=== PATIENT | male | born 1965 | race African-American/Black ===

== ENCOUNTER 2018-05-31 11:39 | Inpatient (IN) | payer MEDICAID ==
[~2018-05-31] VITALS: Ht 167.6 cm; Wt 83.9 kg
[~2018-05-31 11:39] MED LIST: ALBUTEROL2.5 MG/3 M INH; BISACODYL5 MG ORAL; COLISTIMETHATE150 MG TRANSTR092; COUMADIN10 MG GT; Cefepime HCl 2 GM in NS 110 ML IV SCH; DOCUSATE SODIU100 MG GT; DULCOLAX10 MG RC; GLUCAGON W/DILUE1 MG IM; HIBICLENS118 ML ORAL; HYDRALAZINE HCL10 MG GT; IBUPROFEN400 MG GT; INSULIN REGULAR SUBQ; KEPPRA500 MG GT; LACRI-LUBE1 APPLIC BOTH EYES; METOPROLOL TART50 MG ORAL; MILK OF MA400 MG/51 GT; MULTI-DELYN237 ML GT; MULTIVITAMINS1 EAC2 ORAL; NEXIUM40 MG GT; ONDANSETRON4 MG/2 M2 IM; PROSTAT SUGAR FREE GT; TYLENOL325 MG GT; ULTRAM50 MG GT; UTI-STAT L3875 MG/31 PO; VITAMIN C500 MG/11 GT; Vancomycin 1 GM in NS 275 ML IV ONE; ZINC SULFATE220 M1 GT; [UNRECOGNIZED DRUG - OTHER] MC
--- NOTE | 2018-05-31 11:39 | NUR ---
ED Nurse Note: Pt from [facility] brought in by ambulance due to SOB and low oxygen saturation. Per EMS, it was reported that the o2 saturation was going down d/t mucus from the trach and was relieved by suctioning the pt. Pt came in non verbal and unable to follow commands. Opens eyes spontaneously. Noted some white mucus from the trach opening. Sats 100% in room air. Also noted mild redness and drainage around G-tube site. Dr Parks aware. Noted wound in sacrum area.
[2018-05-31 11:45] VITALS: BP 101/74
[2018-05-31] MEDS ORDERED: Albuterol/Ipratropium 3ml neb HHN ONE (12:00)
--- NOTE | 2018-05-31 12:13 | NUR ---
ED Nurse Note: Blood, urine and CRE and Mrsa swab sent.
[2018-05-31 12:19] LABS: BASOPHILS % (AUTO) 1.2 % (0.0-2.0); EOSINOPHILS % (AUTO) 3.1 % (0.0-3.0); HEMATOCRIT 40.1 % (42.0-52.0); HEMOGLOBIN 13.5 G/DL (14.2-18.0); LYMPHOCYTES % (AUTO) 20.1 % (20.0-45.0); MEAN CORPUSCULAR VOLUME 93 FL (80-99); MONOCYTES % (AUTO) 7.3 % (1.0-10.0); NEUTROPHILS % (AUTO) 68.4 % (45.0-75.0); PLATELET COUNT 213 K/UL (150-450); RED CELL DISTRIBUTION WIDTH 12.7 % (11.6-14.8); WHITE BLOOD COUNT 7.8 K/UL (4.8-10.8)
[2018-05-31 12:27] LABS: APPEARANCE,URINE SLIGHTLY CLOUDY; BILIRUBIN, URINE NEGATIVE (NEGATIVE); COLOR,URINE PALE YELLOW; GLUCOSE, URINE (UA) NEGATIVE (NEGATIVE); KETONES,URINE NEGATIVE (NEGATIVE); LEUKOCYTE ESTERASE ,URINE 3+ (NEGATIVE); NITRITE,URINE POSITIVE (NEGATIVE); PH,URINE 8 (4.5-8.0); PROTEIN,URINE 2+ (NEGATIVE); UROBILINOGEN,URINE NORMAL MG/DL (0.0-1.0)
[2018-05-31 12:36] LABS: ANION GAP 8 mmol/L (5-15); BLOOD UREA NITROGEN 12 mg/dL (7-18); CALCIUM 9.4 MG/DL (8.5-10.1); CARBON DIOXIDE 29 MMOL/L (21-32); CHLORIDE 106 MMOL/L (98-107); CREATININE 0.9 MG/DL (0.55-1.30); POTASSIUM 3.5 MMOL/L (3.5-5.1); SODIUM 143 MMOL/L (136-145)
[2018-05-31 12:51] LABS: ALANINE AMINOTRANSFERASE 37 U/L (12-78); ALBUMIN 3.7 G/DL (3.4-5.0); ALBUMIN/GLOBULIN RATIO 0.9 (1.0-2.7); ALKALINE PHOSPHATASE 157 U/L (46-116); ASPARTATE AMINO TRANSFERASE 14 U/L (15-37); BILIRUBIN,TOTAL 0.3 MG/DL (0.2-1.0); CKMB 0.9 NG/ML (0.0-3.6); CREATINE KINASE 194 U/L (26-308)
[2018-05-31] MEDS ORDERED: Cefepime 2gm ONE (13:47)
[2018-05-31 14:00] VITALS: BP 110/80
[2018-05-31] MEDS ORDERED: COUMADIN5 MG ORAL (14:48)
[2018-05-31] MEDS ORDERED: TRILEPTAL600 MG PO (14:48)
[2018-05-31] MEDS ORDERED: KLONOPIN1 MG ORAL (14:48)
[2018-05-31] MEDS ORDERED: ATORVASTATIN CA20 MG ORAL (14:48)
[2018-05-31] MEDS ORDERED: ASCORBIC ACID500 MG ORAL (14:48)
[2018-05-31] MEDS ORDERED: FAMOTIDINE20 MG ORAL (14:48)
--- NOTE | 2018-05-31 14:52 | NUR ---
ED Nurse Note: Repeat lactic acid sent.
[2018-05-31] MEDS ORDERED: Vancomycin 1gm vial IVPB ONE (14:54)
--- NOTE | 2018-05-31 15:17 | NUR ---
Elena ayoub in EDM - 05/31/18 at 1520 by DEN ED Nurse Note: Report given to Sofia DUNBAR of [facility].
--- NOTE | 2018-05-31 15:17 | NUR ---
ED Nurse Note: Report given to Sofia DUNBAR of [facility]. Room in not ready at this time. ER Charge nruse notified.
[2018-05-31 15:39] VITALS: BP 106/78
[2018-05-31 16:00] VITALS: BP 135/76
--- NOTE | 2018-05-31 16:00 | NUR ---
NURSE NOTES: Patient admitted to [facility] room 241-2 under the care of Dr. Fair with admitting diagnosis of respiratory failure. Patient alert, nonverbal, tracks eyes but unable to follow commands. Sinus rhythm on cardiac cath lab manager. Trach to vent with settings of AC 14, TV 600, Fio2 40%, PEEP 5. No s/s of respiratory distress noted but patient has moderate, thick secretions. Tracheal suctioning provided. GT in place and flushed. Noted with sacral pressure ulcer. Right hand 20g saline lock patent and asymptomatic. Bed locked in lowest position with padded side rails up x 3. All needs attended to. Will continue to monitor. Dr. Fair contacted for admission orders.
--- NOTE | 2018-05-31 16:02 | Diagnostic Imaging Report ---
Indication: Shortness of breath Technique: One view of the chest Comparison: 01/31/2015 Findings: There is patchy atelectasis at the left lung base. The lungs and pleural spaces are otherwise clear. Normal heart size Impression: Left basilar atelectasis No acute process otherwise
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
[2018-05-31] MEDS: NovoLOG Insulin Flexpen SUBQ SCH (18:00)
[2018-05-31] MEDS: Docusate 100mg/10ml Liq GT SCH (18:25)
--- NOTE | 2018-05-31 19:15 | NUR ---
HAND-OFF: Report given to Meenu Fairchild RN.
[2018-05-31 20:00] VITALS: BP 111/52
--- NOTE | 2018-05-31 20:00 | NUR ---
NURSE NOTES: Patient Received from Xena DUNBAR. Patient alert, nonverbal, tracks eyes but unable to follow commands. Sinus rhythm on front desk monitor. Trach to vent with settings of AC 14, TV 600, Fio2 40%, PEEP 5. No s/s of respiratory distress noted but patient has moderate, thick secretions. Tracheal suctioning provided. GT in place and flushed. Noted with sacral pressure ulcer. Right hand 20g saline lock patent and asymptomatic. Bed locked in lowest position with padded side rails up x 3. All needs attended to. Will continue to monitor. Dr. Fair contacted for admission orders.
[2018-05-31] MEDS: Albuterol ud Inhalation HHN SCH (20:01)
[2018-05-31] MEDS: levETIRAcetam 500mg/5ml Liquid GT SCH (21:08)
[2018-05-31] MEDS: Lacosamide 50mg tablet ORAL SCH (21:08)
[2018-05-31] MEDS: Heparin 5000 units/ml inj SUBQ SCH (21:09)
[2018-05-31] MEDS: Cefepime HCl 1 GM in D5W 55 ML IVPB SCH (21:10)
[2018-06-01] VITALS: BP 140/68
--- NOTE | 2018-06-01 | NUR ---
NURSE NOTES: Patient repositioned, suctioned and provided oral care. NAD and vitals remains stable, glucose notoed to be 97, no coverage needed. New R wrist 20G inserted.
[2018-06-01] MEDS: Albuterol ud Inhalation HHN SCH ×4 (01:35→19:53)
--- NOTE | 2018-06-01 02:30 | History and Physical Report ---
DATE OF ADMISSION: 05/31/2018 This is the second admission to [facility] of this 53-year-old patient because of acute respiratory failure. HISTORY OF PRESENT ILLNESS: The patient is a resident of an extended care facility subacute unit. He has been in stable condition for more than one year. He is known to have severe chronic medical syndrome, but has been stable on the current medication. On the day of admission, the patient developed acute respiratory distress. His pO2 below 70 and respiratory rate above 30. He was transferred by paramedics to [facility] ER where he was found to have pulmonary sepsis . He received intensive respiratory therapy. He was given cefepime, vancomycin, and Flagyl as well as 1000 mL of normal saline and his condition stabilized. 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 Respirator dependent and fed by gastrostomy tube. ALLERGIES: No known drug allergies. MEDICATIONS: The patient is on levetiracetam 1500 mg q.12 h. and oxcarbazepine 600 mg b.i.d. He is on mg daily, metronidazole 500 mg IV piggyback q.8 h. He is on atorvastatin 10 mg daily, lacosamide 200 mg q.12 h., and clonazepam 1 mg q.12 h. He is on respiratory therapy with albuterol sulfate and ipratropium bromide inhalation therapy every four hours. FAMILY HISTORY: His mother is alive and in good health, and very involved in the patient's care. He has no brothers, no sisters, and has no children. SOCIAL HISTORY: He is . He was born in [place]. 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 HABITS: The patient did not smoke, drink, or use illicit drugs. REVIEW OF SYSTEMS: The patient is unable to give any information regarding his state of health. PHYSICAL EXAMINATION: VITAL SIGNS: Blood pressure is 125/70, pulse is 68, respirations 16, and temperature 97.7. HEENT: Eyes were normal. Pupils were round, equal, and reactive to light. Sclerae were white. Conjunctivae were pink. Extraocular movements were probably normal. Temporal arteries were palpable bilaterally. There was no bilateral temporal wasting. Visual nguyen to confrontation and neglect sign could not be assessed. ENT, mucous membranes were not dehydrated. Auditory canals were clear and tympanic membranes could not be visualized. Nasal cavity was not congested. Nasal septum was intact. Soft palate was free of ulcerations. Pharynx was clear from exudate or tonsillar hypertrophy. Uvula raheel to phonation. Tongue was moist, midline, and normally papillated. NECK: Supple. There was no goiter. No mass. No lymphadenopathy. There was no JVD. No bruits. Carotid upstroke was 2+. LUNGS: Clear. There is some rhonchi in the right lower lobe base posteriorly. HEART: PMI was fifth left intercostal space in midclavicular line. There was normal S1 and normal S2. There was no murmur. No arrhythmia. No S3. No S4. No pericardial rub. ABDOMEN: Soft and nontender without organomegaly. There were no masses palpable. Normal bowel sounds without bruits. There was no guarding. No rebound tenderness. No ascites. No hernia. No CVA tenderness. Liver span was 8 cm, mostly nontender. EXTREMITIES: No cyanosis, no clubbing, and no edema. Extremities were warm. NEUROLOGICAL: Reflexes in biceps, triceps, and brachioradialis were present. Patellar retinaculum were present. Plantar were declined. Cranial nerves II through XII were symmetric and equal. Cerebellar function, there was no tremor. No nystagmus. No extrapyramidal rigidity. Sensory exam to pinprick, cotton touch, position, and motor strength could not be assessed because of the patient's clinical status. LABORATORY AND DIAGNOSTIC DATA: Hemoglobin is 13.5, hematocrit is 40.1 with MCV of 93, WBC of 7.8, and platelets of 213,000. His BUN and creatinine is 12 and 0.9 respectively. His sodium is 143, potassium 3.5, chloride 105, CO2 is 29, his calcium was 9.4. His lactic acid was 2.3 at 11:40 a.m. today and 1.8 at 15:00 today. His albumin is 3.7 and total protein is 7.6. Troponin was not detected. His chest x-ray showed left basilar atelectasis. The rest of the study was normal. IMPRESSION AND PLAN: The patient with acute respiratory failure. He is on cefepime, vancomycin, and Flagyl. Pulmonary business info consultant and Infectious Disease business info consultant were called to assist in the management of this case. Repeat laboratory tests will be done in the a.m. Libby Fair M.D. DR: ANTONINO JOB#: [id number] CC:
[2018-06-01 04:00] VITALS: BP 102/62
--- NOTE | 2018-06-01 04:00 | NUR ---
NURSE NOTES: Patient repositioned and provided oral care, family at bedside. NAD at this time, patients Vitals remain stable. Will continue to monitor.
[2018-06-01] MEDS: NovoLOG Insulin Flexpen SUBQ SCH ×4 (05:58→18:13)
--- NOTE | 2018-06-01 06:00 | NUR ---
NURSE NOTES: Patient repositioned and provided oral care, family at bedside, collected urinalysis, and sent to lab.
[2018-06-01 06:27] LABS: BASOPHILS % (AUTO) 0.6 % (0.0-2.0); EOSINOPHILS % (AUTO) 3.2 % (0.0-3.0); HEMOGLOBIN 12.3 G/DL (14.2-18.0); LYMPHOCYTES % (AUTO) 13.8 % (20.0-45.0); MEAN CORPUSCULAR VOLUME 94 FL (80-99); MONOCYTES % (AUTO) 7.9 % (1.0-10.0); NEUTROPHILS % (AUTO) 74.5 % (45.0-75.0); PLATELET COUNT 194 K/UL (150-450); RED BLOOD COUNT 3.85 M/UL (4.70-6.10); RED CELL DISTRIBUTION WIDTH 12.6 % (11.6-14.8)
--- NOTE | 2018-06-01 06:45 | NUR ---
RESPIRATORY NOTE: Patient received on mechanical ventilator and is a trach patient with trach Portex 7. Patient is a full code, AMBU bag bedside, alarms are set and audible. Will continue to monitor patient and maintain a patent airway. Current vent settings AC 600, 14, 40%, +5.
[2018-06-01 06:59] LABS: ALANINE AMINOTRANSFERASE 35 U/L (12-78); ALBUMIN 3.4 G/DL (3.4-5.0); ALKALINE PHOSPHATASE 129 U/L (46-116); ANION GAP 10 mmol/L (5-15); ASPARTATE AMINO TRANSFERASE 16 U/L (15-37); BILIRUBIN,DIRECT 0.1 MG/DL (0.0-0.3); BILIRUBIN,TOTAL 0.7 MG/DL (0.2-1.0); BLOOD UREA NITROGEN 15 mg/dL (7-18); CALCIUM 9.2 MG/DL (8.5-10.1); CARBON DIOXIDE 24 MMOL/L (21-32); CHLORIDE 109 MMOL/L (98-107); CHOLESTEROL 93 MG/DL (< 200); CREATININE 0.9 MG/DL (0.55-1.30); HDL CHOLESTEROL 28 MG/DL (40-60); POTASSIUM 3.8 MMOL/L (3.5-5.1); SODIUM 143 MMOL/L (136-145); TRIGLYCERIDES 165 MG/DL (30-150)
--- NOTE | 2018-06-01 07:15 | NUR ---
NURSE NOTES: Received patient from MANJINDER Catherine. Patient in bed and able to open his eyes. Trach to vent dependent. color television console monitor in placed. Gtube in placed with Glucerna 1.2 at 55cc/hour x 20 hours. IV sites are asymptomatic. Bed in lowest position locked with side rails up. Will continue to follow plan of care.
[2018-06-01 07:16] LABS: APPEARANCE,URINE CLEAR; BILIRUBIN, URINE NEGATIVE (NEGATIVE); GLUCOSE, URINE (UA) NEGATIVE (NEGATIVE); KETONES,URINE NEGATIVE (NEGATIVE); LEUKOCYTE ESTERASE ,URINE 2+ (NEGATIVE); NITRITE,URINE POSITIVE (NEGATIVE); PH,URINE 8 (4.5-8.0); PROTEIN,URINE 1+ (NEGATIVE); UROBILINOGEN,URINE NORMAL MG/DL (0.0-1.0)
[2018-06-01 07:28] LABS: COLOR,URINE YELLOW
[2018-06-01 08:00] VITALS: BP 102/70
[2018-06-01] MEDS: Cefepime HCl 1 GM in D5W 55 ML IVPB SCH ×2 (08:20→21:06)
[2018-06-01] MEDS: Lacosamide 50mg tablet ORAL SCH ×2 (08:21→21:04)
[2018-06-01] MEDS: Ascorbic Acid 500mg tab GT SCH (08:21)
[2018-06-01] MEDS: Docusate 100mg/10ml Liq GT SCH ×2 (08:21→17:52)
[2018-06-01] MEDS: Multivitamins W/Minerals 15 ML UDC GT SCH (08:21)
[2018-06-01] MEDS: levETIRAcetam 500mg/5ml Liquid GT SCH ×2 (08:21→21:04)
[2018-06-01] MEDS: Heparin 5000 units/ml inj SUBQ SCH ×2 (08:23→21:08)
--- NOTE | 2018-06-01 08:41 | NUR ---
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 98.4, Resp. 20, O2Sat 100 on Mechanical Ventilator FIO2 40 upon arrival RBC 4.30, Hgb13.5, Hct 40.1, MCH 31.5, Eos% 3.1 CXR Impression: Left basilar atelectasis IS:Albuterol HHN Vancomycin HCI IV Cefepime HCI IV Metronidazole IV NS IV x1L SDU Status Dc plan return to [facility]
--- NOTE | 2018-06-01 09:41 | NUR ---
RD ASSESSMENT & RECOMMENDATIONS SEE CARE ACTIVITY FOR COMPLETE ASSESSMENT DAILY ESTIMATED NEEDS: Needs based on Critical Care, wounds/ 73kg abw 22-30 kcals/kg 5793-8238 total kcals 1.25-2 g protein/kg 91-146 g total protein 25-30 mL/kg 5139-3952 total fluid mLs NUTRITION DIAGNOSIS: * Swallowing difficulty R/T dysphagia, respiratory status as evidenced by pt is trach/vent dep, PEG dep. * Increased kcal/prot needs R/T wound healing as evidenced by pt admitted w/ sacral open wound, pending evaluation. CURRENT TF:Glucerna 1.2 @ 55ml/hr x 20 hrs ENTERAL NUTRITION RECOMMENDATIONS: Glucerna 1.2 @ 60ml/hr x 24 hrs + Prosource 1pkt QD to provide 1440ml, 1728kcal, 86g + 11g prot, 1159ml free water * Rec to increase rate and run time to 60ml/hr x 24 hrs * Add Prosource 1pkt QD to meet protein needs * HOB over 30 degrees/ water flush per MD. ADDITIONAL RECOMMENDATIONS: * Per SNF, HT=5'8", JQ=421 lbs (from May 2018) * Re-calibrate bedscale, obtain weekly wts * Wound healing: Add Richar 1pkt BID * Monitor lytes, replete as needed
[2018-06-01 12:00] VITALS: BP 100/73
--- NOTE | 2018-06-01 13:16 | NUR ---
NURSE NOTES:WOUND CARE NOTES:Pt presented on admission resolving pressure injury .Keloid scarring with hyperpigmentation noted to sacrum with few scattered pinhead partial thickness openings throughout base of sacrum . Per pt's family pt had pressure injury for about 4 years and stated wound is reopens on and off. Bilat foot drop noted .Botrh heels are firm and easily blanchable. Tx.Plan: Apply Moisture Barrier to sacrum. Cover with Optifoam drsg every 3 days and prn. Apply Cavilon to both heels .Off-Load heels with Pillow. Reposition at least every 2hours or as tolerated. APM/Lauren mattress.
--- NOTE | 2018-06-01 13:25 | Pulmonolgy Critical Care Note ---
Critical Care - Asmt/Plan Problems: (1) Acute on chronic renal insufficiency (2) Chronic respiratory failure (3) Tracheostomy present (4) Seizure after head injury (5) Feeding by G-tube Respiratory: monitor respiratory rate, adjust FIO2, CXR Cardiac: continue to monitor HR/BP Renal: F/U I&O Infectious Disease: check cultures, continue antibiotics Gastrointestinal: continue feedings/current rate Endocrine: monitor blood sugar, check HgA1C Hematologic: transfuse if hgb<8.5 Neurologic: PRN Morphine, keep patient comfortable Affect: PRN ativan Prophylaxis: Heparin Notes Reviewed: desktop operator, cardio, renal Discussed with: nurses, consultants, caser upfunctional manager - Objective Last 24 Hour Vital Signs Date Time Temp Pulse Resp B/P (MAP) Pulse Ox O2 Delivery O2 Flow Rate FiO2 06/01/18 13:01 77 16 99 Mechanical Ventilator 40 06/01/18 13:00 77 16 40 06/01/18 12:00 40 06/01/18 12:00 Mechanical Ventilator 06/01/18 12:00 98.8 72 14 100/73 (82) 100 06/01/18 11:19 81 14 40 06/01/18 09:13 68 14 40 06/01/18 08:00 Mechanical Ventilator 06/01/18 08:00 98.7 70 15 102/70 (81) 100 06/01/18 08:00 40 06/01/18 07:42 72 06/01/18 07:25 69 16 99 Mechanical Ventilator 40 06/01/18 07:14 71 15 99 Mechanical Ventilator 40 06/01/18 07:05 71 15 40 06/01/18 05:04 78 15 40 06/01/18 04:00 82 06/01/18 04:00 98.4 88 24 102/62 (75) 100 06/01/18 04:00 40 06/01/18 04:00 Mechanical Ventilator 06/01/18 02:59 68 14 40 06/01/18 01:44 76 14 99 Mechanical Ventilator 40 06/01/18 01:35 71 14 40 06/01/18 01:35 70 14 99 Mechanical Ventilator 40 06/01/18 00:00 97.6 82 22 140/68 (92) 97 06/01/18 00:00 Mechanical Ventilator 06/01/18 00:00 87 05/31/18 23:19 73 15 40 05/31/18 21:16 75 15 40 05/31/18 20:10 79 16 100 Mechanical Ventilator 40 05/31/18 20:01 74 14 99 Mechanical Ventilator 40 05/31/18 20:00 40 05/31/18 20:00 98.6 90 32 111/52 (71) 98 05/31/18 20:00 75 05/31/18 20:00 Mechanical Ventilator 05/31/18 19:05 67 17 40 05/31/18 17:37 87 14 40 05/31/18 16:27 67 05/31/18 16:04 Mechanical Ventilator 05/31/18 16:00 97.7 68 16 135/76 (95) 100 05/31/18 15:41 97.7 80 15 106/78 100 Mechanical Ventilator 40 05/31/18 15:39 97.7 80 15 106/78 100 Mechanical Ventilator 40 05/31/18 15:36 89 14 40 05/31/18 14:14 86 14 40 05/31/18 14:00 84 17 110/80 100 Mechanical Ventilator 40 Status: awake Condition: critical HEENT: atraumatic Lungs: clear, chest wall tender Heart: HR/BP unstable Extremities: edema Decubiti: location Micro: Microbiology Date/Time Source Procedure Growth Status 05/31/18 12:10 Urine,Clean Catch Urine Culture - Preliminary NO GROWTH Resulted Accucheck: 99 Critical Care - Subjective ROS Limited/Unobtainable: Yes FI02: 40 Vent Support Breath Rate: 14 Vent Support Mode: AC Vent Tidal Volume: 600 Sputum Amount: Small PEEP: 5.0 PIP: 29 Tube Feeding Amount: 55 I&O: Intake and Output 05/31/18 06/01/18 19:00 07:00 Intake Total 1275 ml 750 ml Output Total 200 ml 600 ml Balance 1075 ml 150 ml IV Total 1210 ml 255 ml Tube Feeding 15 ml 395 ml Other 50 ml 100 ml Output Urine Total 200 ml 600 ml # Voids 1 CXR: GLADYS Labs: Laboratory Tests Test 05/31/18 13:30 05/31/18 15:00 06/01/18 03:40 06/01/18 06:00 Arterial Blood pH 7.509 (7.350-7.450) Arterial Blood Partial Pressure CO2 30.8 mmHg (35.0-45.0) L Arterial Blood Partial Pressure O2 149.4 mmHg (75.0-100.0) H Arterial Blood HCO3 24.0 mmol/L (22.0-26.0) Arterial Blood Oxygen Saturation 99.0 % (95-100) Arterial Blood Base Excess 1.7 (-2-2) Obie Test Positive Lactic Acid Level 1.80 mmol/L (0.66-2.22) White Blood Count 9.0 K/UL (4.8-10.8) Red Blood Count 3.85 M/UL (4.70-6.10) L Hemoglobin 12.3 G/DL (14.2-18.0) L Hematocrit 36.0 % (42.0-52.0) L Mean Corpuscular Volume 94 FL (80-99) Mean Corpuscular Hemoglobin 32.0 PG (27.0-31.0) H Mean Corpuscular Hemoglobin Concent 34.2 G/DL (32.0-36.0) Red Cell Distribution Width 12.6 % (11.6-14.8) Platelet Count 194 K/UL (150-450) Mean Platelet Volume 9.8 FL (6.5-10.1) Neutrophils (%) (Auto) 74.5 % (45.0-75.0) Lymphocytes (%) (Auto) 13.8 % (20.0-45.0) L Monocytes (%) (Auto) 7.9 % (1.0-10.0) Eosinophils (%) (Auto) 3.2 % (0.0-3.0) H Basophils (%) (Auto) 0.6 % (0.0-2.0) Erythrocyte Sedimentation Rate 35 MM/HR (0-20) H Sodium Level 143 MMOL/L (136-145) Potassium Level 3.8 MMOL/L (3.5-5.1) Chloride Level 109 MMOL/L (98-107) H Carbon Dioxide Level 24 MMOL/L (21-32) Anion Gap 10 mmol/L (5-15) Blood Urea Nitrogen 15 mg/dL (7-18) Creatinine 0.9 MG/DL (0.55-1.30) Estimat Glomerular Filtration Rate > 60 mL/min (>60) Glucose Level 96 MG/DL (74-106) Hemoglobin A1c 5.2 % (4.3-6.0) Calcium Level 9.2 MG/DL (8.5-10.1) Total Bilirubin 0.7 MG/DL (0.2-1.0) Direct Bilirubin 0.1 MG/DL (0.0-0.3) Aspartate Amino Transf (AST/SGOT) 16 U/L (15-37) Alanine Aminotransferase (ALT/SGPT) 35 U/L (12-78) Alkaline Phosphatase 129 U/L (46-116) H Total Protein 7.0 G/DL (6.4-8.2) Albumin 3.4 G/DL (3.4-5.0) Triglycerides Level 165 MG/DL (30-150) H Cholesterol Level 93 MG/DL (< 200) LDL Cholesterol 45 mg/dL (<100) HDL Cholesterol 28 MG/DL (40-60) L Cholesterol/HDL Ratio 3.3 (3.3-4.4) Urine Color Yellow Urine Appearance Clear Urine pH 8 (4.5-8.0) Urine Specific [place] 1.010 (1.005-1.035) Urine Protein 1+ (NEGATIVE) H Urine Glucose (UA) Negative (NEGATIVE) Urine Ketones Negative (NEGATIVE) Urine Blood 2+ (NEGATIVE) H Urine Nitrite Positive (NEGATIVE) H Urine Bilirubin Negative (NEGATIVE) Urine Urobilinogen Normal MG/DL (0.0-1.0) Urine Leukocyte Esterase 2+ (NEGATIVE) H Urine RBC 5-10 /HPF (0 - 0) H Urine WBC 10-15 /HPF (0 - 0) H Urine Squamous Epithelial Cells Occasional /LPF Urine Bacteria Few /HPF (NONE) Amanda Combs MD Jun 01, 2018 13:25
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
[2018-06-01 16:00] VITALS: BP 102/67
[2018-06-01] MEDS ORDERED: Sterile Water Irrig 1000ml IRRIG ONE (16:36)
[2018-06-01] MEDS ORDERED: D5W 550ml IV ONE (16:36)
[2018-06-01] MEDS ORDERED: Tubing IV Secondary IV ONE (16:36)
[2018-06-01] MEDS ORDERED: NS 275ml ONE (16:36)
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
--- NOTE | 2018-06-01 19:30 | NUR ---
HAND-OFF: Report given to MANJINDER Wise.
--- NOTE | 2018-06-01 19:31 | NUR ---
NURSE NOTES: Received bedside report from MANJINDER Montgomery. Pt is nonverbal, opens eyes spontaneously, withdraws from pain. grape cutter shows NSR @ 60. Portex 8, AC 16, TV 600, FIO2 40, PEEP 5; sating well. GT running Glucerna 1.2 @ 55; no residual. No BM since admission. Condom cath intact, draining. Accuchek Q6 next one due at [place]. Skin is clean and dry, dressings intact. RH 22, RW 20; asymptomatic. Patients labs OK. Bed is locked in lowest position, side rails x3, sz precautions continued
[2018-06-01 20:00] VITALS: BP 100/60
[2018-06-02] VITALS: BP 105/65
[2018-06-02] MEDS: Albuterol ud Inhalation HHN SCH ×4 (01:08→19:17)
[2018-06-02 04:00] VITALS: BP 100/70
--- NOTE | 2018-06-02 04:15 | Progress Note ---
DATE: 06/01/2018 SUBJECTIVE: The patient is awake, alert, afebrile, and hemodynamically stable. PHYSICAL EXAMINATION: VITAL SIGNS: Blood pressure is 100/60, pulse is 70, respirations 14, and temperature was 97.7. HEENT: Eyes were normal. ENT, mucous membranes were moist and intact. NECK: Supple with no JVD without lymph nodes. Tracheostomy site is clean. LUNGS: Clear without rhonchi, rales, or wheezing. Secretions are small, thin, and figueroa. HEART: Normal sounds with regular beats. There is no S3, S4, or pericardial rub. ABDOMEN: Soft and nontender with normal bowel sounds. Gastrostomy site is clean. EXTREMITIES: Warm without cyanosis, clubbing, or edema. LABORATORY DATA: Hemoglobin is 12.3, hematocrit 36.2 with MCV of 94, WBC of 9.0, and platelets 194,000. His BUN and creatinine is 16 and 0.9 respectively. His sodium is 143, potassium 3.8, chloride 109, CO2 24, and calcium is 9.2. His albumin is 3.4. His total protein is 7.0. . Triglycerides 165, HDL is 98 and LDL is 45. Urinalysis shows WBC of 10 to 15, RBC of 5 to 10, leukocyte esterase is 2+. Chest x-ray done shows left lower lobe atelectasis. IMPRESSION: The patient is in stable condition. He is afebrile and hemodynamically stable. Left lower lobe atelectasis. PLAN: The patient's chest x-ray will be repeated. CBC and BMP will be taken in a.m. as well. Libby Fair M.D. DR: HYUN JOB#: [id number] CC:
--- NOTE | 2018-06-02 07:21 | NUR ---
HAND-OFF: Report given to MANJINDER Art. Pt is stable, resting in bed, no s/s of distress noted.
--- NOTE | 2018-06-02 07:37 | NUR ---
NURSE NOTES: Report received from MANJINDER Wise. Observed patient in bed. Open eyes spontaneously but non-verbal. On ventilator with previous setting and tolerated well. No s/s of pain at this time. IV site intact and patent. GT site intact with ongoing feeding. HOB elevated. Condom cath intact and draining well. Bed in lowest position. Call light within reach. Will continue to monitor.
[2018-06-02 07:38] LABS: BASOPHILS % (AUTO) 0.9 % (0.0-2.0); EOSINOPHILS % (AUTO) 3.2 % (0.0-3.0); HEMATOCRIT 37.3 % (42.0-52.0); HEMOGLOBIN 12.6 G/DL (14.2-18.0); LYMPHOCYTES % (AUTO) 18.2 % (20.0-45.0); MEAN CORPUSCULAR VOLUME 93 FL (80-99); MONOCYTES % (AUTO) 8.7 % (1.0-10.0); PLATELET COUNT 185 K/UL (150-450); RED BLOOD COUNT 4.01 M/UL (4.70-6.10); RED CELL DISTRIBUTION WIDTH 13.1 % (11.6-14.8)
[2018-06-02 08:00] VITALS: BP 97/65
[2018-06-02 08:05] LABS: ALANINE AMINOTRANSFERASE 29 U/L (12-78); ALBUMIN 3.3 G/DL (3.4-5.0); ALBUMIN/GLOBULIN RATIO 0.9 (1.0-2.7); ALKALINE PHOSPHATASE 138 U/L (46-116); ANION GAP 12 mmol/L (5-15); ASPARTATE AMINO TRANSFERASE 14 U/L (15-37); BILIRUBIN,TOTAL 0.4 MG/DL (0.2-1.0); BLOOD UREA NITROGEN 14 mg/dL (7-18); CALCIUM 9.1 MG/DL (8.5-10.1); CARBON DIOXIDE 23 MMOL/L (21-32); CHLORIDE 108 MMOL/L (98-107); CREATININE 0.9 MG/DL (0.55-1.30); PHOSPHORUS 2.8 MG/DL (2.5-4.9); POTASSIUM 3.7 MMOL/L (3.5-5.1); SODIUM 143 MMOL/L (136-145)
[2018-06-02] MEDS: Lacosamide 50mg tablet ORAL SCH ×2 (08:19→20:45)
[2018-06-02] MEDS: Ascorbic Acid 500mg tab GT SCH (08:19)
[2018-06-02] MEDS: Cefepime HCl 1 GM in D5W 55 ML IVPB SCH ×2 (08:19→20:48)
[2018-06-02] MEDS: levETIRAcetam 500mg/5ml Liquid GT SCH ×2 (08:20→20:44)
[2018-06-02] MEDS: Docusate 100mg/10ml Liq GT SCH ×2 (08:20→18:04)
[2018-06-02] MEDS: Multivitamins W/Minerals 15 ML UDC GT SCH (08:20)
[2018-06-02] MEDS: Heparin 5000 units/ml inj SUBQ SCH ×2 (08:21→20:45)
--- NOTE | 2018-06-02 10:29 | Diagnostic Imaging Report ---
INDICATION: Shortness of breath COMPARISON: Chest x-ray dated 05/31/18 FINDINGS: Single frontal view demonstrates a tracheostomy. A normal cardiomediastinal silhouette. Increasing opacity within the left lower lung zone. The visualized osseous structures are within normal limits. IMPRESSION: Tracheostomy. Increasing opacity in the left lower lung zone.
[2018-06-02 12:00] VITALS: BP 93/64
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
[2018-06-02 16:00] VITALS: BP 102/61
--- NOTE | 2018-06-02 19:18 | NUR ---
HAND-OFF: Report given to MANJINDER Wise. Stable condition.
--- NOTE | 2018-06-02 19:19 | NUR ---
NURSE NOTES: Received bedside report from MANJINDER Art. Pt is nonverbal, opens eyes spontaneously, withdraws from pain. senior art director shows NSR @ 68. Portex 8, AC 16, TV 600, FIO2 40, PEEP 5; sating well. GT running Glucerna 1.2 @ 55; no residual. No BM since admission. Condom cath intact, draining. Accuchek Q6 next one due at [place]. Skin is clean and dry, dressings intact. RW 20; asymptomatic. Patients labs OK. Bed is locked in lowest position, side rails x3, sz precautions continued, family at bedside, pt turned, call [place] within reach. Will continue to monitor and follow w/ plan of care.
[2018-06-02 20:00] VITALS: BP 102/60
[2018-06-02 21:51] LABS: BASOPHILS % (AUTO) 0.7 % (0.0-2.0); EOSINOPHILS % (AUTO) 3.5 % (0.0-3.0); HEMATOCRIT 38.9 % (42.0-52.0); HEMOGLOBIN 13.2 G/DL (14.2-18.0); LYMPHOCYTES % (AUTO) 20.1 % (20.0-45.0); MEAN CORPUSCULAR VOLUME 92 FL (80-99); MONOCYTES % (AUTO) 6.8 % (1.0-10.0); NEUTROPHILS % (AUTO) 68.9 % (45.0-75.0); PLATELET COUNT 202 K/UL (150-450); RED BLOOD COUNT 4.22 M/UL (4.70-6.10); RED CELL DISTRIBUTION WIDTH 12.9 % (11.6-14.8); WHITE BLOOD COUNT 9.1 K/UL (4.8-10.8)
[2018-06-02 22:22] LABS: ANION GAP 8 mmol/L (5-15); BLOOD UREA NITROGEN 13 mg/dL (7-18); CALCIUM 8.7 MG/DL (8.5-10.1); CARBON DIOXIDE 26 MMOL/L (21-32); CHLORIDE 107 MMOL/L (98-107); CREATININE 0.9 MG/DL (0.55-1.30); POTASSIUM 3.4 MMOL/L (3.5-5.1); SODIUM 141 MMOL/L (136-145)
[2018-06-03] VITALS: BP 99/62
[2018-06-03] MEDS: Albuterol ud Inhalation HHN SCH ×4 (01:22→18:59)
[2018-06-03 04:00] VITALS: BP 118/52
--- NOTE | 2018-06-03 07:08 | NUR ---
RESPIRATORY NOTE: Patient received mechanically ventilated on PB 840 with current ordered vent settings. Patient has trach size #7.0 Portex that is secured with a trach tie and guard. Breath sounds are clear and small amount of thin clear secretions were suctioned via inline suction system without incident. Vent alarms are functional and audible. There is an ambu bag available at the bedside and the vent is connected to a red outlet. Patient appears comfortable at this time. Will continue to monitor.
--- NOTE | 2018-06-03 07:23 | NUR ---
HAND-OFF: Report given to MANJINDER Art.
--- NOTE | 2018-06-03 07:45 | NUR ---
NURSE NOTES: Pt received from Billie Bull RN. Pt is obtunded, in no cardiopulmonary distress. Trach to vent Portex 7 AC 14 TV 600 FiO2 40 Peep 5. GT noted running Glucerna 1.2 at 55cc/hr. Condom cath noted draining yellow urine. R wrist 20g IV noted and patent. Pt is on seizure precautions with seizure pads to side rails. Skin alterations noted. Bed in lowest position, side rails up x 3. Call light within reach. Will continue to monitor pt.
[2018-06-03 08:00] VITALS: BP 95/64
[2018-06-03] MEDS: Cefepime HCl 1 GM in D5W 55 ML IVPB SCH ×2 (08:20→20:46)
[2018-06-03 08:21] LABS: EOSINOPHILS % (AUTO) 3.5 % (0.0-3.0); HEMATOCRIT 38.5 % (42.0-52.0); HEMOGLOBIN 13.2 G/DL (14.2-18.0); LYMPHOCYTES % (AUTO) 14.6 % (20.0-45.0); MEAN CORPUSCULAR VOLUME 93 FL (80-99); MONOCYTES % (AUTO) 7.7 % (1.0-10.0); NEUTROPHILS % (AUTO) 73.3 % (45.0-75.0); PLATELET COUNT 213 K/UL (150-450); RED BLOOD COUNT 4.16 M/UL (4.70-6.10); WHITE BLOOD COUNT 7.4 K/UL (4.8-10.8)
[2018-06-03] MEDS: Lacosamide 50mg tablet ORAL SCH ×2 (08:21→20:45)
[2018-06-03] MEDS: Ascorbic Acid 500mg tab GT SCH (08:21)
[2018-06-03] MEDS: Docusate 100mg/10ml Liq GT SCH ×2 (08:21→17:16)
[2018-06-03] MEDS: Multivitamins W/Minerals 15 ML UDC GT SCH (08:22)
[2018-06-03] MEDS: levETIRAcetam 500mg/5ml Liquid GT SCH ×2 (08:22→20:44)
[2018-06-03] MEDS: Heparin 5000 units/ml inj SUBQ SCH ×2 (08:23→20:49)
[2018-06-03 09:34] LABS: ALANINE AMINOTRANSFERASE 35 U/L (12-78); ALBUMIN 3.3 G/DL (3.4-5.0); ALBUMIN/GLOBULIN RATIO 0.9 (1.0-2.7); ALKALINE PHOSPHATASE 150 U/L (46-116); ANION GAP 9 mmol/L (5-15); ASPARTATE AMINO TRANSFERASE 21 U/L (15-37); BILIRUBIN,TOTAL 0.3 MG/DL (0.2-1.0); BLOOD UREA NITROGEN 13 mg/dL (7-18); CARBON DIOXIDE 25 MMOL/L (21-32); CHLORIDE 108 MMOL/L (98-107); CREATININE 0.8 MG/DL (0.55-1.30); POTASSIUM 3.9 MMOL/L (3.5-5.1); SODIUM 142 MMOL/L (136-145)
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
[2018-06-03 12:00] VITALS: BP 96/60
--- NOTE | 2018-06-03 12:45 | NUR ---
CASE MANAGEMENT: REVIEW 06/03/2018 SI:RESPIRATORY FAILURE. T 98.8 HR 70 RR 14 B/P 95/64 SATS 99% ON MECH VENT FiO2 40 CL 108 GLU 113 ALP 150 IS: CEFEPIME Q12H KLONOPIN GT Q12H TRILEPTAL GT BID PREVACID GT QD VIMPAT POQ12H KEPPRA GT Q12H STEP DOWN UNIT DCP: PATIENT TO BE DISCHARGED TO SNF ONCE MEDICALLY CLEARED. PLAN OF CARE: IV ANTIBx
[2018-06-03 16:00] VITALS: BP 99/62
[2018-06-03] MEDS ORDERED: NS 275ml ONE (17:24)
[2018-06-03] MEDS ORDERED: NS 500ML ONE (17:24)
--- NOTE | 2018-06-03 19:09 | NUR ---
HAND-OFF: Report given to MANJINDER Wise. Pt in stable condition. No cardiopulmonary distress noted. Bed in lowest position. Side rails up x 2. Call light within reach.
--- NOTE | 2018-06-03 19:10 | NUR ---
NURSE NOTES: Received bedside report from MANJINDER Art. Pt is nonverbal, opens eyes spontaneously, withdraws from pain. secured entrance monitor shows NSR. Portex 8, AC 16, TV 600, FIO2 40, PEEP 5; sating well. GT running Glucerna 1.2 @ 55; no residual. Small BM today. Condom cath intact, draining. Skin is clean and dry, dressings intact. RW 20; asymptomatic. Patients labs OK. Bed is locked in lowest position, side rails x3, sz precautions continued, family at bedside, pt turned, call [place] within reach. Will continue to monitor and follow w/ plan of care.
[2018-06-03 20:00] VITALS: BP 107/64
[2018-06-04] VITALS: BP 110/65
[2018-06-04] MEDS: Albuterol ud Inhalation HHN SCH ×4 (00:12→19:13)
--- NOTE | 2018-06-04 02:00 | Progress Note ---
DATE: 06/03/2018 SUBJECTIVE: The patient is awake, obtunded, afebrile, and hemodynamically stable. PHYSICAL EXAMINATION: VITAL SIGNS: Blood pressure 107/64, his pulse is 78, respirations were 14, and temperature 98.8. HEENT: Eyes were normal. ENT, mucous membranes were moist and intact. NECK: Supple with no JVD without lymph nodes. Tracheostomy site is clean. LUNGS: Clear without rhonchi, rales, or wheezing. Secretions are small, thin, and figueroa. HEART: Normal sounds with regular beats. There is no S3, S4, or pericardial rub. ABDOMEN: Soft and nontender with normal bowel sounds. Gastrostomy site is clean. EXTREMITIES: Warm without cyanosis, clubbing, or edema. LABORATORY AND DIAGNOSTIC DATA: His hemoglobin is 13.2, hematocrit 38.9, MCV of 93, WBC of 7.4, and platelets is 213,000. The patient has of 3.5%. His BUN and creatinine is 13 and 0.8 respectively. His sodium is 142, potassium 3.9, chloride 108, and CO2 is 25. His calcium is 9. SGOT and SGPT are normal. Albumin is 3.3 and total protein is 7. IMPRESSION: The patient is asymptomatic. No fever and no leukocytosis. His chest x-ray showed increase in infiltrate. However, this might be due to improved hydration. PLAN: The patient will undergo CBC, BMP, and chest x-ray in the a.m. Because the patient's condition is improving, he can be discharged back to the extended care facility. Libby Fair M.D. DR: SIN JOB#: [id number] CC:
[2018-06-04 04:00] VITALS: BP 101/61
[2018-06-04 06:06] LABS: BASOPHILS % (AUTO) 0.6 % (0.0-2.0); HEMATOCRIT 37.4 % (42.0-52.0); HEMOGLOBIN 12.8 G/DL (14.2-18.0); LYMPHOCYTES % (AUTO) 16.4 % (20.0-45.0); MEAN CORPUSCULAR VOLUME 93 FL (80-99); MONOCYTES % (AUTO) 8.9 % (1.0-10.0); NEUTROPHILS % (AUTO) 70.1 % (45.0-75.0); PLATELET COUNT 207 K/UL (150-450); RED BLOOD COUNT 4.03 M/UL (4.70-6.10); RED CELL DISTRIBUTION WIDTH 12.9 % (11.6-14.8); WHITE BLOOD COUNT 7.3 K/UL (4.8-10.8)
[2018-06-04 06:19] LABS: ANION GAP 11 mmol/L (5-15); BLOOD UREA NITROGEN 14 mg/dL (7-18); CALCIUM 9.1 MG/DL (8.5-10.1); CARBON DIOXIDE 25 MMOL/L (21-32); CHLORIDE 107 MMOL/L (98-107); CREATININE 0.9 MG/DL (0.55-1.30); POTASSIUM 3.5 MMOL/L (3.5-5.1); SODIUM 143 MMOL/L (136-145)
--- NOTE | 2018-06-04 07:30 | NUR ---
NURSE NOTES: Received patient from Benson Bull RN. Patient was awake with flat affect, non-verbal. Trach to vent settings Portex 7, AC 14, TV 600, FiO2 40%, PEEP 5. No respiratory distress noted. GT feeding of Glucerna 1.2 running at 55cc/hr, noted with residual of 40ml. Condom catheter is intact. IV on right wrist is patent and asymptomatic. Bed locked in lowest position with padded side rails up x3, and head of bed raised. All needs attended to, will continue to monitor.
--- NOTE | 2018-06-04 07:31 | NUR ---
HAND-OFF: Report given to MANJINDER Mccallum.
[2018-06-04 08:00] VITALS: BP 108/59
--- NOTE | 2018-06-04 08:43 | NUR ---
RADIOLOGY DEPT CHEST X-RAY DONE.-P.DYE
[2018-06-04] MEDS: Heparin 5000 units/ml inj SUBQ SCH ×2 (08:50→20:35)
[2018-06-04] MEDS: Docusate 100mg/10ml Liq GT SCH ×2 (08:51→17:45)
[2018-06-04] MEDS: Lacosamide 50mg tablet ORAL SCH ×2 (08:51→20:34)
[2018-06-04] MEDS: levETIRAcetam 500mg/5ml Liquid GT SCH ×2 (08:51→20:34)
[2018-06-04] MEDS: Ascorbic Acid 500mg tab GT SCH (08:51)
[2018-06-04] MEDS: Multivitamins W/Minerals 15 ML UDC GT SCH (08:52)
[2018-06-04] MEDS: Cefepime HCl 1 GM in D5W 55 ML IVPB SCH (08:52)
--- NOTE | 2018-06-04 09:40 | NUR ---
REHAB MED PT NOTE PATIENT NOT APPROPRIATE FOR PT AT THIS TIME, DC PT ORDERS. NO SKILLED NEEDS.
--- NOTE | 2018-06-04 11:04 | Diagnostic Imaging Report ---
Indication: Dyspnea Technique: One view of the chest Comparison: 06/02/2018 Findings: Left-sided pleural effusion, thickening of the right minor fissure. Tracheostomy persists, unchanged. No new infiltrates. There is mild central bronchial wall thickening. Impression: Unchanged, over one day, findings as above.
[2018-06-04 12:00] VITALS: BP 91/61
--- NOTE | 2018-06-04 12:00 | Progress Note ---
DATE: 06/02/2018 SUBJECTIVE: The patient is afebrile and hemodynamically stable. PHYSICAL EXAMINATION: VITAL SIGNS: Blood pressure 102/61, pulse 65, respirations 14, and temperature 97.9 degrees. HEENT: Eyes were normal. ENT, mucous membranes were moist and intact. NECK: Supple with no JVD without lymph nodes. Tracheostomy site is clean. LUNGS: Clear without rhonchi, rales, or wheezing. HEART: Normal sounds with regular heartbeat. ABDOMEN: Gastrostomy site is clean. EXTREMITIES: Warm without cyanosis, clubbing, or edema. LABORATORY DATA: Hemoglobin is 13.2, hematocrit 38.9 with MCV of 92, WBC of 9.3, and platelet count 202,000. His BUN and creatinine are 14 and 0.9 respectively, his sodium is 143, potassium 3.2, chloride 102, CO2 of 23, his calcium is 9.1, 02:03 his albumin is 3.3, and total protein is 6.9. 03:49. IMPRESSION AND PLAN: The patient clinically has substantially improved. The patient is afebrile, hemodynamically stable without leukocytosis. The patient appeared to be clinically deteriorated. CBC and BMP will be done in a.m. Sputum culture will be done as well if it is not done. Libby Fair M.D. DR: ARSENIO JOB#: [id number] CC:
--- NOTE | 2018-06-04 12:45 | Pulmonolgy Critical Care Note ---
Critical Care - Asmt/Plan Problems: (1) Acute on chronic renal insufficiency (2) Chronic respiratory failure (3) Tracheostomy present (4) Seizure after head injury (5) Feeding by G-tube Respiratory: monitor respiratory rate, adjust FIO2, CXR Cardiac: continue to monitor HR/BP Renal: F/U I&O Infectious Disease: check cultures, continue antibiotics Gastrointestinal: continue feedings/current rate Hematologic: monitor H/H Neurologic: PRN Ativan Affect: PRN ativan Prophylaxis: Heparin Notes Reviewed: renal Discussed with: nurses, consultants, shelter case manager, family member - daughter at the bed site Critical Care - Objective Last 24 Hour Vital Signs Date Time Temp Pulse Resp B/P (MAP) Pulse Ox O2 Delivery O2 Flow Rate FiO2 06/04/18 12:00 40 06/04/18 09:42 72 14 40 06/04/18 08:00 98.1 71 16 108/59 (75) 100 06/04/18 08:00 Mechanical Ventilator 06/04/18 08:00 40 06/04/18 07:23 64 14 100 Mechanical Ventilator 40 06/04/18 07:23 66 06/04/18 07:15 66 14 100 Mechanical Ventilator 40 06/04/18 07:13 68 14 40 06/04/18 05:05 74 15 40 06/04/18 04:00 Mechanical Ventilator 06/04/18 04:00 64 06/04/18 04:00 40 06/04/18 04:00 98.1 67 14 101/61 (74) 100 06/04/18 02:53 73 15 40 06/04/18 01:12 69 14 40 06/04/18 00:20 68 14 100 Mechanical Ventilator 40 06/04/18 00:12 65 14 100 Mechanical Ventilator 40 06/04/18 00:00 Mechanical Ventilator 06/04/18 00:00 98.9 68 14 110/65 (80) 100 06/04/18 00:00 65 06/03/18 23:47 65 14 40 06/03/18 20:59 67 15 40 06/03/18 20:00 Mechanical Ventilator 06/03/18 20:00 78 06/03/18 20:00 98.8 67 14 107/64 (78) 100 06/03/18 20:00 40 06/03/18 19:09 65 14 100 Mechanical Ventilator 40 06/03/18 19:00 62 14 100 Mechanical Ventilator 40 06/03/18 18:59 62 14 40 06/03/18 16:32 73 15 40 06/03/18 16:00 73 06/03/18 16:00 98.5 68 14 99/62 (74) 100 06/03/18 16:00 Mechanical Ventilator 06/03/18 16:00 40 06/03/18 14:46 71 16 40 06/03/18 13:21 73 16 100 Mechanical Ventilator 40 06/03/18 13:11 73 14 100 Mechanical Ventilator 40 Status: somnolent Condition: critical Neck: full ROM Lungs: clear Heart: HR/BP stable, regular Abdomen: active bowel sounds Extremities: edema Decubiti: location Micro: Microbiology Date/Time Source Procedure Growth Status 06/03/18 08:35 Nasal Nares Left Influenza Types A,B Antigen (EDY) - Final Complete Accucheck: 118 Critical Care - Subjective ROS Limited/Unobtainable: Yes Condition: critical EKG Rhythm: Sinus Rhythm FI02: 40 Vent Support Breath Rate: 14 Vent Support Mode: AC Vent Tidal Volume: 600 Sputum Amount: Small PEEP: 5.0 PIP: 28 Tube Feeding Amount: 0 I&O: Intake and Output 06/03/18 06/04/18 18:59 06:59 Intake Total 880 ml 805 ml Output Total 750 ml 400 ml Balance 130 ml 405 ml Intake Free Water 330 ml 90 ml IV Total 110 ml 55 ml Tube Feeding 440 ml 660 ml Output Urine Total 750 ml 400 ml # Voids 1 # Bowel Movements 2 CXR: no change, LLL infiltrate Labs: Laboratory Tests Test 06/04/18 03:40 White Blood Count 7.3 K/UL (4.8-10.8) Red Blood Count 4.03 M/UL (4.70-6.10) L Hemoglobin 12.8 G/DL (14.2-18.0) L Hematocrit 37.4 % (42.0-52.0) L Mean Corpuscular Volume 93 FL (80-99) Mean Corpuscular Hemoglobin 31.8 PG (27.0-31.0) H Mean Corpuscular Hemoglobin Concent 34.2 G/DL (32.0-36.0) Red Cell Distribution Width 12.9 % (11.6-14.8) Platelet Count 207 K/UL (150-450) Mean Platelet Volume 11.0 FL (6.5-10.1) H Neutrophils (%) (Auto) 70.1 % (45.0-75.0) Lymphocytes (%) (Auto) 16.4 % (20.0-45.0) L Monocytes (%) (Auto) 8.9 % (1.0-10.0) Eosinophils (%) (Auto) 4.0 % (0.0-3.0) H Basophils (%) (Auto) 0.6 % (0.0-2.0) Sodium Level 143 MMOL/L (136-145) Potassium Level 3.5 MMOL/L (3.5-5.1) Chloride Level 107 MMOL/L (98-107) Carbon Dioxide Level 25 MMOL/L (21-32) Anion Gap 11 mmol/L (5-15) Blood Urea Nitrogen 14 mg/dL (7-18) Creatinine 0.9 MG/DL (0.55-1.30) Estimat Glomerular Filtration Rate > 60 mL/min (>60) Glucose Level 110 MG/DL (74-106) H Calcium Level 9.1 MG/DL (8.5-10.1) Amanda Combs MD Jun 04, 2018 12:45
--- NOTE | 2018-06-04 12:59 | NUR ---
SHOE PATTERNMAKERGRAPPLER SI: Respiratory Failure VS: BP91/61, P 69, T. 97.7, RR 14, SpO2 98 on Mechanical Vent FiO2 40 RBC 4.03, Hgb 12.8, Hct37.4, ABG pH 7.509, pCO2 30.8, pO2 149.4, Urine Protein 1+, Urine Blood 2+, Urine Nitrate Positive, Urine WBC 10-15, Urine RBC 5-10 CXR Findings: Left-sided pleural effusion, thickening of the right minor fissure. Tracheostomy persists, unchanged. No new infiltrates. There is mild central bronchial wall thickening. IS:Cefepime HCI IVPB Heparin SUBQ Lansoprazole GT Trileptal SDU Status
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
[2018-06-04 16:00] VITALS: BP 96/60
--- NOTE | 2018-06-04 19:09 | NUR ---
[employer] [facility]IC[facility] FAXED RAYRAY: MACY Diana#: [phone] EXT: [id number] F#: [phone] PLEASE FAX CLINICALS TO ABOVE #
--- NOTE | 2018-06-04 19:15 | NUR ---
HAND-OFF: Report given to Franck Prasad RN.
--- NOTE | 2018-06-04 19:16 | NUR ---
NURSE NOTES: Received bedside report from MANJINDER Mccallum.Patient stable,open eyes,no-verbal,SR on alarm security or surveillance monitor,trach-vent Portex 7,setting AC14 TV 600 FiO2 40% PEEP 5,tolerated well,Glucerna 1.5 @ 55 ml/hrs x 20 hrs,[id number] morning off,BS active in all quadrants,IV asymptomatic,intact on R wrist 20 G TKO,no s/s of pain,no respiratory distress noted,bed secured in a low safety position,call light within a reach,will continue to monitor and follow POC.
[2018-06-04 20:00] VITALS: BP 105/66
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
[2018-06-05] VITALS: BP 107/67
[2018-06-05] MEDS: Albuterol ud Inhalation HHN SCH ×3 (01:23→13:16)
--- NOTE | 2018-06-05 03:15 | Progress Note ---
DATE: 06/04/2018 SUBJECTIVE: The patient is afebrile and hemodynamically stable. PHYSICAL EXAMINATION: VITAL SIGNS: Blood pressure 96/60, pulse 72, respirations 14, and temperature 98.1. HEENT: Eyes were normal. ENT, mucous membranes were moist and intact. NECK: Supple with no JVD without lymph nodes. Tracheostomy site is clean. LUNGS: Clear without rhonchi, rales, or wheezing. Secretions are minimal, thin, and whitish. HEART: Normal sounds with regular beats. There are no S3, S4, or pericardial rub. ABDOMEN: Soft and nontender with normal bowel sounds. Gastrostomy site is clean. EXTREMITIES: Warm without cyanosis, clubbing, or edema. LABORATORY AND DIAGNOSTIC DATA: Hemoglobin 12.8, hematocrit 37.4 with MCV of 93, WBC of 7.3, and platelets of 207,000. His BUN and creatinine are 14 and 0.9 respectively. His sodium is 143, potassium 3.5, chloride 107, and CO2 is 25. His glucose is 110. Calcium is 9.1. Chest x-ray today revealed thickening on the right minor fissure and left pleural effusion. . There are no new infiltrates. IMPRESSION: The patient's chest x-ray is unchanged. The patient is on empiric therapy of cefepime 1 g q.12 h. The patient is relatively stable. He can be discharged in the a.m. back to the extended care facility. Libby Fair M.D. DR: SIN JOB#: [id number] CC:
[2018-06-05 04:00] VITALS: BP 108/62
[2018-06-05 04:35] LABS: EOSINOPHILS % (AUTO) 3.7 % (0.0-3.0); HEMATOCRIT 37.5 % (42.0-52.0); HEMOGLOBIN 12.9 G/DL (14.2-18.0); LYMPHOCYTES % (AUTO) 19.8 % (20.0-45.0); MEAN CORPUSCULAR VOLUME 92 FL (80-99); MONOCYTES % (AUTO) 7.7 % (1.0-10.0); NEUTROPHILS % (AUTO) 67.7 % (45.0-75.0); PLATELET COUNT 224 K/UL (150-450); RED BLOOD COUNT 4.06 M/UL (4.70-6.10); RED CELL DISTRIBUTION WIDTH 13.1 % (11.6-14.8)
[2018-06-05 04:58] LABS: ALANINE AMINOTRANSFERASE 71 U/L (12-78); ALBUMIN 3.3 G/DL (3.4-5.0); ALBUMIN/GLOBULIN RATIO 0.8 (1.0-2.7); ALKALINE PHOSPHATASE 146 U/L (46-116); ANION GAP 9 mmol/L (5-15); ASPARTATE AMINO TRANSFERASE 47 U/L (15-37); BILIRUBIN,TOTAL 0.3 MG/DL (0.2-1.0); BLOOD UREA NITROGEN 14 mg/dL (7-18); CALCIUM 9.2 MG/DL (8.5-10.1); CARBON DIOXIDE 26 MMOL/L (21-32); CHLORIDE 107 MMOL/L (98-107); CREATININE 0.9 MG/DL (0.55-1.30); PHOSPHORUS 3.1 MG/DL (2.5-4.9); POTASSIUM 3.9 MMOL/L (3.5-5.1); SODIUM 141 MMOL/L (136-145)
--- NOTE | 2018-06-05 06:01 | NUR ---
NURSE NOTES: has been notified over the phone regarding lab result Mg 1.7
--- NOTE | 2018-06-05 07:08 | NUR ---
RESPIRATORY NOTE: Patient received mechanically ventilated on PB 840 with current ordered vent settings: AC 14-600ml-40%FiO2- peep 5. Patient has trach size Portex 7.0 cuffed that is secure with a trach tie and guard. There are bilateral clear diminished breath sounds noted upon auscultation. Sxn small amount to thin clear secretions without incident. Vent alarms are functional and audible. There is am an ambu bag available at the bedside and the vent is connected to a red outlet. Patient appears comfortable at this time. No SOB or resp distress noted. Will continue to monitor.
--- NOTE | 2018-06-05 07:20 | NUR ---
NURSE NOTES: Received an order from Lauryn Marie 2 gm Mg IV once
--- NOTE | 2018-06-05 07:24 | NUR ---
HAND-OFF: Report given to MANJINDER Trinidad.Patient stable.
--- NOTE | 2018-06-05 07:25 | NUR ---
NURSE NOTES: Received patient in bed. In no apparent distress. Vent dependent. On continuous GTF. Condom cath inplace. Will continue plan of care. Contact isolation observed.
[2018-06-05 08:00] VITALS: BP 98/58
[2018-06-05] MEDS: Ascorbic Acid 500mg tab GT SCH (08:55)
[2018-06-05] MEDS: Multivitamins W/Minerals 15 ML UDC GT SCH (08:55)
[2018-06-05] MEDS: levETIRAcetam 500mg/5ml Liquid GT SCH (08:55)
[2018-06-05] MEDS: Lacosamide 50mg tablet ORAL SCH (08:55)
[2018-06-05] MEDS: Docusate 100mg/10ml Liq GT SCH (09:10)
[2018-06-05] MEDS: Heparin 5000 units/ml inj SUBQ SCH (09:11)
--- NOTE | 2018-06-05 10:24 | Pulmonolgy Critical Care Note ---
Critical Care - Asmt/Plan Problems: (1) Acute on chronic renal insufficiency (2) Chronic respiratory failure (3) Tracheostomy present (4) Seizure after head injury (5) Feeding by G-tube Respiratory: monitor respiratory rate, adjust FIO2, CXR Cardiac: continue pressors, continue to monitor HR/BP Renal: F/U I&O Infectious Disease: check cultures Gastrointestinal: continue feedings/current rate Endocrine: monitor blood sugar, check TSH Hematologic: monitor H/H, transfuse if hgb<8.5 Neurologic: PRN Ativan, keep patient comfortable Affect: PRN ativan Prophylaxis: Protonix, Heparin Notes Reviewed: chief medical technologist, renal Discussed with: nurses, consultants, porter sample casesafety and health manager - Objective Last 24 Hour Vital Signs Date Time Temp Pulse Resp B/P (MAP) Pulse Ox O2 Delivery O2 Flow Rate FiO2 06/05/18 09:02 72 14 35 06/05/18 09:00 35 06/05/18 08:00 40 06/05/18 08:00 98.1 77 20 98/58 (71) 98 06/05/18 08:00 Mechanical Ventilator 06/05/18 07:23 73 06/05/18 07:08 79 14 100 Mechanical Ventilator 40 06/05/18 07:00 69 14 100 Mechanical Ventilator 40 06/05/18 06:58 69 14 40 06/05/18 04:49 63 14 40 06/05/18 04:00 98.9 61 14 108/62 (77) 99 06/05/18 04:00 40 06/05/18 04:00 Mechanical Ventilator 06/05/18 03:40 66 06/05/18 03:29 72 14 40 06/05/18 01:33 72 14 100 Mechanical Ventilator 40 06/05/18 01:23 71 14 99 Mechanical Ventilator 40 06/05/18 01:22 66 14 40 06/05/18 00:30 71 06/05/18 00:00 98.4 72 14 107/67 (80) 100 06/05/18 00:00 Mechanical Ventilator 06/04/18 23:15 67 14 40 06/04/18 21:41 65 14 40 06/04/18 20:00 40 06/04/18 20:00 Mechanical Ventilator 06/04/18 20:00 98.4 66 14 105/66 (79) 99 06/04/18 19:35 65 06/04/18 19:23 67 14 100 Mechanical Ventilator 40 06/04/18 19:15 63 14 40 06/04/18 19:13 62 14 99 Mechanical Ventilator 40 06/04/18 17:03 80 15 40 06/04/18 16:00 40 06/04/18 16:00 Mechanical Ventilator 06/04/18 16:00 98.1 77 14 96/60 (72) 100 06/04/18 15:43 78 06/04/18 15:15 69 14 40 06/04/18 13:33 68 14 100 Mechanical Ventilator 40 06/04/18 13:26 71 14 100 Mechanical Ventilator 40 06/04/18 13:24 70 14 40 06/04/18 12:00 Mechanical Ventilator 06/04/18 12:00 66 06/04/18 12:00 97.7 69 14 91/61 (71) 98 06/04/18 12:00 40 06/04/18 10:40 69 14 40 Status: awake Condition: critical HEENT: atraumatic Neck: full ROM Lungs: chest wall tender Heart: HR/BP stable Abdomen: soft, active bowel sounds, feeding tube Extremities: edema Decubiti: location Micro: Microbiology Date/Time Source Procedure Growth Status 06/03/18 08:35 Nasal Nares Left Influenza Types A,B Antigen (EDY) - Final Complete Accucheck: 118 Critical Care - Subjective ROS Limited/Unobtainable: Yes Condition: critical EKG Rhythm: Sinus Rhythm FI02: 35 Vent Support Breath Rate: 14 Vent Support Mode: AC Vent Tidal Volume: 600 Sputum Amount: Moderate PEEP: 5.0 PIP: 29 Tube Feeding Amount: 55 I&O: Intake and Output 06/04/18 06/05/18 19:00 07:00 Intake Total 625 ml 845 ml Output Total 600 ml 1600 ml Balance 25 ml -755 ml Intake Free Water 30 ml 120 ml IV Total 55 ml Tube Feeding 440 ml 605 ml Other 100 ml 120 ml Output Urine Total 600 ml 1600 ml # Bowel Movements 2 CXR: clear Labs: Laboratory Tests Test 06/05/18 03:25 White Blood Count 8.0 K/UL (4.8-10.8) Red Blood Count 4.06 M/UL (4.70-6.10) L Hemoglobin 12.9 G/DL (14.2-18.0) L Hematocrit 37.5 % (42.0-52.0) L Mean Corpuscular Volume 92 FL (80-99) Mean Corpuscular Hemoglobin 31.9 PG (27.0-31.0) H Mean Corpuscular Hemoglobin Concent 34.5 G/DL (32.0-36.0) Red Cell Distribution Width 13.1 % (11.6-14.8) Platelet Count 224 K/UL (150-450) Mean Platelet Volume 11.0 FL (6.5-10.1) H Neutrophils (%) (Auto) 67.7 % (45.0-75.0) Lymphocytes (%) (Auto) 19.8 % (20.0-45.0) L Monocytes (%) (Auto) 7.7 % (1.0-10.0) Eosinophils (%) (Auto) 3.7 % (0.0-3.0) H Basophils (%) (Auto) 1.0 % (0.0-2.0) Sodium Level 141 MMOL/L (136-145) Potassium Level 3.9 MMOL/L (3.5-5.1) Chloride Level 107 MMOL/L (98-107) Carbon Dioxide Level 26 MMOL/L (21-32) Anion Gap 9 mmol/L (5-15) Blood Urea Nitrogen 14 mg/dL (7-18) Creatinine 0.9 MG/DL (0.55-1.30) Estimat Glomerular Filtration Rate > 60 mL/min (>60) Glucose Level 114 MG/DL (74-106) H Calcium Level 9.2 MG/DL (8.5-10.1) Phosphorus Level 3.1 MG/DL (2.5-4.9) Magnesium Level 1.7 MG/DL (1.8-2.4) L Total Bilirubin 0.3 MG/DL (0.2-1.0) Aspartate Amino Transf (AST/SGOT) 47 U/L (15-37) H Alanine Aminotransferase (ALT/SGPT) 71 U/L (12-78) Alkaline Phosphatase 146 U/L (46-116) H Total Protein 7.2 G/DL (6.4-8.2) Albumin 3.3 G/DL (3.4-5.0) L Globulin 3.9 g/dL Albumin/Globulin Ratio 0.8 (1.0-2.7) L Amanda Combs MD Jun 05, 2018 10:24
--- NOTE | 2018-06-05 10:31 | NUR ---
*-* DISCHARGE PLANNING *-* PATIENT HAS BEEN REFERRED BACK TO: [facility] P:[phone] F:[phone]
--- NOTE | 2018-06-05 10:43 | NUR ---
*-* DISCHARGE PLANNED *-* PATIENT IS DISCHARGED TO: [facility] ROOM# 15-B USP T:[phone] FOR NURSE TO NURSE REPORT [facility] HAS BEEN ARRANGED FOR RF MANAGER AT [phone]
[2018-06-05 12:00] VITALS: BP 92/58
--- NOTE | 2018-06-05 12:18 | NUR ---
NURSE NOTES: Telephone report given to Annelise Saul RN outside plant supervisor/Dahiana. Patient's mother/Kathleen aware of discharge.
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
[2018-06-05 14:00] VITALS: BP 94/64
--- NOTE | 2018-06-05 14:15 | NUR ---
RD ASSESSMENT & RECOMMENDATIONS SEE CARE ACTIVITY FOR COMPLETE ASSESSMENT DAILY ESTIMATED NEEDS: Needs based on Critical Care, wounds/ 73kg abw 22-30 kcals/kg 8369-6356 total kcals 1.25-2 g protein/kg 91-146 g total protein 25-30 mL/kg 6915-2951 total fluid mLs NUTRITION DIAGNOSIS: * Swallowing difficulty R/T dysphagia, respiratory status as evidenced by pt is trach/vent dep, PEG dep. * Increased kcal/prot needs R/T wound healing as evidenced by pt admitted w/ sacral open wound, refer to WC eval. CURRENT TF:Glucerna 1.2 @ 55ml/hr x 20 hrs ENTERAL NUTRITION RECOMMENDATIONS: Glucerna 1.2 @ 60ml/hr x 24 hrs + Prosource 1pkt QD to provide 1440ml, 1728kcal, 86g + 11g prot, 1159ml free water * Rec to increase rate and run time to 60ml/hr x 24 hrs * Add Prosource 1pkt QD to meet protein needs * HOB over 30 degrees/ water flush per MD. ADDITIONAL RECOMMENDATIONS: * Per SNF, HT=5'8", DN=089 lbs (from May 2018) * Re-calibrate bedscale, obtain weekly wts * Wound healing: Add Richar 1pkt BID Continue Vit C daily * Monitor lytes, replete as needed (low Mg 1.7)
--- NOTE | 2018-06-05 14:27 | NUR ---
INTER-FACILITY TRANSFER: Patient transferred to [facility], per Lauryn. Report given to [facility] ambulance staff, Rober. Patient transferred with no valuables and no medications. Belonging list checked. Family/S.O. notified of transfer, patient's mother at bedside. Remains Vent dependent. Kept clean and dry.
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
== END 2018-06-05 14:27 | DRG 130 ==
LOC: EDBD 11:39 → EMR 12:45 → 2W 12:55 → EDBEDREQ 13:17
PROC: 5A1955Z Respiratory Ventilation, Greater than 96 Consecutive Hours (ICD-10-PCS; principal; 2018-05-31)
DX: J96.20 Acute and chronic respiratory failure, unspecified whether with hypoxia or hypercapnia (principal); G82.50 Quadriplegia, unspecified; L89.159 Pressure ulcer of sacral region, unspecified stage; G83.5 Locked-in state; D72.1 Eosinophilia; S06.309S Unspecified focal traumatic brain injury with loss of consciousness of unspecified duration, sequela; R13.10 Dysphagia, unspecified; Z99.11 Dependence on respirator [ventilator] status; Z43.0 Encounter for attention to tracheostomy; Y24.9XXS Unspecified firearm discharge, undetermined intent, sequela; Z43.1 Encounter for attention to gastrostomy; G40.909 Epilepsy, unspecified, not intractable, without status epilepticus; N39.0 Urinary tract infection, site not specified; J98.11 Atelectasis; E11.9 Type 2 diabetes mellitus without complications; I10 Essential (primary) hypertension; S02.91XS Unspecified fracture of skull, sequela; X58.XXXS Exposure to other specified factors, sequela; Z79.01 Long term (current) use of anticoagulants; Z86.718 Personal history of other venous thrombosis and embolism
CPT/HCPCS: 36415; 36600; 71045; 80048; 80053; 80061; 80076; 81001; 81003; 82550; 82553; 82803; 82962; 83036; 83605; 83690; 83735; 83880; 84100; 84484; 85025; 85651; 86710; 87040; 87081; 87086; 93005; 94002; 94003; 94640; 96361; 96365; 99285; J1815; J7620

== ENCOUNTER 2018-11-30 10:11 | Inpatient (IN) | payer MEDICAID ==
[~2018-11-30] VITALS: Ht 172.7 cm; Wt 99.8 kg
[~2018-11-30 10:11] MED LIST changes: +ASCORBIC ACID500 MG ORAL; +ATORVASTATIN CA20 MG ORAL; +COUMADIN5 MG ORAL; -Cefepime HCl 2 GM in NS 110 ML IV SCH; +FAMOTIDINE20 MG ORAL; +KLONOPIN1 MG ORAL; +TRILEPTAL600 MG PO; -Vancomycin 1 GM in NS 275 ML IV ONE
[2018-11-30 10:15] VITALS: BP 185/72
[2018-11-30 10:28] LABS: APPEARANCE,URINE CLEAR; BASOPHILS % (AUTO) 1.2 % (0.0-2.0); BILIRUBIN, URINE NEGATIVE (NEGATIVE); COLOR,URINE PALE YELLOW; EOSINOPHILS % (AUTO) 2.2 % (0.0-3.0); GLUCOSE, URINE (UA) NEGATIVE (NEGATIVE); HEMATOCRIT 45.2 % (42.0-52.0); HEMOGLOBIN 14.8 G/DL (14.2-18.0); KETONES,URINE NEGATIVE (NEGATIVE); LEUKOCYTE ESTERASE ,URINE 1+ (NEGATIVE); LYMPHOCYTES % (AUTO) 18.4 % (20.0-45.0); MEAN CORPUSCULAR VOLUME 94 FL (80-99); MONOCYTES % (AUTO) 7.2 % (1.0-10.0); NITRITE,URINE NEGATIVE (NEGATIVE); PH,URINE 7 (4.5-8.0); PLATELET COUNT 201 K/UL (150-450); PROTEIN,URINE 2+ (NEGATIVE); RED BLOOD COUNT 4.83 M/UL (4.70-6.10); RED CELL DISTRIBUTION WIDTH 12.7 % (11.6-14.8); UROBILINOGEN,URINE NORMAL MG/DL (0.0-1.0); WHITE BLOOD COUNT 10.2 K/UL (4.8-10.8)
[2018-11-30] MEDS ORDERED: LORazepam Inj 2mg/ml 1ml IV ONE (10:30)
[2018-11-30 10:41] LABS: ANION GAP 10 mmol/L (5-15); BLOOD UREA NITROGEN 16 mg/dL (7-18); CALCIUM 9.4 MG/DL (8.5-10.1); CARBON DIOXIDE 28 MMOL/L (21-32); CHLORIDE 105 MMOL/L (98-107); POTASSIUM 4.3 MMOL/L (3.5-5.1); SODIUM 143 MMOL/L (136-145)
[2018-11-30 10:55] LABS: ALANINE AMINOTRANSFERASE 35 U/L (12-78); ALBUMIN 3.9 G/DL (3.4-5.0); ALBUMIN/GLOBULIN RATIO 0.9 (1.0-2.7); ALKALINE PHOSPHATASE 155 U/L (46-116); ASPARTATE AMINO TRANSFERASE 16 U/L (15-37); BILIRUBIN,TOTAL 0.4 MG/DL (0.2-1.0); CKMB 0.9 NG/ML (0.0-3.6); CREATINE KINASE 161 U/L (26-308)
[2018-11-30] MEDS ORDERED: VITAMIN D1000 UNI1 GT (11:21)
[2018-11-30] MEDS ORDERED: VIMPAT200 MG GT (11:21)
[2018-11-30 11:34] VITALS: BP 106/78
--- NOTE | 2018-11-30 12:00 | Diagnostic Imaging Report ---
Indication: Dyspnea Comparison: 06/04/2018 A single view chest radiograph was obtained. Findings: Lung volumes remain low. There may be a small left pleural effusion versus pleural thickening. This was seen previously. Tracheostomy noted. Lung volumes remain low. Heart size is probably normal. IMPRESSION: Tracheostomy in good position. No pneumothorax. Trace left pleural fluid versus pleural thickening noted.
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
[2018-11-30 12:30] VITALS: BP 110/80
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
[2018-11-30 13:35] VITALS: BP 106/78
[2018-11-30] MEDS ORDERED: Morphine Sulfate 2mg/ml Inj(IV/IM USE ONLY) IVP PRN (16:00)
[2018-11-30 17:00] VITALS: BP 126/87
[2018-11-30] MEDS: HydrALAZINE 10mg Tab GT SCH ×2 (17:03→20:28)
[2018-11-30] MEDS: D5 1/2NS 1,000 ML IV SCH (17:03)
[2018-11-30 20:00] VITALS: BP 128/86
[2018-11-30] MEDS: Metoprolol 25mg tab GT SCH (20:27)
[2018-11-30] MEDS: Heparin 5000 units/ml inj SUBQ SCH (20:29)
[2018-11-30] MEDS: LORazepam Inj 2mg/ml 1ml IV PRN (21:26)
[2018-12-01] VITALS: BP 118/77
[2018-12-01] MEDS: HydrALAZINE 10mg Tab GT SCH ×6 (00:29→20:20)
[2018-12-01 04:00] VITALS: BP 123/83
[2018-12-01 05:19] LABS: BASOPHILS % (AUTO) 0.9 % (0.0-2.0); EOSINOPHILS % (AUTO) 0.4 % (0.0-3.0); LYMPHOCYTES % (AUTO) 16.5 % (20.0-45.0); MEAN CORPUSCULAR VOLUME 92 FL (80-99); MONOCYTES % (AUTO) 6.7 % (1.0-10.0); NEUTROPHILS % (AUTO) 75.6 % (45.0-75.0); PLATELET COUNT 174 K/UL (150-450); RED BLOOD COUNT 4.15 M/UL (4.70-6.10); RED CELL DISTRIBUTION WIDTH 12.2 % (11.6-14.8); WHITE BLOOD COUNT 10.7 K/UL (4.8-10.8)
[2018-12-01 05:39] LABS: ALANINE AMINOTRANSFERASE 23 U/L (12-78); ALBUMIN 3.4 G/DL (3.4-5.0); ALBUMIN/GLOBULIN RATIO 0.9 (1.0-2.7); ALKALINE PHOSPHATASE 115 U/L (46-116); ANION GAP 10 mmol/L (5-15); ASPARTATE AMINO TRANSFERASE 15 U/L (15-37); BILIRUBIN,TOTAL 0.8 MG/DL (0.2-1.0); BLOOD UREA NITROGEN 11 mg/dL (7-18); CALCIUM 8.8 MG/DL (8.5-10.1); CARBON DIOXIDE 22 MMOL/L (21-32); CHLORIDE 107 MMOL/L (98-107); CREATININE 0.8 MG/DL (0.55-1.30); POTASSIUM 3.4 MMOL/L (3.5-5.1); SODIUM 139 MMOL/L (136-145)
--- NOTE | 2018-12-01 07:00 | Pulmonolgy Critical Care Note ---
Critical Care - Asmt/Plan Problems: (1) Chronic respiratory failure (2) Seizure disorder, convulsive, with status epilepticus (3) Uncontrolled seizures (4) Feeding by G-tube Respiratory: monitor respiratory rate, adjust FIO2 Cardiac: continue to monitor HR/BP Renal: F/U I&O, keep IV fluid, check electrolytes Infectious Disease: check cultures Endocrine: monitor blood sugar Hematologic: monitor H/H, transfuse if hgb<8.5 Neurologic: PRN Ativan, keep patient comfortable Affect: PRN ativan Time Spent (Minutes): 40 Notes Reviewed: cardio, renal Discussed with: nurses, consultants, case management managermanager floor - Objective Last 24 Hour Vital Signs Date Time Temp Pulse Resp B/P (MAP) Pulse Ox O2 Delivery O2 Flow Rate FiO2 12/01/18 05:13 65 16 30 12/01/18 05:00 123/83 12/01/18 04:00 Mechanical Ventilator 12/01/18 04:00 99.2 67 18 123/83 (96) 12/01/18 04:00 30 12/01/18 03:46 77 12/01/18 03:25 66 16 30 12/01/18 01:00 68 16 30 12/01/18 00:29 123/83 12/01/18 00:00 Mechanical Ventilator 12/01/18 00:00 99.1 70 18 118/77 (91) 11/30/18 23:56 63 11/30/18 23:09 65 16 30 11/30/18 20:57 70 16 30 11/30/18 20:28 128/86 11/30/18 20:27 66 128/86 11/30/18 20:00 Mechanical Ventilator 11/30/18 20:00 30 11/30/18 20:00 99.9 80 22 128/86 (100) 11/30/18 19:53 65 11/30/18 18:52 79 16 30 11/30/18 18:00 30 11/30/18 17:30 65 16 30 11/30/18 17:03 126/87 11/30/18 17:00 97.9 65 16 126/87 (100) 11/30/18 16:00 Mechanical Ventilator 11/30/18 15:32 Mechanical Ventilator 11/30/18 15:29 64 11/30/18 15:22 62 16 30 11/30/18 14:30 98.2 81 16 106/78 98 Mechanical Ventilator 12.0 30 11/30/18 14:05 64 16 30 11/30/18 13:35 98.2 81 16 106/78 98 Mechanical Ventilator 12.0 30 11/30/18 12:30 98.2 74 14 110/80 100 Room Air 12.0 30 11/30/18 11:34 78 16 106/78 100 Room Air 11/30/18 10:15 12.0 30 11/30/18 10:15 98.2 106 23 185/72 98 Endotracheal Tube 12.0 30 11/30/18 10:15 106 23 Endotracheal Tube 12.0 30 11/30/18 10:09 98.2 86 16 185/72 (109) 98 Room Air 11/30/18 10:05 104 21 100 Mechanical Ventilator 30 11/30/18 10:05 103 21 30 Status: obtunded Condition: grave HEENT: atraumatic Neck: full ROM Lungs: chest wall tender Heart: HR/BP stable Abdomen: soft, non-tender Extremities: no C/C/E Accucheck: 109 Critical Care - Subjective Condition: critical EKG Rhythm: Sinus Rhythm FI02: 30 Vent Support Breath Rate: 16 Vent Support Mode: AC Vent Tidal Volume: 650 Sputum Amount: Small PEEP: 5.0 PIP: 29 I&O: Intake and Output 11/30/18 12/01/18 19:00 07:00 Intake Total 8100 ml 550 ml Output Total 850 ml 650 ml Balance 7250 ml -100 ml Intake IV Total 8100 ml 550 ml Output Urine Total 850 ml 650 ml CXR: GLADYS Labs: Laboratory Tests Test 11/30/18 10:10 11/30/18 12:40 12/01/18 03:57 White Blood Count 10.2 K/UL (4.8-10.8) 10.7 K/UL (4.8-10.8) Red Blood Count 4.83 M/UL (4.70-6.10) 4.15 M/UL (4.70-6.10) L Hemoglobin 14.8 G/DL (14.2-18.0) 13.0 G/DL (14.2-18.0) L Hematocrit 45.2 % (42.0-52.0) 38.0 % (42.0-52.0) L Mean Corpuscular Volume 94 FL (80-99) 92 FL (80-99) Mean Corpuscular Hemoglobin 30.6 PG (27.0-31.0) 31.3 PG (27.0-31.0) H Mean Corpuscular Hemoglobin Concent 32.7 G/DL (32.0-36.0) 34.1 G/DL (32.0-36.0) Red Cell Distribution Width 12.7 % (11.6-14.8) 12.2 % (11.6-14.8) Platelet Count 201 K/UL (150-450) 174 K/UL (150-450) Mean Platelet Volume 9.8 FL (6.5-10.1) 9.6 FL (6.5-10.1) Neutrophils (%) (Auto) 71.0 % (45.0-75.0) 75.6 % (45.0-75.0) H Lymphocytes (%) (Auto) 18.4 % (20.0-45.0) L 16.5 % (20.0-45.0) L Monocytes (%) (Auto) 7.2 % (1.0-10.0) 6.7 % (1.0-10.0) Eosinophils (%) (Auto) 2.2 % (0.0-3.0) 0.4 % (0.0-3.0) Basophils (%) (Auto) 1.2 % (0.0-2.0) 0.9 % (0.0-2.0) Urine Color Pale yellow Urine Appearance Clear Urine pH 7 (4.5-8.0) Urine Specific [place] 1.015 (1.005-1.035) Urine Protein 2+ (NEGATIVE) H Urine Glucose (UA) Negative (NEGATIVE) Urine Ketones Negative (NEGATIVE) Urine Blood 2+ (NEGATIVE) H Urine Nitrite Negative (NEGATIVE) Urine Bilirubin Negative (NEGATIVE) Urine Urobilinogen Normal MG/DL (0.0-1.0) Urine Leukocyte Esterase 1+ (NEGATIVE) H Urine RBC 2-4 /HPF (0 - 0) H Urine WBC 0-2 /HPF (0 - 0) Urine Squamous Epithelial Cells Occasional /LPF Urine Amorphous Sediment Few /LPF (NONE) H Urine Bacteria Occasional /HPF (NONE) Sodium Level 143 MMOL/L (136-145) 139 MMOL/L (136-145) Potassium Level 4.3 MMOL/L (3.5-5.1) 3.4 MMOL/L (3.5-5.1) L Chloride Level 105 MMOL/L (98-107) 107 MMOL/L (98-107) Carbon Dioxide Level 28 MMOL/L (21-32) 22 MMOL/L (21-32) Anion Gap 10 mmol/L (5-15) 10 mmol/L (5-15) Blood Urea Nitrogen 16 mg/dL (7-18) 11 mg/dL (7-18) Creatinine 1.0 MG/DL (0.55-1.30) 0.8 MG/DL (0.55-1.30) Estimat Glomerular Filtration Rate > 60 mL/min (>60) > 60 mL/min (>60) Glucose Level 116 MG/DL (74-106) H 107 MG/DL (74-106) H Lactic Acid Level 5.30 mmol/L (0.4-2.0) H 1.70 mmol/L (0.66-2.22) Calcium Level 9.4 MG/DL (8.5-10.1) 8.8 MG/DL (8.5-10.1) Total Bilirubin 0.4 MG/DL (0.2-1.0) 0.8 MG/DL (0.2-1.0) Aspartate Amino Transf (AST/SGOT) 16 U/L (15-37) 15 U/L (15-37) Alanine Aminotransferase (ALT/SGPT) 35 U/L (12-78) 23 U/L (12-78) Alkaline Phosphatase 155 U/L (46-116) H 115 U/L (46-116) Total Creatine Kinase 161 U/L (26-308) Creatine Kinase MB 0.9 NG/ML (0.0-3.6) Creatine Kinase MB Relative Index 0.5 Troponin I 0.000 ng/mL (0.000-0.056) Pro-B-Type Natriuretic Peptide 47 pg/mL (0-125) Total Protein 8.4 G/DL (6.4-8.2) H 7.3 G/DL (6.4-8.2) Albumin 3.9 G/DL (3.4-5.0) 3.4 G/DL (3.4-5.0) Globulin 4.5 g/dL 3.9 g/dL Albumin/Globulin Ratio 0.9 (1.0-2.7) L 0.9 (1.0-2.7) L Amanda Combs MD Dec 01, 2018 07:00
--- NOTE | 2018-12-01 07:30 | General Progress Note ---
Assessment/Plan Problem List: (1) Seizure after head injury ICD Codes: R56.1 - Post traumatic seizures SNOMED: 322687538 (2) Feeding by G-tube ICD Codes: Z93.1 - Gastrostomy status SNOMED: 094237941, 549296802 (3) Leaking percutaneous endoscopic gastrostomy (PEG) tube ICD Codes: K94.23 - Gastrostomy malfunction SNOMED: 670393872 Assessment/Plan: plan to change the GT at the bedside today Subjective ROS Limited/Unobtainable: No Allergies: Uncoded Allergies: TAPE (Allergy, Unknown, 05/31/18) Objective Last 24 Hour Vital Signs Date Time Temp Pulse Resp B/P (MAP) Pulse Ox O2 Delivery O2 Flow Rate FiO2 12/01/18 07:09 63 16 30 12/01/18 05:13 65 16 30 12/01/18 05:00 123/83 12/01/18 04:00 Mechanical Ventilator 12/01/18 04:00 99.2 67 18 123/83 (96) 12/01/18 04:00 30 12/01/18 03:46 77 12/01/18 03:25 66 16 30 12/01/18 01:00 68 16 30 12/01/18 00:29 123/83 12/01/18 00:00 Mechanical Ventilator 12/01/18 00:00 99.1 70 18 118/77 (91) 11/30/18 23:56 63 11/30/18 23:09 65 16 30 11/30/18 20:57 70 16 30 11/30/18 20:28 128/86 11/30/18 20:27 66 128/86 11/30/18 20:00 Mechanical Ventilator 11/30/18 20:00 30 11/30/18 20:00 99.9 80 22 128/86 (100) 11/30/18 19:53 65 11/30/18 18:52 79 16 30 11/30/18 18:00 30 11/30/18 17:30 65 16 30 11/30/18 17:03 126/87 11/30/18 17:00 97.9 65 16 126/87 (100) 11/30/18 16:00 Mechanical Ventilator 11/30/18 15:32 Mechanical Ventilator 11/30/18 15:29 64 8/30/19 15:22 62 16 30 11/30/18 14:30 98.2 81 16 106/78 98 Mechanical Ventilator 12.0 30 11/30/18 14:05 64 16 30 11/30/18 13:35 98.2 81 16 106/78 98 Mechanical Ventilator 12.0 30 11/30/18 12:30 98.2 74 14 110/80 100 Room Air 12.0 30 11/30/18 11:34 78 16 106/78 100 Room Air 11/30/18 10:15 12.0 30 11/30/18 10:15 98.2 106 23 185/72 98 Endotracheal Tube 12.0 30 11/30/18 10:15 106 23 Endotracheal Tube 12.0 30 11/30/18 10:09 98.2 86 16 185/72 (109) 98 Room Air 11/30/18 10:05 104 21 100 Mechanical Ventilator 30 11/30/18 10:05 103 21 30 Intake and Output 11/30/18 12/01/18 19:00 07:00 Intake Total 8100 ml 550 ml Output Total 850 ml 650 ml Balance 7250 ml -100 ml Intake IV Total 8100 ml 550 ml Output Urine Total 850 ml 650 ml Laboratory Tests 11/30/18 10:10: White Blood Count 10.2, Red Blood Count 4.83, Hemoglobin 14.8, Hematocrit 45.2, Mean Corpuscular Volume 94, Mean Corpuscular Hemoglobin 30.6, Mean Corpuscular Hemoglobin Concent 32.7, Red Cell Distribution Width 12.7, Platelet Count 201, Mean Platelet Volume 9.8, Neutrophils (%) (Auto) 71.0, Lymphocytes (%) (Auto) 18.4L, Monocytes (%) (Auto) 7.2, Eosinophils (%) (Auto) 2.2, Basophils (%) (Auto ) 1.2, Urine Color Pale yellow, Urine Appearance Clear, Urine pH 7, Urine Specific [place] 1.015, Urine Protein 2+H, Urine Glucose (UA) Negative, Urine Ketones Negative, Urine Blood 2+H, Urine Nitrite Negative, Urine Bilirubin Negative, Urine Urobilinogen Normal, Urine Leukocyte Esterase 1+H, Urine RBC 2- 4H, Urine WBC 0-2, Urine Squamous Epithelial Cells Occasional, Urine Amorphous Sediment FewH, Urine Bacteria Occasional, Sodium Level 143, Potassium Level 4.3 , Chloride Level 105, Carbon Dioxide Level 28, Anion Gap 10, Blood Urea Nitrogen 16, Creatinine 1.0, Estimat Glomerular Filtration Rate > 60, Glucose Level 116H, Lactic Acid Level 5.30H, Calcium Level 9.4, Total Bilirubin 0.4, Aspartate Amino Transf (AST/SGOT) 16, Alanine Aminotransferase (ALT/SGPT) 35, Alkaline Phosphatase 155H, Total Creatine Kinase 161, Creatine Kinase MB 0.9, Creatine Kinase MB Relative Index 0.5, Troponin I 0.000, Pro-B-Type Natriuretic Peptide 47, Total Protein 8.4H, Albumin 3.9, Globulin 4.5, Albumin/Globulin Ratio 0.9L 11/30/18 12:40: Lactic Acid Level 1.70 12/01/18 03:57: White Blood Count 10.7, Red Blood Count 4.15L, Hemoglobin 13.0L, Hematocrit 38.0L, Mean Corpuscular Volume 92, Mean Corpuscular Hemoglobin 31.3H, Mean Corpuscular Hemoglobin Concent 34.1, Red Cell Distribution Width 12.2, Platelet Count 174, Mean Platelet Volume 9.6, Neutrophils (%) (Auto) 75.6H, Lymphocytes ( %) (Auto) 16.5L, Monocytes (%) (Auto) 6.7, Eosinophils (%) (Auto) 0.4, Basophils (%) (Auto) 0.9, Sodium Level 139, Potassium Level 3.4L, Chloride Level 107, Carbon Dioxide Level 22, Anion Gap 10, Blood Urea Nitrogen 11, Creatinine 0.8, Estimat Glomerular Filtration Rate > 60, Glucose Level 107H, Calcium Level 8.8, Total Bilirubin 0.8, Aspartate Amino Transf (AST/SGOT) 15, Alanine Aminotransferase (ALT/SGPT) 23, Alkaline Phosphatase 115, Total Protein 7.3, Albumin 3.4, Globulin 3.9, Albumin/Globulin Ratio 0.9L Height (Feet): 5 Height (Inches): 8.00 Weight (Pounds): 220 General Appearance: lethargic EENT: normal ENT inspection Neck: supple Cardiovascular: normal rate Respiratory/Chest: decreased breath sounds Abdomen: normal bowel sounds, non tender, soft Extremities: non-tender Ananth Bella MD Dec 01, 2018 07:30
[2018-12-01 08:00] VITALS: BP 108/74
[2018-12-01] MEDS: Heparin 5000 units/ml inj SUBQ SCH ×2 (08:06→20:22)
[2018-12-01] MEDS: Metoprolol 25mg tab GT SCH ×2 (08:07→20:21)
[2018-12-01] MEDS ORDERED: D5 1/2NS 1000ml IV ONE (09:16)
[2018-12-01] MEDS: D5 1/2NS 1,000 ML IV SCH (11:53)
[2018-12-01 12:00] VITALS: BP 119/75
[2018-12-01 16:00] VITALS: BP 114/77
--- NOTE | 2018-12-01 18:06 | Consultation ---
History of Present Illness General Date patient seen: Dec 01, 2018 Chief Complaint: Seizure Present Illness HPI 53-year-old male with multiple medical comorbidities who is a custodial resident presented with change in mental status after noted to have a seizure in the custodial. Patient is bedbound, trach dependent, PEG dependent, with multiple medical comorbidities. Patient identified to have decubitus ulcers requiring care and management. Family at bedside and states that he has had these for 4 years they have been trying to heal. Surgery called to evaluate and assist with care. Patient seen, patient [place], chart reviewed. Patient currently on air mattress and turn to the side with offloading or pressures. Patient unable to cooperate with exam or history but family available for information. Allergies: Uncoded Allergies: TAPE (Allergy, Unknown, 05/31/18) Medication History Scheduled Ascorbic Acid* (Ascorbic Acid*), 500 MG ORAL DAILY, (Reported) Atorvastatin Calcium* (Atorvastatin Calcium*), 10 MG ORAL BEDTIME, (Reported) Bisacodyl* (Dulcolax*), 5 MG ORAL DAILY, (Reported) Chlorhexidine Gluconate* (Hibiclens*), 15 ML ORAL BID, (Reported) Cholecalciferol (Vitamin D3)* (Vitamin D*), 5,000 UNITS GT TWICE A DAY, ( Reported) Clonazepam* (Klonopin*), 1 MG ORAL Q6H, (Reported) Colistin (Colistimethate Na) (Colistimethate Sodium), 75 MG [id number] BID, ( Reported) Cran/Vitc/Mannose/Inulin/Brom (Uti-Stat Liquid), 30 ML PO BID, (Reported) Docusate Sodium* (Docusate Sodium*), 100 MG GT TWICE A DAY, (Reported) Esomeprazole Magnesium (Nexium), 40 MG GT DAILY, (Reported) Famotidine (Famotidine), 20 MG ORAL DAILY, (Reported) Hydralazine Hcl* (Hydralazine Hcl*), 10 MG GT EVERY 4 HOURS, (Reported) Lacosamide (Vimpat), 200 MG GT BID, (Reported) Levetiracetam (Keppra), 500 MG GT EVERY 12 HOURS, (Reported) Metoprolol Tartrate* (Metoprolol Tartrate*), 75 MG ORAL EVERY 12 HOURS, ( Reported) Multivitamin Liquid* (Multi-Delyn*), 5 ML GT DAILY, (Reported) Multivitamins* (Multivitamins*), 1 TAB ORAL DAILY, (Reported) Oxcarbazepine* (Trileptal*), 600 MG PO BID, (Reported) Tramadol Hcl (Ultram*), 50 MG GT DAILY, (Reported) Vit C/Ascorbate Ca/Ascorb Sod (Vitamin C 500 Mg/15 Ml Liquid), 500 MG GT BID, ( Reported) Warfarin Sod* (Coumadin*), 11 MG GT DAILY, (Reported) Warfarin Sod* (Coumadin*), 5 MG ORAL DAILY, (Reported) Zinc Sulfate (Zinc Sulfate*), 220 MG GT DAILY, (Reported) [prostat sugar free], 30 ML GT BID, (Reported) [reg insulin ss], UNITS SUBQ PRN, (Reported) Scheduled PRN Acetaminophen (Tylenol), 650 MG GT Q6H PRN for Prn Headache/Temp > 101, ( Reported) Albuterol Sulfate* (Albuterol Sulfate Hhn*), 3 ML INH Q3HR PRN for Shortness of Breath, (Reported) Artificial Tears (Refresh Lacri-Lube Ointment), 1 APPLIC BOTH EYES EVERY 4 HOURS PRN for Dry Eyes, (Reported) Bisacodyl (Dulcolax), 10 MG RC DAILY PRN for Constipation, (Reported) Glucagon (Glucagen), 1 MG IM NEEDED PRN for Hypoglycemia, (Reported) Ibuprofen* (Motrin*), 400 MG GT Q6H PRN for For Pain, (Reported) Magnesium Hydroxide* (Milk Of Magnesia*), 30 ML GT DAILY PRN for Constipation, ( Reported) Ondansetron* (Zofran 4 Mg/2 Ml Vial*), 4 MG IM Q6H PRN for Nausea & Vomiting, ( Reported) Miscellaneous Medications Colistin Sulfate (Colistin Sulfate), 1 EACH , (Reported) Patient History Limited by: medical condition History Provided By: Family Member, Medical Record, PMD Healthcare decision maker Resuscitation status Full Code Advanced Directive on File Past Medical/Surgical History Past Medical/Surgical History: (1) Gastrostomy malfunction (2) Leaking percutaneous endoscopic gastrostomy (PEG) tube (3) Septic shock (4) Chronic respiratory failure (5) Feeding by G-tube (6) Bacteremia (7) Uncontrolled seizures (8) Seizure disorder, convulsive, with status epilepticus (9) Seizure after head injury (10) Line sepsis (11) UTI (urinary tract infection) (12) Urinary tract infection (13) Acute on chronic renal insufficiency Review of Systems ROS Narrative Cannot obtain given medical history Physical Exam General Appearance: no apparent distress Lines, tubes and drains: peripheral, trach HEENT: other Neck: trach Respiratory/Chest: decreased breath sounds, on vent Cardiovascular/Chest: normal rate Extremities: non-tender, slow capillary refill, other Skin Exam: warm/dry, other Neurologic: unresponsiveness, other Last 24 Hour Vital Signs Date Time Temp Pulse Resp B/P (MAP) Pulse Ox O2 Delivery O2 Flow Rate FiO2 12/01/18 17:05 114/77 12/01/18 16:00 Mechanical Ventilator 12/01/18 16:00 30 12/01/18 16:00 98.4 76 19 114/77 (89) 100 12/01/18 16:00 76 12/01/18 15:01 80 16 30 12/01/18 13:03 72 16 30 12/01/18 12:28 119/75 12/01/18 12:00 98.3 71 16 119/75 (90) 100 12/01/18 12:00 64 12/01/18 12:00 Mechanical Ventilator 12/01/18 12:00 30 12/01/18 10:42 67 16 30 12/01/18 09:19 69 16 30 12/01/18 09:00 30 12/01/18 09:00 Mechanical Ventilator 12/01/18 08:07 69 108/74 12/01/18 08:04 108/74 12/01/18 08:00 73 12/01/18 08:00 99.7 69 19 108/74 (85) 100 12/01/18 07:09 63 16 30 12/01/18 05:13 65 16 30 12/01/18 05:00 123/83 12/01/18 04:00 Mechanical Ventilator 12/01/18 04:00 99.2 67 18 123/83 (96) 12/01/18 04:00 30 12/01/18 03:46 77 12/01/18 03:25 66 16 30 12/01/18 01:00 68 16 30 12/01/18 00:29 123/83 12/01/18 00:00 Mechanical Ventilator 12/01/18 00:00 99.1 70 18 118/77 (91) 11/30/18 23:56 63 11/30/18 23:09 65 16 30 11/30/18 20:57 70 16 30 11/30/18 20:28 128/86 11/30/18 20:27 66 128/86 11/30/18 20:00 Mechanical Ventilator 11/30/18 20:00 30 11/30/18 20:00 99.9 80 22 128/86 (100) 11/30/18 19:53 65 11/30/18 18:52 79 16 30 Intake and Output 11/30/18 12/01/18 19:00 07:00 Intake Total 8100 ml 550 ml Output Total 850 ml 650 ml Balance 7250 ml -100 ml IV Total 8100 ml 550 ml Output Urine Total 850 ml 650 ml Laboratory Tests Test 12/01/18 03:57 White Blood Count 10.7 K/UL (4.8-10.8) Red Blood Count 4.15 M/UL (4.70-6.10) L Hemoglobin 13.0 G/DL (14.2-18.0) L Hematocrit 38.0 % (42.0-52.0) L Mean Corpuscular Volume 92 FL (80-99) Mean Corpuscular Hemoglobin 31.3 PG (27.0-31.0) H Mean Corpuscular Hemoglobin Concent 34.1 G/DL (32.0-36.0) Red Cell Distribution Width 12.2 % (11.6-14.8) Platelet Count 174 K/UL (150-450) Mean Platelet Volume 9.6 FL (6.5-10.1) Neutrophils (%) (Auto) 75.6 % (45.0-75.0) H Lymphocytes (%) (Auto) 16.5 % (20.0-45.0) L Monocytes (%) (Auto) 6.7 % (1.0-10.0) Eosinophils (%) (Auto) 0.4 % (0.0-3.0) Basophils (%) (Auto) 0.9 % (0.0-2.0) Sodium Level 139 MMOL/L (136-145) Potassium Level 3.4 MMOL/L (3.5-5.1) L Chloride Level 107 MMOL/L (98-107) Carbon Dioxide Level 22 MMOL/L (21-32) Anion Gap 10 mmol/L (5-15) Blood Urea Nitrogen 11 mg/dL (7-18) Creatinine 0.8 MG/DL (0.55-1.30) Estimat Glomerular Filtration Rate > 60 mL/min (>60) Glucose Level 107 MG/DL (74-106) H Calcium Level 8.8 MG/DL (8.5-10.1) Total Bilirubin 0.8 MG/DL (0.2-1.0) Aspartate Amino Transf (AST/SGOT) 15 U/L (15-37) Alanine Aminotransferase (ALT/SGPT) 23 U/L (12-78) Alkaline Phosphatase 115 U/L (46-116) Total Protein 7.3 G/DL (6.4-8.2) Albumin 3.4 G/DL (3.4-5.0) Globulin 3.9 g/dL Albumin/Globulin Ratio 0.9 (1.0-2.7) L Height (Feet): 5 Height (Inches): 8.00 Weight (Pounds): 220 Medications Current Medications Medications (Trade) Dose Ordered Sig/Jacob Route PRN Reason Start Time Stop Time Status Last Admin Dose Admin Clonazepam (KlonoPIN) 1 mg Q6HR GT 11/30/18 18:00 12/07/18 15:48 12/01/18 17:05 Dextrose (Dextrose 50%) 25 ml Q30M PRN IV Hypoglycemia 11/30/18 16:00 12/30/18 15:59 Dextrose (Dextrose 50%) 50 ml Q30MIN PRN IV Hypoglycemia 11/30/18 16:00 12/30/18 15:59 Dextrose/Sodium Chloride 1,000 ml @ 50 mls/hr Q20H IV 11/30/18 15:47 12/30/18 15:46 12/01/18 11:53 Heparin Sodium (Porcine) (Heparin 5000 units/ml) 5,000 units EVERY 12 HOURS SUBQ 11/30/18 21:00 12/30/18 20:59 12/01/18 08:06 Hydralazine HCl (Apresoline) 10 mg EVERY 4 HOURS GT 11/30/18 17:00 12/30/18 16:59 12/01/18 17:05 Levetiracetam (Keppra) 500 mg EVERY 12 HOURS GT 11/30/18 21:00 12/30/18 20:59 12/01/18 08:04 Lorazepam (Ativan 2mg/ml 1ml) 0.5 mg Q4H PRN IV For Anxiety 11/30/18 16:00 12/07/18 15:59 11/30/18 21:26 Metoprolol Tartrate (Lopressor) 75 mg EVERY 12 HOURS GT 11/30/18 21:00 12/30/18 20:59 11/30/18 20:27 Morphine Sulfate (Morphine Sulfate) 1 mg Q4H PRN IVP For Pain 11/30/18 16:00 12/07/18 15:59 Ondansetron HCl (Zofran) 4 mg Q6H PRN IVP Nausea & Vomiting 11/30/18 16:00 12/30/18 15:59 Oxcarbazepine (Trileptal) 600 mg Q12HR GT 11/30/18 21:00 12/30/18 20:59 12/01/18 08:04 Assessment/Plan Problem List: (1) Leaking percutaneous endoscopic gastrostomy (PEG) tube Assessment & Plan: Patient with leaking pertaining his gastrostomy tube on tube feeds. G-tube changed at bedside by GI today. Now tolerating tube feeds and slowly advancing to goal. Dressings changed. Appreciate GI input We will continue to monitor Advance to goal feeds nutritional component of wound healing is very important ICD Codes: K94.23 - Gastrostomy malfunction SNOMED: 078368072 (2) Gastrostomy malfunction ICD Codes: K94.23 - Gastrostomy malfunction SNOMED: 729451435 (3) Decubitus skin ulcer Assessment & Plan: Presents with multiple decubitus ulcer. Family states they have been there for almost 4 years and been trying to heal them. Upon admission patient immediately placed on air mattress and precautions began. Large healing macerated sacral decubitus ulcer partial-thickness with small areas of full thickness noted. periwound maceration, no drainage, no signs of active infection. apply hydrogel skin protectant and foam dressing, wash daily Turn every 2 hours Nutritional support. Offload heels with pillows. Thank you for allowing me to participate in patient's care will continue to follow with recommendations ICD Codes: L89.90 - Pressure ulcer of unspecified site, unspecified stage SNOMED: 332511026 Horacio Hope Dec 01, 2018 18:06
[2018-12-01] MEDS: Albuterol ud Inhalation HHN SCH (18:55)
[2018-12-01 20:00] VITALS: BP 127/78
[2018-12-02] VITALS: BP 108/75
[2018-12-02] MEDS: HydrALAZINE 10mg Tab GT SCH ×6 (00:50→20:33)
[2018-12-02] MEDS: Albuterol ud Inhalation HHN SCH ×4 (01:07→19:21)
[2018-12-02 04:00] VITALS: BP 152/117
[2018-12-02 05:48] LABS: BASOPHILS % (AUTO) 0.7 % (0.0-2.0); HEMATOCRIT 38.1 % (42.0-52.0); HEMOGLOBIN 13.2 G/DL (14.2-18.0); LYMPHOCYTES % (AUTO) 16.5 % (20.0-45.0); MEAN CORPUSCULAR VOLUME 91 FL (80-99); MONOCYTES % (AUTO) 9.2 % (1.0-10.0); NEUTROPHILS % (AUTO) 72.7 % (45.0-75.0); PLATELET COUNT 177 K/UL (150-450); RED BLOOD COUNT 4.18 M/UL (4.70-6.10); RED CELL DISTRIBUTION WIDTH 12.7 % (11.6-14.8); WHITE BLOOD COUNT 10.2 K/UL (4.8-10.8)
[2018-12-02 06:02] LABS: INR 1.2 (0.9-1.1)
[2018-12-02 06:10] LABS: ALANINE AMINOTRANSFERASE 27 U/L (12-78); ALBUMIN 3.5 G/DL (3.4-5.0); ALKALINE PHOSPHATASE 125 U/L (46-116); ANION GAP 9 mmol/L (5-15); ASPARTATE AMINO TRANSFERASE 15 U/L (15-37); BILIRUBIN,TOTAL 0.6 MG/DL (0.2-1.0); BLOOD UREA NITROGEN 10 mg/dL (7-18); CARBON DIOXIDE 21 MMOL/L (21-32); CHLORIDE 110 MMOL/L (98-107); CREATININE 0.8 MG/DL (0.55-1.30); POTASSIUM 3.6 MMOL/L (3.5-5.1); SODIUM 140 MMOL/L (136-145)
[2018-12-02 06:24] LABS: ALBUMIN/GLOBULIN RATIO 0.9 (1.0-2.7)
--- NOTE | 2018-12-02 07:28 | General Progress Note ---
Assessment/Plan Problem List: (1) Seizure after head injury ICD Codes: R56.1 - Post traumatic seizures SNOMED: 704268679 (2) Feeding by G-tube ICD Codes: Z93.1 - Gastrostomy status SNOMED: 311198784, 243909868 (3) Leaking percutaneous endoscopic gastrostomy (PEG) tube ICD Codes: K94.23 - Gastrostomy malfunction SNOMED: 845920558 Assessment/Plan: GT has been changed GTF at 55 cont monitoring Subjective ROS Limited/Unobtainable: No Allergies: Uncoded Allergies: TAPE (Allergy, Unknown, 05/31/18) Objective Last 24 Hour Vital Signs Date Time Temp Pulse Resp B/P (MAP) Pulse Ox O2 Delivery O2 Flow Rate FiO2 12/02/18 07:08 76 17 96 Mechanical Ventilator 30 81 16 30 12/02/18 05:09 86 16 30 12/02/18 04:23 152/117 12/02/18 04:06 71 12/02/18 04:00 98.9 73 22 152/117 (129) 97 12/02/18 04:00 Mechanical Ventilator 12/02/18 04:00 30 12/02/18 03:03 65 16 30 12/02/18 01:04 75 16 99 Mechanical Ventilator 30 68 16 30 12/02/18 00:50 108/75 12/02/18 00:00 99.2 71 18 108/75 (86) 98 12/02/18 00:00 Mechanical Ventilator 12/01/18 23:54 72 12/01/18 23:12 68 16 30 12/01/18 21:00 70 17 98 Mechanical Ventilator 30 12/01/18 20:21 76 103/77 12/01/18 20:20 103/77 12/01/18 20:00 Mechanical Ventilator 12/01/18 20:00 96.8 64 18 127/78 (94) 99 12/01/18 20:00 30 12/01/18 19:20 77 12/01/18 18:56 79 16 98 Mechanical Ventilator 30 84 16 30 12/01/18 18:23 79 16 30 12/01/18 17:05 114/77 12/01/18 16:00 Mechanical Ventilator 12/01/18 16:00 30 12/01/18 16:00 98.4 76 19 114/77 (89) 100 12/01/18 16:00 76 12/01/18 15:01 80 16 30 12/01/18 13:03 72 16 30 12/01/18 12:28 119/75 12/01/18 12:00 98.3 71 16 119/75 (90) 100 12/01/18 12:00 64 12/01/18 12:00 Mechanical Ventilator 12/01/18 12:00 30 12/01/18 10:42 67 16 30 12/01/18 09:19 69 16 30 12/01/18 09:00 30 12/01/18 09:00 Mechanical Ventilator 12/01/18 08:07 69 108/74 12/01/18 08:04 108/74 12/01/18 08:00 73 12/01/18 08:00 99.7 69 19 108/74 (85) 100 Intake and Output 12/01/18 12/02/18 19:00 07:00 Intake Total 1090 ml 1390 ml Output Total 1450 ml 900 ml Balance -360 ml 490 ml Intake Free Water 80 ml 300 ml IV Total 800 ml 600 ml Tube Feeding 210 ml 490 ml Output Urine Total 1450 ml 900 ml # Bowel Movements 1 Laboratory Tests 12/02/18 03:58: White Blood Count 10.2, Red Blood Count 4.18L, Hemoglobin 13.2L, Hematocrit 38.1L, Mean Corpuscular Volume 91, Mean Corpuscular Hemoglobin 31.6H, Mean Corpuscular Hemoglobin Concent 34.7, Red Cell Distribution Width 12.7, Platelet Count 177, Mean Platelet Volume 10.0, Neutrophils (%) (Auto) 72.7, Lymphocytes ( %) (Auto) 16.5L, Monocytes (%) (Auto) 9.2, Eosinophils (%) (Auto) 1.0, Basophils (%) (Auto) 0.7, Erythrocyte Sedimentation Rate 45H, Prothrombin Time 13.1H, Prothromb Time International Ratio 1.2H, Activated Partial Thromboplast Time 34H, Sodium Level 140, Potassium Level 3.6, Chloride Level 110H, Carbon Dioxide Level 21, Anion Gap 9, Blood Urea Nitrogen 10, Creatinine 0.8, Estimat Glomerular Filtration Rate > 60, Glucose Level 104, Calcium Level 9.0, Total Bilirubin 0.6, Aspartate Amino Transf (AST/SGOT) 15, Alanine Aminotransferase ( ALT/SGPT) 27, Alkaline Phosphatase 125H, C-Reactive Protein, Quantitative 3.3H, Total Protein 7.5, Albumin 3.5, Globulin 4.0, Albumin/Globulin Ratio 0.9L Height (Feet): 5 Height (Inches): 8.00 Weight (Pounds): 220 General Appearance: no apparent distress EENT: normal ENT inspection Neck: supple Cardiovascular: normal rate Respiratory/Chest: decreased breath sounds Abdomen: normal bowel sounds, non tender, soft Ananth Bella MD Dec 02, 2018 07:28
[2018-12-02 08:00] VITALS: BP 117/98
[2018-12-02] MEDS: Metoprolol 25mg tab GT SCH ×2 (08:35→20:33)
[2018-12-02] MEDS: Heparin 5000 units/ml inj SUBQ SCH ×2 (08:38→20:35)
[2018-12-02] MEDS: D5 1/2NS 1,000 ML IV SCH (08:39)
[2018-12-02] MEDS ORDERED: D5 1/2NS 1000ml IV ONE ×2 (10:23→15:11)
--- NOTE | 2018-12-02 11:45 | Surgery Progress Note ---
Surgery Progress Note Subjective Additional Comments Patient seen and examined bedside. No acute events. Labs noted. Exam unchanged. Objective Last 24 Hour Vital Signs Date Time Temp Pulse Resp B/P (MAP) Pulse Ox O2 Delivery O2 Flow Rate FiO2 12/02/18 10:46 73 16 30 12/02/18 08:56 67 16 30 12/02/18 08:54 76 12/02/18 08:35 73 117/98 12/02/18 08:35 117/98 12/02/18 08:00 Mechanical Ventilator 12/02/18 08:00 30 12/02/18 08:00 98.8 73 16 117/98 (104) 97 12/02/18 07:08 76 17 96 Mechanical Ventilator 30 81 16 30 12/02/18 05:09 86 16 30 12/02/18 04:23 152/117 12/02/18 04:06 71 12/02/18 04:00 98.9 73 22 152/117 (129) 97 12/02/18 04:00 Mechanical Ventilator 12/02/18 04:00 30 12/02/18 03:03 65 16 30 12/02/18 01:04 75 16 99 Mechanical Ventilator 30 68 16 30 12/02/18 00:50 108/75 12/02/18 00:00 99.2 71 18 108/75 (86) 98 12/02/18 00:00 Mechanical Ventilator 12/01/18 23:54 72 12/01/18 23:12 68 16 30 12/01/18 21:00 70 17 98 Mechanical Ventilator 30 12/01/18 20:21 76 103/77 12/01/18 20:20 103/77 12/01/18 20:00 Mechanical Ventilator 12/01/18 20:00 96.8 64 18 127/78 (94) 99 12/01/18 20:00 30 12/01/18 19:20 77 12/01/18 18:56 79 16 98 Mechanical Ventilator 30 84 16 30 12/01/18 18:23 79 16 30 12/01/18 17:05 114/77 12/01/18 16:00 Mechanical Ventilator 12/01/18 16:00 30 12/01/18 16:00 98.4 76 19 114/77 (89) 100 12/01/18 16:00 76 12/01/18 15:01 80 16 30 12/01/18 13:03 72 16 30 12/01/18 12:28 119/75 12/01/18 12:00 98.3 71 16 119/75 (90) 100 12/01/18 12:00 64 12/01/18 12:00 Mechanical Ventilator 12/01/18 12:00 30 I&O Intake and Output 12/01/18 12/02/18 18:59 06:59 Intake Total 985 ml 1445 ml Output Total 1450 ml 900 ml Balance -465 ml 545 ml Intake Free Water 60 ml 320 ml IV Total 750 ml 600 ml Tube Feeding 175 ml 525 ml Output Urine Total 1450 ml 900 ml # Bowel Movements 1 Dressing: saturated Wound: other Drains: other Cardiovascular: RSR Respiratory: decreased breath sounds Abdomen: soft, present bowel sounds, other Extremities: no cyanosis Laboratory Tests Test 12/02/18 03:58 White Blood Count 10.2 K/UL (4.8-10.8) Red Blood Count 4.18 M/UL (4.70-6.10) L Hemoglobin 13.2 G/DL (14.2-18.0) L Hematocrit 38.1 % (42.0-52.0) L Mean Corpuscular Volume 91 FL (80-99) Mean Corpuscular Hemoglobin 31.6 PG (27.0-31.0) H Mean Corpuscular Hemoglobin Concent 34.7 G/DL (32.0-36.0) Red Cell Distribution Width 12.7 % (11.6-14.8) Platelet Count 177 K/UL (150-450) Mean Platelet Volume 10.0 FL (6.5-10.1) Neutrophils (%) (Auto) 72.7 % (45.0-75.0) Lymphocytes (%) (Auto) 16.5 % (20.0-45.0) L Monocytes (%) (Auto) 9.2 % (1.0-10.0) Eosinophils (%) (Auto) 1.0 % (0.0-3.0) Basophils (%) (Auto) 0.7 % (0.0-2.0) Erythrocyte Sedimentation Rate 45 MM/HR (0-20) H Prothrombin Time 13.1 SEC (9.30-11.50) H Prothromb Time International Ratio 1.2 (0.9-1.1) H Activated Partial Thromboplast Time 34 SEC (23-33) H Sodium Level 140 MMOL/L (136-145) Potassium Level 3.6 MMOL/L (3.5-5.1) Chloride Level 110 MMOL/L (98-107) H Carbon Dioxide Level 21 MMOL/L (21-32) Anion Gap 9 mmol/L (5-15) Blood Urea Nitrogen 10 mg/dL (7-18) Creatinine 0.8 MG/DL (0.55-1.30) Estimat Glomerular Filtration Rate > 60 mL/min (>60) Glucose Level 104 MG/DL (74-106) Calcium Level 9.0 MG/DL (8.5-10.1) Total Bilirubin 0.6 MG/DL (0.2-1.0) Aspartate Amino Transf (AST/SGOT) 15 U/L (15-37) Alanine Aminotransferase (ALT/SGPT) 27 U/L (12-78) Alkaline Phosphatase 125 U/L (46-116) H C-Reactive Protein, Quantitative 3.3 mg/dL (0.00-0.90) H Total Protein 7.5 G/DL (6.4-8.2) Albumin 3.5 G/DL (3.4-5.0) Globulin 4.0 g/dL Albumin/Globulin Ratio 0.9 (1.0-2.7) L Plan Problems: (1) Leaking percutaneous endoscopic gastrostomy (PEG) tube Assessment & Plan: Patient with leaking pertaining his gastrostomy tube on tube feeds. G-tube changed at bedside by GI today. Now tolerating tube feeds and slowly advancing to goal. Dressings changed. Appreciate GI input We will continue to monitor Advance to goal feeds nutritional component of wound healing is very important (2) Gastrostomy malfunction (3) Decubitus skin ulcer Assessment & Plan: Presents with multiple decubitus ulcer. Family states they have been there for almost 4 years and been trying to heal them. Upon admission patient immediately placed on air mattress and precautions began. Large healing macerated sacral decubitus ulcer partial-thickness with small areas of full thickness noted. periwound maceration, no drainage, no signs of active infection. apply hydrogel skin protectant and foam dressing, wash daily Turn every 2 hours Nutritional support. Offload heels with pillows. Thank you for allowing me to participate in patient's care will continue to follow with recommendations Horacio Hope Dec 02, 2018 11:45
[2018-12-02 12:00] VITALS: BP 108/74
[2018-12-02 16:00] VITALS: BP 95/70
[2018-12-02 20:00] VITALS: BP 98/74
--- NOTE | 2018-12-02 23:24 | Pulmonolgy Critical Care Note ---
Critical Care - Asmt/Plan Problems: (1) Uncontrolled seizures (2) Chronic respiratory failure (3) Seizure disorder, convulsive, with status epilepticus (4) Feeding by G-tube Respiratory: monitor respiratory rate, adjust FIO2, CXR Cardiac: continue to monitor HR/BP Renal: F/U I&O Infectious Disease: check cultures Gastrointestinal: continue feedings/current rate Endocrine: monitor blood sugar, continue sliding scale insulin Hematologic: monitor H/H, transfuse if hgb<8.5 Neurologic: PRN Ativan, keep patient comfortable Prophylaxis: Protonix, Heparin Notes Reviewed: assessment coordinator, cardio, renal Discussed with: nurses, consultants, skilled nursing case manageris manager - Objective Last 24 Hour Vital Signs Date Time Temp Pulse Resp B/P (MAP) Pulse Ox O2 Delivery O2 Flow Rate FiO2 12/02/18 21:12 64 16 30 12/02/18 20:33 70 98/74 12/02/18 20:33 98/74 12/02/18 20:00 30 12/02/18 20:00 Mechanical Ventilator 12/02/18 20:00 98.9 70 16 98/74 (82) 100 12/02/18 19:37 68 12/02/18 19:16 65 16 100 Mechanical Ventilator 30 65 16 12/02/18 17:00 95/70 12/02/18 16:56 64 16 30 12/02/18 16:55 83 12/02/18 16:00 30 12/02/18 16:00 99.0 72 12 95/70 (78) 99 12/02/18 16:00 Mechanical Ventilator 12/02/18 15:20 69 16 30 12/02/18 12:46 69 16 100 Mechanical Ventilator 30 73 16 30 12/02/18 12:27 108/74 12/02/18 12:00 Mechanical Ventilator 12/02/18 12:00 30 12/02/18 12:00 98.8 71 16 108/74 (85) 98 12/02/18 12:00 75 12/02/18 10:46 73 16 30 12/02/18 08:56 67 16 30 12/02/18 08:54 76 12/02/18 08:35 73 117/98 12/02/18 08:35 117/98 12/02/18 08:00 Mechanical Ventilator 12/02/18 08:00 30 12/02/18 08:00 98.8 73 16 117/98 (104) 97 12/02/18 07:08 76 17 96 Mechanical Ventilator 30 81 16 30 12/02/18 05:09 86 16 30 12/02/18 04:23 152/117 12/02/18 04:06 71 12/02/18 04:00 98.9 73 22 152/117 (129) 97 12/02/18 04:00 Mechanical Ventilator 12/02/18 04:00 30 12/02/18 03:03 65 16 30 12/02/18 01:04 75 16 99 Mechanical Ventilator 30 68 16 30 12/02/18 00:50 108/75 12/02/18 00:00 99.2 71 18 108/75 (86) 98 12/02/18 00:00 Mechanical Ventilator 12/01/18 23:54 72 Status: awake Condition: critical HEENT: atraumatic Neck: full ROM Heart: HR/BP unstable Abdomen: non-tender, active bowel sounds Extremities: no C/C/E Micro: Microbiology Date/Time Source Procedure Growth Status 11/30/18 10:25 Blood Blood Culture - Preliminary NO GROWTH AFTER 24 HOURS Resulted 11/30/18 10:10 Blood Blood Culture - Preliminary NO GROWTH AFTER 24 HOURS Resulted 11/30/18 17:50 Sputum Gram Stain - Final Resulted 11/30/18 17:50 Sputum Sputum Culture - Preliminary NORMAL UPPER RESPIRATORY EDDIE AT 24 ... Resulted 11/30/18 10:18 Nasal Nares MRSA Culture - Final NO METHICILLIN RESISTANT STAPH AUREUS... Complete 11/30/18 10:18 Rectum VRE Culture - Final NO VANCOMYCIN RESISTANT ENTEROCOCCUS ... Complete Accucheck: 109 Critical Care - Subjective ROS Limited/Unobtainable: Yes Condition: critical EKG Rhythm: Sinus Rhythm FI02: 30 Vent Support Breath Rate: 16 Vent Support Mode: AC Vent Tidal Volume: 650 Sputum Amount: Moderate PEEP: 5.0 PIP: 30 Tube Feeding Amount: 50 I&O: Intake and Output 12/01/18 12/02/18 19:00 07:00 Intake Total 1090 ml 1445 ml Output Total 1450 ml 900 ml Balance -360 ml 545 ml Intake Free Water 80 ml 300 ml IV Total 800 ml 600 ml Tube Feeding 210 ml 545 ml Output Urine Total 1450 ml 900 ml # Bowel Movements 1 CXR: clear Labs: Laboratory Tests Test 12/02/18 03:58 White Blood Count 10.2 K/UL (4.8-10.8) Red Blood Count 4.18 M/UL (4.70-6.10) L Hemoglobin 13.2 G/DL (14.2-18.0) L Hematocrit 38.1 % (42.0-52.0) L Mean Corpuscular Volume 91 FL (80-99) Mean Corpuscular Hemoglobin 31.6 PG (27.0-31.0) H Mean Corpuscular Hemoglobin Concent 34.7 G/DL (32.0-36.0) Red Cell Distribution Width 12.7 % (11.6-14.8) Platelet Count 177 K/UL (150-450) Mean Platelet Volume 10.0 FL (6.5-10.1) Neutrophils (%) (Auto) 72.7 % (45.0-75.0) Lymphocytes (%) (Auto) 16.5 % (20.0-45.0) L Monocytes (%) (Auto) 9.2 % (1.0-10.0) Eosinophils (%) (Auto) 1.0 % (0.0-3.0) Basophils (%) (Auto) 0.7 % (0.0-2.0) Erythrocyte Sedimentation Rate 45 MM/HR (0-20) H Prothrombin Time 13.1 SEC (9.30-11.50) H Prothromb Time International Ratio 1.2 (0.9-1.1) H Activated Partial Thromboplast Time 34 SEC (23-33) H Sodium Level 140 MMOL/L (136-145) Potassium Level 3.6 MMOL/L (3.5-5.1) Chloride Level 110 MMOL/L (98-107) H Carbon Dioxide Level 21 MMOL/L (21-32) Anion Gap 9 mmol/L (5-15) Blood Urea Nitrogen 10 mg/dL (7-18) Creatinine 0.8 MG/DL (0.55-1.30) Estimat Glomerular Filtration Rate > 60 mL/min (>60) Glucose Level 104 MG/DL (74-106) Calcium Level 9.0 MG/DL (8.5-10.1) Total Bilirubin 0.6 MG/DL (0.2-1.0) Aspartate Amino Transf (AST/SGOT) 15 U/L (15-37) Alanine Aminotransferase (ALT/SGPT) 27 U/L (12-78) Alkaline Phosphatase 125 U/L (46-116) H C-Reactive Protein, Quantitative 3.3 mg/dL (0.00-0.90) H Total Protein 7.5 G/DL (6.4-8.2) Albumin 3.5 G/DL (3.4-5.0) Globulin 4.0 g/dL Albumin/Globulin Ratio 0.9 (1.0-2.7) L Amanda Combs MD Dec 02, 2018 23:24
[2018-12-02] MEDS ORDERED: Fleet's Mineral Oil Enema RECTAL PRN (23:45)
[2018-12-02] MEDS ORDERED: Miralax 17gm pkt GT PRN (23:45)
[2018-12-03] VITALS: BP 115/70
[2018-12-03] MEDS: Miralax 17gm pkt GT SCH ×2 (00:13→20:26)
[2018-12-03] MEDS: HydrALAZINE 10mg Tab GT SCH ×6 (00:14→20:24)
[2018-12-03] MEDS: Albuterol ud Inhalation HHN SCH ×4 (02:01→19:28)
[2018-12-03 04:00] VITALS: BP 113/74
[2018-12-03] MEDS: D5 1/2NS 1,000 ML IV SCH (04:36)
[2018-12-03 05:26] LABS: BASOPHILS % (AUTO) 0.7 % (0.0-2.0); EOSINOPHILS % (AUTO) 1.5 % (0.0-3.0); HEMATOCRIT 38.8 % (42.0-52.0); HEMOGLOBIN 13.3 G/DL (14.2-18.0); LYMPHOCYTES % (AUTO) 18.5 % (20.0-45.0); MEAN CORPUSCULAR VOLUME 91 FL (80-99); MONOCYTES % (AUTO) 8.2 % (1.0-10.0); PLATELET COUNT 184 K/UL (150-450); RED BLOOD COUNT 4.24 M/UL (4.70-6.10); RED CELL DISTRIBUTION WIDTH 12.6 % (11.6-14.8); WHITE BLOOD COUNT 10.7 K/UL (4.8-10.8)
[2018-12-03 06:08] LABS: ALANINE AMINOTRANSFERASE 27 U/L (12-78); ALBUMIN 3.5 G/DL (3.4-5.0); ALBUMIN/GLOBULIN RATIO 0.9 (1.0-2.7); ALKALINE PHOSPHATASE 130 U/L (46-116); ANION GAP 12 mmol/L (5-15); ASPARTATE AMINO TRANSFERASE 16 U/L (15-37); BILIRUBIN,TOTAL 0.5 MG/DL (0.2-1.0); BLOOD UREA NITROGEN 9 mg/dL (7-18); CALCIUM 9.2 MG/DL (8.5-10.1); CARBON DIOXIDE 22 MMOL/L (21-32); CHLORIDE 110 MMOL/L (98-107); CREATININE 0.8 MG/DL (0.55-1.30); POTASSIUM 3.8 MMOL/L (3.5-5.1); SODIUM 144 MMOL/L (136-145)
[2018-12-03 08:00] VITALS: BP 103/70
[2018-12-03] MEDS: Metoprolol 25mg tab GT SCH ×2 (08:15→20:25)
[2018-12-03] MEDS: Heparin 5000 units/ml inj SUBQ SCH ×2 (08:21→20:27)
[2018-12-03] MEDS ORDERED: Docusate 100mg tablet GT SCH (09:00)
--- NOTE | 2018-12-03 10:30 | GI Progress Note ---
Assessment/Plan Problems: (1) Feeding by G-tube ICD Codes: Z93.1 - Gastrostomy status SNOMED: 887965982, [id number] Status: stable Status Narrative Discussed with Dr. Bella. Assessment/Plan GT has been changed GTF at 55 cont monitoring prn transfusions ppi follow labs The patient was seen and examined at bedside and all new and available data was reviewed in the patients chart. I agree with the above findings, impression and plan. (Patient seen earlier today. Signature stamp does not reflect patient encounter time.). - Ananth Bella MD Subjective Gastrointestinal/Abdominal: Reports: no symptoms Objective Last 24 Hour Vital Signs Date Time Temp Pulse Resp B/P (MAP) Pulse Ox O2 Delivery O2 Flow Rate FiO2 12/03/18 09:04 62 16 30 12/03/18 08:15 65 103/70 12/03/18 08:15 103/70 12/03/18 08:00 98.8 68 18 103/70 (81) 98 12/03/18 08:00 Mechanical Ventilator 12/03/18 08:00 30 12/03/18 08:00 66 12/03/18 06:52 64 16 30 12/03/18 05:25 66 16 30 12/03/18 04:37 113/74 12/03/18 04:00 98.2 62 16 113/74 (87) 99 12/03/18 04:00 30 12/03/18 04:00 Mechanical Ventilator 12/03/18 03:54 62 12/03/18 03:29 69 16 30 12/03/18 01:58 59 16 100 Mechanical Ventilator 30 68 16 12/03/18 00:14 115/71 12/03/18 00:00 Mechanical Ventilator 12/03/18 00:00 98.6 69 16 115/70 (85) 100 12/02/18 23:30 69 12/02/18 23:23 65 16 30 12/02/18 21:12 64 16 30 12/02/18 20:33 70 98/74 12/02/18 20:33 98/74 12/02/18 20:00 30 12/02/18 20:00 Mechanical Ventilator 12/02/18 20:00 98.9 70 16 98/74 (82) 100 12/02/18 19:37 68 12/02/18 19:16 65 16 100 Mechanical Ventilator 30 65 16 12/02/18 17:00 95/70 12/02/18 16:56 64 16 30 12/02/18 16:55 83 12/02/18 16:00 30 12/02/18 16:00 99.0 72 12 95/70 (78) 99 12/02/18 16:00 Mechanical Ventilator 12/02/18 15:20 69 16 30 12/02/18 12:46 69 16 100 Mechanical Ventilator 30 73 16 30 12/02/18 12:27 108/74 12/02/18 12:00 Mechanical Ventilator 12/02/18 12:00 30 12/02/18 12:00 98.8 71 16 108/74 (85) 98 12/02/18 12:00 75 12/02/18 10:46 73 16 30 Intake and Output 12/02/18 12/03/18 19:00 07:00 Intake Total 1392.5 ml 1450 ml Output Total 1000 ml 800 ml Balance 392.5 ml 650 ml Intake Free Water 180 ml 210 ml IV Total 567.5 ml 575 ml Tube Feeding 645 ml 665 ml Output Urine Total 1000 ml 800 ml # Bowel Movements 2 Laboratory Tests Test 12/03/18 03:45 White Blood Count 10.7 K/UL (4.8-10.8) Red Blood Count 4.24 M/UL (4.70-6.10) L Hemoglobin 13.3 G/DL (14.2-18.0) L Hematocrit 38.8 % (42.0-52.0) L Mean Corpuscular Volume 91 FL (80-99) Mean Corpuscular Hemoglobin 31.4 PG (27.0-31.0) H Mean Corpuscular Hemoglobin Concent 34.4 G/DL (32.0-36.0) Red Cell Distribution Width 12.6 % (11.6-14.8) Platelet Count 184 K/UL (150-450) Mean Platelet Volume 9.5 FL (6.5-10.1) Neutrophils (%) (Auto) 71.0 % (45.0-75.0) Lymphocytes (%) (Auto) 18.5 % (20.0-45.0) L Monocytes (%) (Auto) 8.2 % (1.0-10.0) Eosinophils (%) (Auto) 1.5 % (0.0-3.0) Basophils (%) (Auto) 0.7 % (0.0-2.0) Sodium Level 144 MMOL/L (136-145) Potassium Level 3.8 MMOL/L (3.5-5.1) Chloride Level 110 MMOL/L (98-107) H Carbon Dioxide Level 22 MMOL/L (21-32) Anion Gap 12 mmol/L (5-15) Blood Urea Nitrogen 9 mg/dL (7-18) Creatinine 0.8 MG/DL (0.55-1.30) Estimat Glomerular Filtration Rate > 60 mL/min (>60) Glucose Level 96 MG/DL (74-106) Calcium Level 9.2 MG/DL (8.5-10.1) Total Bilirubin 0.5 MG/DL (0.2-1.0) Aspartate Amino Transf (AST/SGOT) 16 U/L (15-37) Alanine Aminotransferase (ALT/SGPT) 27 U/L (12-78) Alkaline Phosphatase 130 U/L (46-116) H Total Protein 7.6 G/DL (6.4-8.2) Albumin 3.5 G/DL (3.4-5.0) Globulin 4.1 g/dL Albumin/Globulin Ratio 0.9 (1.0-2.7) L Height (Feet): 5 Height (Inches): 8.00 Weight (Pounds): 220 General Appearance: no apparent distress Cardiovascular: normal rate Respiratory/Chest: normal breath sounds, no respiratory distress Abdominal Exam: normal bowel sounds, non tender, soft, GT site - c/d/i Extremities: non-tender Lindsey Holman NP Dec 03, 2018 10:30
--- NOTE | 2018-12-03 11:18 | Pulmonolgy Critical Care Note ---
Critical Care - Asmt/Plan Problems: (1) Uncontrolled seizures (2) Chronic respiratory failure (3) Seizure disorder, convulsive, with status epilepticus (4) Feeding by G-tube Respiratory: monitor respiratory rate, adjust FIO2, CXR Cardiac: continue to monitor HR/BP Renal: F/U I&O Infectious Disease: check cultures Endocrine: monitor blood sugar, continue sliding scale insulin Hematologic: transfuse if hgb<8.5 Neurologic: PRN Ativan, keep patient comfortable Time Spent (Minutes): 40 Notes Reviewed: shoe planner Discussed with: nurses, consultants, employment evaluator/case manager, family member - at the bed site Critical Care - Objective Last 24 Hour Vital Signs Date Time Temp Pulse Resp B/P (MAP) Pulse Ox O2 Delivery O2 Flow Rate FiO2 12/03/18 09:04 62 16 30 12/03/18 08:15 65 103/70 12/03/18 08:15 103/70 12/03/18 08:00 98.8 68 18 103/70 (81) 98 12/03/18 08:00 Mechanical Ventilator 12/03/18 08:00 30 12/03/18 08:00 66 12/03/18 06:52 64 16 30 12/03/18 05:25 66 16 30 12/03/18 04:37 113/74 12/03/18 04:00 98.2 62 16 113/74 (87) 99 12/03/18 04:00 30 12/03/18 04:00 Mechanical Ventilator 12/03/18 03:54 62 12/03/18 03:29 69 16 30 12/03/18 01:58 59 16 100 Mechanical Ventilator 30 68 16 12/03/18 00:14 115/71 12/03/18 00:00 Mechanical Ventilator 12/03/18 00:00 98.6 69 16 115/70 (85) 100 12/02/18 23:30 69 12/02/18 23:23 65 16 30 12/02/18 21:12 64 16 30 12/02/18 20:33 70 98/74 12/02/18 20:33 98/74 12/02/18 20:00 30 12/02/18 20:00 Mechanical Ventilator 12/02/18 20:00 98.9 70 16 98/74 (82) 100 12/02/18 19:37 68 12/02/18 19:16 65 16 100 Mechanical Ventilator 30 65 16 12/02/18 17:00 95/70 12/02/18 16:56 64 16 30 12/02/18 16:55 83 12/02/18 16:00 30 12/02/18 16:00 99.0 72 12 95/70 (78) 99 12/02/18 16:00 Mechanical Ventilator 12/02/18 15:20 69 16 30 12/02/18 12:46 69 16 100 Mechanical Ventilator 30 73 16 30 12/02/18 12:27 108/74 12/02/18 12:00 Mechanical Ventilator 12/02/18 12:00 30 12/02/18 12:00 98.8 71 16 108/74 (85) 98 12/02/18 12:00 75 Status: awake Condition: critical, grave Neck: full ROM Lungs: clear Heart: HR/BP stable, HR/BP unstable, regular Abdomen: soft, active bowel sounds Extremities: no C/C/E, edema Decubiti: stage Micro: Microbiology Date/Time Source Procedure Growth Status 11/30/18 17:50 Sputum Gram Stain - Final Resulted 11/30/18 17:50 Sputum Culture - Preliminary Gram Negative Grayson Resulted Accucheck: 109 Critical Care - Subjective ROS Limited/Unobtainable: No Condition: critical EKG Rhythm: Sinus Rhythm FI02: 30 Vent Support Breath Rate: 16 Vent Support Mode: AC Vent Tidal Volume: 650 Sputum Amount: Small PEEP: 5.0 PIP: 28 Tube Feeding Amount: 55 I&O: Intake and Output 12/02/18 12/03/18 19:00 07:00 Intake Total 1392.5 ml 1450 ml Output Total 1000 ml 800 ml Balance 392.5 ml 650 ml Intake Free Water 180 ml 210 ml IV Total 567.5 ml 575 ml Tube Feeding 645 ml 665 ml Output Urine Total 1000 ml 800 ml # Bowel Movements 2 CXR: no change Labs: Laboratory Tests Test 12/03/18 03:45 White Blood Count 10.7 K/UL (4.8-10.8) Red Blood Count 4.24 M/UL (4.70-6.10) L Hemoglobin 13.3 G/DL (14.2-18.0) L Hematocrit 38.8 % (42.0-52.0) L Mean Corpuscular Volume 91 FL (80-99) Mean Corpuscular Hemoglobin 31.4 PG (27.0-31.0) H Mean Corpuscular Hemoglobin Concent 34.4 G/DL (32.0-36.0) Red Cell Distribution Width 12.6 % (11.6-14.8) Platelet Count 184 K/UL (150-450) Mean Platelet Volume 9.5 FL (6.5-10.1) Neutrophils (%) (Auto) 71.0 % (45.0-75.0) Lymphocytes (%) (Auto) 18.5 % (20.0-45.0) L Monocytes (%) (Auto) 8.2 % (1.0-10.0) Eosinophils (%) (Auto) 1.5 % (0.0-3.0) Basophils (%) (Auto) 0.7 % (0.0-2.0) Sodium Level 144 MMOL/L (136-145) Potassium Level 3.8 MMOL/L (3.5-5.1) Chloride Level 110 MMOL/L (98-107) H Carbon Dioxide Level 22 MMOL/L (21-32) Anion Gap 12 mmol/L (5-15) Blood Urea Nitrogen 9 mg/dL (7-18) Creatinine 0.8 MG/DL (0.55-1.30) Estimat Glomerular Filtration Rate > 60 mL/min (>60) Glucose Level 96 MG/DL (74-106) Calcium Level 9.2 MG/DL (8.5-10.1) Total Bilirubin 0.5 MG/DL (0.2-1.0) Aspartate Amino Transf (AST/SGOT) 16 U/L (15-37) Alanine Aminotransferase (ALT/SGPT) 27 U/L (12-78) Alkaline Phosphatase 130 U/L (46-116) H Total Protein 7.6 G/DL (6.4-8.2) Albumin 3.5 G/DL (3.4-5.0) Globulin 4.1 g/dL Albumin/Globulin Ratio 0.9 (1.0-2.7) L Amanda Combs MD Dec 03, 2018 11:18
[2018-12-03 12:00] VITALS: BP 104/70
[2018-12-03] MEDS: Docusate 100mg tablet GT SCH ×2 (12:21→18:27)
--- NOTE | 2018-12-03 13:51 | Surgery Progress Note ---
Surgery Progress Note Subjective Symptoms: other Objective Last 24 Hour Vital Signs Date Time Temp Pulse Resp B/P (MAP) Pulse Ox O2 Delivery O2 Flow Rate FiO2 12/03/18 12:58 70 16 100 Mechanical Ventilator 30 70 16 12/03/18 12:22 104/70 12/03/18 12:00 98.2 69 18 104/70 (81) 98 12/03/18 12:00 Mechanical Ventilator 12/03/18 12:00 30 12/03/18 12:00 66 12/03/18 11:29 60 18 30 12/03/18 09:04 62 16 30 12/03/18 08:15 65 103/70 12/03/18 08:15 103/70 12/03/18 08:00 98.8 68 18 103/70 (81) 98 12/03/18 08:00 Mechanical Ventilator 12/03/18 08:00 30 12/03/18 08:00 66 12/03/18 06:52 64 16 30 12/03/18 05:25 66 16 30 12/03/18 04:37 113/74 12/03/18 04:00 98.2 62 16 113/74 (87) 99 12/03/18 04:00 30 12/03/18 04:00 Mechanical Ventilator 12/03/18 03:54 62 12/03/18 03:29 69 16 30 12/03/18 01:58 59 16 100 Mechanical Ventilator 30 68 16 12/03/18 00:14 115/71 12/03/18 00:00 Mechanical Ventilator 12/03/18 00:00 98.6 69 16 115/70 (85) 100 12/02/18 23:30 69 12/02/18 23:23 65 16 30 12/02/18 21:12 64 16 30 12/02/18 20:33 70 98/74 12/02/18 20:33 98/74 12/02/18 20:00 30 12/02/18 20:00 Mechanical Ventilator 12/02/18 20:00 98.9 70 16 98/74 (82) 100 12/02/18 19:37 68 12/02/18 19:16 65 16 100 Mechanical Ventilator 30 65 16 12/02/18 17:00 95/70 12/02/18 16:56 64 16 30 12/02/18 16:55 83 12/02/18 16:00 30 12/02/18 16:00 99.0 72 12 95/70 (78) 99 12/02/18 16:00 Mechanical Ventilator 12/02/18 15:20 69 16 30 I&O Intake and Output 12/02/18 12/03/18 19:00 07:00 Intake Total 1392.5 ml 1450 ml Output Total 1000 ml 800 ml Balance 392.5 ml 650 ml Intake Free Water 180 ml 210 ml IV Total 567.5 ml 575 ml Tube Feeding 645 ml 665 ml Output Urine Total 1000 ml 800 ml # Bowel Movements 2 Dressing: other Wound: other Drains: other Cardiovascular: RSR Respiratory: decreased breath sounds Abdomen: soft, present bowel sounds, other, non-distended Extremities: no cyanosis, other Laboratory Tests Test 12/03/18 03:45 White Blood Count 10.7 K/UL (4.8-10.8) Red Blood Count 4.24 M/UL (4.70-6.10) L Hemoglobin 13.3 G/DL (14.2-18.0) L Hematocrit 38.8 % (42.0-52.0) L Mean Corpuscular Volume 91 FL (80-99) Mean Corpuscular Hemoglobin 31.4 PG (27.0-31.0) H Mean Corpuscular Hemoglobin Concent 34.4 G/DL (32.0-36.0) Red Cell Distribution Width 12.6 % (11.6-14.8) Platelet Count 184 K/UL (150-450) Mean Platelet Volume 9.5 FL (6.5-10.1) Neutrophils (%) (Auto) 71.0 % (45.0-75.0) Lymphocytes (%) (Auto) 18.5 % (20.0-45.0) L Monocytes (%) (Auto) 8.2 % (1.0-10.0) Eosinophils (%) (Auto) 1.5 % (0.0-3.0) Basophils (%) (Auto) 0.7 % (0.0-2.0) Sodium Level 144 MMOL/L (136-145) Potassium Level 3.8 MMOL/L (3.5-5.1) Chloride Level 110 MMOL/L (98-107) H Carbon Dioxide Level 22 MMOL/L (21-32) Anion Gap 12 mmol/L (5-15) Blood Urea Nitrogen 9 mg/dL (7-18) Creatinine 0.8 MG/DL (0.55-1.30) Estimat Glomerular Filtration Rate > 60 mL/min (>60) Glucose Level 96 MG/DL (74-106) Calcium Level 9.2 MG/DL (8.5-10.1) Total Bilirubin 0.5 MG/DL (0.2-1.0) Aspartate Amino Transf (AST/SGOT) 16 U/L (15-37) Alanine Aminotransferase (ALT/SGPT) 27 U/L (12-78) Alkaline Phosphatase 130 U/L (46-116) H Total Protein 7.6 G/DL (6.4-8.2) Albumin 3.5 G/DL (3.4-5.0) Globulin 4.1 g/dL Albumin/Globulin Ratio 0.9 (1.0-2.7) L Plan Problems: (1) Leaking percutaneous endoscopic gastrostomy (PEG) tube Assessment & Plan: Patient with leaking pertaining his gastrostomy tube on tube feeds. G-tube changed at bedside by GI today. Now tolerating tube feeds and slowly advancing to goal. Dressings changed. Appreciate GI input We will continue to monitor Advance to goal feeds nutritional component of wound healing is very important (2) Gastrostomy malfunction (3) Decubitus skin ulcer Assessment & Plan: Presents with multiple decubitus ulcer. Family states they have been there for almost 4 years and been trying to heal them. Upon admission patient immediately placed on air mattress and precautions began. Large healing macerated sacral decubitus ulcer partial-thickness with small areas of full thickness noted. periwound maceration, no drainage, no signs of active infection. apply hydrogel skin protectant and foam dressing, wash daily Turn every 2 hours Nutritional support. Offload heels with pillows. Thank you for allowing me to participate in patient's care will continue to follow with recommendations Horacio Hope Dec 03, 2018 13:51
[2018-12-03 16:00] VITALS: BP 101/62
[2018-12-03 20:00] VITALS: BP 95/62
[2018-12-04] VITALS: BP 99/64
[2018-12-04] MEDS: HydrALAZINE 10mg Tab GT SCH ×3 (00:27→08:44)
[2018-12-04] MEDS: D5 1/2NS 1,000 ML IV SCH (00:31)
[2018-12-04] MEDS ORDERED: Albuterol ud Inhalation ONE (01:46)
[2018-12-04] MEDS: Albuterol ud Inhalation HHN SCH ×2 (01:53→07:04)
[2018-12-04] MEDS: LORazepam Inj 2mg/ml 1ml IV PRN (03:45)
[2018-12-04 04:00] VITALS: BP 96/66
[2018-12-04 04:55] LABS: BASOPHILS % (AUTO) 0.9 % (0.0-2.0); EOSINOPHILS % (AUTO) 2.6 % (0.0-3.0); HEMATOCRIT 37.4 % (42.0-52.0); HEMOGLOBIN 12.9 G/DL (14.2-18.0); LYMPHOCYTES % (AUTO) 16.9 % (20.0-45.0); MEAN CORPUSCULAR VOLUME 92 FL (80-99); MONOCYTES % (AUTO) 6.5 % (1.0-10.0); NEUTROPHILS % (AUTO) 73.1 % (45.0-75.0); PLATELET COUNT 188 K/UL (150-450); RED BLOOD COUNT 4.08 M/UL (4.70-6.10); RED CELL DISTRIBUTION WIDTH 12.6 % (11.6-14.8); WHITE BLOOD COUNT 10.7 K/UL (4.8-10.8)
[2018-12-04 05:54] LABS: ALANINE AMINOTRANSFERASE 28 U/L (12-78); ALBUMIN 3.3 G/DL (3.4-5.0); ALBUMIN/GLOBULIN RATIO 0.8 (1.0-2.7); ALKALINE PHOSPHATASE 125 U/L (46-116); ANION GAP 15 mmol/L (5-15); ASPARTATE AMINO TRANSFERASE 17 U/L (15-37); BILIRUBIN,TOTAL 0.4 MG/DL (0.2-1.0); BLOOD UREA NITROGEN 11 mg/dL (7-18); CALCIUM 9.1 MG/DL (8.5-10.1); CARBON DIOXIDE 20 MMOL/L (21-32); CHLORIDE 108 MMOL/L (98-107); CREATININE 0.8 MG/DL (0.55-1.30); PHOSPHORUS 3.1 MG/DL (2.5-4.9); POTASSIUM 3.7 MMOL/L (3.5-5.1); SODIUM 143 MMOL/L (136-145)
[2018-12-04 08:00] VITALS: BP 123/79
[2018-12-04] MEDS: Docusate 100mg tablet GT SCH (08:28)
[2018-12-04] MEDS: Heparin 5000 units/ml inj SUBQ SCH (08:29)
[2018-12-04] MEDS: Metoprolol 25mg tab GT SCH (08:44)
--- NOTE | 2018-12-04 10:50 | Pulmonolgy Critical Care Note ---
Critical Care - Asmt/Plan Problems: (1) Uncontrolled seizures (2) Chronic respiratory failure (3) Seizure disorder, convulsive, with status epilepticus (4) Feeding by G-tube Respiratory: monitor respiratory rate, adjust FIO2, CXR Cardiac: continue to monitor HR/BP Renal: F/U I&O Infectious Disease: check cultures Gastrointestinal: continue feedings/current rate Endocrine: monitor blood sugar Hematologic: monitor H/H Neurologic: PRN Ativan Affect: PRN ativan Prophylaxis: Heparin Discussed with: nurses, consultants, dependency case managerclient program manager - Objective Last 24 Hour Vital Signs Date Time Temp Pulse Resp B/P (MAP) Pulse Ox O2 Delivery O2 Flow Rate FiO2 12/04/18 09:10 67 16 30 12/04/18 08:44 67 98/59 12/04/18 08:44 98/59 12/04/18 08:00 98.3 65 16 123/79 (94) 99 12/04/18 08:00 30 12/04/18 08:00 Mechanical Ventilator 12/04/18 07:44 67 12/04/18 07:01 68 16 99 Mechanical Ventilator 30 70 17 30 12/04/18 05:29 67 16 30 12/04/18 05:00 96/66 12/04/18 04:00 98.2 73 18 96/66 (76) 99 12/04/18 04:00 Mechanical Ventilator 12/04/18 04:00 71 12/04/18 04:00 30 12/04/18 03:21 70 17 30 12/04/18 01:30 72 17 100 Mechanical Ventilator 30 72 17 30 12/04/18 00:27 99/64 12/04/18 00:00 97.7 66 16 99/64 (76) 96 12/04/18 00:00 Mechanical Ventilator 12/03/18 23:30 68 16 30 12/03/18 23:28 71 12/03/18 21:30 72 16 30 12/03/18 20:25 72 95/62 12/03/18 20:24 95/62 12/03/18 20:00 30 12/03/18 20:00 97.7 75 16 95/62 (73) 99 12/03/18 20:00 Mechanical Ventilator 12/03/18 19:29 74 18 100 Mechanical Ventilator 30 71 16 99 12/03/18 19:22 73 12/03/18 19:19 74 16 99 Mechanical Ventilator 30 70 16 30 12/03/18 18:32 101/62 12/03/18 17:00 70 16 30 12/03/18 16:00 60 12/03/18 16:00 30 12/03/18 16:00 Mechanical Ventilator 12/03/18 16:00 98.1 69 20 101/62 (75) 98 12/03/18 15:06 65 16 30 12/03/18 12:58 70 16 100 Mechanical Ventilator 30 70 16 12/03/18 12:22 104/70 12/03/18 12:00 98.2 69 18 104/70 (81) 98 12/03/18 12:00 Mechanical Ventilator 12/03/18 12:00 30 12/03/18 12:00 66 12/03/18 11:29 60 18 30 Status: awake Condition: critical HEENT: atraumatic Lungs: chest wall tender Heart: HR/BP stable Abdomen: soft, active bowel sounds Extremities: no C/C/E Decubiti: location Accucheck: 109 Critical Care - Subjective ROS Limited/Unobtainable: No Condition: critical EKG Rhythm: Sinus Rhythm FI02: 30 Vent Support Breath Rate: 16 Vent Support Mode: AC Vent Tidal Volume: 650 Sputum Amount: Small PEEP: 5.0 PIP: 30 Tube Feeding Amount: 60 I&O: Intake and Output 12/03/18 12/04/18 19:00 07:00 Intake Total 1465 ml 1435 ml Output Total 500 ml 550 ml Balance 965 ml 885 ml Intake Free Water 200 ml 200 ml IV Total 600 ml 575 ml Tube Feeding 665 ml 660 ml Output Urine Total 500 ml 550 ml # Bowel Movements 2 Labs: Laboratory Tests Test 12/04/18 03:15 White Blood Count 10.7 K/UL (4.8-10.8) Red Blood Count 4.08 M/UL (4.70-6.10) L Hemoglobin 12.9 G/DL (14.2-18.0) L Hematocrit 37.4 % (42.0-52.0) L Mean Corpuscular Volume 92 FL (80-99) Mean Corpuscular Hemoglobin 31.5 PG (27.0-31.0) H Mean Corpuscular Hemoglobin Concent 34.4 G/DL (32.0-36.0) Red Cell Distribution Width 12.6 % (11.6-14.8) Platelet Count 188 K/UL (150-450) Mean Platelet Volume 9.6 FL (6.5-10.1) Neutrophils (%) (Auto) 73.1 % (45.0-75.0) Lymphocytes (%) (Auto) 16.9 % (20.0-45.0) L Monocytes (%) (Auto) 6.5 % (1.0-10.0) Eosinophils (%) (Auto) 2.6 % (0.0-3.0) Basophils (%) (Auto) 0.9 % (0.0-2.0) Sodium Level 143 MMOL/L (136-145) Potassium Level 3.7 MMOL/L (3.5-5.1) Chloride Level 108 MMOL/L (98-107) H Carbon Dioxide Level 20 MMOL/L (21-32) L Anion Gap 15 mmol/L (5-15) Blood Urea Nitrogen 11 mg/dL (7-18) Creatinine 0.8 MG/DL (0.55-1.30) Estimat Glomerular Filtration Rate > 60 mL/min (>60) Glucose Level 106 MG/DL (74-106) Calcium Level 9.1 MG/DL (8.5-10.1) Phosphorus Level 3.1 MG/DL (2.5-4.9) Magnesium Level 2.0 MG/DL (1.8-2.4) Total Bilirubin 0.4 MG/DL (0.2-1.0) Aspartate Amino Transf (AST/SGOT) 17 U/L (15-37) Alanine Aminotransferase (ALT/SGPT) 28 U/L (12-78) Alkaline Phosphatase 125 U/L (46-116) H Total Protein 7.2 G/DL (6.4-8.2) Albumin 3.3 G/DL (3.4-5.0) L Globulin 3.9 g/dL Albumin/Globulin Ratio 0.8 (1.0-2.7) L Amanda Combs MD Dec 04, 2018 10:50
--- NOTE | 2018-12-04 11:40 | Cardiology Report ---
APPROVED REPORT EKG Measurement Heart [id number] Sinus tachycardia Left axis deviation Inferior infarct, age undetermined Abnormal ECG
[2018-12-04 12:00] VITALS: BP 91/63
--- NOTE | 2018-12-04 12:54 | GI Progress Note ---
Assessment/Plan Problems: (1) Feeding by G-tube ICD Codes: Z93.1 - Gastrostomy status SNOMED: 171439390, [id number] Status: stable Status Narrative Discussed with Dr. Bella. Assessment/Plan GT has been changed GTF at 55 prn transfusions ppi turn q2 hours bowel regimen follow labs The patient was seen and examined at bedside and all new and available data was reviewed in the patients chart. I agree with the above findings, impression and plan. (Patient seen earlier today. Signature stamp does not reflect patient encounter time.). - Ananth Bella MD Subjective Gastrointestinal/Abdominal: Reports: no symptoms Objective Last 24 Hour Vital Signs Date Time Temp Pulse Resp B/P (MAP) Pulse Ox O2 Delivery O2 Flow Rate FiO2 12/04/18 12:00 Mechanical Ventilator 12/04/18 12:00 30 12/04/18 12:00 98.0 65 16 91/63 (72) 100 12/04/18 11:00 65 16 30 12/04/18 09:10 67 16 30 12/04/18 08:44 67 98/59 12/04/18 08:44 98/59 12/04/18 08:00 98.3 65 16 123/79 (94) 99 12/04/18 08:00 30 12/04/18 08:00 Mechanical Ventilator 12/04/18 07:44 67 12/04/18 07:01 68 16 99 Mechanical Ventilator 30 70 17 30 12/04/18 05:29 67 16 30 12/04/18 05:00 96/66 12/04/18 04:00 98.2 73 18 96/66 (76) 99 12/04/18 04:00 Mechanical Ventilator 12/04/18 04:00 71 12/04/18 04:00 30 12/04/18 03:21 70 17 30 12/04/18 01:30 72 17 100 Mechanical Ventilator 30 72 17 30 12/04/18 00:27 99/64 12/04/18 00:00 97.7 66 16 99/64 (76) 96 12/04/18 00:00 Mechanical Ventilator 12/03/18 23:30 68 16 30 12/03/18 23:28 71 12/03/18 21:30 72 16 30 12/03/18 20:25 72 95/62 12/03/18 20:24 95/62 12/03/18 20:00 30 12/03/18 20:00 97.7 75 16 95/62 (73) 99 12/03/18 20:00 Mechanical Ventilator 12/03/18 19:29 74 18 100 Mechanical Ventilator 30 71 16 99 12/03/18 19:22 73 12/03/18 19:19 74 16 99 Mechanical Ventilator 30 70 16 30 12/03/18 18:32 101/62 12/03/18 17:00 70 16 30 12/03/18 16:00 60 12/03/18 16:00 30 12/03/18 16:00 Mechanical Ventilator 12/03/18 16:00 98.1 69 20 101/62 (75) 98 12/03/18 15:06 65 16 30 12/03/18 12:58 70 16 100 Mechanical Ventilator 30 70 16 Intake and Output 12/03/18 12/04/18 19:00 07:00 Intake Total 1465 ml 1435 ml Output Total 500 ml 550 ml Balance 965 ml 885 ml Intake Free Water 200 ml 200 ml IV Total 600 ml 575 ml Tube Feeding 665 ml 660 ml Output Urine Total 500 ml 550 ml # Bowel Movements 2 Laboratory Tests Test 12/04/18 03:15 White Blood Count 10.7 K/UL (4.8-10.8) Red Blood Count 4.08 M/UL (4.70-6.10) L Hemoglobin 12.9 G/DL (14.2-18.0) L Hematocrit 37.4 % (42.0-52.0) L Mean Corpuscular Volume 92 FL (80-99) Mean Corpuscular Hemoglobin 31.5 PG (27.0-31.0) H Mean Corpuscular Hemoglobin Concent 34.4 G/DL (32.0-36.0) Red Cell Distribution Width 12.6 % (11.6-14.8) Platelet Count 188 K/UL (150-450) Mean Platelet Volume 9.6 FL (6.5-10.1) Neutrophils (%) (Auto) 73.1 % (45.0-75.0) Lymphocytes (%) (Auto) 16.9 % (20.0-45.0) L Monocytes (%) (Auto) 6.5 % (1.0-10.0) Eosinophils (%) (Auto) 2.6 % (0.0-3.0) Basophils (%) (Auto) 0.9 % (0.0-2.0) Sodium Level 143 MMOL/L (136-145) Potassium Level 3.7 MMOL/L (3.5-5.1) Chloride Level 108 MMOL/L (98-107) H Carbon Dioxide Level 20 MMOL/L (21-32) L Anion Gap 15 mmol/L (5-15) Blood Urea Nitrogen 11 mg/dL (7-18) Creatinine 0.8 MG/DL (0.55-1.30) Estimat Glomerular Filtration Rate > 60 mL/min (>60) Glucose Level 106 MG/DL (74-106) Calcium Level 9.1 MG/DL (8.5-10.1) Phosphorus Level 3.1 MG/DL (2.5-4.9) Magnesium Level 2.0 MG/DL (1.8-2.4) Total Bilirubin 0.4 MG/DL (0.2-1.0) Aspartate Amino Transf (AST/SGOT) 17 U/L (15-37) Alanine Aminotransferase (ALT/SGPT) 28 U/L (12-78) Alkaline Phosphatase 125 U/L (46-116) H Total Protein 7.2 G/DL (6.4-8.2) Albumin 3.3 G/DL (3.4-5.0) L Globulin 3.9 g/dL Albumin/Globulin Ratio 0.8 (1.0-2.7) L Height (Feet): 5 Height (Inches): 8.00 Weight (Pounds): 220 Objective abdomen firm, tympanic. family member at bedside Lindsey Holman NP Dec 04, 2018 12:54
[2018-12-04] MEDS ORDERED: Tubing IV Secondary IV ONE (13:19)
[2018-12-04] MEDS ORDERED: D5 1/2NS 1000ml IV ONE (13:19)
[2018-12-04] MEDS ORDERED: NS 275ml ONE (13:19)
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
--- NOTE | 2018-12-04 18:32 | Surgery Progress Note ---
Surgery Progress Note Subjective Symptoms: improved, tolerating diet, voiding well, passing flatus, BM Objective Last 24 Hour Vital Signs Date Time Temp Pulse Resp B/P (MAP) Pulse Ox O2 Delivery O2 Flow Rate FiO2 12/04/18 12:00 Mechanical Ventilator 12/04/18 12:00 30 12/04/18 12:00 98.0 65 16 91/63 (72) 100 12/04/18 11:00 65 16 30 12/04/18 09:10 67 16 30 12/04/18 08:44 67 98/59 12/04/18 08:44 98/59 12/04/18 08:00 98.3 65 16 123/79 (94) 99 12/04/18 08:00 30 12/04/18 08:00 Mechanical Ventilator 12/04/18 07:44 67 12/04/18 07:01 68 16 99 Mechanical Ventilator 30 70 17 30 12/04/18 05:29 67 16 30 12/04/18 05:00 96/66 12/04/18 04:00 98.2 73 18 96/66 (76) 99 12/04/18 04:00 Mechanical Ventilator 12/04/18 04:00 71 12/04/18 04:00 30 12/04/18 03:21 70 17 30 12/04/18 01:30 72 17 100 Mechanical Ventilator 30 72 17 30 12/04/18 00:27 99/64 12/04/18 00:00 97.7 66 16 99/64 (76) 96 12/04/18 00:00 Mechanical Ventilator 12/03/18 23:30 68 16 30 12/03/18 23:28 71 12/03/18 21:30 72 16 30 12/03/18 20:25 72 95/62 12/03/18 20:24 95/62 12/03/18 20:00 30 12/03/18 20:00 97.7 75 16 95/62 (73) 99 12/03/18 20:00 Mechanical Ventilator 12/03/18 19:29 74 18 100 Mechanical Ventilator 30 71 16 99 12/03/18 19:22 73 12/03/18 19:19 74 16 99 Mechanical Ventilator 30 70 16 30 12/03/18 18:32 101/62 I&O Intake and Output 12/03/18 12/04/18 19:00 07:00 Intake Total 1465 ml 1435 ml Output Total 500 ml 550 ml Balance 965 ml 885 ml Intake Free Water 200 ml 200 ml IV Total 600 ml 575 ml Tube Feeding 665 ml 660 ml Output Urine Total 500 ml 550 ml # Bowel Movements 2 Dressing: saturated Wound: clean Drains: other Cardiovascular: RSR Respiratory: decreased breath sounds Abdomen: soft, present bowel sounds, non-distended Extremities: no tenderness, no cyanosis Laboratory Tests Test 12/04/18 03:15 White Blood Count 10.7 K/UL (4.8-10.8) Red Blood Count 4.08 M/UL (4.70-6.10) L Hemoglobin 12.9 G/DL (14.2-18.0) L Hematocrit 37.4 % (42.0-52.0) L Mean Corpuscular Volume 92 FL (80-99) Mean Corpuscular Hemoglobin 31.5 PG (27.0-31.0) H Mean Corpuscular Hemoglobin Concent 34.4 G/DL (32.0-36.0) Red Cell Distribution Width 12.6 % (11.6-14.8) Platelet Count 188 K/UL (150-450) Mean Platelet Volume 9.6 FL (6.5-10.1) Neutrophils (%) (Auto) 73.1 % (45.0-75.0) Lymphocytes (%) (Auto) 16.9 % (20.0-45.0) L Monocytes (%) (Auto) 6.5 % (1.0-10.0) Eosinophils (%) (Auto) 2.6 % (0.0-3.0) Basophils (%) (Auto) 0.9 % (0.0-2.0) Sodium Level 143 MMOL/L (136-145) Potassium Level 3.7 MMOL/L (3.5-5.1) Chloride Level 108 MMOL/L (98-107) H Carbon Dioxide Level 20 MMOL/L (21-32) L Anion Gap 15 mmol/L (5-15) Blood Urea Nitrogen 11 mg/dL (7-18) Creatinine 0.8 MG/DL (0.55-1.30) Estimat Glomerular Filtration Rate > 60 mL/min (>60) Glucose Level 106 MG/DL (74-106) Calcium Level 9.1 MG/DL (8.5-10.1) Phosphorus Level 3.1 MG/DL (2.5-4.9) Magnesium Level 2.0 MG/DL (1.8-2.4) Total Bilirubin 0.4 MG/DL (0.2-1.0) Aspartate Amino Transf (AST/SGOT) 17 U/L (15-37) Alanine Aminotransferase (ALT/SGPT) 28 U/L (12-78) Alkaline Phosphatase 125 U/L (46-116) H Total Protein 7.2 G/DL (6.4-8.2) Albumin 3.3 G/DL (3.4-5.0) L Globulin 3.9 g/dL Albumin/Globulin Ratio 0.8 (1.0-2.7) L Plan Problems: (1) Leaking percutaneous endoscopic gastrostomy (PEG) tube Assessment & Plan: Patient with leaking pertaining his gastrostomy tube on tube feeds. G-tube changed at bedside by GI today. Now tolerating tube feeds and slowly advancing to goal. Dressings changed. Appreciate GI input We will continue to monitor Advance to goal feeds nutritional component of wound healing is very important (2) Gastrostomy malfunction (3) Decubitus skin ulcer Assessment & Plan: Presents with multiple decubitus ulcer. Family states they have been there for almost 4 years and been trying to heal them. Upon admission patient immediately placed on air mattress and precautions began. Large healing macerated sacral decubitus ulcer partial-thickness with small areas of full thickness noted. periwound maceration, no drainage, no signs of active infection. apply hydrogel skin protectant and foam dressing, wash daily Turn every 2 hours Nutritional support. Offload heels with pillows. Thank you for allowing me to participate in patient's care will continue to follow with recommendations Additional Comments d/c okay per surgical standpoint f/u prn time of note does not refect when patient seen Horacio Hope Dec 04, 2018 18:32
== END 2018-12-04 13:20 | DRG 53 ==
LOC: EDBD 10:11 → EMR 10:45 → 2W 11:17 → EDBEDREQ 12:55 → 2W 14:12
PROC: 5A1945Z Respiratory Ventilation, 24-96 Consecutive Hours (ICD-10-PCS; principal; 2018-11-30)
PROC: 0D20XUZ Change Feeding Device in Upper Intestinal Tract, External Approach (ICD-10-PCS; 2018-12-01)
DX: G40.901 Epilepsy, unspecified, not intractable, with status epilepticus (principal); K94.23 Gastrostomy malfunction; I10 Essential (primary) hypertension; E11.9 Type 2 diabetes mellitus without complications; R13.10 Dysphagia, unspecified; Z43.0 Encounter for attention to tracheostomy; L89.159 Pressure ulcer of sacral region, unspecified stage; S02.91XS Unspecified fracture of skull, sequela; S06.369S Traumatic hemorrhage of cerebrum, unspecified, with loss of consciousness of unspecified duration, sequela; W34.00XS Accidental discharge from unspecified firearms or gun, sequela; Z99.11 Dependence on respirator [ventilator] status; Y83.3 Surgical operation with formation of external stoma as the cause of abnormal reaction of the patient, or of later complication, without mention of misadventure at the time of the procedure; J96.10 Chronic respiratory failure, unspecified whether with hypoxia or hypercapnia; Z79.01 Long term (current) use of anticoagulants; Z79.4 Long term (current) use of insulin
CPT/HCPCS: 36415; 70450; 71045; 80053; 80299; 81003; 82550; 82553; 83605; 83735; 83880; 84100; 84484; 85025; 85610; 85651; 85730; 86140; 87040; 87070; 87081; 87181; 87205; 93005; 94002; 94003; 94640; 94664; 96361; 96374; 99285

== ENCOUNTER 2019-08-26 20:49 | Inpatient (IN) | payer MEDICAID ==
[~2019-08-26] VITALS: Ht 170.2 cm; Wt 84.4 kg
[~2019-08-26 20:49] MED LIST changes: +VIMPAT200 MG GT; +VITAMIN D1000 UNI1 GT
[2019-08-26 21:00] VITALS: BP 106/42
[2019-08-26] MEDS ORDERED: Piperacillin/Tazobactam 3.375 GM in NS 110 ML IVPB ONE (21:00)
[2019-08-26] MEDS ORDERED: Vancomycin 1.5 GM in NS 275 ML IVPB ONE (21:00)
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
[2019-08-26 21:24] LABS: BASOPHILS % (AUTO) 1.1 % (0.0-2.0); EOSINOPHILS % (AUTO) 3.9 % (0.0-3.0); HEMATOCRIT 40.1 % (42.0-52.0); LYMPHOCYTES % (AUTO) 21.3 % (20.0-45.0); MEAN CORPUSCULAR VOLUME 88 FL (80-99); MONOCYTES % (AUTO) 8.4 % (1.0-10.0); NEUTROPHILS % (AUTO) 65.2 % (45.0-75.0); PLATELET COUNT 199 K/UL (150-450); RED BLOOD COUNT 4.56 M/UL (4.70-6.10); RED CELL DISTRIBUTION WIDTH 12.5 % (11.6-14.8); WHITE BLOOD COUNT 8.4 K/UL (4.8-10.8)
[2019-08-26 21:29] LABS: APPEARANCE,URINE CLEAR; BILIRUBIN, URINE NEGATIVE (NEGATIVE); COLOR,URINE PALE YELLOW; GLUCOSE, URINE (UA) NEGATIVE (NEGATIVE); KETONES,URINE NEGATIVE (NEGATIVE); LEUKOCYTE ESTERASE ,URINE NEGATIVE (NEGATIVE); NITRITE,URINE NEGATIVE (NEGATIVE); PH,URINE 7 (4.5-8.0); PROTEIN,URINE NEGATIVE (NEGATIVE); UROBILINOGEN,URINE NORMAL MG/DL (0.0-1.0)
[2019-08-26] MEDS ORDERED: Albuterol/Ipratropium 3ml neb HHN PRN (21:30)
[2019-08-26] MEDS ORDERED: Miralax 17gm pkt ORAL PRN (21:30)
--- NOTE | 2019-08-26 21:31 | Diagnostic Imaging Report ---
Chest 1 view History: Cough Comparison: 11/30/2018 Findings: Tracheostomy tube is in the mid trachea. Linear atelectasis of the left lung base. Blunted left costophrenic angle. Small left pleural effusion and overlying atelectasis. Mild atelectasis of the right lung base. Question old proximal right clavicle fracture. Impression: 1. Trace left pleural effusion with overlying atelectasis. Mild right basilar atelectasis. 2. Unchanged tracheostomy tube.
[2019-08-26 21:33] LABS: ANION GAP 7 mmol/L (5-15); BLOOD UREA NITROGEN 12 mg/dL (7-18); CARBON DIOXIDE 32 MMOL/L (21-32); CHLORIDE 103 MMOL/L (98-107); CREATININE 0.8 MG/DL (0.55-1.30); SODIUM 142 MMOL/L (136-145)
[2019-08-26 22:02] LABS: ALANINE AMINOTRANSFERASE 36 U/L (12-78); ALBUMIN 3.6 G/DL (3.4-5.0); ALBUMIN/GLOBULIN RATIO 0.9 (1.0-2.7); ALKALINE PHOSPHATASE 150 U/L (46-116); ASPARTATE AMINO TRANSFERASE 21 U/L (15-37); BILIRUBIN,TOTAL 0.3 MG/DL (0.2-1.0); CREATINE KINASE 178 U/L (26-308)
[2019-08-26 23:00] VITALS: BP 114/83
[2019-08-27 00:45] VITALS: BP 132/87
[2019-08-27] MEDS: HydrALAZINE 10mg Tab GT SCH ×3 (01:00→09:00)
[2019-08-27 04:00] VITALS: BP 106/73
[2019-08-27 05:32] LABS: BASOPHILS % (AUTO) 0.5 % (0.0-2.0); EOSINOPHILS % (AUTO) 1.1 % (0.0-3.0); HEMATOCRIT 35.8 % (42.0-52.0); HEMOGLOBIN 12.6 G/DL (14.2-18.0); MEAN CORPUSCULAR VOLUME 88 FL (80-99); MONOCYTES % (AUTO) 6.4 % (1.0-10.0); NEUTROPHILS % (AUTO) 79.1 % (45.0-75.0); PLATELET COUNT 189 K/UL (150-450); RED BLOOD COUNT 4.05 M/UL (4.70-6.10); RED CELL DISTRIBUTION WIDTH 12.3 % (11.6-14.8)
[2019-08-27 05:42] LABS: ALBUMIN 3.2 G/DL (3.4-5.0); ANION GAP 10 mmol/L (5-15); BLOOD UREA NITROGEN 9 mg/dL (7-18); CALCIUM 7.9 MG/DL (8.5-10.1); CARBON DIOXIDE 26 MMOL/L (21-32); CHLORIDE 107 MMOL/L (98-107); CREATININE 0.8 MG/DL (0.55-1.30); PHOSPHORUS 1.7 MG/DL (2.5-4.9); POTASSIUM 3.6 MMOL/L (3.5-5.1); SODIUM 143 MMOL/L (136-145)
[2019-08-27 08:00] VITALS: BP 115/79
[2019-08-27] MEDS: Pantoprazole Inj IV SCH (09:05)
[2019-08-27] MEDS: Heparin 5000 units/ml inj SUBQ SCH ×2 (09:06→20:46)
--- NOTE | 2019-08-27 11:58 | Pulmonolgy Critical Care Note ---
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 (2) Chronic respiratory failure (3) Diabetes mellitus (4) Seizure disorder, convulsive, with status epilepticus (5) Feeding by G-tube Respiratory: monitor respiratory rate, adjust FIO2, CXR Cardiac: continue to monitor HR/BP Renal: F/U I&O, keep IV fluid Infectious Disease: check cultures Gastrointestinal: continue feedings/current rate, hold feedings Endocrine: check TSH Hematologic: monitor H/H, transfuse if hgb<8.5 Neurologic: PRN Ativan, PRN Morphine, keep patient comfortable Affect: PRN ativan Time Spent (Minutes): 40 Notes Reviewed: webfed offset press operator, cardio, renal Discussed with: nurses, consultants, vocational case managersenior international tax manager - Objective Last 24 Hour Vital Signs Date Time Temp Pulse Resp B/P (MAP) Pulse Ox O2 Delivery O2 Flow Rate FiO2 08/27/19 11:01 118 16 30 08/27/19 09:00 115/79 08/27/19 08:53 67 08/27/19 08:00 30 08/27/19 08:00 Mechanical Ventilator 08/27/19 08:00 98.8 88 16 115/79 (91) 97 08/27/19 06:55 71 17 30 08/27/19 05:00 96/64 08/27/19 04:00 98.2 62 16 106/73 (84) 99 08/27/19 04:00 68 08/27/19 04:00 30 08/27/19 04:00 Mechanical Ventilator 08/27/19 03:25 67 16 30 08/27/19 02:20 Mechanical Ventilator 08/27/19 01:44 Mechanical Ventilator 08/27/19 01:20 65 08/27/19 01:00 117/75 08/27/19 01:00 98.4 55 16 132/87 100 Mechanical Ventilator 30 08/27/19 00:45 98.4 55 16 132/87 100 Mechanical Ventilator 30 08/26/19 23:41 67 16 99 Mechanical Ventilator 30 59 14 30 30 08/26/19 23:00 98.4 59 14 114/83 99 Mechanical Ventilator 30 08/26/19 21:00 98.8 64 14 106/42 100 Mechanical Ventilator 30 08/26/19 20:50 81 14 30 08/26/19 20:39 97.3 68 18 132/60 (84) 99 Mechanical Ventilator Status: awake Condition: critical HEENT: atraumatic Neck: full ROM Lungs: chest wall tender Heart: HR/BP stable Abdomen: soft, feeding tube Extremities: edema Critical Care - Subjective Condition: critical EKG Rhythm: Sinus Rhythm FI02: 30 Vent Support Breath Rate: 16 Vent Support Mode: AC Vent Tidal Volume: 600 Sputum Amount: Moderate PEEP: 5.0 PIP: 28 Tube Feeding Amount: 15 I&O: Intake and Output 08/26/19 08/27/19 19:00 07:00 Intake Total 95 ml Output Total 250 ml Balance -155 ml Intake Free Water 50 ml Tube Feeding 45 ml Output Urine Total 250 ml # Bowel Movements 2 CXR: GLADYS, trach in place Labs: Laboratory Tests Test 08/26/19 20:50 08/26/19 21:10 08/27/19 04:00 White Blood Count 8.4 K/UL (4.8-10.8) 11.0 K/UL (4.8-10.8) H Red Blood Count 4.56 M/UL (4.70-6.10) L 4.05 M/UL (4.70-6.10) L Hemoglobin 14.0 G/DL (14.2-18.0) L 12.6 G/DL (14.2-18.0) L Hematocrit 40.1 % (42.0-52.0) L 35.8 % (42.0-52.0) L Mean Corpuscular Volume 88 FL (80-99) 88 FL (80-99) Mean Corpuscular Hemoglobin 30.7 PG (27.0-31.0) 31.2 PG (27.0-31.0) H Mean Corpuscular Hemoglobin Concent 34.8 G/DL (32.0-36.0) 35.3 G/DL (32.0-36.0) Red Cell Distribution Width 12.5 % (11.6-14.8) 12.3 % (11.6-14.8) Platelet Count 199 K/UL (150-450) 189 K/UL (150-450) Mean Platelet Volume 10.6 FL (6.5-10.1) H 10.4 FL (6.5-10.1) H Neutrophils (%) (Auto) 65.2 % (45.0-75.0) 79.1 % (45.0-75.0) H Lymphocytes (%) (Auto) 21.3 % (20.0-45.0) 13.0 % (20.0-45.0) L Monocytes (%) (Auto) 8.4 % (1.0-10.0) 6.4 % (1.0-10.0) Eosinophils (%) (Auto) 3.9 % (0.0-3.0) H 1.1 % (0.0-3.0) Basophils (%) (Auto) 1.1 % (0.0-2.0) 0.5 % (0.0-2.0) Sodium Level 142 MMOL/L (136-145) 143 MMOL/L (136-145) Potassium Level 4.0 MMOL/L (3.5-5.1) 3.6 MMOL/L (3.5-5.1) Chloride Level 103 MMOL/L (98-107) 107 MMOL/L (98-107) Carbon Dioxide Level 32 MMOL/L (21-32) 26 MMOL/L (21-32) Anion Gap 7 mmol/L (5-15) 10 mmol/L (5-15) Blood Urea Nitrogen 12 mg/dL (7-18) 9 mg/dL (7-18) Creatinine 0.8 MG/DL (0.55-1.30) 0.8 MG/DL (0.55-1.30) Estimat Glomerular Filtration Rate > 60 mL/min (>60) > 60 mL/min (>60) Glucose Level 89 MG/DL (74-106) 83 MG/DL (74-106) Lactic Acid Level 1.40 mmol/L (0.4-2.0) Calcium Level 9.0 MG/DL (8.5-10.1) 7.9 MG/DL (8.5-10.1) L Phosphorus Level 3.0 MG/DL (2.5-4.9) 1.7 MG/DL (2.5-4.9) L Magnesium Level 2.1 MG/DL (1.8-2.4) Total Bilirubin 0.3 MG/DL (0.2-1.0) Aspartate Amino Transf (AST/SGOT) 21 U/L (15-37) Alanine Aminotransferase (ALT/SGPT) 36 U/L (12-78) Alkaline Phosphatase 150 U/L (46-116) H Total Creatine Kinase 178 U/L (26-308) Creatine Kinase MB 1.0 NG/ML (0.0-3.6) Creatine Kinase MB Relative Index 0.5 Troponin I 0.000 ng/mL (0.000-0.056) Pro-B-Type Natriuretic Peptide 23 pg/mL (0-125) Total Protein 7.4 G/DL (6.4-8.2) Albumin 3.6 G/DL (3.4-5.0) 3.2 G/DL (3.4-5.0) L Globulin 3.8 g/dL Albumin/Globulin Ratio 0.9 (1.0-2.7) L Urine Color Pale yellow Urine Appearance Clear Urine pH 7 (4.5-8.0) Urine Specific [place] 1.005 (1.005-1.035) Urine Protein Negative (NEGATIVE) Urine Glucose (UA) Negative (NEGATIVE) Urine Ketones Negative (NEGATIVE) Urine Blood Negative (NEGATIVE) Urine Nitrite Negative (NEGATIVE) Urine Bilirubin Negative (NEGATIVE) Urine Urobilinogen Normal MG/DL (0.0-1.0) Urine Leukocyte Esterase Negative (NEGATIVE) Amanda Combs MD August 27, 2019 11:58
[2019-08-27 12:00] VITALS: BP 102/75
[2019-08-27] MEDS ORDERED: HydrALAZINE 10mg Tab GT PRN (12:15)
--- NOTE | 2019-08-27 14:24 | Consultation ---
History of Present Illness General Date patient seen: August 27, 2019 Chief Complaint: Abnormal Labs Present Illness HPI Asked to see this 54-year-old male by primary care physician Dr. Fair. He is with multiple medical comorbidities presents from nursing facility by EMS for evaluation of a positive sputum culture. The patient is trach and vent dependent for respiratory failure. Sputum cultures show carbepenem resistant Pseudomonas. According to records patient has increasing cough and sputum production. No fevers noted. At baseline nonverbal. Cannot obtain information from patient. Abnormal labs identified imaging reviewed surgery called to evaluate and assist with care. Patient seen, patient evaluated, chart reviewed. Allergies: Uncoded Allergies: TAPE (Allergy, Unknown, 05/31/18) Medication History Scheduled Ascorbic Acid* (Ascorbic Acid*), 500 MG ORAL DAILY, (Reported) Atorvastatin Calcium* (Atorvastatin Calcium*), 10 MG ORAL BEDTIME, (Reported) Bisacodyl* (Dulcolax*), 5 MG ORAL DAILY, (Reported) Chlorhexidine Gluconate* (Hibiclens*), 15 ML ORAL BID, (Reported) Cholecalciferol (Vitamin D3)* (Vitamin D*), 5,000 UNITS GT TWICE A DAY, ( Reported) Clonazepam* (Klonopin*), 1 MG ORAL Q6H, (Reported) Colistin (Colistimethate Na) (Colistimethate Sodium), 75 MG [id number] BID, ( Reported) Cran/Vitc/Mannose/Inulin/Brom (Uti-Stat Liquid), 30 ML PO BID, (Reported) Docusate Sodium* (Docusate Sodium*), 100 MG GT TWICE A DAY, (Reported) Esomeprazole Magnesium (Nexium), 40 MG GT DAILY, (Reported) Famotidine* (Pepcid 20mg tablet*), 20 MG ORAL DAILY, (Reported) Hydralazine Hcl* (Hydralazine Hcl*), 10 MG GT EVERY 4 HOURS, (Reported) Lacosamide (Vimpat), 200 MG GT BID, (Reported) Levetiracetam (Keppra), 500 MG GT EVERY 12 HOURS, (Reported) Metoprolol Tartrate* (Metoprolol Tartrate*), 75 MG ORAL EVERY 12 HOURS, ( Reported) Multivitamin Liquid* (Multi-Delyn*), 5 ML GT DAILY, (Reported) Multivitamins* (Multivitamins*), 1 TAB ORAL DAILY, (Reported) Oxcarbazepine* (Trileptal*), 600 MG PO BID, (Reported) Tramadol Hcl (Ultram*), 50 MG GT DAILY, (Reported) Vit C/Ascorbate Ca/Ascorb Sod (Vitamin C 500 Mg/15 Ml Liquid), 500 MG GT BID, ( Reported) Warfarin Sod* (Coumadin*), 11 MG GT DAILY, (Reported) Warfarin Sod* (Coumadin*), 5 MG ORAL DAILY, (Reported) Zinc Sulfate (Zinc Sulfate*), 220 MG GT DAILY, (Reported) [prostat sugar free], 30 ML GT BID, (Reported) [reg insulin ss], UNITS SUBQ PRN, (Reported) Scheduled PRN Acetaminophen (Tylenol), 650 MG GT Q6H PRN for Prn Headache/Temp > 101, ( Reported) Albuterol Sulfate* (Albuterol Sulfate Hhn*), 3 ML INH Q3HR PRN for Shortness of Breath, (Reported) Artificial Tears (Refresh Lacri-Lube Ointment), 1 APPLIC BOTH EYES EVERY 4 HOURS PRN for Dry Eyes, (Reported) Bisacodyl (Dulcolax), 10 MG RC DAILY PRN for Constipation, (Reported) Glucagon (Glucagen), 1 MG IM NEEDED PRN for Hypoglycemia, (Reported) Ibuprofen* (Motrin*), 400 MG GT Q6H PRN for For Pain, (Reported) Magnesium Hydroxide* (Milk Of Magnesia*), 30 ML GT DAILY PRN for Constipation, ( Reported) Ondansetron* (Zofran 4 Mg/2 Ml Vial*), 4 MG IM Q6H PRN for Nausea & Vomiting, ( Reported) Miscellaneous Medications Colistin Sulfate (Colistin Sulfate), 1 EACH MC, (Reported) Patient History Limited by: medical condition History Provided By: Medical Record, PMD Healthcare decision maker Resuscitation status Advanced Directive on File Past Medical/Surgical History Past Medical/Surgical History: (1) Leaking percutaneous endoscopic gastrostomy (PEG) tube (2) Decubitus skin ulcer (3) 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 (4) Pneumonia (5) Diabetes mellitus (6) Septic shock (7) Chronic respiratory failure (8) Feeding by G-tube (9) Bacteremia (10) Uncontrolled seizures (11) Seizure disorder, convulsive, with status epilepticus (12) Seizure after head injury (13) Line sepsis (14) UTI (urinary tract infection) (15) Urinary tract infection (16) Acute on chronic renal insufficiency Review of Systems ROS Narrative Unable to obtain given baseline medical condition Physical Exam General Appearance: no apparent distress Lines, tubes and drains: peripheral HEENT: mucous membranes moist Neck: normal inspection, trach Respiratory/Chest: on vent Cardiovascular/Chest: tachycardia Abdomen: soft, no organomegaly, no mass, feeding tube Extremities: inflammation, slow capillary refill Neurologic: unresponsiveness Last 24 Hour Vital Signs Date Time Temp Pulse Resp B/P (MAP) Pulse Ox O2 Delivery O2 Flow Rate FiO2 08/27/19 12:34 74 08/27/19 12:00 98.0 80 16 102/75 (84) 100 08/27/19 12:00 Mechanical Ventilator 08/27/19 12:00 30 08/27/19 11:01 118 16 30 08/27/19 09:00 115/79 08/27/19 08:53 67 08/27/19 08:00 30 08/27/19 08:00 Mechanical Ventilator 08/27/19 08:00 98.8 88 16 115/79 (91) 97 08/27/19 06:55 71 17 30 08/27/19 05:00 96/64 08/27/19 04:00 98.2 62 16 106/73 (84) 99 08/27/19 04:00 68 08/27/19 04:00 30 08/27/19 04:00 Mechanical Ventilator 08/27/19 03:25 67 16 30 08/27/19 02:20 Mechanical Ventilator 08/27/19 01:44 Mechanical Ventilator 08/27/19 01:20 65 08/27/19 01:00 117/75 08/27/19 01:00 98.4 55 16 132/87 100 Mechanical Ventilator 30 08/27/19 00:45 98.4 55 16 132/87 100 Mechanical Ventilator 30 08/26/19 23:41 67 16 99 Mechanical Ventilator 30 59 14 30 30 08/26/19 23:00 98.4 59 14 114/83 99 Mechanical Ventilator 30 08/26/19 21:00 98.8 64 14 106/42 100 Mechanical Ventilator 30 08/26/19 20:50 81 14 30 08/26/19 20:39 97.3 68 18 132/60 (84) 99 Mechanical Ventilator Intake and Output 08/26/19 08/27/19 19:00 07:00 Intake Total 95 ml Output Total 250 ml Balance -155 ml Intake Free Water 50 ml Tube Feeding 45 ml Output Urine Total 250 ml # Bowel Movements 2 Laboratory Tests Test 08/26/19 20:50 08/26/19 21:10 08/27/19 04:00 White Blood Count 8.4 K/UL (4.8-10.8) 11.0 K/UL (4.8-10.8) H Red Blood Count 4.56 M/UL (4.70-6.10) L 4.05 M/UL (4.70-6.10) L Hemoglobin 14.0 G/DL (14.2-18.0) L 12.6 G/DL (14.2-18.0) L Hematocrit 40.1 % (42.0-52.0) L 35.8 % (42.0-52.0) L Mean Corpuscular Volume 88 FL (80-99) 88 FL (80-99) Mean Corpuscular Hemoglobin 30.7 PG (27.0-31.0) 31.2 PG (27.0-31.0) H Mean Corpuscular Hemoglobin Concent 34.8 G/DL (32.0-36.0) 35.3 G/DL (32.0-36.0) Red Cell Distribution Width 12.5 % (11.6-14.8) 12.3 % (11.6-14.8) Platelet Count 199 K/UL (150-450) 189 K/UL (150-450) Mean Platelet Volume 10.6 FL (6.5-10.1) H 10.4 FL (6.5-10.1) H Neutrophils (%) (Auto) 65.2 % (45.0-75.0) 79.1 % (45.0-75.0) H Lymphocytes (%) (Auto) 21.3 % (20.0-45.0) 13.0 % (20.0-45.0) L Monocytes (%) (Auto) 8.4 % (1.0-10.0) 6.4 % (1.0-10.0) Eosinophils (%) (Auto) 3.9 % (0.0-3.0) H 1.1 % (0.0-3.0) Basophils (%) (Auto) 1.1 % (0.0-2.0) 0.5 % (0.0-2.0) Sodium Level 142 MMOL/L (136-145) 143 MMOL/L (136-145) Potassium Level 4.0 MMOL/L (3.5-5.1) 3.6 MMOL/L (3.5-5.1) Chloride Level 103 MMOL/L (98-107) 107 MMOL/L (98-107) Carbon Dioxide Level 32 MMOL/L (21-32) 26 MMOL/L (21-32) Anion Gap 7 mmol/L (5-15) 10 mmol/L (5-15) Blood Urea Nitrogen 12 mg/dL (7-18) 9 mg/dL (7-18) Creatinine 0.8 MG/DL (0.55-1.30) 0.8 MG/DL (0.55-1.30) Estimat Glomerular Filtration Rate > 60 mL/min (>60) > 60 mL/min (>60) Glucose Level 89 MG/DL (74-106) 83 MG/DL (74-106) Lactic Acid Level 1.40 mmol/L (0.4-2.0) Calcium Level 9.0 MG/DL (8.5-10.1) 7.9 MG/DL (8.5-10.1) L Phosphorus Level 3.0 MG/DL (2.5-4.9) 1.7 MG/DL (2.5-4.9) L Magnesium Level 2.1 MG/DL (1.8-2.4) Total Bilirubin 0.3 MG/DL (0.2-1.0) Aspartate Amino Transf (AST/SGOT) 21 U/L (15-37) Alanine Aminotransferase (ALT/SGPT) 36 U/L (12-78) Alkaline Phosphatase 150 U/L (46-116) H Total Creatine Kinase 178 U/L (26-308) Creatine Kinase MB 1.0 NG/ML (0.0-3.6) Creatine Kinase MB Relative Index 0.5 Troponin I 0.000 ng/mL (0.000-0.056) Pro-B-Type Natriuretic Peptide 23 pg/mL (0-125) Total Protein 7.4 G/DL (6.4-8.2) Albumin 3.6 G/DL (3.4-5.0) 3.2 G/DL (3.4-5.0) L Globulin 3.8 g/dL Albumin/Globulin Ratio 0.9 (1.0-2.7) L Urine Color Pale yellow Urine Appearance Clear Urine pH 7 (4.5-8.0) Urine Specific [place] 1.005 (1.005-1.035) Urine Protein Negative (NEGATIVE) Urine Glucose (UA) Negative (NEGATIVE) Urine Ketones Negative (NEGATIVE) Urine Blood Negative (NEGATIVE) Urine Nitrite Negative (NEGATIVE) Urine Bilirubin Negative (NEGATIVE) Urine Urobilinogen Normal MG/DL (0.0-1.0) Urine Leukocyte Esterase Negative (NEGATIVE) Height (Feet): 5 Height (Inches): 7.00 Weight (Pounds): 198 Medications Current Medications Medications (Trade) Dose Ordered Sig/Jacob Route PRN Reason Start Time Stop Time Status Last Admin Dose Admin Acetaminophen (Tylenol) 650 mg Q4H PRN ORAL FEVER 08/26/19 21:30 09/25/19 21:29 Albuterol/ Ipratropium (Albuterol/ Ipratropium) 3 ml Q4H PRN HHN Shortness of Breath 08/26/19 21:30 08/31/19 21:29 Clonazepam (KlonoPIN) 1 mg Q6HR ORAL 08/27/19 00:00 09/03/19 00:00 08/27/19 12:23 Dextrose (Dextrose 50%) 25 ml Q30M PRN IV Hypoglycemia 08/27/19 12:15 11/25/19 12:14 Dextrose (Dextrose 50%) 50 ml Q30M PRN IV Hypoglycemia 08/27/19 12:15 11/25/19 12:14 Heparin Sodium (Porcine) (Heparin 5000 units/ml) 5,000 units EVERY 12 HOURS SUBQ 08/27/19 09:00 10/11/19 08:59 08/27/19 09:06 Hydralazine HCl (Apresoline) 10 mg Q4H PRN GT SBP > 160mmHg 08/27/19 12:15 11/25/19 12:14 Insulin Aspart (NovoLOG) Q6HR SUBQ 08/27/19 18:00 11/25/19 17:59 Levetiracetam (Keppra) 500 mg EVERY 12 HOURS GT 08/27/19 09:00 09/26/19 08:59 08/27/19 09:05 Ondansetron HCl (Zofran) 4 mg Q6H PRN IVP Nausea & Vomiting 08/26/19 21:30 09/25/19 21:29 Pantoprazole (Protonix) 40 mg DAILY IV 08/27/19 09:00 09/26/19 08:59 08/27/19 09:05 Polyethylene Glycol (Miralax) 17 gm DAILYPRN PRN ORAL Constipation 08/26/19 21:30 09/25/19 21:29 Assessment/Plan Problem List: (1) Decubitus skin ulcer Assessment & Plan: left flank wound noted. considered as possible abscess. evaluated. no active infection no pus possible likely dti resolving will monitor ICD Codes: L89.90 - Pressure ulcer of unspecified site, unspecified stage SNOMED: 844026042 (2) Septic shock Assessment & Plan: leukocytosis tachycardia cxr with Findings: Tracheostomy tube is in the mid trachea. Linear atelectasis of the left lung base. Blunted left costophrenic angle. Small left pleural effusion and overlying atelectasis. Mild atelectasis of the right lung base. Question old proximal right clavicle fracture. Impression: 1. Trace left pleural effusion with overlying atelectasis. Mild right basilar atelectasis. 2. Unchanged tracheostomy tube. 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 ICD Codes: A49.8 - Other bacterial infections of unspecified site; Z16.19 - Resistance to other specified beta lactam antibiotics SNOMED: 520816105, 16548884 (6) Diabetes mellitus ICD Codes: E11.9 - Type 2 diabetes mellitus without complications SNOMED: 79718777 (7) Pneumonia ICD Codes: J18.9 - Pneumonia, unspecified organism SNOMED: 103785614 (8) Leaking percutaneous endoscopic gastrostomy (PEG) tube Assessment & Plan: DAILY ESTIMATED NEEDS: Needs based on Critical Care, wounds/ 74.8kg abw 22-30 kcals/kg 9978-2744 total kcals 1.25-2 g protein/kg 94-150 g total protein 25-30 mL/kg 7813-8433 total fluid mLs NUTRITION DIAGNOSIS: * Swallowing difficulty R/T dysphagia, respiratory status as evidenced by pt is trach/vent dep, PEG dep. * Increased kcal/prot needs R/T wound healing as evidenced by pt admitted w/ sacral unstageable wound. (CURRENT TF: Jevity 1.2 @ 30ml/hr) ENTERAL NUTRITION RECOMMENDATIONS: Glucerna 1.2 @ 60ml/hr x 24 hrs + Prosource qdaily to provide 1440ml, 1728kcal, 86g + 11g prot, 1162ml free water * Rec to increase rate to 60ml/hr for 24 hrs * Add Prosource 1pkt QD to meet protein needs * HOB over 30 degrees/ water flush per MD. ----- ->>>CURRENTLY GLUCERNA 1.2 OOS, REC JEVITY 1.2 BG HAS BEEN WNL, W/ GOAL OF 60ML/HR X24 HRS + PROSOURCE BID. -TF at goal to meet 100% est needs, monitor blood glucose regularly w/ ssi for coverage and BG control. ADDITIONAL RECOMMENDATIONS: * Maintain calibrated bed scale wts * Wound care: Add DANYELLE BID + Vit C 250mg BID * Monitor lytes daily, replete as needed (low phos 1.7) * Accuchecks w/ SSI for glycemic control ICD Codes: K94.23 - Gastrostomy malfunction SNOMED: 850720407 (9) Chronic respiratory failure ICD Codes: J96.10 - Chronic respiratory failure, unspecified whether with hypoxia or hypercapnia SNOMED: 86744013 (10) Uncontrolled seizures ICD Codes: R56.9 - Unspecified convulsions SNOMED: 76804492 (11) Seizure disorder, convulsive, with status epilepticus ICD Codes: G40.301 - Generalized idiopathic epilepsy and epileptic syndromes, not intractable, with status epilepticus SNOMED: 73587874 (12) Seizure after head injury ICD Codes: R56.1 - Post traumatic seizures SNOMED: 071280203 (13) Line sepsis ICD Codes: T82.7XXA - Infection and inflammatory reaction due to other cardiac and vascular devices, implants and grafts, initial encounter SNOMED: 64787566, 859857514 (14) UTI (urinary tract infection) ICD Codes: N39.0 - Urinary tract infection, site not specified SNOMED: 02560724 (15) Urinary tract infection ICD Codes: N39.0 - Urinary tract infection, site not specified SNOMED: 14741633 (16) Acute on chronic renal insufficiency ICD Codes: N28.9 - Disorder of kidney and ureter, unspecified; N18.9 - Chronic kidney disease, unspecified SNOMED: 606557077, 036175366 Horacio Hope August 27, 2019 14:24
[2019-08-27 16:00] VITALS: BP 104/77
[2019-08-27] MEDS: NovoLOG Insulin Flexpen SUBQ SCH ×2 (17:34→23:34)
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
[2019-08-27 20:00] VITALS: BP 92/59
[2019-08-28] VITALS: BP 103/74
[2019-08-28 04:00] VITALS: BP 112/53
[2019-08-28] MEDS: NovoLOG Insulin Flexpen SUBQ SCH ×3 (05:30→17:34)
[2019-08-28 06:12] LABS: BASOPHILS % (AUTO) 1.5 % (0.0-2.0); HEMATOCRIT 35.2 % (42.0-52.0); HEMOGLOBIN 12.5 G/DL (14.2-18.0); MEAN CORPUSCULAR VOLUME 88 FL (80-99); MONOCYTES % (AUTO) 9.8 % (1.0-10.0); NEUTROPHILS % (AUTO) 62.7 % (45.0-75.0); PLATELET COUNT 183 K/UL (150-450); RED BLOOD COUNT 4.01 M/UL (4.70-6.10); RED CELL DISTRIBUTION WIDTH 12.4 % (11.6-14.8); WHITE BLOOD COUNT 8.1 K/UL (4.8-10.8)
[2019-08-28 06:18] LABS: ALANINE AMINOTRANSFERASE 31 U/L (12-78); ALBUMIN 3.2 G/DL (3.4-5.0); ALBUMIN/GLOBULIN RATIO 0.9 (1.0-2.7); ALKALINE PHOSPHATASE 127 U/L (46-116); ANION GAP 11 mmol/L (5-15); ASPARTATE AMINO TRANSFERASE 19 U/L (15-37); BILIRUBIN,TOTAL 0.5 MG/DL (0.2-1.0); BLOOD UREA NITROGEN 11 mg/dL (7-18); CALCIUM 8.7 MG/DL (8.5-10.1); CARBON DIOXIDE 24 MMOL/L (21-32); CHLORIDE 109 MMOL/L (98-107); CREATININE 0.9 MG/DL (0.55-1.30); PHOSPHORUS 2.1 MG/DL (2.5-4.9); POTASSIUM 3.6 MMOL/L (3.5-5.1); SODIUM 144 MMOL/L (136-145)
[2019-08-28 08:00] VITALS: BP 112/60
[2019-08-28] MEDS: Pantoprazole Inj IV SCH (09:00)
[2019-08-28] MEDS: Heparin 5000 units/ml inj SUBQ SCH ×2 (10:02→20:32)
[2019-08-28 12:00] VITALS: BP 95/72
--- NOTE | 2019-08-28 14:25 | Pulmonolgy Critical Care Note ---
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 (2) Chronic respiratory failure (3) Diabetes mellitus (4) Seizure disorder, convulsive, with status epilepticus (5) Feeding by G-tube Respiratory: monitor respiratory rate, adjust FIO2, ABG Cardiac: d/c rn cardiac Renal: F/U I&O, keep IV fluid, check electrolytes Infectious Disease: check cultures Gastrointestinal: continue feedings/current rate Endocrine: monitor blood sugar Hematologic: transfuse if hgb<8.5 Neurologic: PRN Ativan, PRN Morphine, keep patient comfortable Prophylaxis: Protonix, Heparin Time Spent (Minutes): 40 Notes Reviewed: cardio Discussed with: nurses, consultants, continuous pillowcase cuttermanager discovery - Objective Last 24 Hour Vital Signs Date Time Temp Pulse Resp B/P (MAP) Pulse Ox O2 Delivery O2 Flow Rate FiO2 08/28/19 12:00 97.9 60 17 95/72 (80) 99 08/28/19 12:00 Mechanical Ventilator 08/28/19 12:00 30 08/28/19 11:47 68 08/28/19 08:00 Mechanical Ventilator 08/28/19 08:00 98.1 64 17 112/60 (77) 97 08/28/19 08:00 71 08/28/19 08:00 30 08/28/19 07:23 62 16 30 08/28/19 04:00 67 08/28/19 04:00 97.0 61 16 112/53 (72) 100 08/28/19 04:00 30 08/28/19 04:00 Mechanical Ventilator 08/28/19 03:14 63 16 30 08/28/19 00:00 30 08/28/19 00:00 Mechanical Ventilator 08/28/19 00:00 98.7 62 16 103/74 (84) 100 08/28/19 00:00 77 08/27/19 23:01 72 16 30 08/27/19 20:00 30 08/27/19 20:00 68 08/27/19 20:00 98.8 71 16 92/59 (70) 100 08/27/19 20:00 Mechanical Ventilator 08/27/19 19:18 63 16 30 08/27/19 16:00 98.4 77 16 104/77 (86) 100 08/27/19 16:00 Mechanical Ventilator 08/27/19 16:00 30 08/27/19 15:49 72 08/27/19 14:53 66 16 30 Status: obtunded Condition: critical HEENT: atraumatic Neck: full ROM Heart: HR/BP stable, HR/BP unstable Abdomen: soft, non-tender Extremities: no C/C/E Micro: Microbiology Date/Time Source Procedure Growth Status 08/26/19 22:40 Sputum Gram Stain - Final Resulted 08/26/19 22:40 Sputum Sputum Culture Pending Resulted 08/26/19 21:15 Arm Right Blood Culture - Preliminary NO GROWTH AFTER 24 HOURS Resulted 08/26/19 20:50 Arm Left Blood Culture - Preliminary NO GROWTH AFTER 24 HOURS Resulted Accucheck: 101 Critical Care - Subjective ROS Limited/Unobtainable: Yes Condition: critical EKG Rhythm: Sinus Rhythm FI02: 30 Vent Support Breath Rate: 16 Vent Support Mode: AC Vent Tidal Volume: 600 Sputum Amount: Moderate PEEP: 5.0 PIP: 24 Tube Feeding Amount: 60 I&O: Intake and Output 08/27/19 08/28/19 19:00 07:00 Intake Total 500 ml 170 ml Output Total 750 ml 1100 ml Balance -250 ml -930 ml Intake Free Water 100 ml 50 ml Tube Feeding 400 ml 120 ml Output Urine Total 750 ml 1100 ml Labs: Laboratory Tests Test 08/28/19 04:20 White Blood Count 8.1 K/UL (4.8-10.8) Red Blood Count 4.01 M/UL (4.70-6.10) L Hemoglobin 12.5 G/DL (14.2-18.0) L Hematocrit 35.2 % (42.0-52.0) L Mean Corpuscular Volume 88 FL (80-99) Mean Corpuscular Hemoglobin 31.1 PG (27.0-31.0) H Mean Corpuscular Hemoglobin Concent 35.5 G/DL (32.0-36.0) Red Cell Distribution Width 12.4 % (11.6-14.8) Platelet Count 183 K/UL (150-450) Mean Platelet Volume 10.2 FL (6.5-10.1) H Neutrophils (%) (Auto) 62.7 % (45.0-75.0) Lymphocytes (%) (Auto) 24.0 % (20.0-45.0) Monocytes (%) (Auto) 9.8 % (1.0-10.0) Eosinophils (%) (Auto) 2.0 % (0.0-3.0) Basophils (%) (Auto) 1.5 % (0.0-2.0) Erythrocyte Sedimentation Rate 39 MM/HR (0-20) H Sodium Level 144 MMOL/L (136-145) Potassium Level 3.6 MMOL/L (3.5-5.1) Chloride Level 109 MMOL/L (98-107) H Carbon Dioxide Level 24 MMOL/L (21-32) Anion Gap 11 mmol/L (5-15) Blood Urea Nitrogen 11 mg/dL (7-18) Creatinine 0.9 MG/DL (0.55-1.30) Estimat Glomerular Filtration Rate > 60 mL/min (>60) Glucose Level 97 MG/DL (74-106) Hemoglobin A1c 6.1 % (4.3-6.0) H Calcium Level 8.7 MG/DL (8.5-10.1) Phosphorus Level 2.1 MG/DL (2.5-4.9) L Magnesium Level 2.1 MG/DL (1.8-2.4) Total Bilirubin 0.5 MG/DL (0.2-1.0) Aspartate Amino Transf (AST/SGOT) 19 U/L (15-37) Alanine Aminotransferase (ALT/SGPT) 31 U/L (12-78) Alkaline Phosphatase 127 U/L (46-116) H C-Reactive Protein, Quantitative 4.0 mg/dL (0.00-0.90) H Total Protein 6.8 G/DL (6.4-8.2) Albumin 3.2 G/DL (3.4-5.0) L Globulin 3.6 g/dL Albumin/Globulin Ratio 0.9 (1.0-2.7) L Amanda Combs MD August 28, 2019 14:25
[2019-08-28 16:00] VITALS: BP 104/72
--- NOTE | 2019-08-28 17:32 | Surgery Progress Note ---
Surgery Progress Note Subjective Additional Comments wbc resolved comfortable Objective Last 24 Hour Vital Signs Date Time Temp Pulse Resp B/P (MAP) Pulse Ox O2 Delivery O2 Flow Rate FiO2 08/28/19 16:00 66 08/28/19 16:00 Mechanical Ventilator 08/28/19 16:00 30 08/28/19 15:22 71 16 30 08/28/19 12:00 97.9 60 17 95/72 (80) 99 08/28/19 12:00 Mechanical Ventilator 08/28/19 12:00 30 08/28/19 11:47 68 08/28/19 10:41 64 16 30 08/28/19 08:00 Mechanical Ventilator 08/28/19 08:00 98.1 64 17 112/60 (77) 97 08/28/19 08:00 71 08/28/19 08:00 30 08/28/19 07:23 62 16 30 08/28/19 04:00 67 08/28/19 04:00 97.0 61 16 112/53 (72) 100 08/28/19 04:00 30 08/28/19 04:00 Mechanical Ventilator 08/28/19 03:14 63 16 30 08/28/19 00:00 30 08/28/19 00:00 Mechanical Ventilator 08/28/19 00:00 98.7 62 16 103/74 (84) 100 08/28/19 00:00 77 08/27/19 23:01 72 16 30 08/27/19 20:00 30 08/27/19 20:00 68 08/27/19 20:00 98.8 71 16 92/59 (70) 100 08/27/19 20:00 Mechanical Ventilator 08/27/19 19:18 63 16 30 I&O Intake and Output 08/27/19 08/28/19 19:00 07:00 Intake Total 500 ml 170 ml Output Total 750 ml 1100 ml Balance -250 ml -930 ml Intake Free Water 100 ml 50 ml Tube Feeding 400 ml 120 ml Output Urine Total 750 ml 1100 ml Dressing: other Wound: other Drains: other Cardiovascular: RSR Respiratory: decreased breath sounds Abdomen: soft, non-tender, present bowel sounds Extremities: no edema, no tenderness, no cyanosis Laboratory Tests Test 08/28/19 04:20 White Blood Count 8.1 K/UL (4.8-10.8) Red Blood Count 4.01 M/UL (4.70-6.10) L Hemoglobin 12.5 G/DL (14.2-18.0) L Hematocrit 35.2 % (42.0-52.0) L Mean Corpuscular Volume 88 FL (80-99) Mean Corpuscular Hemoglobin 31.1 PG (27.0-31.0) H Mean Corpuscular Hemoglobin Concent 35.5 G/DL (32.0-36.0) Red Cell Distribution Width 12.4 % (11.6-14.8) Platelet Count 183 K/UL (150-450) Mean Platelet Volume 10.2 FL (6.5-10.1) H Neutrophils (%) (Auto) 62.7 % (45.0-75.0) Lymphocytes (%) (Auto) 24.0 % (20.0-45.0) Monocytes (%) (Auto) 9.8 % (1.0-10.0) Eosinophils (%) (Auto) 2.0 % (0.0-3.0) Basophils (%) (Auto) 1.5 % (0.0-2.0) Erythrocyte Sedimentation Rate 39 MM/HR (0-20) H Sodium Level 144 MMOL/L (136-145) Potassium Level 3.6 MMOL/L (3.5-5.1) Chloride Level 109 MMOL/L (98-107) H Carbon Dioxide Level 24 MMOL/L (21-32) Anion Gap 11 mmol/L (5-15) Blood Urea Nitrogen 11 mg/dL (7-18) Creatinine 0.9 MG/DL (0.55-1.30) Estimat Glomerular Filtration Rate > 60 mL/min (>60) Glucose Level 97 MG/DL (74-106) Hemoglobin A1c 6.1 % (4.3-6.0) H Calcium Level 8.7 MG/DL (8.5-10.1) Phosphorus Level 2.1 MG/DL (2.5-4.9) L Magnesium Level 2.1 MG/DL (1.8-2.4) Total Bilirubin 0.5 MG/DL (0.2-1.0) Aspartate Amino Transf (AST/SGOT) 19 U/L (15-37) Alanine Aminotransferase (ALT/SGPT) 31 U/L (12-78) Alkaline Phosphatase 127 U/L (46-116) H C-Reactive Protein, Quantitative 4.0 mg/dL (0.00-0.90) H Total Protein 6.8 G/DL (6.4-8.2) Albumin 3.2 G/DL (3.4-5.0) L Globulin 3.6 g/dL Albumin/Globulin Ratio 0.9 (1.0-2.7) L Plan Problems: (1) Decubitus skin ulcer Assessment & Plan: left flank wound noted. considered as possible abscess. evaluated. no active infection no pus possible likely dti resolving will monitor (2) Septic shock Assessment & Plan: leukocytosis tachycardia cxr with Findings: Tracheostomy tube is in the mid trachea. Linear atelectasis of the left lung base. Blunted left costophrenic angle. Small left pleural effusion and overlying atelectasis. Mild atelectasis of the right lung base. Question old proximal right clavicle fracture. Impression: 1. Trace left pleural effusion with overlying atelectasis. Mild right basilar atelectasis. 2. Unchanged tracheostomy tube. 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 * Increased kcal/prot needs R/T wound healing as evidenced by pt admitted w/ sacral unstageable wound. (CURRENT TF: Jevity 1.2 @ 30ml/hr) ENTERAL NUTRITION RECOMMENDATIONS: Glucerna 1.2 @ 60ml/hr x 24 hrs + Prosource qdaily to provide 1440ml, 1728kcal, 86g + 11g prot, 1162ml free water * Rec to increase rate to 60ml/hr for 24 hrs * Add Prosource 1pkt QD to meet protein needs * HOB over 30 degrees/ water flush per MD. ----- ->>>CURRENTLY GLUCERNA 1.2 OOS, REC JEVITY 1.2 BG HAS BEEN WNL, W/ GOAL OF 60ML/HR X24 HRS + PROSOURCE BID. -TF at goal to meet 100% est needs, monitor blood glucose regularly w/ ssi for coverage and BG control. ADDITIONAL RECOMMENDATIONS: * Maintain calibrated bed scale wts * Wound care: Add DANYELLE BID + Vit C 250mg BID * Monitor lytes daily, replete as needed (low phos 1.7) * Accuchecks w/ SSI for glycemic control (9) Chronic respiratory failure (10) Uncontrolled seizures (11) Seizure disorder, convulsive, with status epilepticus (12) Seizure after head injury (13) Line sepsis (14) UTI (urinary tract infection) (15) Urinary tract infection (16) Acute on chronic renal insufficiency Horacio Hope August 28, 2019 17:32
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
[2019-08-28 20:00] VITALS: BP 101/75
[2019-08-29] VITALS: BP 98/68
[2019-08-29 04:00] VITALS: BP 102/71
[2019-08-29] MEDS: NovoLOG Insulin Flexpen SUBQ SCH ×3 (06:00→12:00)
[2019-08-29 08:00] VITALS: BP 114/83
[2019-08-29] MEDS: Pantoprazole Inj IV SCH (08:43)
[2019-08-29] MEDS: Heparin 5000 units/ml inj SUBQ SCH ×2 (08:47→20:26)
[2019-08-29 10:01] LABS: ANION GAP 10 mmol/L (5-15); BLOOD UREA NITROGEN 13 mg/dL (7-18); CARBON DIOXIDE 26 MMOL/L (21-32); CHLORIDE 106 MMOL/L (98-107); CREATININE 0.9 MG/DL (0.55-1.30); SODIUM 142 MMOL/L (136-145)
[2019-08-29 10:06] LABS: BASOPHILS % (AUTO) 1.5 % (0.0-2.0); EOSINOPHILS % (AUTO) 0.5 % (0.0-3.0); HEMATOCRIT 39.4 % (42.0-52.0); HEMOGLOBIN 12.8 G/DL (14.2-18.0); LYMPHOCYTES % (AUTO) 14.2 % (20.0-45.0); MEAN CORPUSCULAR VOLUME 95 FL (80-99); MONOCYTES % (AUTO) 7.7 % (1.0-10.0); NEUTROPHILS % (AUTO) 76.1 % (45.0-75.0); PLATELET COUNT 206 K/UL (150-450); RED BLOOD COUNT 4.13 M/UL (4.70-6.10); WHITE BLOOD COUNT 11.5 K/UL (4.8-10.8)
--- NOTE | 2019-08-29 10:18 | Diagnostic Imaging Report ---
Procedure: XRAY Chest 1v Reason for study: Reason For Exam: COUGH Comparison films: 08/26/2019. FINDINGS: Tracheostomy remains in place. Vascularity is normal. Linear atelectasis is noted right midlung. Lungs otherwise clear. Cardiac and mediastinal silhouette are within normal limits. CP angles are sharp. The bony thorax appear unremarkable. IMPRESSION: Mild linear atelectasis right midlung.
--- NOTE | 2019-08-29 10:32 | Surgery Progress Note ---
Surgery Progress Note Subjective Additional Comments exam stable leukocytosis on oxygen labs noted imaging reviewed Objective Last 24 Hour Vital Signs Date Time Temp Pulse Resp B/P (MAP) Pulse Ox O2 Delivery O2 Flow Rate FiO2 08/29/19 08:00 97.0 78 20 114/83 (93) 100 08/29/19 07:28 79 16 30 08/29/19 04:00 97.8 78 18 102/71 (81) 99 08/29/19 04:00 87 08/29/19 04:00 30 08/29/19 04:00 Mechanical Ventilator 08/29/19 03:29 74 17 30 08/29/19 00:00 84 08/29/19 00:00 Mechanical Ventilator 08/29/19 00:00 30 08/29/19 00:00 98.2 82 18 98/68 (78) 99 08/28/19 23:06 73 17 30 08/28/19 20:00 30 08/28/19 20:00 71 08/28/19 20:00 Mechanical Ventilator 08/28/19 20:00 97.6 68 18 101/75 (84) 98 08/28/19 19:16 74 17 30 08/28/19 16:00 66 08/28/19 16:00 Mechanical Ventilator 08/28/19 16:00 30 08/28/19 16:00 98.1 66 17 104/72 (83) 99 08/28/19 15:22 71 16 30 08/28/19 12:00 97.9 60 17 95/72 (80) 99 08/28/19 12:00 Mechanical Ventilator 08/28/19 12:00 30 08/28/19 11:47 68 08/28/19 10:41 64 16 30 I&O Intake and Output 08/28/19 08/29/19 19:00 07:00 Intake Total 770 ml 660 ml Output Total 850 ml Balance -80 ml 660 ml Intake Free Water 50 ml Tube Feeding 720 ml 660 ml Output Urine Total 850 ml # Bowel Movements 1 Dressing: other Wound: other Drains: other Cardiovascular: RSR Respiratory: decreased breath sounds Abdomen: soft, non-tender, present bowel sounds Extremities: no cyanosis Laboratory Tests Test 08/29/19 09:00 White Blood Count 11.5 K/UL (4.8-10.8) H Red Blood Count 4.13 M/UL (4.70-6.10) L Hemoglobin 12.8 G/DL (14.2-18.0) L Hematocrit 39.4 % (42.0-52.0) L Mean Corpuscular Volume 95 FL (80-99) Mean Corpuscular Hemoglobin 31.0 PG (27.0-31.0) Mean Corpuscular Hemoglobin Concent 32.5 G/DL (32.0-36.0) Red Cell Distribution Width 14.0 % (11.6-14.8) Platelet Count 206 K/UL (150-450) Mean Platelet Volume 12.1 FL (6.5-10.1) H Neutrophils (%) (Auto) 76.1 % (45.0-75.0) H Lymphocytes (%) (Auto) 14.2 % (20.0-45.0) L Monocytes (%) (Auto) 7.7 % (1.0-10.0) Eosinophils (%) (Auto) 0.5 % (0.0-3.0) Basophils (%) (Auto) 1.5 % (0.0-2.0) Sodium Level 142 MMOL/L (136-145) Potassium Level 4.0 MMOL/L (3.5-5.1) Chloride Level 106 MMOL/L (98-107) Carbon Dioxide Level 26 MMOL/L (21-32) Anion Gap 10 mmol/L (5-15) Blood Urea Nitrogen 13 mg/dL (7-18) Creatinine 0.9 MG/DL (0.55-1.30) Estimat Glomerular Filtration Rate > 60 mL/min (>60) Glucose Level 124 MG/DL (74-106) H Calcium Level 9.0 MG/DL (8.5-10.1) Plan Problems: (1) Feeding by G-tube Assessment & Plan: DAILY ESTIMATED NEEDS: Needs based on Critical Care, wounds/ 74.8kg abw 22-30 kcals/kg 9934-7319 total kcals 1.25-2 g protein/kg 94-150 g total protein 25-30 mL/kg 8341-3008 total fluid mLs NUTRITION DIAGNOSIS: * Swallowing difficulty R/T dysphagia, respiratory status as evidenced by pt is trach/vent dep, PEG dep. * Increased kcal/prot needs R/T wound healing as evidenced by pt admitted w/ sacral unstageable wound. CURRENT TF: Glucerna 1.2 @ 60ml/hr ENTERAL NUTRITION RECOMMENDATIONS: Glucerna 1.2 @ 60ml/hr x 24 hrs + Prosource qdaily to provide 1440ml, 1728kcal , 86g + 11g prot, 1162ml free water * Rec to increase rate to 60ml/hr for 24 hrs * Add Prosource 1pkt QD to meet protein needs * HOB over 30 degrees/ water flush per MD. ----- -CURRENTLY GLUCERNA 1.2/ 1.5 LOW ON STOCK OR OOS, REC JEVITY 1.2 BG HAS BEEN WNL, W/ GOAL OF 60ML/HR X24 HRS + PROSOURCE BID. -TF at goal + Prosource provides 1728 kcal + 80kcal, 80g +22g pro, to meet 100% est needs, monitor blood glucose regularly w/ ssi for coverage and BG control. -Jevity 1.2 @60ml/hr to provide 79g more carbs per day. Will monitor glycemic tolerance/ control. ADDITIONAL RECOMMENDATIONS: * Maintain calibrated bed scale wts * Wound care: Add DANYELLE BID + Vit C 250mg BID * Monitor lytes daily, replete as needed (low phos 2.1) * Accuchecks w/ SSI for glycemic control * Rec trial TF change to Jevity 1.2 @60 (shortage of Glucerna 1.2, 1.5) may need to increase insulin coverage (2) Decubitus skin ulcer Assessment & Plan: left flank wound noted. considered as possible abscess. evaluated. 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 Linear atelectasis of the left lung base. Blunted left costophrenic angle. Small left pleural effusion and overlying atelectasis. Mild atelectasis of the right lung base. Question old proximal right clavicle fracture. Impression: 1. Trace left pleural effusion with overlying atelectasis. Mild right basilar atelectasis. 2. Unchanged tracheostomy tube. abx as per ID respiratory care as per pulm nutritional will follow with recs thank you (8) Chronic respiratory failure (9) Bacteremia (10) Uncontrolled seizures (11) Seizure disorder, convulsive, with status epilepticus (12) Seizure after head injury (13) Line sepsis (14) UTI (urinary tract infection) (15) Urinary tract infection (16) Acute on chronic renal insufficiency Horacio Hope August 29, 2019 10:32
--- NOTE | 2019-08-29 11:49 | Pulmonolgy Critical Care Note ---
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 (2) Chronic respiratory failure (3) Diabetes mellitus (4) Seizure disorder, convulsive, with status epilepticus (5) Feeding by G-tube Respiratory: monitor respiratory rate, adjust FIO2, CXR Cardiac: continue pressors, continue to monitor HR/BP Renal: F/U I&O, keep IV fluid, check electrolytes Infectious Disease: continue antibiotics Gastrointestinal: continue feedings/current rate Endocrine: check TSH Hematologic: monitor H/H Neurologic: PRN Morphine Prophylaxis: Protonix, Heparin Time Spent (Minutes): 40 Notes Reviewed: grassland conservationist, cardio, renal Discussed with: nurses, consultants, field case managerclient service manager - Objective Last 24 Hour Vital Signs Date Time Temp Pulse Resp B/P (MAP) Pulse Ox O2 Delivery O2 Flow Rate FiO2 08/29/19 08:00 97.0 78 20 114/83 (93) 100 08/29/19 07:28 79 16 30 08/29/19 04:00 97.8 78 18 102/71 (81) 99 08/29/19 04:00 87 08/29/19 04:00 30 08/29/19 04:00 Mechanical Ventilator 08/29/19 03:29 74 17 30 08/29/19 00:00 84 08/29/19 00:00 Mechanical Ventilator 08/29/19 00:00 30 08/29/19 00:00 98.2 82 18 98/68 (78) 99 08/28/19 23:06 73 17 30 08/28/19 20:00 30 08/28/19 20:00 71 08/28/19 20:00 Mechanical Ventilator 08/28/19 20:00 97.6 68 18 101/75 (84) 98 08/28/19 19:16 74 17 30 08/28/19 16:00 66 08/28/19 16:00 Mechanical Ventilator 08/28/19 16:00 30 08/28/19 16:00 98.1 66 17 104/72 (83) 99 08/28/19 15:22 71 16 30 08/28/19 12:00 97.9 60 17 95/72 (80) 99 08/28/19 12:00 Mechanical Ventilator 08/28/19 12:00 30 Status: awake HEENT: atraumatic, normocephalic Lungs: rales, rhonchi Heart: HR/BP stable Abdomen: soft Extremities: no C/C/E Decubiti: location Micro: Microbiology Date/Time Source Procedure Growth Status 08/26/19 22:50 Nasal Nares MRSA Culture - Final NO METHICILLIN RESISTANT STAPH AUREUS... Complete 08/26/19 22:40 Sputum Gram Stain - Final Resulted 08/26/19 22:40 Sputum Culture - Preliminary Gram Negative Bacillus 1 Gram Negative Bacillus 2 Streptococcus Group G Usual Respiratory Grecia Resulted 08/26/19 22:50 Rectum - Final Complete 08/26/19 22:50 Rectum VRE Culture - Final NO VANCOMYCIN RESISTANT ENTEROCOCCUS ... Complete 08/26/19 21:15 Arm Right Blood Culture - Preliminary NO GROWTH AFTER 48 HOURS Resulted 08/26/19 20:50 Arm Left Blood Culture - Preliminary NO GROWTH AFTER 48 HOURS Resulted Accucheck: 128 Critical Care - Subjective ROS Limited/Unobtainable: No Condition: critical EKG Rhythm: Sinus Rhythm FI02: 30 Vent Support Breath Rate: 16 Vent Support Mode: AC Vent Tidal Volume: 600 Sputum Amount: Moderate PEEP: 5.0 PIP: 24 Tube Feeding Amount: 60 I&O: Intake and Output 08/28/19 08/29/19 19:00 07:00 Intake Total 770 ml 660 ml Output Total 850 ml Balance -80 ml 660 ml Intake Free Water 50 ml Tube Feeding 720 ml 660 ml Output Urine Total 850 ml # Bowel Movements 1 Labs: Laboratory Tests Test 08/29/19 09:00 White Blood Count 11.5 K/UL (4.8-10.8) H Red Blood Count 4.13 M/UL (4.70-6.10) L Hemoglobin 12.8 G/DL (14.2-18.0) L Hematocrit 39.4 % (42.0-52.0) L Mean Corpuscular Volume 95 FL (80-99) Mean Corpuscular Hemoglobin 31.0 PG (27.0-31.0) Mean Corpuscular Hemoglobin Concent 32.5 G/DL (32.0-36.0) Red Cell Distribution Width 14.0 % (11.6-14.8) Platelet Count 206 K/UL (150-450) Mean Platelet Volume 12.1 FL (6.5-10.1) H Neutrophils (%) (Auto) 76.1 % (45.0-75.0) H Lymphocytes (%) (Auto) 14.2 % (20.0-45.0) L Monocytes (%) (Auto) 7.7 % (1.0-10.0) Eosinophils (%) (Auto) 0.5 % (0.0-3.0) Basophils (%) (Auto) 1.5 % (0.0-2.0) Sodium Level 142 MMOL/L (136-145) Potassium Level 4.0 MMOL/L (3.5-5.1) Chloride Level 106 MMOL/L (98-107) Carbon Dioxide Level 26 MMOL/L (21-32) Anion Gap 10 mmol/L (5-15) Blood Urea Nitrogen 13 mg/dL (7-18) Creatinine 0.9 MG/DL (0.55-1.30) Estimat Glomerular Filtration Rate > 60 mL/min (>60) Glucose Level 124 MG/DL (74-106) H Calcium Level 9.0 MG/DL (8.5-10.1) Amanda Combs MD August 29, 2019 11:49
[2019-08-29 12:00] VITALS: BP 113/82
[2019-08-29 16:00] VITALS: BP 109/82
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
[2019-08-29 20:00] VITALS: BP 137/78
[2019-08-30] VITALS (7 sets, daily range): BP systolic 105–138; BP diastolic 62–79
[2019-08-30] MEDS: NovoLOG Insulin Flexpen SUBQ SCH ×4 (00:17→17:55)
[2019-08-30 05:28] LABS: BASOPHILS % (AUTO) 0.7 % (0.0-2.0); EOSINOPHILS % (AUTO) 0.3 % (0.0-3.0); HEMATOCRIT 37.2 % (42.0-52.0); HEMOGLOBIN 13.3 G/DL (14.2-18.0); LYMPHOCYTES % (AUTO) 9.5 % (20.0-45.0); MEAN CORPUSCULAR VOLUME 87 FL (80-99); MONOCYTES % (AUTO) 7.1 % (1.0-10.0); NEUTROPHILS % (AUTO) 82.5 % (45.0-75.0); PLATELET COUNT 233 K/UL (150-450); RED BLOOD COUNT 4.27 M/UL (4.70-6.10); RED CELL DISTRIBUTION WIDTH 12.5 % (11.6-14.8); WHITE BLOOD COUNT 15.4 K/UL (4.8-10.8)
[2019-08-30 06:00] LABS: ALANINE AMINOTRANSFERASE 48 U/L (12-78); ALBUMIN 3.5 G/DL (3.4-5.0); ALBUMIN/GLOBULIN RATIO 0.9 (1.0-2.7); ALKALINE PHOSPHATASE 130 U/L (46-116); ANION GAP 13 mmol/L (5-15); ASPARTATE AMINO TRANSFERASE 27 U/L (15-37); BILIRUBIN,TOTAL 0.5 MG/DL (0.2-1.0); BLOOD UREA NITROGEN 15 mg/dL (7-18); CALCIUM 9.1 MG/DL (8.5-10.1); CARBON DIOXIDE 23 MMOL/L (21-32); CHLORIDE 105 MMOL/L (98-107); CREATININE 0.9 MG/DL (0.55-1.30); PHOSPHORUS 2.3 MG/DL (2.5-4.9); POTASSIUM 3.7 MMOL/L (3.5-5.1); SODIUM 141 MMOL/L (136-145)
[2019-08-30] MEDS: Heparin 5000 units/ml inj SUBQ SCH ×2 (09:00→21:21)
[2019-08-30] MEDS: Pantoprazole Inj IV SCH (09:25)
--- NOTE | 2019-08-30 12:40 | Pulmonolgy Critical Care Note ---
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 (2) Chronic respiratory failure (3) Diabetes mellitus (4) Seizure disorder, convulsive, with status epilepticus (5) Feeding by G-tube Respiratory: monitor respiratory rate, adjust FIO2, CXR Cardiac: continue to monitor HR/BP Renal: F/U I&O, check electrolytes Infectious Disease: check cultures, other Gastrointestinal: continue feedings/current rate Endocrine: monitor blood sugar, check HgA1C Hematologic: monitor H/H, transfuse if hgb<8.5 Neurologic: PRN Morphine, keep patient comfortable Prophylaxis: Protonix Time Spent (Minutes): 40 Notes Reviewed: renal Discussed with: nurses, consultants, case management coordinatorinformation assurance manager - Objective Last 24 Hour Vital Signs Date Time Temp Pulse Resp B/P (MAP) Pulse Ox O2 Delivery O2 Flow Rate FiO2 08/30/19 11:28 83 08/30/19 10:58 77 18 30 08/30/19 08:00 98.2 74 16 114/74 (87) 99 08/30/19 08:00 Mechanical Ventilator 08/30/19 08:00 30 08/30/19 07:46 87 08/30/19 07:22 79 16 30 08/30/19 04:00 30 08/30/19 04:00 Mechanical Ventilator 08/30/19 04:00 97.4 85 22 125/76 (92) 100 08/30/19 04:00 94 08/30/19 03:20 89 16 30 08/30/19 00:00 91 08/30/19 00:00 97.6 81 20 110/62 (78) 100 08/30/19 00:00 Mechanical Ventilator 08/29/19 23:30 80 17 30 08/29/19 20:00 97.7 87 22 137/78 (97) 99 08/29/19 20:00 30 08/29/19 20:00 Mechanical Ventilator 08/29/19 19:22 67 08/29/19 19:10 79 16 30 08/29/19 16:00 30 08/29/19 16:00 79 08/29/19 16:00 Mechanical Ventilator 08/29/19 16:00 98.2 97 20 109/82 (91) 100 08/29/19 15:21 72 16 30 Status: somnolent Condition: critical HEENT: atraumatic Neck: full ROM Lungs: clear, chest wall tender, rales, rhonchi Heart: HR/BP stable, regular Abdomen: feeding tube Extremities: edema Accucheck: 140 Critical Care - Subjective ROS Limited/Unobtainable: Yes Condition: critical FI02: 30 Vent Support Breath Rate: 16 Vent Support Mode: AC Vent Tidal Volume: 600 Sputum Amount: Moderate PEEP: 5.0 PIP: 26 Tube Feeding Amount: 60 I&O: Intake and Output 08/29/19 08/30/19 19:00 07:00 Intake Total 980 ml 750 ml Output Total 1100 ml 700 ml Balance -120 ml 50 ml Intake Free Water 200 ml 90 ml Tube Feeding 540 ml 660 ml Other 240 ml Output Urine Total 1100 ml 700 ml # Bowel Movements 2 1 Labs: Laboratory Tests Test 08/30/19 03:30 White Blood Count 15.4 K/UL (4.8-10.8) H Red Blood Count 4.27 M/UL (4.70-6.10) L Hemoglobin 13.3 G/DL (14.2-18.0) L Hematocrit 37.2 % (42.0-52.0) L Mean Corpuscular Volume 87 FL (80-99) # Mean Corpuscular Hemoglobin 31.2 PG (27.0-31.0) H Mean Corpuscular Hemoglobin Concent 35.8 G/DL (32.0-36.0) Red Cell Distribution Width 12.5 % (11.6-14.8) Platelet Count 233 K/UL (150-450) Mean Platelet Volume 8.8 FL (6.5-10.1) Neutrophils (%) (Auto) 82.5 % (45.0-75.0) H Lymphocytes (%) (Auto) 9.5 % (20.0-45.0) L Monocytes (%) (Auto) 7.1 % (1.0-10.0) Eosinophils (%) (Auto) 0.3 % (0.0-3.0) Basophils (%) (Auto) 0.7 % (0.0-2.0) Erythrocyte Sedimentation Rate 67 MM/HR (0-20) H Sodium Level 141 MMOL/L (136-145) Potassium Level 3.7 MMOL/L (3.5-5.1) Chloride Level 105 MMOL/L (98-107) Carbon Dioxide Level 23 MMOL/L (21-32) Anion Gap 13 mmol/L (5-15) Blood Urea Nitrogen 15 mg/dL (7-18) Creatinine 0.9 MG/DL (0.55-1.30) Estimat Glomerular Filtration Rate > 60 mL/min (>60) Glucose Level 121 MG/DL (74-106) H Calcium Level 9.1 MG/DL (8.5-10.1) Phosphorus Level 2.3 MG/DL (2.5-4.9) L Magnesium Level 2.0 MG/DL (1.8-2.4) Total Bilirubin 0.5 MG/DL (0.2-1.0) Aspartate Amino Transf (AST/SGOT) 27 U/L (15-37) Alanine Aminotransferase (ALT/SGPT) 48 U/L (12-78) Alkaline Phosphatase 130 U/L (46-116) H C-Reactive Protein, Quantitative 3.2 mg/dL (0.00-0.90) H Total Protein 7.6 G/DL (6.4-8.2) Albumin 3.5 G/DL (3.4-5.0) Globulin 4.1 g/dL Albumin/Globulin Ratio 0.9 (1.0-2.7) L Amanda Combs MD August 30, 2019 12:40
--- NOTE | 2019-08-30 15:33 | Surgery Progress Note ---
Surgery Progress Note Subjective Additional Comments worsening leukocytosis esr noted ill appearing Objective Last 24 Hour Vital Signs Date Time Temp Pulse Resp B/P (MAP) Pulse Ox O2 Delivery O2 Flow Rate FiO2 08/30/19 12:00 30 08/30/19 12:00 99.5 71 16 128/77 (94) 99 08/30/19 12:00 Mechanical Ventilator 08/30/19 11:28 83 08/30/19 10:58 77 18 30 08/30/19 08:00 98.2 74 16 114/74 (87) 99 08/30/19 08:00 Mechanical Ventilator 08/30/19 08:00 30 08/30/19 07:46 87 08/30/19 07:22 79 16 30 08/30/19 04:00 30 08/30/19 04:00 Mechanical Ventilator 08/30/19 04:00 97.4 85 22 125/76 (92) 100 08/30/19 04:00 94 08/30/19 03:20 89 16 30 08/30/19 00:00 91 08/30/19 00:00 97.6 81 20 110/62 (78) 100 08/30/19 00:00 Mechanical Ventilator 08/29/19 23:30 80 17 30 08/29/19 20:00 97.7 87 22 137/78 (97) 99 08/29/19 20:00 30 08/29/19 20:00 Mechanical Ventilator 08/29/19 19:22 67 08/29/19 19:10 79 16 30 08/29/19 16:00 30 08/29/19 16:00 79 08/29/19 16:00 Mechanical Ventilator 08/29/19 16:00 98.2 97 20 109/82 (91) 100 I&O Intake and Output 08/29/19 08/30/19 19:00 07:00 Intake Total 980 ml 750 ml Output Total 1100 ml 700 ml Balance -120 ml 50 ml Intake Free Water 200 ml 90 ml Tube Feeding 540 ml 660 ml Other 240 ml Output Urine Total 1100 ml 700 ml # Bowel Movements 2 1 Dressing: other Wound: other Drains: other Cardiovascular: RSR Respiratory: decreased breath sounds Abdomen: soft, non-tender, present bowel sounds Extremities: no cyanosis Laboratory Tests Test 08/30/19 03:30 White Blood Count 15.4 K/UL (4.8-10.8) H Red Blood Count 4.27 M/UL (4.70-6.10) L Hemoglobin 13.3 G/DL (14.2-18.0) L Hematocrit 37.2 % (42.0-52.0) L Mean Corpuscular Volume 87 FL (80-99) # Mean Corpuscular Hemoglobin 31.2 PG (27.0-31.0) H Mean Corpuscular Hemoglobin Concent 35.8 G/DL (32.0-36.0) Red Cell Distribution Width 12.5 % (11.6-14.8) Platelet Count 233 K/UL (150-450) Mean Platelet Volume 8.8 FL (6.5-10.1) Neutrophils (%) (Auto) 82.5 % (45.0-75.0) H Lymphocytes (%) (Auto) 9.5 % (20.0-45.0) L Monocytes (%) (Auto) 7.1 % (1.0-10.0) Eosinophils (%) (Auto) 0.3 % (0.0-3.0) Basophils (%) (Auto) 0.7 % (0.0-2.0) Erythrocyte Sedimentation Rate 67 MM/HR (0-20) H Sodium Level 141 MMOL/L (136-145) Potassium Level 3.7 MMOL/L (3.5-5.1) Chloride Level 105 MMOL/L (98-107) Carbon Dioxide Level 23 MMOL/L (21-32) Anion Gap 13 mmol/L (5-15) Blood Urea Nitrogen 15 mg/dL (7-18) Creatinine 0.9 MG/DL (0.55-1.30) Estimat Glomerular Filtration Rate > 60 mL/min (>60) Glucose Level 121 MG/DL (74-106) H Calcium Level 9.1 MG/DL (8.5-10.1) Phosphorus Level 2.3 MG/DL (2.5-4.9) L Magnesium Level 2.0 MG/DL (1.8-2.4) Total Bilirubin 0.5 MG/DL (0.2-1.0) Aspartate Amino Transf (AST/SGOT) 27 U/L (15-37) Alanine Aminotransferase (ALT/SGPT) 48 U/L (12-78) Alkaline Phosphatase 130 U/L (46-116) H C-Reactive Protein, Quantitative 3.2 mg/dL (0.00-0.90) H Total Protein 7.6 G/DL (6.4-8.2) Albumin 3.5 G/DL (3.4-5.0) Globulin 4.1 g/dL Albumin/Globulin Ratio 0.9 (1.0-2.7) L Plan Problems: (1) Feeding by G-tube Assessment & Plan: DAILY ESTIMATED NEEDS: Needs based on Critical Care, wounds/ 74.8kg abw 22-30 kcals/kg 7495-9586 total kcals 1.25-2 g protein/kg 94-150 g total protein 25-30 mL/kg 7782-6152 total fluid mLs NUTRITION DIAGNOSIS: * Swallowing difficulty R/T dysphagia, respiratory status as evidenced by pt is trach/vent dep, PEG dep. * Increased kcal/prot needs R/T wound healing as evidenced by pt admitted w/ sacral unstageable wound. CURRENT TF: Glucerna 1.2 @ 60ml/hr ENTERAL NUTRITION RECOMMENDATIONS: Glucerna 1.2 @ 60ml/hr x 24 hrs + Prosource qdaily to provide 1440ml, 1728kcal , 86g + 11g prot, 1162ml free water * Rec to increase rate to 60ml/hr for 24 hrs * Add Prosource 1pkt QD to meet protein needs * HOB over 30 degrees/ water flush per MD. ----- -CURRENTLY GLUCERNA 1.2/ 1.5 LOW ON STOCK OR OOS, REC JEVITY 1.2 BG HAS BEEN WNL, W/ GOAL OF 60ML/HR X24 HRS + PROSOURCE BID. -TF at goal + Prosource provides 1728 kcal + 80kcal, 80g +22g pro, to meet 100% est needs, monitor blood glucose regularly w/ ssi for coverage and BG control. -Jevity 1.2 @60ml/hr to provide 79g more carbs per day. Will monitor glycemic tolerance/ control. ADDITIONAL RECOMMENDATIONS: * Maintain calibrated bed scale wts * Wound care: Add DANYELLE BID + Vit C 250mg BID * Monitor lytes daily, replete as needed (low phos 2.1) * Accuchecks w/ SSI for glycemic control * Rec trial TF change to Jevity 1.2 @60 (shortage of Glucerna 1.2, 1.5) may need to increase insulin coverage (2) Decubitus skin ulcer Assessment & Plan: left flank wound noted. considered as possible abscess. evaluated. 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 Linear atelectasis of the left lung base. Blunted left costophrenic angle. Small left pleural effusion and overlying atelectasis. Mild atelectasis of the right lung base. Question old proximal right clavicle fracture. Impression: 1. Trace left pleural effusion with overlying atelectasis. Mild right basilar atelectasis. 2. Unchanged tracheostomy tube. abx as per ID respiratory care as per pulm nutritional will follow with recs thank you (8) Chronic respiratory failure (9) Bacteremia (10) Uncontrolled seizures (11) Seizure disorder, convulsive, with status epilepticus (12) Seizure after head injury (13) Line sepsis (14) UTI (urinary tract infection) (15) Urinary tract infection (16) Acute on chronic renal insufficiency Horacio Hope August 30, 2019 15:33
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
[2019-08-30] MEDS ORDERED: Gentamicin Rx monitoring MISC PRN (18:30)
[2019-08-30] MEDS: Gentamicin inj 350 MG in NS 110 ML IVPB SCH (21:08)
--- NOTE | 2019-08-30 22:15 | Progress Note ---
DATE: 08/30/2019 SUBJECTIVE: The patient remained awake, obtunded with low-grade fever without tachycardia. PHYSICAL EXAMINATION: VITAL SIGNS: Blood pressure 105/71, his pulse is 64, respirations are 16, and temperature 99.5. HEENT: Eyes were normal. ENT, mucous membranes were moist and intact. NECK: Supple with no JVD without lymph nodes. Tracheostomy site is clean. LUNGS: Clear without rhonchi or rales. No wheezing. HEART: Normal sounds with regular beats. There is no tachycardia at rest. ABDOMEN: Soft and nontender with normal bowel sounds. Gastrostomy site is clean. EXTREMITIES: Warm without cyanosis, clubbing, or edema. LABORATORY AND DIAGNOSTIC DATA: Hemoglobin is 13.3, hematocrit 37.2 with MCV of 87, WBC of 15.4, and platelets 233. His BUN and creatinine are 15 and 0.9 respectively. His sodium is 141, potassium 3.7, chloride 105, CO2 is 27, his calcium is 9.1. His phosphorus is 2.3. His magnesium is 2.0. Alkaline phosphatase is 130. His CRP is 3.2. Total protein is 7.6 and albumin is 3.5. IMPRESSION: Yesterday obtained the permission to insert a PICC line over midline; however, today for the first time, a regular IV was able to be found and now the patient has a good access for IV antibiotics. The patient was admitted because of the presence of Pseudomonas aeruginosa, which is carbapenem-resistant. Infectious Diseases jd edwards consultant was called to choose antibiotic for this management. In the meantime, the patient developed low-grade fever and leukocytosis. Chest x-ray will be done as well as CBC and BMP in a.m. Libby Fair M.D. DR: CARLITOS JOB#: [id number] CC:
[2019-08-31] MEDS: NovoLOG Insulin Flexpen SUBQ SCH ×5 (00:22→23:54)
[2019-08-31 03:46] VITALS: BP 152/86
[2019-08-31 05:24] VITALS: BP 138/88
[2019-08-31 07:18] LABS: BASOPHILS % (AUTO) 0.5 % (0.0-2.0); EOSINOPHILS % (AUTO) 0.1 % (0.0-3.0); HEMATOCRIT 37.8 % (42.0-52.0); HEMOGLOBIN 13.2 G/DL (14.2-18.0); LYMPHOCYTES % (AUTO) 8.8 % (20.0-45.0); MEAN CORPUSCULAR VOLUME 88 FL (80-99); MONOCYTES % (AUTO) 7.7 % (1.0-10.0); NEUTROPHILS % (AUTO) 82.9 % (45.0-75.0); PLATELET COUNT 232 K/UL (150-450); RED BLOOD COUNT 4.29 M/UL (4.70-6.10); RED CELL DISTRIBUTION WIDTH 12.7 % (11.6-14.8); WHITE BLOOD COUNT 16.3 K/UL (4.8-10.8)
[2019-08-31 07:26] LABS: ANION GAP 10 mmol/L (5-15); BLOOD UREA NITROGEN 18 mg/dL (7-18); CALCIUM 8.7 MG/DL (8.5-10.1); CARBON DIOXIDE 26 MMOL/L (21-32); CHLORIDE 105 MMOL/L (98-107); CREATININE 0.9 MG/DL (0.55-1.30); SODIUM 141 MMOL/L (136-145)
[2019-08-31 08:00] VITALS: BP 160/104
[2019-08-31] MEDS: Heparin 5000 units/ml inj SUBQ SCH ×2 (08:50→20:06)
[2019-08-31] MEDS: Pantoprazole Inj IV SCH (08:50)
--- NOTE | 2019-08-31 10:17 | Diagnostic Imaging Report ---
EXAM: XR Chest, 2 Views CLINICAL HISTORY: COPD TECHNIQUE: Frontal and lateral views of the chest. COMPARISON: Chest radiograph on 08/29/2019 FINDINGS: Hardware: Tracheostomy tube terminates in the region of the upper thoracic trachea. Lungs/pleura: Increased streaky and hazy opacity throughout the right lung and left lower lung. No pleural effusion or pneumothorax. Heart/mediastinum: Stable mild enlargement of the cardiac silhouette. Soft tissues: Unremarkable. Bones: No acute fracture. Upper abdomen: Normal. IMPRESSION: Streaky and hazy opacities throughout the right lung and left lower lung which may represent atelectasis versus infectious/inflammatory process.
[2019-08-31 12:00] VITALS: BP 154/85
--- NOTE | 2019-08-31 13:33 | Surgery Progress Note ---
Surgery Progress Note Subjective Additional Comments worsening leukocytosis cxr noted exam unchanged Objective Last 24 Hour Vital Signs Date Time Temp Pulse Resp B/P (MAP) Pulse Ox O2 Delivery O2 Flow Rate FiO2 08/31/19 12:00 100.2 89 16 154/85 (108) 98 08/31/19 12:00 30 08/31/19 12:00 Mechanical Ventilator 08/31/19 10:53 104 17 30 08/31/19 08:47 81 16 30 08/31/19 08:00 99.1 84 18 160/104 (122) 98 08/31/19 08:00 30 08/31/19 08:00 91 08/31/19 08:00 Mechanical Ventilator 08/31/19 07:20 91 16 30 08/31/19 05:49 98.8 08/31/19 05:24 98.8 84 16 138/88 (105) 97 08/31/19 04:00 90 08/31/19 03:49 30 08/31/19 03:46 100.0 78 16 152/86 (108) 97 08/31/19 03:45 Mechanical Ventilator 08/31/19 02:55 83 16 30 08/31/19 00:00 Mechanical Ventilator 08/31/19 00:00 101 08/30/19 23:41 80 16 30 08/30/19 23:17 99.9 16 107/67 (80) 99 08/30/19 20:00 80 08/30/19 20:00 100.4 91 138/79 (98) 100 08/30/19 20:00 Mechanical Ventilator 08/30/19 20:00 30 08/30/19 19:28 89 16 30 08/30/19 16:00 99.5 64 16 105/71 (82) 97 08/30/19 16:00 Mechanical Ventilator 08/30/19 16:00 30 08/30/19 15:46 103 08/30/19 15:16 89 16 30 I&O Intake and Output 08/30/19 08/31/19 19:00 07:00 Intake Total 790 ml 700 ml Output Total 500 ml 480 ml Balance 290 ml 220 ml Intake Free Water 70 ml 100 ml Tube Feeding 720 ml 600 ml Output Urine Total 500 ml 480 ml # Bowel Movements 1 3 Dressing: other Wound: other Drains: other Cardiovascular: RSR Respiratory: decreased breath sounds Abdomen: soft, non-tender, present bowel sounds Extremities: no cyanosis Laboratory Tests Test 08/31/19 06:05 White Blood Count 16.3 K/UL (4.8-10.8) H Red Blood Count 4.29 M/UL (4.70-6.10) L Hemoglobin 13.2 G/DL (14.2-18.0) L Hematocrit 37.8 % (42.0-52.0) L Mean Corpuscular Volume 88 FL (80-99) Mean Corpuscular Hemoglobin 30.7 PG (27.0-31.0) Mean Corpuscular Hemoglobin Concent 34.8 G/DL (32.0-36.0) Red Cell Distribution Width 12.7 % (11.6-14.8) Platelet Count 232 K/UL (150-450) Mean Platelet Volume 8.7 FL (6.5-10.1) Neutrophils (%) (Auto) 82.9 % (45.0-75.0) H Lymphocytes (%) (Auto) 8.8 % (20.0-45.0) L Monocytes (%) (Auto) 7.7 % (1.0-10.0) Eosinophils (%) (Auto) 0.1 % (0.0-3.0) Basophils (%) (Auto) 0.5 % (0.0-2.0) Sodium Level 141 MMOL/L (136-145) Potassium Level 4.0 MMOL/L (3.5-5.1) Chloride Level 105 MMOL/L (98-107) Carbon Dioxide Level 26 MMOL/L (21-32) Anion Gap 10 mmol/L (5-15) Blood Urea Nitrogen 18 mg/dL (7-18) Creatinine 0.9 MG/DL (0.55-1.30) Estimat Glomerular Filtration Rate > 60 mL/min (>60) Glucose Level 132 MG/DL (74-106) H Calcium Level 8.7 MG/DL (8.5-10.1) Random Gentamicin Level 2.2 ug/mL Plan Problems: (1) Feeding by G-tube Assessment & Plan: DAILY ESTIMATED NEEDS: Needs based on Critical Care, wounds/ 74.8kg abw 22-30 kcals/kg 9654-9086 total kcals 1.25-2 g protein/kg 94-150 g total protein 25-30 mL/kg 3365-4452 total fluid mLs NUTRITION DIAGNOSIS: * Swallowing difficulty R/T dysphagia, respiratory status as evidenced by pt is trach/vent dep, PEG dep. * Increased kcal/prot needs R/T wound healing as evidenced by pt admitted w/ sacral unstageable wound. CURRENT TF: Glucerna 1.2 @ 60ml/hr ENTERAL NUTRITION RECOMMENDATIONS: Glucerna 1.2 @ 60ml/hr x 24 hrs + Prosource qdaily to provide 1440ml, 1728kcal , 86g + 11g prot, 1162ml free water * Rec to increase rate to 60ml/hr for 24 hrs * Add Prosource 1pkt QD to meet protein needs * HOB over 30 degrees/ water flush per MD. ----- -CURRENTLY GLUCERNA 1.2/ 1.5 LOW ON STOCK OR OOS, REC JEVITY 1.2 BG HAS BEEN WNL, W/ GOAL OF 60ML/HR X24 HRS + PROSOURCE BID. -TF at goal + Prosource provides 1728 kcal + 80kcal, 80g +22g pro, to meet 100% est needs, monitor blood glucose regularly w/ ssi for coverage and BG control. -Jevity 1.2 @60ml/hr to provide 79g more carbs per day. Will monitor glycemic tolerance/ control. ADDITIONAL RECOMMENDATIONS: * Maintain calibrated bed scale wts * Wound care: Add DANYELLE BID + Vit C 250mg BID * Monitor lytes daily, replete as needed (low phos 2.1) * Accuchecks w/ SSI for glycemic control * Rec trial TF change to Jevity 1.2 @60 (shortage of Glucerna 1.2, 1.5) may need to increase insulin coverage (2) Decubitus skin ulcer Assessment & Plan: left flank wound noted. considered as possible abscess. evaluated. 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 Linear atelectasis of the left lung base. Blunted left costophrenic angle. Small left pleural effusion and overlying atelectasis. Mild atelectasis of the right lung base. Question old proximal right clavicle fracture. Impression: 1. Trace left pleural effusion with overlying atelectasis. Mild right basilar atelectasis. 2. Unchanged tracheostomy tube. abx as per ID respiratory care as per pulm nutritional will follow with recs thank you Streaky and hazy opacities throughout the right lung and left lower lung which may represent atelectasis versus infectious/inflammatory process. (8) Chronic respiratory failure (9) Bacteremia (10) Uncontrolled seizures (11) Seizure disorder, convulsive, with status epilepticus (12) Seizure after head injury (13) Line sepsis (14) UTI (urinary tract infection) (15) Urinary tract infection (16) Acute on chronic renal insufficiency Horacio Hope August 31, 2019 13:33
[2019-08-31 16:00] VITALS: BP 147/83
[2019-08-31] MEDS ORDERED: NS 275ml ONE (17:35)
[2019-08-31] MEDS ORDERED: Tubing IV Secondary IV ONE (17:35)
[2019-08-31 20:00] VITALS: BP 130/84
[2019-08-31] MEDS: Gentamicin inj 350 MG in NS 110 ML IVPB SCH (20:05)
[2019-09-01] VITALS: BP 127/71
[2019-09-01 04:00] VITALS: BP 114/80
[2019-09-01] MEDS: NovoLOG Insulin Flexpen SUBQ SCH ×4 (05:01→23:25)
[2019-09-01 07:17] LABS: HEMATOCRIT 38.2 % (42.0-52.0); HEMOGLOBIN 13.6 G/DL (14.2-18.0); MEAN CORPUSCULAR VOLUME 88 FL (80-99); PLATELET COUNT 234 K/UL (150-450); RED BLOOD COUNT 4.33 M/UL (4.70-6.10); RED CELL DISTRIBUTION WIDTH 12.7 % (11.6-14.8); WHITE BLOOD COUNT 15.2 K/UL (4.8-10.8)
[2019-09-01 07:42] LABS: ANION GAP 11 mmol/L (5-15); BLOOD UREA NITROGEN 17 mg/dL (7-18); CALCIUM 9.4 MG/DL (8.5-10.1); CARBON DIOXIDE 26 MMOL/L (21-32); CHLORIDE 104 MMOL/L (98-107); CREATININE 0.9 MG/DL (0.55-1.30); PHOSPHORUS 2.9 MG/DL (2.5-4.9); POTASSIUM 3.7 MMOL/L (3.5-5.1); SODIUM 141 MMOL/L (136-145)
[2019-09-01 08:00] VITALS: BP 124/77
[2019-09-01] MEDS: Pantoprazole Inj IV SCH (09:18)
[2019-09-01] MEDS: Heparin 5000 units/ml inj SUBQ SCH ×2 (09:19→20:15)
[2019-09-01 12:00] VITALS: BP 130/86
--- NOTE | 2019-09-01 12:28 | Surgery Progress Note ---
Surgery Progress Note Subjective Additional Comments A/C 16, TV 600, Fi02 30%, PEEP 5. Glucerna 1.2 feeding running at 60cc. wbc 15k h/h stable Objective Last 24 Hour Vital Signs Date Time Temp Pulse Resp B/P (MAP) Pulse Ox O2 Delivery O2 Flow Rate FiO2 09/01/19 10:52 77 16 30 09/01/19 08:00 98.6 87 16 124/77 (93) 99 09/01/19 08:00 85 09/01/19 08:00 30 09/01/19 07:00 81 16 30 09/01/19 04:10 99.3 09/01/19 04:00 30 09/01/19 04:00 100.8 79 16 114/80 (91) 97 09/01/19 04:00 Mechanical Ventilator 09/01/19 03:57 82 09/01/19 02:53 81 16 30 09/01/19 00:00 30 09/01/19 00:00 Mechanical Ventilator 09/01/19 00:00 98.8 86 16 127/71 (89) 100 09/01/19 00:00 81 08/31/19 23:30 89 16 30 08/31/19 20:00 Mechanical Ventilator 08/31/19 20:00 30 08/31/19 20:00 100.5 81 18 130/84 (99) 98 08/31/19 19:30 79 18 30 08/31/19 19:27 73 08/31/19 16:00 Mechanical Ventilator 08/31/19 16:00 30 08/31/19 16:00 83 08/31/19 16:00 100.0 80 16 147/83 (104) 97 08/31/19 14:53 77 16 30 I&O Intake and Output 08/31/19 09/01/19 19:00 07:00 Intake Total 870 ml 878.75 ml Output Total 650 ml 600 ml Balance 220 ml 278.75 ml Intake Free Water 90 ml 100 ml IV Total 118.75 ml Tube Feeding 780 ml 660 ml Output Urine Total 650 ml 600 ml Dressing: other Wound: other Drains: other Cardiovascular: RSR Respiratory: decreased breath sounds Abdomen: soft, non-tender, present bowel sounds Extremities: no cyanosis Laboratory Tests Test 09/01/19 05:40 White Blood Count 15.2 K/UL (4.8-10.8) H Red Blood Count 4.33 M/UL (4.70-6.10) L Hemoglobin 13.6 G/DL (14.2-18.0) L Hematocrit 38.2 % (42.0-52.0) L Mean Corpuscular Volume 88 FL (80-99) Mean Corpuscular Hemoglobin 31.4 PG (27.0-31.0) H Mean Corpuscular Hemoglobin Concent 35.7 G/DL (32.0-36.0) Red Cell Distribution Width 12.7 % (11.6-14.8) Platelet Count 234 K/UL (150-450) Mean Platelet Volume 7.9 FL (6.5-10.1) Neutrophils (%) (Auto) % (45.0-75.0) Lymphocytes (%) (Auto) % (20.0-45.0) Monocytes (%) (Auto) % (1.0-10.0) Eosinophils (%) (Auto) % (0.0-3.0) Basophils (%) (Auto) % (0.0-2.0) Differential Total Cells Counted 100 Neutrophils % (Manual) 75 % (45-75) Lymphocytes % (Manual) 16 % (20-45) L Monocytes % (Manual) 8 % (1-10) Eosinophils % (Manual) 1 % (0-3) Basophils % (Manual) 0 % (0-2) Band Neutrophils 0 % (0-8) Platelet Estimate Adequate Platelet Morphology Normal Red Blood Cell Morphology Normal Sodium Level 141 MMOL/L (136-145) Potassium Level 3.7 MMOL/L (3.5-5.1) Chloride Level 104 MMOL/L (98-107) Carbon Dioxide Level 26 MMOL/L (21-32) Anion Gap 11 mmol/L (5-15) Blood Urea Nitrogen 17 mg/dL (7-18) Creatinine 0.9 MG/DL (0.55-1.30) Estimat Glomerular Filtration Rate > 60 mL/min (>60) Glucose Level 128 MG/DL (74-106) H Calcium Level 9.4 MG/DL (8.5-10.1) Phosphorus Level 2.9 MG/DL (2.5-4.9) Magnesium Level 2.2 MG/DL (1.8-2.4) Plan Problems: (1) Feeding by G-tube Assessment & Plan: DAILY ESTIMATED NEEDS: Needs based on Critical Care, wounds/ 74.8kg abw 22-30 kcals/kg 2300-7904 total kcals 1.25-2 g protein/kg 94-150 g total protein 25-30 mL/kg 5490-8111 total fluid mLs NUTRITION DIAGNOSIS: * Swallowing difficulty R/T dysphagia, respiratory status as evidenced by pt is trach/vent dep, PEG dep. * Increased kcal/prot needs R/T wound healing as evidenced by pt admitted w/ sacral unstageable wound. CURRENT TF: Glucerna 1.2 @ 60ml/hr ENTERAL NUTRITION RECOMMENDATIONS: Glucerna 1.2 @ 60ml/hr x 24 hrs + Prosource qdaily to provide 1440ml, 1728kcal , 86g + 11g prot, 1162ml free water * Rec to increase rate to 60ml/hr for 24 hrs * Add Prosource 1pkt QD to meet protein needs * HOB over 30 degrees/ water flush per MD. ----- -CURRENTLY GLUCERNA 1.2/ 1.5 LOW ON STOCK OR OOS, REC JEVITY 1.2 BG HAS BEEN WNL, W/ GOAL OF 60ML/HR X24 HRS + PROSOURCE BID. -TF at goal + Prosource provides 1728 kcal + 80kcal, 80g +22g pro, to meet 100% est needs, monitor blood glucose regularly w/ ssi for coverage and BG control. -Jevity 1.2 @60ml/hr to provide 79g more carbs per day. Will monitor glycemic tolerance/ control. ADDITIONAL RECOMMENDATIONS: * Maintain calibrated bed scale wts * Wound care: Add DANYELLE BID + Vit C 250mg BID * Monitor lytes daily, replete as needed (low phos 2.1) * Accuchecks w/ SSI for glycemic control * Rec trial TF change to Jevity 1.2 @60 (shortage of Glucerna 1.2, 1.5) may need to increase insulin coverage (2) Decubitus skin ulcer Assessment & Plan: left flank wound noted. considered as possible abscess. evaluated. 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 Linear atelectasis of the left lung base. Blunted left costophrenic angle. Small left pleural effusion and overlying atelectasis. Mild atelectasis of the right lung base. Question old proximal right clavicle fracture. Impression: 1. Trace left pleural effusion with overlying atelectasis. Mild right basilar atelectasis. 2. Unchanged tracheostomy tube. abx as per ID respiratory care as per pulm nutritional will follow with recs thank you Streaky and hazy opacities throughout the right lung and left lower lung which may represent atelectasis versus infectious/inflammatory process. 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
[2019-09-01 16:00] VITALS: BP 132/84
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
[2019-09-01] MEDS ORDERED: Tubing IV Secondary IV ONE (17:56)
[2019-09-01 20:00] VITALS: BP 134/83
[2019-09-01 20:07] LABS: APPEARANCE,URINE CLOUDY; BILIRUBIN, URINE NEGATIVE (NEGATIVE); COLOR,URINE BROWN; GLUCOSE, URINE (UA) NEGATIVE (NEGATIVE); KETONES,URINE 1+ (NEGATIVE); LEUKOCYTE ESTERASE ,URINE 1+ (NEGATIVE); NITRITE,URINE NEGATIVE (NEGATIVE); PH,URINE 8 (4.5-8.0); PROTEIN,URINE 3+ (NEGATIVE); UROBILINOGEN,URINE NORMAL MG/DL (0.0-1.0)
[2019-09-01] MEDS: Gentamicin inj 350 MG in NS 110 ML IVPB SCH (20:15)
[2019-09-02] VITALS: BP 112/74
--- NOTE | 2019-09-02 | Progress Note ---
DATE: 09/01/2019 SUBJECTIVE: The patient spiked fever yesterday. He is afebrile today with intermittent tachycardia. PHYSICAL EXAMINATION: VITAL SIGNS: Blood pressure 132/84, his pulse is 84, respirations are 18, temperature was 98. HEENT: Eyes were normal. ENT, mucous membranes were moist and intact. NECK: Supple with no JVD without lymph nodes. Tracheostomy site is clean. LUNGS: Clear without rhonchi or wheezing. HEART: Normal sounds with regular beats. There is tachycardia at rest. Sinus tachycardia on monitor. ABDOMEN: Soft, nontender with normal bowel sounds. Gastrostomy site is clean. EXTREMITIES: Warm without cyanosis, clubbing, or edema. LABORATORY AND DIAGNOSTIC DATA: Hemoglobin is 13.6, hematocrit 38.2 with MCV of 88, WBC of 15.2, and platelets is 234. His WBC was 16.3 yesterday. BUN and creatinine 17 and 0.9 respectively. His sodium is 141, potassium 3.7, chloride 104, CO2 is 26. His urinalysis show 2 to 4 wbc's and [id number]-count rbc's, nitrite negative, bilirubin negative, and 1+ ketones. IMPRESSION AND PLAN: The patient was admitted because of the presence of Pseudomonas aeruginosa with carbapenem-resistant bacteria. He has been followed now for several days with the Infectious Disease specialist. In addition x-ray showed linear atelectasis and possible left pleural effusion and right basilar atelectasis. Repeat x-ray shows opacity throughout the right lung and left lower lobe. Images can be either atelectasis, infection, or inflammatory process. The patient underwent one test of COVID-19. The first sample was negative. The second sample is still pending. Currently patient is on . Second COVID-19 test is being requested. Repeat laboratory tests will be done in the a.m. Libby Fair M.D. DR: BASHIR JOB#: [id number] CC:
[2019-09-02 04:00] VITALS: BP 109/74
[2019-09-02] MEDS: NovoLOG Insulin Flexpen SUBQ SCH ×4 (05:00→23:23)
[2019-09-02 05:05] LABS: BASOPHILS % (AUTO) 0.7 % (0.0-2.0); EOSINOPHILS % (AUTO) 1.8 % (0.0-3.0); HEMATOCRIT 39.1 % (42.0-52.0); HEMOGLOBIN 13.9 G/DL (14.2-18.0); LYMPHOCYTES % (AUTO) 13.6 % (20.0-45.0); MEAN CORPUSCULAR VOLUME 87 FL (80-99); PLATELET COUNT 234 K/UL (150-450); RED BLOOD COUNT 4.48 M/UL (4.70-6.10); RED CELL DISTRIBUTION WIDTH 12.8 % (11.6-14.8); WHITE BLOOD COUNT 15.2 K/UL (4.8-10.8)
[2019-09-02 05:20] LABS: ANION GAP 11 mmol/L (5-15); BLOOD UREA NITROGEN 16 mg/dL (7-18); CALCIUM 9.3 MG/DL (8.5-10.1); CARBON DIOXIDE 26 MMOL/L (21-32); CHLORIDE 104 MMOL/L (98-107); CREATININE 0.8 MG/DL (0.55-1.30); POTASSIUM 3.6 MMOL/L (3.5-5.1); SODIUM 141 MMOL/L (136-145)
[2019-09-02 08:00] VITALS: BP 112/70
[2019-09-02] MEDS: Pantoprazole Inj IV SCH (08:21)
[2019-09-02] MEDS: Heparin 5000 units/ml inj SUBQ SCH ×2 (08:22→20:39)
--- NOTE | 2019-09-02 11:11 | Pulmonolgy Critical Care Note ---
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 (2) Chronic respiratory failure (3) Diabetes mellitus (4) Seizure disorder, convulsive, with status epilepticus (5) Feeding by G-tube Respiratory: monitor respiratory rate, adjust FIO2, CXR Cardiac: continue to monitor HR/BP Renal: F/U I&O, keep IV fluid, check electrolytes Infectious Disease: check cultures Gastrointestinal: continue feedings/current rate Endocrine: monitor blood sugar, continue sliding scale insulin Hematologic: monitor H/H, transfuse if hgb<8.5 Neurologic: PRN Ativan, PRN Morphine, keep patient comfortable Affect: PRN ativan Time Spent (Minutes): 40 Notes Reviewed: evaporator helper, cardio, renal Discussed with: nurses, consultants, showcase makerleasing property manager - Objective Last 24 Hour Vital Signs Date Time Temp Pulse Resp B/P (MAP) Pulse Ox O2 Delivery O2 Flow Rate FiO2 09/02/19 08:00 98.9 101 18 112/70 (84) 100 09/02/19 08:00 30 09/02/19 08:00 Mechanical Ventilator 09/02/19 08:00 107 09/02/19 07:16 92 16 30 09/02/19 06:14 98.9 09/02/19 04:00 100.1 89 18 109/74 (86) 100 09/02/19 04:00 104 09/02/19 04:00 Mechanical Ventilator 09/02/19 04:00 30 09/02/19 03:05 100 16 30 09/02/19 00:00 113 09/02/19 00:00 30 09/02/19 00:00 Mechanical Ventilator 09/02/19 00:00 99.8 108 18 112/74 (87) 99 09/01/19 23:06 115 16 30 09/01/19 20:00 98.8 98 18 134/83 (100) 98 09/01/19 20:00 Mechanical Ventilator 09/01/19 20:00 30 09/01/19 20:00 110 09/01/19 19:21 120 16 30 09/01/19 16:00 Mechanical Ventilator 09/01/19 16:00 30 09/01/19 16:00 110 09/01/19 16:00 98.0 90 18 132/84 (100) 95 09/01/19 16:00 Mechanical Ventilator 09/01/19 14:55 94 16 30 09/01/19 12:00 30 09/01/19 12:00 98.6 107 17 130/86 (101) 95 09/01/19 12:00 Mechanical Ventilator 09/01/19 12:00 91 Status: sedated Condition: critical HEENT: atraumatic Neck: trach Lungs: rales, rhonchi Heart: HR/BP stable Abdomen: non-tender, feeding tube Extremities: no C/C/E Decubiti: location Micro: Microbiology Date/Time Source Procedure Growth Status 08/30/19 23:30 Nasopharynx Coronavirus COVID-19 PCR ([facility]) - Final Complete 09/01/19 17:00 Urine,Clean Catch Urine Culture - Preliminary NO GROWTH Resulted Accucheck: 127 Critical Care - Subjective ROS Limited/Unobtainable: Yes Condition: critical EKG Rhythm: Sinus Rhythm FI02: 30 Vent Support Breath Rate: 16 Vent Support Mode: AC Vent Tidal Volume: 600 Sputum Amount: Moderate PEEP: 5.0 PIP: 32 Tube Feeding Amount: 60 I&O: Intake and Output 09/01/19 09/02/19 19:00 07:00 Intake Total 120 ml 938.75 ml Output Total 650 ml 775 ml Balance -530 ml 163.75 ml Intake Free Water 100 ml IV Total 118.75 ml Tube Feeding 120 ml 720 ml Output Urine Total 650 ml 775 ml # Bowel Movements 1 CXR: Streaky and hazy opacities throughout the right lung and left lower lung which may represent atelectasis versus infectious/inflammatory process. Labs: Laboratory Tests Test 09/01/19 17:00 09/02/19 03:15 Urine Color Brown Urine Appearance Cloudy Urine pH 8 (4.5-8.0) Urine Specific [place] 1.015 (1.005-1.035) Urine Protein 3+ (NEGATIVE) H Urine Glucose (UA) Negative (NEGATIVE) Urine Ketones 1+ (NEGATIVE) H Urine Blood 5+ (NEGATIVE) H Urine Nitrite Negative (NEGATIVE) Urine Bilirubin Negative (NEGATIVE) Urine Urobilinogen Normal MG/DL (0.0-1.0) Urine Leukocyte Esterase 1+ (NEGATIVE) H Urine RBC Tntc /HPF (0 - 0) H Urine WBC 2-4 /HPF (0 - 0) Urine Squamous Epithelial Cells None /LPF (NONE/OCC) Urine Bacteria Moderate /HPF (NONE) H White Blood Count 15.2 K/UL (4.8-10.8) H Red Blood Count 4.48 M/UL (4.70-6.10) L Hemoglobin 13.9 G/DL (14.2-18.0) L Hematocrit 39.1 % (42.0-52.0) L Mean Corpuscular Volume 87 FL (80-99) Mean Corpuscular Hemoglobin 31.1 PG (27.0-31.0) H Mean Corpuscular Hemoglobin Concent 35.6 G/DL (32.0-36.0) Red Cell Distribution Width 12.8 % (11.6-14.8) Platelet Count 234 K/UL (150-450) Mean Platelet Volume 8.6 FL (6.5-10.1) Neutrophils (%) (Auto) 78.0 % (45.0-75.0) H Lymphocytes (%) (Auto) 13.6 % (20.0-45.0) L Monocytes (%) (Auto) 6.0 % (1.0-10.0) Eosinophils (%) (Auto) 1.8 % (0.0-3.0) Basophils (%) (Auto) 0.7 % (0.0-2.0) Sodium Level 141 MMOL/L (136-145) Potassium Level 3.6 MMOL/L (3.5-5.1) Chloride Level 104 MMOL/L (98-107) Carbon Dioxide Level 26 MMOL/L (21-32) Anion Gap 11 mmol/L (5-15) Blood Urea Nitrogen 16 mg/dL (7-18) Creatinine 0.8 MG/DL (0.55-1.30) Estimat Glomerular Filtration Rate > 60 mL/min (>60) Glucose Level 118 MG/DL (74-106) H Calcium Level 9.3 MG/DL (8.5-10.1) Amanda Combs MD Sep 02, 2019 11:11
--- NOTE | 2019-09-02 11:30 | Progress Note ---
SUBJECTIVE: The patient is febrile, without tachycardia. PHYSICAL EXAMINATION: VITAL SIGNS: Blood pressure 154/85, his pulse is 80, respiration of 16, temperature is 100.2. HEENT: Eyes were normal. ENT, mucous membranes were moist and intact. NECK: Supple with no JVD without lymph nodes. Tracheostomy site is clean. LUNGS: Clear without rhonchi, rales, or wheezing. HEART: Normal sounds with regular beats. ABDOMEN: Soft and nontender with normal bowel sounds. Gastrostomy site is clean. EXTREMITIES: Warm without cyanosis, clubbing, or edema. LABORATORY AND DIAGNOSTIC DATA: His hemoglobin is 13.2, hematocrit 37.8 with MCV of 88, WBC of 16.3, and platelets of 232,000. BUN and creatinine are 18 and 0.9 respectively. His sodium is 141, potassium 4.0, chloride 105, and CO2 is 26. IMPRESSION: Repeat chest x-ray done today revealed streaky and hazy opacities within the right lung and left lower lung, I believe atelectasis inflammatory. The patient has been seen today and yesterday had Infectious Disease specialist . The patient has been started on gentamicin 5 mg/kg q.24 hours. The patient . Repeat laboratory tests will be done in the a.m. Libby Fair M.D. DR: Wendy JOB#: [id number] CC:
[2019-09-02 12:00] VITALS: BP 100/78
--- NOTE | 2019-09-02 12:40 | Surgery Progress Note ---
Surgery Progress Note Subjective Additional Comments febrile hd stable comfortable appearing no n/v labs noted Objective Last 24 Hour Vital Signs Date Time Temp Pulse Resp B/P (MAP) Pulse Ox O2 Delivery O2 Flow Rate FiO2 09/02/19 12:00 30 09/02/19 12:00 100.0 95 20 100/78 (85) 98 09/02/19 12:00 Mechanical Ventilator 09/02/19 08:00 98.9 101 18 112/70 (84) 100 09/02/19 08:00 30 09/02/19 08:00 Mechanical Ventilator 09/02/19 08:00 107 09/02/19 07:16 92 16 30 09/02/19 06:14 98.9 09/02/19 04:00 100.1 89 18 109/74 (86) 100 09/02/19 04:00 104 09/02/19 04:00 Mechanical Ventilator 09/02/19 04:00 30 09/02/19 03:05 100 16 30 09/02/19 00:00 113 09/02/19 00:00 30 09/02/19 00:00 Mechanical Ventilator 09/02/19 00:00 99.8 108 18 112/74 (87) 99 09/01/19 23:06 115 16 30 09/01/19 20:00 98.8 98 18 134/83 (100) 98 09/01/19 20:00 Mechanical Ventilator 09/01/19 20:00 30 09/01/19 20:00 110 09/01/19 19:21 120 16 30 09/01/19 16:00 Mechanical Ventilator 09/01/19 16:00 30 09/01/19 16:00 110 09/01/19 16:00 98.0 90 18 132/84 (100) 95 09/01/19 16:00 Mechanical Ventilator 09/01/19 14:55 94 16 30 I&O Intake and Output 09/01/19 09/02/19 19:00 07:00 Intake Total 120 ml 938.75 ml Output Total 650 ml 775 ml Balance -530 ml 163.75 ml Intake Free Water 100 ml IV Total 118.75 ml Tube Feeding 120 ml 720 ml Output Urine Total 650 ml 775 ml # Bowel Movements 1 Dressing: other Wound: other Drains: other Cardiovascular: RSR Respiratory: decreased breath sounds Abdomen: soft, non-tender, present bowel sounds Extremities: no cyanosis Laboratory Tests Test 09/01/19 17:00 09/02/19 03:15 Urine Color Brown Urine Appearance Cloudy Urine pH 8 (4.5-8.0) Urine Specific [place] 1.015 (1.005-1.035) Urine Protein 3+ (NEGATIVE) H Urine Glucose (UA) Negative (NEGATIVE) Urine Ketones 1+ (NEGATIVE) H Urine Blood 5+ (NEGATIVE) H Urine Nitrite Negative (NEGATIVE) Urine Bilirubin Negative (NEGATIVE) Urine Urobilinogen Normal MG/DL (0.0-1.0) Urine Leukocyte Esterase 1+ (NEGATIVE) H Urine RBC Tntc /HPF (0 - 0) H Urine WBC 2-4 /HPF (0 - 0) Urine Squamous Epithelial Cells None /LPF (NONE/OCC) Urine Bacteria Moderate /HPF (NONE) H White Blood Count 15.2 K/UL (4.8-10.8) H Red Blood Count 4.48 M/UL (4.70-6.10) L Hemoglobin 13.9 G/DL (14.2-18.0) L Hematocrit 39.1 % (42.0-52.0) L Mean Corpuscular Volume 87 FL (80-99) Mean Corpuscular Hemoglobin 31.1 PG (27.0-31.0) H Mean Corpuscular Hemoglobin Concent 35.6 G/DL (32.0-36.0) Red Cell Distribution Width 12.8 % (11.6-14.8) Platelet Count 234 K/UL (150-450) Mean Platelet Volume 8.6 FL (6.5-10.1) Neutrophils (%) (Auto) 78.0 % (45.0-75.0) H Lymphocytes (%) (Auto) 13.6 % (20.0-45.0) L Monocytes (%) (Auto) 6.0 % (1.0-10.0) Eosinophils (%) (Auto) 1.8 % (0.0-3.0) Basophils (%) (Auto) 0.7 % (0.0-2.0) Sodium Level 141 MMOL/L (136-145) Potassium Level 3.6 MMOL/L (3.5-5.1) Chloride Level 104 MMOL/L (98-107) Carbon Dioxide Level 26 MMOL/L (21-32) Anion Gap 11 mmol/L (5-15) Blood Urea Nitrogen 16 mg/dL (7-18) Creatinine 0.8 MG/DL (0.55-1.30) Estimat Glomerular Filtration Rate > 60 mL/min (>60) Glucose Level 118 MG/DL (74-106) H Calcium Level 9.3 MG/DL (8.5-10.1) Plan Problems: (1) Feeding by G-tube Assessment & Plan: DAILY ESTIMATED NEEDS: Needs based on Critical Care, wounds/ 74.8kg abw 22-30 kcals/kg 4642-5607 total kcals 1.25-2 g protein/kg 94-150 g total protein 25-30 mL/kg 3339-2165 total fluid mLs NUTRITION DIAGNOSIS: * Swallowing difficulty R/T dysphagia, respiratory status as evidenced by pt is trach/vent dep, PEG dep. * Increased kcal/prot needs R/T wound healing as evidenced by pt admitted w/ sacral unstageable wound. CURRENT TF: Glucerna 1.2 @ 60ml/hr ENTERAL NUTRITION RECOMMENDATIONS: Glucerna 1.2 @ 60ml/hr x 24 hrs + Prosource qdaily to provide 1440ml, 1728kcal , 86g + 11g prot, 1162ml free water * Rec to increase rate to 60ml/hr for 24 hrs * Add Prosource 1pkt QD to meet protein needs * HOB over 30 degrees/ water flush per MD. ----- -CURRENTLY GLUCERNA 1.2/ 1.5 LOW ON STOCK OR OOS, REC JEVITY 1.2 BG HAS BEEN WNL, W/ GOAL OF 60ML/HR X24 HRS + PROSOURCE BID. -TF at goal + Prosource provides 1728 kcal + 80kcal, 80g +22g pro, to meet 100% est needs, monitor blood glucose regularly w/ ssi for coverage and BG control. -Jevity 1.2 @60ml/hr to provide 79g more carbs per day. Will monitor glycemic tolerance/ control. ADDITIONAL RECOMMENDATIONS: * Maintain calibrated bed scale wts * Wound care: Add DANYELLE BID + Vit C 250mg BID * Monitor lytes daily, replete as needed (low phos 2.1) * Accuchecks w/ SSI for glycemic control * Rec trial TF change to Jevity 1.2 @60 (shortage of Glucerna 1.2, 1.5) may need to increase insulin coverage (2) Decubitus skin ulcer Assessment & Plan: left flank wound noted. considered as possible abscess. evaluated. 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 Linear atelectasis of the left lung base. Blunted left costophrenic angle. Small left pleural effusion and overlying atelectasis. Mild atelectasis of the right lung base. Question old proximal right clavicle fracture. Impression: 1. Trace left pleural effusion with overlying atelectasis. Mild right basilar atelectasis. 2. Unchanged tracheostomy tube. abx as per ID respiratory care as per pulm nutritional will follow with recs thank you Streaky and hazy opacities throughout the right lung and left lower lung which may represent atelectasis versus infectious/inflammatory process. (8) Chronic respiratory failure (9) Bacteremia (10) Uncontrolled seizures (11) Seizure disorder, convulsive, with status epilepticus (12) Seizure after head injury (13) Line sepsis (14) UTI (urinary tract infection) (15) Urinary tract infection (16) Acute on chronic renal insufficiency Horacio Hope Sep 02, 2019 12:40
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
[2019-09-02] MEDS: Meropenem 1 GM in NS 55 ML IVPB SCH ×2 (15:41→22:12)
[2019-09-02 16:00] VITALS: BP 102/76
--- NOTE | 2019-09-02 16:50 | Diagnostic Imaging Report ---
Indication: Cough Technique: One view of the chest Comparison: none Findings: There is some atelectasis and possibly infiltrate again demonstrated in the left lung base. There is some atelectasis at the right lung base as well. Tracheostomy is again noted. Generalized right perihilar and left basilar streaky opacities are unchanged. Impression: Unchanged, over 2 days, findings as above.
[2019-09-02 20:00] VITALS: BP 113/74
[2019-09-02] MEDS: Gentamicin inj 350 MG in NS 110 ML IVPB SCH (20:39)
[2019-09-03] VITALS (7 sets, daily range): BP systolic 111–133; BP diastolic 66–89
[2019-09-03 04:51] LABS: EOSINOPHILS % (AUTO) 3.2 % (0.0-3.0); HEMATOCRIT 38.9 % (42.0-52.0); LYMPHOCYTES % (AUTO) 12.9 % (20.0-45.0); MEAN CORPUSCULAR VOLUME 88 FL (80-99); MONOCYTES % (AUTO) 5.3 % (1.0-10.0); NEUTROPHILS % (AUTO) 77.5 % (45.0-75.0); PLATELET COUNT 240 K/UL (150-450); RED BLOOD COUNT 4.45 M/UL (4.70-6.10); RED CELL DISTRIBUTION WIDTH 12.5 % (11.6-14.8); WHITE BLOOD COUNT 15.6 K/UL (4.8-10.8)
[2019-09-03] MEDS: Meropenem 1 GM in NS 55 ML IVPB SCH ×3 (05:02→23:06)
[2019-09-03 05:12] LABS: ALBUMIN 3.2 G/DL (3.4-5.0); ALBUMIN/GLOBULIN RATIO 0.7 (1.0-2.7); ALKALINE PHOSPHATASE 129 U/L (46-116); ANION GAP 9 mmol/L (5-15); BILIRUBIN,TOTAL 0.6 MG/DL (0.2-1.0); BLOOD UREA NITROGEN 18 mg/dL (7-18); CARBON DIOXIDE 26 MMOL/L (21-32); CHLORIDE 103 MMOL/L (98-107); POTASSIUM 3.8 MMOL/L (3.5-5.1); SODIUM 138 MMOL/L (136-145)
[2019-09-03] MEDS: NovoLOG Insulin Flexpen SUBQ SCH ×3 (05:13→18:00)
[2019-09-03 06:33] LABS: ALANINE AMINOTRANSFERASE 52 U/L (12-78); ASPARTATE AMINO TRANSFERASE 25 U/L (15-37)
--- NOTE | 2019-09-03 08:45 | Progress Note ---
DATE: 09/02/2019 SUBJECTIVE: The patient remained febrile and hemodynamically stable. PHYSICAL EXAMINATION: VITAL SIGNS: Blood pressure is 113/74, his pulse is 98, respirations are 18, temperature is 101.1. HEENT: Eyes were normal. ENT, mucous membranes were moist and intact. NECK: Supple with no JVD without lymph nodes. Tracheostomy site is clean. LUNGS: Clear without rhonchi, rales or wheezing. HEART: Normal sounds with regular beats. There is no tachycardia at rest. ABDOMEN: Soft, nontender with normal bowel sounds. Gastrostomy site is clean. EXTREMITIES: Warm without cyanosis, clubbing, or edema. LABORATORY AND DIAGNOSTIC DATA: Hemoglobin is 13.9, hematocrit 39.9 with MCV of 87, WBC of 15.2, and platelets of 234,000. His WBC 15.3 yesterday, 16.3 the day before. His BUN and creatinine is 16 and 0.8 respectively. Sodium is 141, potassium is 3.8, chloride 104, CO2 is 26, calcium is 9.3, and glucose is 116. His chest x-ray today and possible infiltrate in the left lower lung, atelectasis in the right lung as well. PLAN: The patient is on meropenem 1 g IV piggyback daily, gentamicin 5 mg/kg q. 24 hours. The patient has been followed today with the Infectious Disease specialist. We will continue with gentamicin and meropenem . Repeat laboratory tests will be done in the a.m. Libby Fair M.D. DR: SANTIAGO JOB#: [id number] CC:
[2019-09-03] MEDS: Pantoprazole Inj IV SCH (08:54)
[2019-09-03] MEDS: Heparin 5000 units/ml inj SUBQ SCH ×2 (08:55→20:20)
[2019-09-03 09:39] LABS: APPEARANCE,URINE SLIGHTLY CLOUDY; BILIRUBIN, URINE NEGATIVE (NEGATIVE); COLOR,URINE PALE YELLOW; GLUCOSE, URINE (UA) NEGATIVE (NEGATIVE); KETONES,URINE NEGATIVE (NEGATIVE); LEUKOCYTE ESTERASE ,URINE 1+ (NEGATIVE); NITRITE,URINE NEGATIVE (NEGATIVE); PH,URINE 8 (4.5-8.0); PROTEIN,URINE 3+ (NEGATIVE); UROBILINOGEN,URINE 1 MG/DL (0.0-1.0)
--- NOTE | 2019-09-03 11:40 | Pulmonolgy Critical Care Note ---
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 (2) Chronic respiratory failure (3) Diabetes mellitus (4) Seizure disorder, convulsive, with status epilepticus (5) Feeding by G-tube Respiratory: monitor respiratory rate, adjust FIO2, CXR Cardiac: continue to monitor HR/BP Renal: F/U I&O, keep IV fluid, check electrolytes Infectious Disease: check cultures Gastrointestinal: continue feedings/current rate, hold feedings Endocrine: monitor blood sugar, check HgA1C Hematologic: monitor H/H, transfuse if hgb<8.5 Neurologic: PRN Ativan, keep patient comfortable Affect: PRN ativan Prophylaxis: Protonix Notes Reviewed: conservation enforcement officer, cardio Discussed with: nurses, consultants, egg casercrew manager - Objective Last 24 Hour Vital Signs Date Time Temp Pulse Resp B/P (MAP) Pulse Ox O2 Delivery O2 Flow Rate FiO2 09/03/19 10:59 91 16 30 09/03/19 08:35 91 09/03/19 08:00 Mechanical Ventilator 09/03/19 08:00 98.4 93 18 133/89 (104) 97 09/03/19 08:00 30 09/03/19 07:39 90 16 30 09/03/19 04:00 30 09/03/19 04:00 Mechanical Ventilator 09/03/19 03:58 98.8 09/03/19 03:41 93 09/03/19 03:25 100.6 97 18 113/81 (92) 98 09/03/19 02:51 92 16 30 09/03/19 00:00 98.9 86 18 120/82 (95) 99 09/03/19 00:00 30 09/03/19 00:00 Mechanical Ventilator 09/03/19 00:00 Mechanical Ventilator 09/02/19 23:28 96 09/02/19 22:59 122 16 30 09/02/19 20:00 Mechanical Ventilator 09/02/19 20:00 30 09/02/19 20:00 101.1 98 18 113/74 (87) 99 09/02/19 19:38 101 16 30 09/02/19 19:08 100 09/02/19 16:00 100.0 67 18 102/76 (85) 98 09/02/19 16:00 91 09/02/19 16:00 Mechanical Ventilator 09/02/19 16:00 30 09/02/19 14:58 72 16 30 09/02/19 12:00 100 09/02/19 12:00 30 09/02/19 12:00 100.0 95 20 100/78 (85) 98 09/02/19 12:00 Mechanical Ventilator Status: awake Condition: critical HEENT: atraumatic Heart: HR/BP stable, HR/BP unstable Abdomen: soft, active bowel sounds Extremities: no C/C/E, edema Micro: Microbiology Date/Time Source Procedure Growth Status 09/02/19 03:20 Blood Blood Culture - Preliminary NO GROWTH AFTER 24 HOURS Resulted 09/02/19 03:15 Blood Blood Culture - Preliminary NO GROWTH AFTER 24 HOURS Resulted 09/01/19 16:55 Blood Blood Culture - Preliminary NO GROWTH AFTER 24 HOURS Resulted 09/01/19 16:50 Blood Blood Culture - Preliminary NO GROWTH AFTER 24 HOURS Resulted 09/01/19 17:00 Urine,Clean Catch Urine Culture - Preliminary NO GROWTH AFTER 24 HOURS Resulted Accucheck: 119 Critical Care - Subjective ROS Limited/Unobtainable: Yes Condition: critical EKG Rhythm: Sinus Rhythm FI02: 30 Vent Support Breath Rate: 16 Vent Support Mode: AC Vent Tidal Volume: 600 Sputum Amount: Small PEEP: 5.0 PIP: 27 Tube Feeding Amount: 60 I&O: Intake and Output 09/02/19 09/03/19 19:00 07:00 Intake Total 1020 ml 1158.75 ml Output Total 800 ml 800 ml Balance 220 ml 358.75 ml Intake Free Water 300 ml 100 ml IV Total 338.75 ml Tube Feeding 720 ml 720 ml Output Urine Total 800 ml 800 ml # Bowel Movements 1 1 Labs: Laboratory Tests Test 09/03/19 02:40 09/03/19 09:10 White Blood Count 15.6 K/UL (4.8-10.8) H Red Blood Count 4.45 M/UL (4.70-6.10) L Hemoglobin 14.0 G/DL (14.2-18.0) L Hematocrit 38.9 % (42.0-52.0) L Mean Corpuscular Volume 88 FL (80-99) Mean Corpuscular Hemoglobin 31.6 PG (27.0-31.0) H Mean Corpuscular Hemoglobin Concent 36.1 G/DL (32.0-36.0) H Red Cell Distribution Width 12.5 % (11.6-14.8) Platelet Count 240 K/UL (150-450) Mean Platelet Volume 8.4 FL (6.5-10.1) Neutrophils (%) (Auto) 77.5 % (45.0-75.0) H Lymphocytes (%) (Auto) 12.9 % (20.0-45.0) L Monocytes (%) (Auto) 5.3 % (1.0-10.0) Eosinophils (%) (Auto) 3.2 % (0.0-3.0) H Basophils (%) (Auto) 1.0 % (0.0-2.0) Erythrocyte Sedimentation Rate 61 MM/HR (0-20) H Sodium Level 138 MMOL/L (136-145) Potassium Level 3.8 MMOL/L (3.5-5.1) Chloride Level 103 MMOL/L (98-107) Carbon Dioxide Level 26 MMOL/L (21-32) Anion Gap 9 mmol/L (5-15) Blood Urea Nitrogen 18 mg/dL (7-18) Creatinine 1.0 MG/DL (0.55-1.30) Estimat Glomerular Filtration Rate > 60 mL/min (>60) Glucose Level 100 MG/DL (74-106) Calcium Level 9.0 MG/DL (8.5-10.1) Phosphorus Level 3.0 MG/DL (2.5-4.9) Magnesium Level 2.1 MG/DL (1.8-2.4) Total Bilirubin 0.6 MG/DL (0.2-1.0) Aspartate Amino Transf (AST/SGOT) 25 U/L (15-37) Alanine Aminotransferase (ALT/SGPT) 52 U/L (12-78) Alkaline Phosphatase 129 U/L (46-116) H C-Reactive Protein, Quantitative 8.9 mg/dL (0.00-0.90) H Total Protein 7.5 G/DL (6.4-8.2) Albumin 3.2 G/DL (3.4-5.0) L Globulin 4.3 g/dL Albumin/Globulin Ratio 0.7 (1.0-2.7) L Urine Color Pale yellow Urine Appearance Slightly cloudy Urine pH 8 (4.5-8.0) Urine Specific [place] 1.015 (1.005-1.035) Urine Protein 3+ (NEGATIVE) H Urine Glucose (UA) Negative (NEGATIVE) Urine Ketones Negative (NEGATIVE) Urine Blood 5+ (NEGATIVE) H Urine Nitrite Negative (NEGATIVE) Urine Bilirubin Negative (NEGATIVE) Urine Urobilinogen 1 MG/DL (0.0-1.0) H Urine Leukocyte Esterase 1+ (NEGATIVE) H Urine RBC 40-60 /HPF (0 - 0) H Urine WBC 2-4 /HPF (0 - 0) Urine Squamous Epithelial Cells Occasional /LPF Urine Bacteria Few /HPF (NONE) Amanda Combs MD Sep 03, 2019 11:40
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
--- NOTE | 2019-09-03 16:03 | Surgery Progress Note ---
Surgery Progress Note Subjective Additional Comments leukocytosis exam stable comfortable appearing no n/v Objective Last 24 Hour Vital Signs Date Time Temp Pulse Resp B/P (MAP) Pulse Ox O2 Delivery O2 Flow Rate FiO2 09/03/19 15:05 107 16 30 09/03/19 12:00 97.9 93 18 112/67 (82) 100 09/03/19 12:00 91 09/03/19 12:00 Mechanical Ventilator 09/03/19 12:00 30 09/03/19 10:59 91 16 30 09/03/19 08:35 91 09/03/19 08:00 Mechanical Ventilator 09/03/19 08:00 98.4 93 18 133/89 (104) 97 09/03/19 08:00 30 09/03/19 07:39 90 16 30 09/03/19 04:00 30 09/03/19 04:00 Mechanical Ventilator 09/03/19 03:58 98.8 09/03/19 03:41 93 09/03/19 03:25 100.6 97 18 113/81 (92) 98 09/03/19 02:51 92 16 30 09/03/19 00:00 98.9 86 18 120/82 (95) 99 09/03/19 00:00 30 09/03/19 00:00 Mechanical Ventilator 09/03/19 00:00 Mechanical Ventilator 09/02/19 23:28 96 09/02/19 22:59 122 16 30 09/02/19 20:00 Mechanical Ventilator 09/02/19 20:00 30 09/02/19 20:00 101.1 98 18 113/74 (87) 99 09/02/19 19:38 101 16 30 09/02/19 19:08 100 I&O Intake and Output 09/02/19 09/03/19 19:00 07:00 Intake Total 1020 ml 1158.75 ml Output Total 800 ml 800 ml Balance 220 ml 358.75 ml Intake Free Water 300 ml 100 ml IV Total 338.75 ml Tube Feeding 720 ml 720 ml Output Urine Total 800 ml 800 ml # Bowel Movements 1 1 Dressing: other Wound: other Drains: other Cardiovascular: RSR Respiratory: decreased breath sounds Abdomen: soft, non-tender, present bowel sounds Extremities: no cyanosis Laboratory Tests Test 09/03/19 02:40 09/03/19 09:10 White Blood Count 15.6 K/UL (4.8-10.8) H Red Blood Count 4.45 M/UL (4.70-6.10) L Hemoglobin 14.0 G/DL (14.2-18.0) L Hematocrit 38.9 % (42.0-52.0) L Mean Corpuscular Volume 88 FL (80-99) Mean Corpuscular Hemoglobin 31.6 PG (27.0-31.0) H Mean Corpuscular Hemoglobin Concent 36.1 G/DL (32.0-36.0) H Red Cell Distribution Width 12.5 % (11.6-14.8) Platelet Count 240 K/UL (150-450) Mean Platelet Volume 8.4 FL (6.5-10.1) Neutrophils (%) (Auto) 77.5 % (45.0-75.0) H Lymphocytes (%) (Auto) 12.9 % (20.0-45.0) L Monocytes (%) (Auto) 5.3 % (1.0-10.0) Eosinophils (%) (Auto) 3.2 % (0.0-3.0) H Basophils (%) (Auto) 1.0 % (0.0-2.0) Erythrocyte Sedimentation Rate 61 MM/HR (0-20) H Sodium Level 138 MMOL/L (136-145) Potassium Level 3.8 MMOL/L (3.5-5.1) Chloride Level 103 MMOL/L (98-107) Carbon Dioxide Level 26 MMOL/L (21-32) Anion Gap 9 mmol/L (5-15) Blood Urea Nitrogen 18 mg/dL (7-18) Creatinine 1.0 MG/DL (0.55-1.30) Estimat Glomerular Filtration Rate > 60 mL/min (>60) Glucose Level 100 MG/DL (74-106) Calcium Level 9.0 MG/DL (8.5-10.1) Phosphorus Level 3.0 MG/DL (2.5-4.9) Magnesium Level 2.1 MG/DL (1.8-2.4) Total Bilirubin 0.6 MG/DL (0.2-1.0) Aspartate Amino Transf (AST/SGOT) 25 U/L (15-37) Alanine Aminotransferase (ALT/SGPT) 52 U/L (12-78) Alkaline Phosphatase 129 U/L (46-116) H C-Reactive Protein, Quantitative 8.9 mg/dL (0.00-0.90) H Total Protein 7.5 G/DL (6.4-8.2) Albumin 3.2 G/DL (3.4-5.0) L Globulin 4.3 g/dL Albumin/Globulin Ratio 0.7 (1.0-2.7) L Urine Color Pale yellow Urine Appearance Slightly cloudy Urine pH 8 (4.5-8.0) Urine Specific [place] 1.015 (1.005-1.035) Urine Protein 3+ (NEGATIVE) H Urine Glucose (UA) Negative (NEGATIVE) Urine Ketones Negative (NEGATIVE) Urine Blood 5+ (NEGATIVE) H Urine Nitrite Negative (NEGATIVE) Urine Bilirubin Negative (NEGATIVE) Urine Urobilinogen 1 MG/DL (0.0-1.0) H Urine Leukocyte Esterase 1+ (NEGATIVE) H Urine RBC 40-60 /HPF (0 - 0) H Urine WBC 2-4 /HPF (0 - 0) Urine Squamous Epithelial Cells Occasional /LPF Urine Bacteria Few /HPF (NONE) Plan Problems: (1) Feeding by G-tube Assessment & Plan: DAILY ESTIMATED NEEDS: Needs based on Critical Care, wounds/ 74.8kg abw 22-30 kcals/kg 5193-5736 total kcals 1.25-2 g protein/kg 94-150 g total protein 25-30 mL/kg 8437-5575 total fluid mLs NUTRITION DIAGNOSIS: * Swallowing difficulty R/T dysphagia, respiratory status as evidenced by pt is trach/vent dep, PEG dep. * Increased kcal/prot needs R/T wound healing as evidenced by pt admitted w/ sacral unstageable wound. CURRENT TF: Glucerna 1.2 @ 60ml/hr ENTERAL NUTRITION RECOMMENDATIONS: Glucerna 1.2 @ 60ml/hr x 24 hrs + Prosource qdaily to provide 1440ml, 1728kcal , 86g + 11g prot, 1162ml free water * Rec to increase rate to 60ml/hr for 24 hrs * Add Prosource 1pkt QD to meet protein needs * HOB over 30 degrees/ water flush per MD. ----- -CURRENTLY GLUCERNA 1.2/ 1.5 LOW ON STOCK OR OOS, REC JEVITY 1.2 BG HAS BEEN WNL, W/ GOAL OF 60ML/HR X24 HRS + PROSOURCE BID. -TF at goal + Prosource provides 1728 kcal + 80kcal, 80g +22g pro, to meet 100% est needs, monitor blood glucose regularly w/ ssi for coverage and BG control. -Jevity 1.2 @60ml/hr to provide 79g more carbs per day. Will monitor glycemic tolerance/ control. ADDITIONAL RECOMMENDATIONS: * Maintain calibrated bed scale wts * Wound care: Add DANYELLE BID + Vit C 250mg BID * Monitor lytes daily, replete as needed (low phos 2.1) * Accuchecks w/ SSI for glycemic control * Rec trial TF change to Jevity 1.2 @60 (shortage of Glucerna 1.2, 1.5) may need to increase insulin coverage (2) Decubitus skin ulcer Assessment & Plan: left flank wound noted. considered as possible abscess. evaluated. 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 Linear atelectasis of the left lung base. Blunted left costophrenic angle. Small left pleural effusion and overlying atelectasis. Mild atelectasis of the right lung base. Question old proximal right clavicle fracture. Impression: 1. Trace left pleural effusion with overlying atelectasis. Mild right basilar atelectasis. 2. Unchanged tracheostomy tube. abx as per ID respiratory care as per pulm nutritional will follow with recs thank you Streaky and hazy opacities throughout the right lung and left lower lung which may represent atelectasis versus infectious/inflammatory process. 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
[2019-09-03] MEDS: Gentamicin inj 350 MG in NS 110 ML IVPB SCH (20:20)
[2019-09-04] VITALS: BP 116/68
--- NOTE | 2019-09-04 03:45 | Progress Note ---
DATE: 09/03/2019 SUBJECTIVE: Patient has intermittent low-grade fever and tachycardia. PHYSICAL EXAMINATION: VITAL SIGNS: Blood pressure 115/70, his pulse is 98, respirations are 18, and temperature 98.3. HEENT: Eyes were normal. ENT, mucous membranes were moist and intact. NECK: Supple with no JVD without lymph nodes. Tracheostomy site is clean. LUNGS: Clear without rhonchi, rales, or wheezing. HEART: Normal sounds with regular beats. There is intermittent tachycardia at rest. ABDOMEN: Soft, nontender with normal bowel sounds. Gastrostomy site is clean. EXTREMITIES: Warm without cyanosis, clubbing, or edema. LABORATORY AND DIAGNOSTIC DATA: Hemoglobin is 14.0, hematocrit 38.9 with MCV of 88, WBC of 15.6, and platelets of 240. BUN and creatinine are 18 and 1.0 respectively. Sodium is 138, potassium 3.8, chloride 103, CO2 is 26, his calcium is 9, his phosphorus is 3, and magnesium is 2.1. His CRP is 8.9. IMPRESSION: The patient is seen today by general surgeon in regard to decubitus ulcer and infectious disease specialist. He already has 2 COVID-19 PCR tests negative. however, his surgical wound appeared clean. Sputum culture was found to have resistant Pseudomonas aeruginosa, carbapenem. In addition, the patient has leukocytosis and patient's fever suggested except the patient has leukocytosis and fever. Other antibiotics should be considered. Libby Fair M.D. DR: BASHIR JOB#: [id number] CC:
[2019-09-04 04:00] VITALS: BP 122/67
[2019-09-04 05:17] LABS: BASOPHILS % (AUTO) 1.3 % (0.0-2.0); EOSINOPHILS % (AUTO) 5.5 % (0.0-3.0); HEMATOCRIT 38.6 % (42.0-52.0); LYMPHOCYTES % (AUTO) 17.2 % (20.0-45.0); MEAN CORPUSCULAR VOLUME 88 FL (80-99); MONOCYTES % (AUTO) 6.1 % (1.0-10.0); NEUTROPHILS % (AUTO) 69.9 % (45.0-75.0); PLATELET COUNT 247 K/UL (150-450); RED BLOOD COUNT 4.38 M/UL (4.70-6.10); RED CELL DISTRIBUTION WIDTH 12.5 % (11.6-14.8); WHITE BLOOD COUNT 10.4 K/UL (4.8-10.8)
[2019-09-04] MEDS: Meropenem 1 GM in NS 55 ML IVPB SCH ×3 (05:17→21:41)
[2019-09-04 05:37] LABS: ALANINE AMINOTRANSFERASE 41 U/L (12-78); ALBUMIN 3.1 G/DL (3.4-5.0); ALBUMIN/GLOBULIN RATIO 0.8 (1.0-2.7); ALKALINE PHOSPHATASE 119 U/L (46-116); ANION GAP 12 mmol/L (5-15); ASPARTATE AMINO TRANSFERASE 21 U/L (15-37); BILIRUBIN,TOTAL 0.5 MG/DL (0.2-1.0); BLOOD UREA NITROGEN 18 mg/dL (7-18); CALCIUM 9.1 MG/DL (8.5-10.1); CARBON DIOXIDE 24 MMOL/L (21-32); CHLORIDE 103 MMOL/L (98-107); SODIUM 139 MMOL/L (136-145)
[2019-09-04] MEDS: NovoLOG Insulin Flexpen SUBQ SCH ×4 (06:00→18:00)
[2019-09-04 08:00] VITALS: BP 130/75
[2019-09-04] MEDS: Heparin 5000 units/ml inj SUBQ SCH ×2 (09:25→20:20)
[2019-09-04] MEDS: Pantoprazole Inj IV SCH (09:26)
--- NOTE | 2019-09-04 11:05 | Pulmonolgy Critical Care Note ---
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 (2) Chronic respiratory failure (3) Diabetes mellitus (4) Seizure disorder, convulsive, with status epilepticus (5) Feeding by G-tube Respiratory: monitor respiratory rate, adjust FIO2, CXR Cardiac: continue pressors, continue to monitor HR/BP Renal: F/U I&O, keep IV fluid, check electrolytes Infectious Disease: check cultures Gastrointestinal: continue feedings/current rate Endocrine: monitor blood sugar Hematologic: monitor H/H, transfuse if hgb<8.5 Neurologic: PRN Ativan, PRN Morphine, keep patient comfortable Affect: PRN ativan Time Spent (Minutes): 40 Notes 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, 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, 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 Discussed with: nurses, consultants, case specialistanalytic manager - Objective Last 24 Hour Vital Signs Date Time Temp Pulse Resp B/P (MAP) Pulse Ox O2 Delivery O2 Flow Rate FiO2 09/04/19 08:00 99.0 91 16 130/75 (93) 98 09/04/19 07:50 91 09/04/19 07:20 85 16 30 09/04/19 04:00 30 09/04/19 04:00 100.0 90 16 122/67 (85) 99 09/04/19 04:00 90 09/04/19 04:00 Mechanical Ventilator 09/04/19 03:40 93 16 30 09/04/19 00:00 Mechanical Ventilator 09/04/19 00:00 98.1 99 18 116/68 (84) 99 09/03/19 23:31 89 09/03/19 23:25 84 16 30 09/03/19 20:00 Mechanical Ventilator 09/03/19 20:00 30 09/03/19 20:00 99.5 101 18 119/71 (87) 98 09/03/19 19:39 89 16 30 09/03/19 19:27 89 09/03/19 17:48 99.0 09/03/19 17:00 98.3 98 18 115/70 (85) 99 09/03/19 16:00 Mechanical Ventilator 09/03/19 16:00 30 09/03/19 16:00 90 09/03/19 16:00 99.9 116 18 111/66 (81) 100 09/03/19 15:05 107 16 30 09/03/19 12:00 97.9 93 18 112/67 (82) 100 09/03/19 12:00 91 09/03/19 12:00 Mechanical Ventilator 09/03/19 12:00 30 Status: obtunded Condition: critical HEENT: atraumatic, normocephalic Neck: full ROM Heart: HR/BP stable Abdomen: soft Extremities: no C/C/E Micro: Microbiology Date/Time Source Procedure Growth Status 09/02/19 03:20 Blood Blood Culture - Preliminary NO GROWTH AFTER 48 HOURS Resulted 09/02/19 03:15 Blood Blood Culture - Preliminary NO GROWTH AFTER 48 HOURS Resulted 09/01/19 16:55 Blood Blood Culture - Preliminary NO GROWTH AFTER 48 HOURS Resulted 09/01/19 16:50 Blood Blood Culture - Preliminary NO GROWTH AFTER 48 HOURS Resulted 09/02/19 15:30 Nasopharynx Coronavirus COVID-19 PCR ([facility]) - Final Complete 09/01/19 17:00 Urine,Clean Catch Urine Culture - Final NO GROWTH AFTER 48 HOURS Complete Accucheck: 103 Critical Care - Subjective ROS Limited/Unobtainable: No Condition: critical EKG Rhythm: Sinus Rhythm FI02: 30 Vent Support Breath Rate: 16 Vent Support Mode: AC Vent Tidal Volume: 600 Sputum Amount: Moderate PEEP: 5.0 PIP: 27 Tube Feeding Amount: 60 I&O: Intake and Output 09/03/19 09/04/19 19:00 07:00 Intake Total 920 ml 1048.75 ml Output Total 725 ml 400 ml Balance 195 ml 648.75 ml Intake Free Water 200 ml 160 ml IV Total 228.75 ml Tube Feeding 720 ml 660 ml Output Urine Total 725 ml 400 ml # Bowel Movements 2 2 CXR: atelectasis and possibly infiltrate again demonstrated in the left lung base. There is some atelectasis at the right lung base as well Labs: Laboratory Tests Test 09/03/19 19:05 09/04/19 03:05 Gentamicin Level Trough 0.5 ug/mL (0.3-2.0) White Blood Count 10.4 K/UL (4.8-10.8) Red Blood Count 4.38 M/UL (4.70-6.10) L Hemoglobin 14.0 G/DL (14.2-18.0) L Hematocrit 38.6 % (42.0-52.0) L Mean Corpuscular Volume 88 FL (80-99) Mean Corpuscular Hemoglobin 32.0 PG (27.0-31.0) H Mean Corpuscular Hemoglobin Concent 36.3 G/DL (32.0-36.0) H Red Cell Distribution Width 12.5 % (11.6-14.8) Platelet Count 247 K/UL (150-450) Mean Platelet Volume 9.0 FL (6.5-10.1) Neutrophils (%) (Auto) 69.9 % (45.0-75.0) Lymphocytes (%) (Auto) 17.2 % (20.0-45.0) L Monocytes (%) (Auto) 6.1 % (1.0-10.0) Eosinophils (%) (Auto) 5.5 % (0.0-3.0) H Basophils (%) (Auto) 1.3 % (0.0-2.0) Sodium Level 139 MMOL/L (136-145) Potassium Level 4.0 MMOL/L (3.5-5.1) Chloride Level 103 MMOL/L (98-107) Carbon Dioxide Level 24 MMOL/L (21-32) Anion Gap 12 mmol/L (5-15) Blood Urea Nitrogen 18 mg/dL (7-18) Creatinine 1.0 MG/DL (0.55-1.30) Estimat Glomerular Filtration Rate > 60 mL/min (>60) Glucose Level 109 MG/DL (74-106) H Calcium Level 9.1 MG/DL (8.5-10.1) Phosphorus Level 3.0 MG/DL (2.5-4.9) Magnesium Level 2.2 MG/DL (1.8-2.4) Total Bilirubin 0.5 MG/DL (0.2-1.0) Aspartate Amino Transf (AST/SGOT) 21 U/L (15-37) Alanine Aminotransferase (ALT/SGPT) 41 U/L (12-78) Alkaline Phosphatase 119 U/L (46-116) H Total Protein 7.2 G/DL (6.4-8.2) Albumin 3.1 G/DL (3.4-5.0) L Globulin 4.1 g/dL Albumin/Globulin Ratio 0.8 (1.0-2.7) L Amanda Combs MD Sep 04, 2019 11:05
[2019-09-04 12:00] VITALS: BP 131/70
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
[2019-09-04 16:00] VITALS: BP 115/73
[2019-09-04] MEDS: Gentamicin inj 350 MG in NS 110 ML IVPB SCH (19:58)
[2019-09-04 20:00] VITALS: BP 113/69
--- NOTE | 2019-09-04 20:50 | Surgery Progress Note ---
Surgery Progress Note Subjective Additional Comments Patient seen and examined bedside. Leukocytosis resolved. H&H stable. Exam otherwise stable. No active drainage comfortable appearing Objective Last 24 Hour Vital Signs Date Time Temp Pulse Resp B/P (MAP) Pulse Ox O2 Delivery O2 Flow Rate FiO2 09/04/19 16:00 Mechanical Ventilator 09/04/19 16:00 30 09/04/19 16:00 98.4 89 20 115/73 (87) 99 09/04/19 15:16 84 09/04/19 14:50 84 16 30 09/04/19 12:00 30 09/04/19 12:00 100.8 87 16 131/70 (90) 99 09/04/19 12:00 Mechanical Ventilator 09/04/19 11:35 95 09/04/19 11:20 92 16 30 09/04/19 08:00 Mechanical Ventilator 09/04/19 08:00 30 09/04/19 08:00 99.0 91 16 130/75 (93) 98 09/04/19 07:50 91 09/04/19 07:20 85 16 30 09/04/19 04:00 30 09/04/19 04:00 100.0 90 16 122/67 (85) 99 09/04/19 04:00 90 09/04/19 04:00 Mechanical Ventilator 09/04/19 03:40 93 16 30 09/04/19 00:00 Mechanical Ventilator 09/04/19 00:00 98.1 99 18 116/68 (84) 99 09/03/19 23:31 89 09/03/19 23:25 84 16 30 I&O Intake and Output 09/03/19 09/04/19 19:00 07:00 Intake Total 920 ml 1048.75 ml Output Total 725 ml 400 ml Balance 195 ml 648.75 ml Intake Free Water 200 ml 160 ml IV Total 228.75 ml Tube Feeding 720 ml 660 ml Output Urine Total 725 ml 400 ml # Bowel Movements 2 2 Dressing: dry Wound: clean Cardiovascular: RSR Respiratory: clear Abdomen: soft, non-tender, present bowel sounds Extremities: no cyanosis Laboratory Tests Test 09/04/19 03:05 White Blood Count 10.4 K/UL (4.8-10.8) Red Blood Count 4.38 M/UL (4.70-6.10) L Hemoglobin 14.0 G/DL (14.2-18.0) L Hematocrit 38.6 % (42.0-52.0) L Mean Corpuscular Volume 88 FL (80-99) Mean Corpuscular Hemoglobin 32.0 PG (27.0-31.0) H Mean Corpuscular Hemoglobin Concent 36.3 G/DL (32.0-36.0) H Red Cell Distribution Width 12.5 % (11.6-14.8) Platelet Count 247 K/UL (150-450) Mean Platelet Volume 9.0 FL (6.5-10.1) Neutrophils (%) (Auto) 69.9 % (45.0-75.0) Lymphocytes (%) (Auto) 17.2 % (20.0-45.0) L Monocytes (%) (Auto) 6.1 % (1.0-10.0) Eosinophils (%) (Auto) 5.5 % (0.0-3.0) H Basophils (%) (Auto) 1.3 % (0.0-2.0) Sodium Level 139 MMOL/L (136-145) Potassium Level 4.0 MMOL/L (3.5-5.1) Chloride Level 103 MMOL/L (98-107) Carbon Dioxide Level 24 MMOL/L (21-32) Anion Gap 12 mmol/L (5-15) Blood Urea Nitrogen 18 mg/dL (7-18) Creatinine 1.0 MG/DL (0.55-1.30) Estimat Glomerular Filtration Rate > 60 mL/min (>60) Glucose Level 109 MG/DL (74-106) H Calcium Level 9.1 MG/DL (8.5-10.1) Phosphorus Level 3.0 MG/DL (2.5-4.9) Magnesium Level 2.2 MG/DL (1.8-2.4) Total Bilirubin 0.5 MG/DL (0.2-1.0) Aspartate Amino Transf (AST/SGOT) 21 U/L (15-37) Alanine Aminotransferase (ALT/SGPT) 41 U/L (12-78) Alkaline Phosphatase 119 U/L (46-116) H Total Protein 7.2 G/DL (6.4-8.2) Albumin 3.1 G/DL (3.4-5.0) L Globulin 4.1 g/dL Albumin/Globulin Ratio 0.8 (1.0-2.7) L Plan Problems: (1) Feeding by G-tube Assessment & Plan: DAILY ESTIMATED NEEDS: Needs based on Critical Care, wounds/ 74.8kg abw 22-30 kcals/kg 2293-7582 total kcals 1.25-2 g protein/kg 94-150 g total protein 25-30 mL/kg 1173-4801 total fluid mLs NUTRITION DIAGNOSIS: * Swallowing difficulty R/T dysphagia, respiratory status as evidenced by pt is trach/vent dep, PEG dep. * Increased kcal/prot needs R/T wound healing as evidenced by pt admitted w/ sacral unstageable wound. CURRENT TF: Glucerna 1.2 @ 60ml/hr ENTERAL NUTRITION RECOMMENDATIONS: Glucerna 1.2 @ 60ml/hr x 24 hrs + Prosource qdaily to provide 1440ml, 1728kcal , 86g + 11g prot, 1162ml free water * Rec to increase rate to 60ml/hr for 24 hrs * Add Prosource 1pkt QD to meet protein needs * HOB over 30 degrees/ water flush per MD. ----- -CURRENTLY GLUCERNA 1.2/ 1.5 LOW ON STOCK OR OOS, REC JEVITY 1.2 BG HAS BEEN WNL, W/ GOAL OF 60ML/HR X24 HRS + PROSOURCE BID. -TF at goal + Prosource provides 1728 kcal + 80kcal, 80g +22g pro, to meet 100% est needs, monitor blood glucose regularly w/ ssi for coverage and BG control. -Jevity 1.2 @60ml/hr to provide 79g more carbs per day. Will monitor glycemic tolerance/ control. ADDITIONAL RECOMMENDATIONS: * Maintain calibrated bed scale wts * Wound care: Add DANYELLE BID + Vit C 250mg BID * Monitor lytes daily, replete as needed (low phos 2.1) * Accuchecks w/ SSI for glycemic control * Rec trial TF change to Jevity 1.2 @60 (shortage of Glucerna 1.2, 1.5) may need to increase insulin coverage (2) Decubitus skin ulcer Assessment & Plan: left flank wound noted. considered as possible abscess. evaluated. 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 Linear atelectasis of the left lung base. Blunted left costophrenic angle. Small left pleural effusion and overlying atelectasis. Mild atelectasis of the right lung base. Question old proximal right clavicle fracture. Impression: 1. Trace left pleural effusion with overlying atelectasis. Mild right basilar atelectasis. 2. Unchanged tracheostomy tube. abx as per ID respiratory care as per pulm nutritional will follow with recs thank you Streaky and hazy opacities throughout the right lung and left lower lung which may represent atelectasis versus infectious/inflammatory process. Pt presented on admission with small furuncle Lateral L chest. Reabsorbing DTPI Sacrum R and L gluteal cheeks. Scattered areas of shearing within base of wound. Surrounding areas of mixed skin Hyper and hypopigmentation noted. DTPI noted to L trochanter(L)3cm x (W)5.5cm. Base of Pressure injury has darker than is normal skin tone and is indurated. Marginal erythema along edges. Historical scars with hyperpigmentation from previous wounds noted to R and L ischial tuberosities. Heels are firm and blanchable . Tx.Plan: Apply Moisture Barrier Paste to Buttocks. Cover with Optifoam drsg. Change every 3 days and prn. Apply Cavilon Skin Barrier to both heels. Cover each heel with Optifoam drsg. Change every 7 days and prn. Reposition at least every 2houors or as tolerated. Place pillow between knees. Off-load heels with Pillow. APM/EDD Mattress overlay. 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
[2019-09-05] VITALS: BP 119/74
[2019-09-05 04:00] VITALS: BP 117/70
[2019-09-05 04:38] LABS: BASOPHILS % (AUTO) 1.5 % (0.0-2.0); EOSINOPHILS % (AUTO) 5.6 % (0.0-3.0); HEMATOCRIT 39.1 % (42.0-52.0); HEMOGLOBIN 14.1 G/DL (14.2-18.0); LYMPHOCYTES % (AUTO) 17.4 % (20.0-45.0); MEAN CORPUSCULAR VOLUME 87 FL (80-99); MONOCYTES % (AUTO) 6.3 % (1.0-10.0); NEUTROPHILS % (AUTO) 69.3 % (45.0-75.0); PLATELET COUNT 255 K/UL (150-450); RED BLOOD COUNT 4.48 M/UL (4.70-6.10); RED CELL DISTRIBUTION WIDTH 12.3 % (11.6-14.8); WHITE BLOOD COUNT 11.1 K/UL (4.8-10.8)
[2019-09-05] MEDS: Meropenem 1 GM in NS 55 ML IVPB SCH ×3 (05:24→21:25)
[2019-09-05 05:25] LABS: ALANINE AMINOTRANSFERASE 64 U/L (12-78); ALBUMIN 3.2 G/DL (3.4-5.0); ALBUMIN/GLOBULIN RATIO 0.8 (1.0-2.7); ALKALINE PHOSPHATASE 119 U/L (46-116); ANION GAP 12 mmol/L (5-15); ASPARTATE AMINO TRANSFERASE 27 U/L (15-37); BILIRUBIN,TOTAL 0.5 MG/DL (0.2-1.0); BLOOD UREA NITROGEN 18 mg/dL (7-18); CARBON DIOXIDE 25 MMOL/L (21-32); CHLORIDE 101 MMOL/L (98-107); POTASSIUM 4.1 MMOL/L (3.5-5.1); SODIUM 138 MMOL/L (136-145)
[2019-09-05] MEDS: NovoLOG Insulin Flexpen SUBQ SCH ×5 (06:00→23:31)
[2019-09-05 08:00] VITALS: BP 125/71
[2019-09-05] MEDS: Pantoprazole Inj IV SCH (09:57)
[2019-09-05] MEDS: Heparin 5000 units/ml inj SUBQ SCH ×2 (09:57→20:09)
--- NOTE | 2019-09-05 11:04 | Diagnostic Imaging Report ---
Indication: Cough Technique: One view of the chest Comparison: 09/02/2019 Findings: Tracheostomy remains. Left basilar atelectasis and possible right upper lobe hazy consolidation are unchanged. There is minimal right basilar atelectasis as well. Heart size is normal. Impression: Unchanged, over 3 days, findings as above.
--- NOTE | 2019-09-05 11:15 | Progress Note ---
DATE: 09/04/2019 SUBJECTIVE: The patient has intermittent low-grade fever without tachycardia. PHYSICAL EXAMINATION: VITAL SIGNS: Blood pressure 119/74, his pulse is 87, respirations are 16, temperature is 98.2. HEENT: Eyes were normal. ENT, mucous membranes moist and intact. NECK: Supple with no JVD without lymph nodes. Tracheostomy site is clean. LUNGS: Clear without rhonchi, rales, or wheezes. HEART: Normal sounds with regular beats. There is no tachycardia at rest. ABDOMEN: Soft and nontender with normal bowel sounds. Gastrostomy site is clean. EXTREMITIES: Warm without cyanosis, clubbing, or edema. LABORATORY AND DIAGNOSTIC DATA: His hemoglobin is 14.0, hematocrit 38.6 with MCV of 88, WBC of 10.4, and platelets of 247,000. His BUN and creatinine is 18 and 1.0 respectively. Sodium is 139, potassium 4.0, chloride 103, CO2 is 24, his calcium is 9.1, phosphorus is 3.0 and magnesium is 2.2. His alkaline phosphatase is 119. His albumin is 3.1 and total protein is 7.2. Repeat chest x-ray will be done in the a.m. , the patient now is improving because of the of leukocytosis and reduction in fever episode. Repeat laboratory tests will be done in the a.m. Libby Fair M.D. DR: SANTIAGO JOB#: [id number] CC:
[2019-09-05 12:00] VITALS: BP 104/63
[2019-09-05 16:00] VITALS: BP 106/60
--- NOTE | 2019-09-05 16:18 | Surgery Progress Note ---
Surgery Progress Note Subjective Additional Comments no acute events Objective Last 24 Hour Vital Signs Date Time Temp Pulse Resp B/P (MAP) Pulse Ox O2 Delivery O2 Flow Rate FiO2 09/05/19 15:12 76 16 30 09/05/19 12:00 30 09/05/19 12:00 84 09/05/19 12:00 Mechanical Ventilator 09/05/19 12:00 98.1 85 16 104/63 (77) 100 09/05/19 10:48 82 16 30 09/05/19 08:00 99.0 90 16 125/71 (89) 96 09/05/19 08:00 30 09/05/19 08:00 Mechanical Ventilator 09/05/19 07:44 89 09/05/19 07:14 91 16 30 09/05/19 04:00 30 09/05/19 04:00 98.1 88 16 117/70 (86) 96 09/05/19 04:00 Mechanical Ventilator 09/05/19 03:27 91 09/05/19 03:10 88 16 30 09/05/19 00:00 Mechanical Ventilator 09/05/19 00:00 98.2 87 16 119/74 (89) 99 09/04/19 23:58 83 16 30 09/04/19 23:28 82 09/04/19 20:00 99.1 83 16 113/69 (84) 96 09/04/19 20:00 30 09/04/19 20:00 Mechanical Ventilator 09/04/19 19:52 90 16 30 09/04/19 19:05 89 I&O Intake and Output 09/04/19 09/05/19 19:00 07:00 Intake Total 145 ml 858.75 ml Output Total 600 ml 600 ml Balance -455 ml 258.75 ml Intake Free Water 30 ml 30 ml IV Total 55 ml 228.75 ml Tube Feeding 60 ml 600 ml Output Urine Total 600 ml 600 ml # Bowel Movements 1 2 Dressing: other Wound: other Drains: other Cardiovascular: RSR Respiratory: decreased breath sounds Abdomen: soft, non-tender, present bowel sounds Extremities: no cyanosis Laboratory Tests Test 09/05/19 02:50 White Blood Count 11.1 K/UL (4.8-10.8) H Red Blood Count 4.48 M/UL (4.70-6.10) L Hemoglobin 14.1 G/DL (14.2-18.0) L Hematocrit 39.1 % (42.0-52.0) L Mean Corpuscular Volume 87 FL (80-99) Mean Corpuscular Hemoglobin 31.5 PG (27.0-31.0) H Mean Corpuscular Hemoglobin Concent 36.0 G/DL (32.0-36.0) Red Cell Distribution Width 12.3 % (11.6-14.8) Platelet Count 255 K/UL (150-450) Mean Platelet Volume 8.2 FL (6.5-10.1) Neutrophils (%) (Auto) 69.3 % (45.0-75.0) Lymphocytes (%) (Auto) 17.4 % (20.0-45.0) L Monocytes (%) (Auto) 6.3 % (1.0-10.0) Eosinophils (%) (Auto) 5.6 % (0.0-3.0) H Basophils (%) (Auto) 1.5 % (0.0-2.0) Erythrocyte Sedimentation Rate 65 MM/HR (0-20) H Sodium Level 138 MMOL/L (136-145) Potassium Level 4.1 MMOL/L (3.5-5.1) Chloride Level 101 MMOL/L (98-107) Carbon Dioxide Level 25 MMOL/L (21-32) Anion Gap 12 mmol/L (5-15) Blood Urea Nitrogen 18 mg/dL (7-18) Creatinine 1.0 MG/DL (0.55-1.30) Estimat Glomerular Filtration Rate > 60 mL/min (>60) Glucose Level 106 MG/DL (74-106) Calcium Level 9.0 MG/DL (8.5-10.1) Total Bilirubin 0.5 MG/DL (0.2-1.0) Aspartate Amino Transf (AST/SGOT) 27 U/L (15-37) Alanine Aminotransferase (ALT/SGPT) 64 U/L (12-78) Alkaline Phosphatase 119 U/L (46-116) H Total Protein 7.3 G/DL (6.4-8.2) Albumin 3.2 G/DL (3.4-5.0) L Globulin 4.1 g/dL Albumin/Globulin Ratio 0.8 (1.0-2.7) L Plan Problems: (1) Feeding by G-tube Assessment & Plan: DAILY ESTIMATED NEEDS: Needs based on Critical Care, wounds/ 74.8kg abw 22-30 kcals/kg 4278-0050 total kcals 1.25-2 g protein/kg 94-150 g total protein 25-30 mL/kg 0396-1867 total fluid mLs NUTRITION DIAGNOSIS: * Swallowing difficulty R/T dysphagia, respiratory status as evidenced by pt is trach/vent dep, PEG dep. * Increased kcal/prot needs R/T wound healing as evidenced by pt admitted w/ sacral unstageable wound. CURRENT TF: Glucerna 1.2 @ 60ml/hr ENTERAL NUTRITION RECOMMENDATIONS: Glucerna 1.2 @ 60ml/hr x 24 hrs + Prosource qdaily to provide 1440ml, 1728kcal , 86g + 11g prot, 1162ml free water * Rec to increase rate to 60ml/hr for 24 hrs * Add Prosource 1pkt QD to meet protein needs * HOB over 30 degrees/ water flush per MD. ----- -CURRENTLY GLUCERNA 1.2/ 1.5 LOW ON STOCK OR OOS, REC JEVITY 1.2 BG HAS BEEN WNL, W/ GOAL OF 60ML/HR X24 HRS + PROSOURCE BID. -TF at goal + Prosource provides 1728 kcal + 80kcal, 80g +22g pro, to meet 100% est needs, monitor blood glucose regularly w/ ssi for coverage and BG control. -Jevity 1.2 @60ml/hr to provide 79g more carbs per day. Will monitor glycemic tolerance/ control. ADDITIONAL RECOMMENDATIONS: * Maintain calibrated bed scale wts * Wound care: Add DANYELLE BID + Vit C 250mg BID * Monitor lytes daily, replete as needed (low phos 2.1) * Accuchecks w/ SSI for glycemic control * Rec trial TF change to Jevity 1.2 @60 (shortage of Glucerna 1.2, 1.5) may need to increase insulin coverage (2) Decubitus skin ulcer Assessment & Plan: left flank wound noted. considered as possible abscess. evaluated. 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 Linear atelectasis of the left lung base. Blunted left costophrenic angle. Small left pleural effusion and overlying atelectasis. Mild atelectasis of the right lung base. Question old proximal right clavicle fracture. Impression: 1. Trace left pleural effusion with overlying atelectasis. Mild right basilar atelectasis. 2. Unchanged tracheostomy tube. abx as per ID respiratory care as per pulm nutritional will follow with recs thank you Streaky and hazy opacities throughout the right lung and left lower lung which may represent atelectasis versus infectious/inflammatory process. Pt presented on admission with small furuncle Lateral L chest. Reabsorbing DTPI Sacrum R and L gluteal cheeks. Scattered areas of shearing within base of wound. Surrounding areas of mixed skin Hyper and hypopigmentation noted. DTPI noted to L trochanter(L)3cm x (W)5.5cm. Base of Pressure injury has darker than is normal skin tone and is indurated. Marginal erythema along edges. Historical scars with hyperpigmentation from previous wounds noted to R and L ischial tuberosities. Heels are firm and blanchable . Tx.Plan: Apply Moisture Barrier Paste to Buttocks. Cover with Optifoam drsg. Change every 3 days and prn. Apply Cavilon Skin Barrier to both heels. Cover each heel with Optifoam drsg. Change every 7 days and prn. Reposition at least every 2houors or as tolerated. Place pillow between knees. Off-load heels with Pillow. APM/EDD Mattress overlay. 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
[2019-09-05 20:00] VITALS: BP 109/62
[2019-09-05] MEDS: Gentamicin inj 350 MG in NS 110 ML IVPB SCH (20:09)
[2019-09-06] VITALS: BP 119/74
--- NOTE | 2019-09-06 03:00 | Progress Note ---
DATE: 09/05/2019 SUBJECTIVE: The patient is afebrile and hemodynamically stable. PHYSICAL EXAMINATION: VITAL SIGNS: Blood pressure 109/62, his pulse is 78, respirations of 16, temperature 98.2. HEENT: Eyes were normal. ENT, mucous membranes were moist and intact. NECK: Supple with no JVD, without lymph nodes. Tracheostomy site is clean. LUNGS: Clear without rhonchi, rales, or wheezing. HEART: Normal sounds with regular beats. There is no tachycardia at rest. ABDOMEN: Soft, nontender with normal bowel sounds. Gastrostomy site is clean. EXTREMITIES: Warm without cyanosis, clubbing, or edema. LABORATORY DATA: His hemoglobin 14.1, hematocrit 39.1 with MCV of 87, WBC of 11.1, and platelets 255. His sed rate is 65. His BUN and creatinine are 18 and 1.0 respectively. His sodium is 138, potassium 4.1, chloride 101, CO2 is 25. His calcium is 9. SGOT and SGPT are normal. Alkaline phosphatase is 119, albumin is 3.2, and total protein is 7.3. Blood culture taken on September 01 showed no growth up to 72 hours. PCR test for COVID-19 was done, test was negative. Chest x-ray done today revealed unchanged over the last 3 days with left basilar atelectasis and possible right . ASSESSMENT AND PLAN: The patient currently is on meropenem 1 g IV piggyback q.8 and gentamicin 5 mg/kg q.24 hours. Repeat laboratory tests will be done in the a.m. Libby Fair M.D. DR: CARLITOS JOB#: [id number] CC:
[2019-09-06 04:00] VITALS: BP 109/62
[2019-09-06] MEDS: Meropenem 1 GM in NS 55 ML IVPB SCH ×3 (05:15→21:03)
[2019-09-06] MEDS: NovoLOG Insulin Flexpen SUBQ SCH ×4 (06:00→23:25)
[2019-09-06 07:02] LABS: BASOPHILS % (AUTO) 0.5 % (0.0-2.0); EOSINOPHILS % (AUTO) 4.5 % (0.0-3.0); HEMATOCRIT 39.6 % (42.0-52.0); LYMPHOCYTES % (AUTO) 17.9 % (20.0-45.0); MEAN CORPUSCULAR VOLUME 88 FL (80-99); MONOCYTES % (AUTO) 7.9 % (1.0-10.0); NEUTROPHILS % (AUTO) 69.1 % (45.0-75.0); PLATELET COUNT 257 K/UL (150-450); RED BLOOD COUNT 4.51 M/UL (4.70-6.10); RED CELL DISTRIBUTION WIDTH 12.5 % (11.6-14.8); WHITE BLOOD COUNT 10.1 K/UL (4.8-10.8)
[2019-09-06 07:57] LABS: ANION GAP 12 mmol/L (5-15); BLOOD UREA NITROGEN 20 mg/dL (7-18); CALCIUM 9.2 MG/DL (8.5-10.1); CARBON DIOXIDE 24 MMOL/L (21-32); CHLORIDE 102 MMOL/L (98-107); POTASSIUM 4.2 MMOL/L (3.5-5.1); SODIUM 138 MMOL/L (136-145)
[2019-09-06 08:00] VITALS: BP 154/75
[2019-09-06] MEDS: Pantoprazole Inj IV SCH (09:05)
[2019-09-06] MEDS: Heparin 5000 units/ml inj SUBQ SCH ×2 (09:07→21:04)
[2019-09-06 12:00] VITALS: BP 107/71
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
--- NOTE | 2019-09-06 15:10 | Surgery Progress Note ---
Surgery Progress Note Subjective Symptoms: improved, tolerating diet, voiding well, passing flatus, BM Objective Last 24 Hour Vital Signs Date Time Temp Pulse Resp B/P (MAP) Pulse Ox O2 Delivery O2 Flow Rate FiO2 09/06/19 12:00 Mechanical Ventilator 09/06/19 12:00 72 09/06/19 12:00 30 09/06/19 12:00 98.2 87 16 107/71 (83) 100 09/06/19 11:05 78 16 30 09/06/19 08:00 98.6 82 16 154/75 (101) 100 09/06/19 08:00 30 09/06/19 08:00 Mechanical Ventilator 09/06/19 08:00 78 09/06/19 06:43 91 16 30 09/06/19 04:00 Mechanical Ventilator 09/06/19 04:00 30 09/06/19 04:00 98.2 81 16 109/62 (78) 99 09/06/19 03:55 83 09/06/19 03:25 82 16 30 09/06/19 00:00 Mechanical Ventilator 09/06/19 00:00 98.5 82 16 119/74 (89) 100 09/05/19 23:59 80 09/05/19 23:08 80 16 30 09/05/19 20:00 98.2 78 16 109/62 (78) 100 09/05/19 20:00 Mechanical Ventilator 09/05/19 20:00 30 09/05/19 19:24 73 09/05/19 19:03 91 17 30 09/05/19 16:00 30 09/05/19 16:00 77 09/05/19 16:00 Mechanical Ventilator 09/05/19 16:00 98.0 78 17 106/60 (75) 100 09/05/19 15:12 76 16 30 I&O Intake and Output 09/05/19 09/06/19 18:59 06:59 Intake Total 820 ml 1038.75 ml Output Total 500 ml 2400 ml Balance 320 ml -1361.25 ml Intake Free Water 100 ml 90 ml IV Total 228.75 ml Tube Feeding 720 ml 720 ml Output Urine Total 500 ml 2400 ml # Bowel Movements 1 Dressing: other Wound: other Cardiovascular: RSR Respiratory: decreased breath sounds Abdomen: soft, present bowel sounds Extremities: no tenderness, no cyanosis Laboratory Tests Test 09/06/19 03:09 White Blood Count 10.1 K/UL (4.8-10.8) Red Blood Count 4.51 M/UL (4.70-6.10) L Hemoglobin 14.0 G/DL (14.2-18.0) L Hematocrit 39.6 % (42.0-52.0) L Mean Corpuscular Volume 88 FL (80-99) Mean Corpuscular Hemoglobin 31.0 PG (27.0-31.0) Mean Corpuscular Hemoglobin Concent 35.3 G/DL (32.0-36.0) Red Cell Distribution Width 12.5 % (11.6-14.8) Platelet Count 257 K/UL (150-450) Mean Platelet Volume 8.1 FL (6.5-10.1) Neutrophils (%) (Auto) 69.1 % (45.0-75.0) Lymphocytes (%) (Auto) 17.9 % (20.0-45.0) L Monocytes (%) (Auto) 7.9 % (1.0-10.0) Eosinophils (%) (Auto) 4.5 % (0.0-3.0) H Basophils (%) (Auto) 0.5 % (0.0-2.0) Sodium Level 138 MMOL/L (136-145) Potassium Level 4.2 MMOL/L (3.5-5.1) Chloride Level 102 MMOL/L (98-107) Carbon Dioxide Level 24 MMOL/L (21-32) Anion Gap 12 mmol/L (5-15) Blood Urea Nitrogen 20 mg/dL (7-18) H Creatinine 1.0 MG/DL (0.55-1.30) Estimat Glomerular Filtration Rate > 60 mL/min (>60) Glucose Level 68 MG/DL (74-106) L Calcium Level 9.2 MG/DL (8.5-10.1) Plan Problems: (1) Feeding by G-tube Assessment & Plan: DAILY ESTIMATED NEEDS: Needs based on Critical Care, wounds/ 74.8kg abw 22-30 kcals/kg 2170-5252 total kcals 1.25-2 g protein/kg 94-150 g total protein 25-30 mL/kg 1183-3284 total fluid mLs NUTRITION DIAGNOSIS: * Swallowing difficulty R/T dysphagia, respiratory status as evidenced by pt is trach/vent dep, PEG dep. * Increased kcal/prot needs R/T wound healing as evidenced by pt admitted w/ sacral unstageable wound. CURRENT TF: Glucerna 1.2 @ 60ml/hr ENTERAL NUTRITION RECOMMENDATIONS: Glucerna 1.2 @ 60ml/hr x 24 hrs + Prosource qdaily to provide 1440ml, 1728kcal , 86g + 11g prot, 1162ml free water * Rec to increase rate to 60ml/hr for 24 hrs * Add Prosource 1pkt QD to meet protein needs * HOB over 30 degrees/ water flush per MD. ----- -CURRENTLY GLUCERNA 1.2/ 1.5 LOW ON STOCK OR OOS, REC JEVITY 1.2 BG HAS BEEN WNL, W/ GOAL OF 60ML/HR X24 HRS + PROSOURCE BID. -TF at goal + Prosource provides 1728 kcal + 80kcal, 80g +22g pro, to meet 100% est needs, monitor blood glucose regularly w/ ssi for coverage and BG control. -Jevity 1.2 @60ml/hr to provide 79g more carbs per day. Will monitor glycemic tolerance/ control. ADDITIONAL RECOMMENDATIONS: * Maintain calibrated bed scale wts * Wound care: Add DANYELLE BID + Vit C 250mg BID * Monitor lytes daily, replete as needed (low phos 2.1) * Accuchecks w/ SSI for glycemic control * Rec trial TF change to Jevity 1.2 @60 (shortage of Glucerna 1.2, 1.5) may need to increase insulin coverage (2) Decubitus skin ulcer Assessment & Plan: left flank wound noted. considered as possible abscess. evaluated. 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 Linear atelectasis of the left lung base. Blunted left costophrenic angle. Small left pleural effusion and overlying atelectasis. Mild atelectasis of the right lung base. Question old proximal right clavicle fracture. Impression: 1. Trace left pleural effusion with overlying atelectasis. Mild right basilar atelectasis. 2. Unchanged tracheostomy tube. abx as per ID respiratory care as per pulm nutritional will follow with recs thank you Streaky and hazy opacities throughout the right lung and left lower lung which may represent atelectasis versus infectious/inflammatory process. Pt presented on admission with small furuncle Lateral L chest. Reabsorbing DTPI Sacrum R and L gluteal cheeks. Scattered areas of shearing within base of wound. Surrounding areas of mixed skin Hyper and hypopigmentation noted. DTPI noted to L trochanter(L)3cm x (W)5.5cm. Base of Pressure injury has darker than is normal skin tone and is indurated. Marginal erythema along edges. Historical scars with hyperpigmentation from previous wounds noted to R and L ischial tuberosities. Heels are firm and blanchable . Tx.Plan: Apply Moisture Barrier Paste to Buttocks. Cover with Optifoam drsg. Change every 3 days and prn. Apply Cavilon Skin Barrier to both heels. Cover each heel with Optifoam drsg. Change every 7 days and prn. Reposition at least every 2houors or as tolerated. Place pillow between knees. Off-load heels with Pillow. APM/EDD Mattress overlay. (8) Chronic respiratory failure (9) Bacteremia (10) Uncontrolled seizures (11) Seizure disorder, convulsive, with status epilepticus (12) Seizure after head injury (13) Line sepsis (14) UTI (urinary tract infection) (15) Urinary tract infection (16) Acute on chronic renal insufficiency Horacio Hope Sep 06, 2019 15:10
[2019-09-06 16:00] VITALS: BP 97/68
[2019-09-06 20:00] VITALS: BP 114/66
--- NOTE | 2019-09-06 21:00 | Progress Note ---
DATE: 09/06/2019 SUBJECTIVE: The patient is afebrile. Hemodynamically stable. PHYSICAL EXAMINATION: VITAL SIGNS: Blood pressure is 154/75, his pulse is 78, respirations of 16, temperature 98.6. HEENT: Eyes were normal. ENT, mucous membranes were moist and intact. NECK: Supple with no JVD without lymph nodes. Tracheostomy site is clean. LUNGS: Clear without rhonchi, rales, or wheezing. HEART: Normal sounds with regular beat. ABDOMEN: Soft, nontender with normal bowel sounds. Gastrostomy site is clean. EXTREMITIES: Warm without cyanosis, clubbing, or edema. LABORATORY DATA: His hemoglobin is 14.0, hematocrit 39.6 with MCV of 88, WBC of 10.1, and platelets 257. His BUN and creatinine are 20 and 1.0 respectively. Sodium is 138, potassium 4.2, chloride 102, CO2 is 24. His second coronavirus PCR is negative. His blood cultures are negative. His urine culture is negative. Sputum culture will be requested to ascertain the resolution of the Pseudomonas carbapenem resistance. Libby Fair M.D. DR: BASHIR JOB#: [id number] CC:
[2019-09-07] VITALS: BP 104/67
[2019-09-07 04:00] VITALS: BP 107/77
[2019-09-07] MEDS: NovoLOG Insulin Flexpen SUBQ SCH ×4 (05:22→23:27)
[2019-09-07] MEDS: Meropenem 1 GM in NS 55 ML IVPB SCH ×3 (05:32→22:10)
[2019-09-07 07:24] LABS: BASOPHILS % (AUTO) 0.9 % (0.0-2.0); EOSINOPHILS % (AUTO) 2.9 % (0.0-3.0); HEMATOCRIT 39.6 % (42.0-52.0); HEMOGLOBIN 14.2 G/DL (14.2-18.0); LYMPHOCYTES % (AUTO) 13.2 % (20.0-45.0); MEAN CORPUSCULAR VOLUME 88 FL (80-99); MONOCYTES % (AUTO) 6.9 % (1.0-10.0); NEUTROPHILS % (AUTO) 76.1 % (45.0-75.0); PLATELET COUNT 270 K/UL (150-450); RED CELL DISTRIBUTION WIDTH 12.4 % (11.6-14.8); WHITE BLOOD COUNT 11.6 K/UL (4.8-10.8)
[2019-09-07 07:29] LABS: ANION GAP 11 mmol/L (5-15); BLOOD UREA NITROGEN 16 mg/dL (7-18); CARBON DIOXIDE 26 MMOL/L (21-32); CHLORIDE 103 MMOL/L (98-107); CREATININE 0.9 MG/DL (0.55-1.30); POTASSIUM 4.1 MMOL/L (3.5-5.1); SODIUM 139 MMOL/L (136-145)
[2019-09-07 08:00] VITALS: BP 96/73
[2019-09-07] MEDS: Pantoprazole Inj IV SCH (09:27)
[2019-09-07] MEDS: Heparin 5000 units/ml inj SUBQ SCH ×2 (09:37→21:11)
[2019-09-07] MEDS ORDERED: Tubing IV Secondary IV ONE (10:00)
[2019-09-07] MEDS ORDERED: NS 275ml ONE (10:00)
[2019-09-07 12:00] VITALS: BP 98/73
--- NOTE | 2019-09-07 13:53 | Surgery Progress Note ---
Surgery Progress Note Subjective Additional Comments leukocytosis exam stable comfortable Objective Last 24 Hour Vital Signs Date Time Temp Pulse Resp B/P (MAP) Pulse Ox O2 Delivery O2 Flow Rate FiO2 09/07/19 12:46 82 09/07/19 12:00 Mechanical Ventilator 09/07/19 12:00 30 09/07/19 11:24 81 16 30 09/07/19 08:43 77 09/07/19 08:00 30 09/07/19 08:00 Mechanical Ventilator 09/07/19 08:00 98.0 81 16 96/73 (81) 100 09/07/19 07:28 76 17 30 09/07/19 04:00 Mechanical Ventilator 09/07/19 04:00 97.3 83 16 107/77 (87) 99 09/07/19 04:00 30 09/07/19 04:00 83 09/07/19 03:28 81 16 30 09/07/19 00:00 98.0 82 16 104/67 (79) 100 09/07/19 00:00 83 09/07/19 00:00 30 09/07/19 00:00 Mechanical Ventilator 09/06/19 22:48 82 16 30 09/06/19 20:00 98.2 76 16 114/66 (82) 100 09/06/19 20:00 80 09/06/19 20:00 30 09/06/19 20:00 Mechanical Ventilator 09/06/19 19:39 77 16 30 09/06/19 16:00 98.2 73 16 97/68 (78) 100 09/06/19 16:00 Mechanical Ventilator 09/06/19 16:00 30 09/06/19 16:00 69 09/06/19 15:27 72 16 30 I&O Intake and Output 09/06/19 09/07/19 19:00 07:00 Intake Total 840 ml 880 ml Output Total 750 ml 1000 ml Balance 90 ml -120 ml Intake Free Water 60 ml 110 ml IV Total 110 ml Tube Feeding 780 ml 660 ml Output Urine Total 750 ml 1000 ml Dressing: other Wound: other Drains: other Cardiovascular: RSR Respiratory: decreased breath sounds Abdomen: soft, other, non-distended Extremities: no cyanosis Laboratory Tests Test 09/07/19 04:43 White Blood Count 11.6 K/UL (4.8-10.8) H Red Blood Count 4.50 M/UL (4.70-6.10) L Hemoglobin 14.2 G/DL (14.2-18.0) Hematocrit 39.6 % (42.0-52.0) L Mean Corpuscular Volume 88 FL (80-99) Mean Corpuscular Hemoglobin 31.5 PG (27.0-31.0) H Mean Corpuscular Hemoglobin Concent 35.8 G/DL (32.0-36.0) Red Cell Distribution Width 12.4 % (11.6-14.8) Platelet Count 270 K/UL (150-450) Mean Platelet Volume 8.5 FL (6.5-10.1) Neutrophils (%) (Auto) 76.1 % (45.0-75.0) H Lymphocytes (%) (Auto) 13.2 % (20.0-45.0) L Monocytes (%) (Auto) 6.9 % (1.0-10.0) Eosinophils (%) (Auto) 2.9 % (0.0-3.0) Basophils (%) (Auto) 0.9 % (0.0-2.0) Sodium Level 139 MMOL/L (136-145) Potassium Level 4.1 MMOL/L (3.5-5.1) Chloride Level 103 MMOL/L (98-107) Carbon Dioxide Level 26 MMOL/L (21-32) Anion Gap 11 mmol/L (5-15) Blood Urea Nitrogen 16 mg/dL (7-18) Creatinine 0.9 MG/DL (0.55-1.30) Estimat Glomerular Filtration Rate > 60 mL/min (>60) Glucose Level 105 MG/DL (74-106) Calcium Level 9.0 MG/DL (8.5-10.1) Plan Problems: (1) Feeding by G-tube Assessment & Plan: DAILY ESTIMATED NEEDS: Needs based on Critical Care, wounds/ 74.8kg abw 22-30 kcals/kg 7200-4022 total kcals 1.25-2 g protein/kg 94-150 g total protein 25-30 mL/kg 7860-2400 total fluid mLs NUTRITION DIAGNOSIS: * Swallowing difficulty R/T dysphagia, respiratory status as evidenced by pt is trach/vent dep, PEG dep. * Increased kcal/prot needs R/T wound healing as evidenced by pt admitted w/ sacral unstageable wound. CURRENT TF: Glucerna 1.2 @ 60ml/hr ENTERAL NUTRITION RECOMMENDATIONS: Glucerna 1.2 @ 60ml/hr x 24 hrs + Prosource qdaily to provide 1440ml, 1728kcal , 86g + 11g prot, 1162ml free water * Rec to increase rate to 60ml/hr for 24 hrs * Add Prosource 1pkt QD to meet protein needs * HOB over 30 degrees/ water flush per MD. ----- -CURRENTLY GLUCERNA 1.2/ 1.5 LOW ON STOCK OR OOS, REC JEVITY 1.2 BG HAS BEEN WNL, W/ GOAL OF 60ML/HR X24 HRS + PROSOURCE BID. -TF at goal + Prosource provides 1728 kcal + 80kcal, 80g +22g pro, to meet 100% est needs, monitor blood glucose regularly w/ ssi for coverage and BG control. -Jevity 1.2 @60ml/hr to provide 79g more carbs per day. Will monitor glycemic tolerance/ control. ADDITIONAL RECOMMENDATIONS: * Maintain calibrated bed scale wts * Wound care: Add DANYELLE BID + Vit C 250mg BID * Monitor lytes daily, replete as needed (low phos 2.1) * Accuchecks w/ SSI for glycemic control * Rec trial TF change to Jevity 1.2 @60 (shortage of Glucerna 1.2, 1.5) may need to increase insulin coverage (2) Decubitus skin ulcer Assessment & Plan: left flank wound noted. considered as possible abscess. evaluated. 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 Linear atelectasis of the left lung base. Blunted left costophrenic angle. Small left pleural effusion and overlying atelectasis. Mild atelectasis of the right lung base. Question old proximal right clavicle fracture. Impression: 1. Trace left pleural effusion with overlying atelectasis. Mild right basilar atelectasis. 2. Unchanged tracheostomy tube. abx as per ID respiratory care as per pulm nutritional will follow with recs thank you Streaky and hazy opacities throughout the right lung and left lower lung which may represent atelectasis versus infectious/inflammatory process. Pt presented on admission with small furuncle Lateral L chest. Reabsorbing DTPI Sacrum R and L gluteal cheeks. Scattered areas of shearing within base of wound. Surrounding areas of mixed skin Hyper and hypopigmentation noted. DTPI noted to L trochanter(L)3cm x (W)5.5cm. Base of Pressure injury has darker than is normal skin tone and is indurated. Marginal erythema along edges. Historical scars with hyperpigmentation from previous wounds noted to R and L ischial tuberosities. Heels are firm and blanchable . Tx.Plan: Apply Moisture Barrier Paste to Buttocks. Cover with Optifoam drsg. Change every 3 days and prn. Apply Cavilon Skin Barrier to both heels. Cover each heel with Optifoam drsg. Change every 7 days and prn. Reposition at least every 2houors or as tolerated. Place pillow between knees. Off-load heels with Pillow. APM/EDD Mattress overlay. 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
[2019-09-07 16:00] VITALS: BP 96/65
[2019-09-07 20:00] VITALS: BP 103/67
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
[2019-09-08] VITALS (7 sets, daily range): BP systolic 100–129; BP diastolic 72–87
[2019-09-08] MEDS: NovoLOG Insulin Flexpen SUBQ SCH ×4 (05:31→23:00)
[2019-09-08] MEDS: Meropenem 1 GM in NS 55 ML IVPB SCH ×3 (05:31→22:17)
[2019-09-08 05:35] LABS: BASOPHILS % (AUTO) 0.8 % (0.0-2.0); EOSINOPHILS % (AUTO) 2.7 % (0.0-3.0); HEMATOCRIT 39.1 % (42.0-52.0); HEMOGLOBIN 14.1 G/DL (14.2-18.0); LYMPHOCYTES % (AUTO) 17.6 % (20.0-45.0); MEAN CORPUSCULAR VOLUME 88 FL (80-99); MONOCYTES % (AUTO) 6.1 % (1.0-10.0); NEUTROPHILS % (AUTO) 72.8 % (45.0-75.0); PLATELET COUNT 268 K/UL (150-450); RED BLOOD COUNT 4.46 M/UL (4.70-6.10)
[2019-09-08 06:06] LABS: ANION GAP 11 mmol/L (5-15); BLOOD UREA NITROGEN 19 mg/dL (7-18); CALCIUM 9.3 MG/DL (8.5-10.1); CARBON DIOXIDE 26 MMOL/L (21-32); CHLORIDE 103 MMOL/L (98-107); CREATININE 0.9 MG/DL (0.55-1.30); POTASSIUM 3.9 MMOL/L (3.5-5.1); SODIUM 140 MMOL/L (136-145)
[2019-09-08] MEDS: Pantoprazole Inj IV SCH (08:24)
[2019-09-08] MEDS: Heparin 5000 units/ml inj SUBQ SCH ×2 (08:26→20:09)
--- NOTE | 2019-09-08 09:38 | Diagnostic Imaging Report ---
EXAM: XR Chest, 2 Views CLINICAL HISTORY: COPD TECHNIQUE: Frontal and lateral views of the chest. COMPARISON: 09/05/19 FINDINGS: Lungs: There are unchanged bilateral lower lobe and right upper lobe infiltrates. The right upper lobe infiltrate suspicious for pneumonia. The bibasilar infiltrates are indeterminate between additional pneumonia and atelectasis. No new infiltrates are identified. Pleural space: There is a small left pleural effusion. No pneumothorax. Heart: Unremarkable. No cardiomegaly. Mediastinum: Unremarkable. Bones/joints: Unremarkable. IMPRESSION: There are unchanged bilateral lower lobe and right upper lobe infiltrates. The right upper lobe infiltrate suspicious for pneumonia. The bibasilar infiltrates are indeterminate between additional pneumonia and atelectasis. No new infiltrates are identified.
--- NOTE | 2019-09-08 17:41 | Surgery Progress Note ---
Surgery Progress Note Subjective Additional Comments There are unchanged bilateral lower lobe and right upper lobe infiltrates. The right upper lobe infiltrate suspicious for pneumonia. The bibasilar infiltrates are indeterminate between additional pneumonia and atelectasis. No new infiltrates are identified. Objective Last 24 Hour Vital Signs Date Time Temp Pulse Resp B/P (MAP) Pulse Ox O2 Delivery O2 Flow Rate FiO2 09/08/19 16:00 98.4 76 16 120/79 (93) 99 09/08/19 16:00 30 09/08/19 16:00 82 09/08/19 15:20 78 16 30 09/08/19 12:00 Mechanical Ventilator 09/08/19 12:00 98.2 87 17 109/80 (90) 100 09/08/19 12:00 30 09/08/19 11:45 84 09/08/19 11:00 84 16 30 09/08/19 09:02 79 09/08/19 08:00 30 09/08/19 08:00 98.2 84 16 100/74 (83) 100 09/08/19 08:00 Mechanical Ventilator 09/08/19 07:15 81 17 30 09/08/19 04:00 Mechanical Ventilator 09/08/19 04:00 99.3 86 16 118/79 (92) 99 09/08/19 04:00 30 09/08/19 04:00 85 09/08/19 03:30 83 16 30 09/08/19 00:00 98.2 76 16 102/72 (82) 99 09/08/19 00:00 Mechanical Ventilator 09/08/19 00:00 77 09/07/19 23:12 79 17 30 09/07/19 20:00 Mechanical Ventilator 09/07/19 20:00 98.1 77 16 103/67 (79) 99 09/07/19 20:00 30 09/07/19 19:31 79 09/07/19 19:30 81 16 30 I&O Intake and Output 09/07/19 09/08/19 19:00 07:00 Intake Total 980 ml 1040 ml Output Total 650 ml 800 ml Balance 330 ml 240 ml Intake Free Water 200 ml 100 ml IV Total 220 ml Tube Feeding 660 ml 720 ml Other 120 ml Output Urine Total 650 ml 800 ml Dressing: other Wound: other Drains: other Cardiovascular: RSR Respiratory: decreased breath sounds Abdomen: soft, present bowel sounds Extremities: no cyanosis Laboratory Tests Test 09/08/19 03:16 White Blood Count 9.0 K/UL (4.8-10.8) Red Blood Count 4.46 M/UL (4.70-6.10) L Hemoglobin 14.1 G/DL (14.2-18.0) L Hematocrit 39.1 % (42.0-52.0) L Mean Corpuscular Volume 88 FL (80-99) Mean Corpuscular Hemoglobin 31.6 PG (27.0-31.0) H Mean Corpuscular Hemoglobin Concent 36.0 G/DL (32.0-36.0) Red Cell Distribution Width 12.0 % (11.6-14.8) Platelet Count 268 K/UL (150-450) Mean Platelet Volume 8.4 FL (6.5-10.1) Neutrophils (%) (Auto) 72.8 % (45.0-75.0) Lymphocytes (%) (Auto) 17.6 % (20.0-45.0) L Monocytes (%) (Auto) 6.1 % (1.0-10.0) Eosinophils (%) (Auto) 2.7 % (0.0-3.0) Basophils (%) (Auto) 0.8 % (0.0-2.0) Sodium Level 140 MMOL/L (136-145) Potassium Level 3.9 MMOL/L (3.5-5.1) Chloride Level 103 MMOL/L (98-107) Carbon Dioxide Level 26 MMOL/L (21-32) Anion Gap 11 mmol/L (5-15) Blood Urea Nitrogen 19 mg/dL (7-18) H Creatinine 0.9 MG/DL (0.55-1.30) Estimat Glomerular Filtration Rate > 60 mL/min (>60) Glucose Level 96 MG/DL (74-106) Calcium Level 9.3 MG/DL (8.5-10.1) Plan Problems: (1) Feeding by G-tube Assessment & Plan: DAILY ESTIMATED NEEDS: Needs based on Critical Care, wounds/ 74.8kg abw 22-30 kcals/kg 4041-8739 total kcals 1.25-2 g protein/kg 94-150 g total protein 25-30 mL/kg 7310-7003 total fluid mLs NUTRITION DIAGNOSIS: * Swallowing difficulty R/T dysphagia, respiratory status as evidenced by pt is trach/vent dep, PEG dep. * Increased kcal/prot needs R/T wound healing as evidenced by pt admitted w/ sacral unstageable wound. CURRENT TF: Glucerna 1.2 @ 60ml/hr ENTERAL NUTRITION RECOMMENDATIONS: Glucerna 1.2 @ 60ml/hr x 24 hrs + Prosource qdaily to provide 1440ml, 1728kcal , 86g + 11g prot, 1162ml free water * Rec to increase rate to 60ml/hr for 24 hrs * Add Prosource 1pkt QD to meet protein needs * HOB over 30 degrees/ water flush per MD. ----- -CURRENTLY GLUCERNA 1.2/ 1.5 LOW ON STOCK OR OOS, REC JEVITY 1.2 BG HAS BEEN WNL, W/ GOAL OF 60ML/HR X24 HRS + PROSOURCE BID. -TF at goal + Prosource provides 1728 kcal + 80kcal, 80g +22g pro, to meet 100% est needs, monitor blood glucose regularly w/ ssi for coverage and BG control. -Jevity 1.2 @60ml/hr to provide 79g more carbs per day. Will monitor glycemic tolerance/ control. ADDITIONAL RECOMMENDATIONS: * Maintain calibrated bed scale wts * Wound care: Add DANYELLE BID + Vit C 250mg BID * Monitor lytes daily, replete as needed (low phos 2.1) * Accuchecks w/ SSI for glycemic control * Rec trial TF change to Jevity 1.2 @60 (shortage of Glucerna 1.2, 1.5) may need to increase insulin coverage (2) Decubitus skin ulcer Assessment & Plan: left flank wound noted. considered as possible abscess. evaluated. 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 Linear atelectasis of the left lung base. Blunted left costophrenic angle. Small left pleural effusion and overlying atelectasis. Mild atelectasis of the right lung base. Question old proximal right clavicle fracture. Impression: 1. Trace left pleural effusion with overlying atelectasis. Mild right basilar atelectasis. 2. Unchanged tracheostomy tube. abx as per ID respiratory care as per pulm nutritional will follow with recs thank you Streaky and hazy opacities throughout the right lung and left lower lung which may represent atelectasis versus infectious/inflammatory process. Pt presented on admission with small furuncle Lateral L chest. Reabsorbing DTPI Sacrum R and L gluteal cheeks. Scattered areas of shearing within base of wound. Surrounding areas of mixed skin Hyper and hypopigmentation noted. DTPI noted to L trochanter(L)3cm x (W)5.5cm. Base of Pressure injury has darker than is normal skin tone and is indurated. Marginal erythema along edges. Historical scars with hyperpigmentation from previous wounds noted to R and L ischial tuberosities. Heels are firm and blanchable . Tx.Plan: Apply Moisture Barrier Paste to Buttocks. Cover with Optifoam drsg. Change every 3 days and prn. Apply Cavilon Skin Barrier to both heels. Cover each heel with Optifoam drsg. Change every 7 days and prn. Reposition at least every 2houors or as tolerated. Place pillow between knees. Off-load heels with Pillow. APM/EDD Mattress overlay. 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
--- NOTE | 2019-09-08 19:45 | Progress Note ---
DATE: 09/08/2019 Patient's progress note has been dictated, but since the dictation of progress note, patient developed suddenly an onset of SVT at the rate of 140. Order to give metoprolol 5 mg IV was given. By the time the preparation was ready to be given, the patient self-resolved his tachycardia. travel sales consultant was called to assist in the management of this case and magnesium level was added tomorrow to his laboratory tests. In addition, patient's right eye appeared to be red with a small purulent exudate. Exudate has been sent for culture and sensitivity and patient was placed on gentamicin ophthalmic solution 0.5 mg q.i.d. Libby Fair M.D. DR: BASHIR JOB#: [id number] CC:
[2019-09-08] MEDS: Gentamicin 0.3% Opth Soln 5ml BOTH EYES SCH (20:13)
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
[2019-09-09 04:00] VITALS: BP 118/75
[2019-09-09 04:52] LABS: BASOPHILS % (AUTO) 1.1 % (0.0-2.0); EOSINOPHILS % (AUTO) 1.1 % (0.0-3.0); HEMATOCRIT 40.2 % (42.0-52.0); HEMOGLOBIN 14.3 G/DL (14.2-18.0); LYMPHOCYTES % (AUTO) 12.9 % (20.0-45.0); MEAN CORPUSCULAR VOLUME 88 FL (80-99); MONOCYTES % (AUTO) 6.8 % (1.0-10.0); NEUTROPHILS % (AUTO) 78.1 % (45.0-75.0); PLATELET COUNT 297 K/UL (150-450); RED BLOOD COUNT 4.59 M/UL (4.70-6.10); RED CELL DISTRIBUTION WIDTH 12.2 % (11.6-14.8); WHITE BLOOD COUNT 14.3 K/UL (4.8-10.8)
[2019-09-09] MEDS: NovoLOG Insulin Flexpen SUBQ SCH ×4 (05:00→23:03)
[2019-09-09 05:10] LABS: ANION GAP 11 mmol/L (5-15); BLOOD UREA NITROGEN 18 mg/dL (7-18); CALCIUM 9.4 MG/DL (8.5-10.1); CARBON DIOXIDE 26 MMOL/L (21-32); CHLORIDE 105 MMOL/L (98-107); CREATININE 0.8 MG/DL (0.55-1.30); SODIUM 142 MMOL/L (136-145)
[2019-09-09 07:27] VITALS: BP 127/50
[2019-09-09] MEDS: Gentamicin 0.3% Opth Soln 5ml BOTH EYES SCH ×3 (08:47→17:10)
[2019-09-09] MEDS: Pantoprazole Inj IV SCH (08:47)
[2019-09-09] MEDS: Heparin 5000 units/ml inj SUBQ SCH ×2 (08:50→20:15)
--- NOTE | 2019-09-09 11:19 | Pulmonolgy Critical Care Note ---
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 (2) Chronic respiratory failure (3) Diabetes mellitus (4) Seizure disorder, convulsive, with status epilepticus (5) Feeding by G-tube Respiratory: monitor respiratory rate, adjust FIO2, CXR Cardiac: continue pressors, continue to monitor HR/BP Renal: F/U I&O, keep IV fluid, check electrolytes Infectious Disease: check cultures Gastrointestinal: continue feedings/current rate Endocrine: monitor blood sugar Hematologic: monitor H/H, transfuse if hgb<8.5 Neurologic: PRN Ativan, PRN Morphine, keep patient comfortable Affect: PRN ativan Prophylaxis: Heparin Time Spent (Minutes): 40 Notes Reviewed: television tube inspector, cardio, renal Discussed with: nurses, consultants, machine adjuster leader case trimreal estate firm manager - Objective Last 24 Hour Vital Signs Date Time Temp Pulse Resp B/P (MAP) Pulse Ox O2 Delivery O2 Flow Rate FiO2 09/09/19 08:00 85 09/09/19 08:00 30 09/09/19 08:00 Mechanical Ventilator 09/09/19 07:30 86 16 30 09/09/19 07:27 98.6 90 18 127/50 (75) 100 09/09/19 04:00 99.2 73 18 118/75 (89) 100 09/09/19 04:00 30 09/09/19 04:00 Mechanical Ventilator 09/09/19 04:00 100 09/09/19 03:39 99.9 09/09/19 03:26 99 19 30 09/09/19 00:00 Mechanical Ventilator 09/09/19 00:00 30 09/09/19 00:00 91 09/08/19 23:51 98.9 98 18 116/87 (97) 100 09/08/19 22:31 104 17 30 09/08/19 20:00 101.3 92 16 129/86 (100) 99 09/08/19 20:00 Mechanical Ventilator 09/08/19 20:00 30 09/08/19 19:44 110 22 30 09/08/19 19:38 131 09/08/19 16:00 98.4 76 16 120/79 (93) 99 09/08/19 16:00 30 09/08/19 16:00 82 09/08/19 16:00 Mechanical Ventilator 6/7/20 15:20 78 16 30 09/08/19 12:00 Mechanical Ventilator 09/08/19 12:00 98.2 87 17 109/80 (90) 100 09/08/19 12:00 30 09/08/19 11:45 84 Status: awake Condition: critical HEENT: atraumatic Neck: full ROM Heart: HR/BP stable, HR/BP unstable Abdomen: soft, non-tender Extremities: no C/C/E Micro: Microbiology Date/Time Source Procedure Growth Status 09/06/19 22:30 Sputum Induced Gram Stain - Final Resulted 09/06/19 22:30 Sputum Culture - Preliminary Gram Negative Grayson Yeast Species Resulted Accucheck: 117 Critical Care - Subjective Interval Events: was febrile again FI02: 30 Vent Support Breath Rate: 16 Vent Support Mode: AC Vent Tidal Volume: 600 Sputum Amount: Moderate PEEP: 5.0 PIP: 28 Tube Feeding Amount: 60 I&O: Intake and Output 09/08/19 09/09/19 19:00 07:00 Intake Total 875 ml 870 ml Output Total 175 ml 750 ml Balance 700 ml 120 ml Intake Free Water 100 ml 100 ml IV Total 55 ml 110 ml Tube Feeding 720 ml 660 ml Output Urine Total 175 ml 750 ml # Bowel Movements 2 4 Labs: Laboratory Tests Test 09/09/19 03:25 White Blood Count 14.3 K/UL (4.8-10.8) #H Red Blood Count 4.59 M/UL (4.70-6.10) L Hemoglobin 14.3 G/DL (14.2-18.0) Hematocrit 40.2 % (42.0-52.0) L Mean Corpuscular Volume 88 FL (80-99) Mean Corpuscular Hemoglobin 31.2 PG (27.0-31.0) H Mean Corpuscular Hemoglobin Concent 35.7 G/DL (32.0-36.0) Red Cell Distribution Width 12.2 % (11.6-14.8) Platelet Count 297 K/UL (150-450) Mean Platelet Volume 8.1 FL (6.5-10.1) Neutrophils (%) (Auto) 78.1 % (45.0-75.0) H Lymphocytes (%) (Auto) 12.9 % (20.0-45.0) L Monocytes (%) (Auto) 6.8 % (1.0-10.0) Eosinophils (%) (Auto) 1.1 % (0.0-3.0) Basophils (%) (Auto) 1.1 % (0.0-2.0) Sodium Level 142 MMOL/L (136-145) Potassium Level 4.0 MMOL/L (3.5-5.1) Chloride Level 105 MMOL/L (98-107) Carbon Dioxide Level 26 MMOL/L (21-32) Anion Gap 11 mmol/L (5-15) Blood Urea Nitrogen 18 mg/dL (7-18) Creatinine 0.8 MG/DL (0.55-1.30) Estimat Glomerular Filtration Rate > 60 mL/min (>60) Glucose Level 123 MG/DL (74-106) H Calcium Level 9.4 MG/DL (8.5-10.1) Magnesium Level 2.3 MG/DL (1.8-2.4) Pro-B-Type Natriuretic Peptide 88 pg/mL (0-125) Amanda Combs MD Sep 09, 2019 11:19
[2019-09-09 11:36] VITALS: BP 97/73
--- NOTE | 2019-09-09 13:54 | Surgery Progress Note ---
Surgery Progress Note Subjective Additional Comments ann cute events comfortable labs reviewed care plan discussed with pcp Objective Last 24 Hour Vital Signs Date Time Temp Pulse Resp B/P (MAP) Pulse Ox O2 Delivery O2 Flow Rate FiO2 09/09/19 12:00 30 09/09/19 12:00 86 09/09/19 12:00 Mechanical Ventilator 09/09/19 11:36 99.9 86 18 97/73 (81) 95 09/09/19 11:22 70 16 30 09/09/19 08:00 85 09/09/19 08:00 30 09/09/19 08:00 Mechanical Ventilator 09/09/19 07:30 86 16 30 09/09/19 07:27 98.6 90 18 127/50 (75) 100 09/09/19 04:00 99.2 73 18 118/75 (89) 100 09/09/19 04:00 30 09/09/19 04:00 Mechanical Ventilator 09/09/19 04:00 100 09/09/19 03:39 99.9 09/09/19 03:26 99 19 30 09/09/19 00:00 Mechanical Ventilator 09/09/19 00:00 30 09/09/19 00:00 91 09/08/19 23:51 98.9 98 18 116/87 (97) 100 09/08/19 22:31 104 17 30 09/08/19 20:00 101.3 92 16 129/86 (100) 99 09/08/19 20:00 Mechanical Ventilator 09/08/19 20:00 30 09/08/19 19:44 110 22 30 09/08/19 19:38 131 09/08/19 16:00 98.4 76 16 120/79 (93) 99 09/08/19 16:00 30 09/08/19 16:00 82 09/08/19 16:00 Mechanical Ventilator 09/08/19 15:20 78 16 30 I&O Intake and Output 09/08/19 09/09/19 19:00 07:00 Intake Total 875 ml 870 ml Output Total 175 ml 750 ml Balance 700 ml 120 ml Intake Free Water 100 ml 100 ml IV Total 55 ml 110 ml Tube Feeding 720 ml 660 ml Output Urine Total 175 ml 750 ml # Bowel Movements 2 4 Dressing: other Wound: other Drains: other Cardiovascular: RSR Respiratory: decreased breath sounds Abdomen: soft, non-tender, present bowel sounds Extremities: no cyanosis Laboratory Tests Test 09/09/19 03:25 White Blood Count 14.3 K/UL (4.8-10.8) #H Red Blood Count 4.59 M/UL (4.70-6.10) L Hemoglobin 14.3 G/DL (14.2-18.0) Hematocrit 40.2 % (42.0-52.0) L Mean Corpuscular Volume 88 FL (80-99) Mean Corpuscular Hemoglobin 31.2 PG (27.0-31.0) H Mean Corpuscular Hemoglobin Concent 35.7 G/DL (32.0-36.0) Red Cell Distribution Width 12.2 % (11.6-14.8) Platelet Count 297 K/UL (150-450) Mean Platelet Volume 8.1 FL (6.5-10.1) Neutrophils (%) (Auto) 78.1 % (45.0-75.0) H Lymphocytes (%) (Auto) 12.9 % (20.0-45.0) L Monocytes (%) (Auto) 6.8 % (1.0-10.0) Eosinophils (%) (Auto) 1.1 % (0.0-3.0) Basophils (%) (Auto) 1.1 % (0.0-2.0) Sodium Level 142 MMOL/L (136-145) Potassium Level 4.0 MMOL/L (3.5-5.1) Chloride Level 105 MMOL/L (98-107) Carbon Dioxide Level 26 MMOL/L (21-32) Anion Gap 11 mmol/L (5-15) Blood Urea Nitrogen 18 mg/dL (7-18) Creatinine 0.8 MG/DL (0.55-1.30) Estimat Glomerular Filtration Rate > 60 mL/min (>60) Glucose Level 123 MG/DL (74-106) H Calcium Level 9.4 MG/DL (8.5-10.1) Magnesium Level 2.3 MG/DL (1.8-2.4) Pro-B-Type Natriuretic Peptide 88 pg/mL (0-125) Plan Problems: (1) Feeding by G-tube Assessment & Plan: DAILY ESTIMATED NEEDS: Needs based on Critical Care, wounds/ 74.8kg abw 22-30 kcals/kg 8342-8553 total kcals 1.25-2 g protein/kg 94-150 g total protein 25-30 mL/kg 0643-9830 total fluid mLs NUTRITION DIAGNOSIS: * Swallowing difficulty R/T dysphagia, respiratory status as evidenced by pt is trach/vent dep, PEG dep. * Increased kcal/prot needs R/T wound healing as evidenced by pt admitted w/ sacral unstageable wound. CURRENT TF: Glucerna 1.2 @ 60ml/hr ENTERAL NUTRITION RECOMMENDATIONS: Glucerna 1.2 @ 60ml/hr x 24 hrs + Prosource qdaily to provide 1440ml, 1728kcal , 86g + 11g prot, 1162ml free water * Rec to increase rate to 60ml/hr for 24 hrs * Add Prosource 1pkt QD to meet protein needs * HOB over 30 degrees/ water flush per MD. ----- -CURRENTLY GLUCERNA 1.2/ 1.5 LOW ON STOCK OR OOS, REC JEVITY 1.2 BG HAS BEEN WNL, W/ GOAL OF 60ML/HR X24 HRS + PROSOURCE BID. -TF at goal + Prosource provides 1728 kcal + 80kcal, 80g +22g pro, to meet 100% est needs, monitor blood glucose regularly w/ ssi for coverage and BG control. -Jevity 1.2 @60ml/hr to provide 79g more carbs per day. Will monitor glycemic tolerance/ control. ADDITIONAL RECOMMENDATIONS: * Maintain calibrated bed scale wts * Wound care: Add DANYELLE BID + Vit C 250mg BID * Monitor lytes daily, replete as needed (low phos 2.1) * Accuchecks w/ SSI for glycemic control * Rec trial TF change to Jevity 1.2 @60 (shortage of Glucerna 1.2, 1.5) may need to increase insulin coverage (2) Decubitus skin ulcer Assessment & Plan: left flank wound noted. considered as possible abscess. evaluated. 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 Linear atelectasis of the left lung base. Blunted left costophrenic angle. Small left pleural effusion and overlying atelectasis. Mild atelectasis of the right lung base. Question old proximal right clavicle fracture. Impression: 1. Trace left pleural effusion with overlying atelectasis. Mild right basilar atelectasis. 2. Unchanged tracheostomy tube. abx as per ID respiratory care as per pulm nutritional will follow with recs thank you Streaky and hazy opacities throughout the right lung and left lower lung which may represent atelectasis versus infectious/inflammatory process. Pt presented on admission with small furuncle Lateral L chest. Reabsorbing DTPI Sacrum R and L gluteal cheeks. Scattered areas of shearing within base of wound. Surrounding areas of mixed skin Hyper and hypopigmentation noted. DTPI noted to L trochanter(L)3cm x (W)5.5cm. Base of Pressure injury has darker than is normal skin tone and is indurated. Marginal erythema along edges. Historical scars with hyperpigmentation from previous wounds noted to R and L ischial tuberosities. Heels are firm and blanchable . Tx.Plan: Apply Moisture Barrier Paste to Buttocks. Cover with Optifoam drsg. Change every 3 days and prn. Apply Cavilon Skin Barrier to both heels. Cover each heel with Optifoam drsg. Change every 7 days and prn. Reposition at least every 2houors or as tolerated. Place pillow between knees. Off-load heels with Pillow. APM/EDD Mattress overlay. (8) Chronic respiratory failure (9) Bacteremia (10) Uncontrolled seizures (11) Seizure disorder, convulsive, with status epilepticus (12) Seizure after head injury (13) Line sepsis (14) UTI (urinary tract infection) (15) Urinary tract infection (16) Acute on chronic renal insufficiency Horacio Hope Sep 09, 2019 13:54
[2019-09-09 16:00] VITALS: BP 105/63
[2019-09-09] MEDS ORDERED: NS 275ml ONE (16:47)
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
[2019-09-09] MEDS ORDERED: DiphenhydrAMINE 50mg/ml Inj IVP SCH (18:30)
[2019-09-09] MEDS ORDERED: Omnipaque 350 100ml vial INJ PRN (19:45)
[2019-09-09 20:00] VITALS: BP 118/82
[2019-09-09] MEDS ORDERED: Gentamicin Rx monitoring MISC PRN (20:00)
[2019-09-09] MEDS ORDERED: Meropenem 1 GM in NS 55 ML IVPB SCH (20:00)
[2019-09-09 20:16] LABS: APPEARANCE,URINE SLIGHTLY CLOUDY; BILIRUBIN, URINE NEGATIVE (NEGATIVE); GLUCOSE, URINE (UA) NEGATIVE (NEGATIVE); KETONES,URINE NEGATIVE (NEGATIVE); LEUKOCYTE ESTERASE ,URINE 1+ (NEGATIVE); NITRITE,URINE NEGATIVE (NEGATIVE); PH,URINE 7 (4.5-8.0); PROTEIN,URINE 2+ (NEGATIVE); UROBILINOGEN,URINE 1 MG/DL (0.0-1.0)
[2019-09-09 20:25] LABS: COLOR,URINE YELLOW
[2019-09-09] MEDS: Gentamicin inj 400 MG in NS 110 ML IVPB SCH (21:34)
[2019-09-10] VITALS: BP 104/77
--- NOTE | 2019-09-10 01:15 | Progress Note ---
DATE: 09/09/2019 SUBJECTIVE: The patient has low-grade fever without tachycardia. PHYSICAL EXAMINATION: VITAL SIGNS: Blood pressure 105/63, his pulse is 86, respirations are 18, and temperature 99.5. HEENT: Eyes were normal. ENT, mucous membranes were moist and intact. NECK: Supple with no JVD without lymph nodes. Tracheostomy site is clean. LUNGS: Clear without rhonchi, rales, or wheezing. HEART: Normal sounds with regular beats. There is no tachycardia at rest. ABDOMEN: Soft and nontender with normal bowel sounds. Gastrostomy site is clean. EXTREMITIES: Warm without cyanosis, clubbing, or edema. The patient developed abnormal movement syndrome, which is suspected to be as a result of meropenem, the antibiotic. LABORATORY DATA: Hemoglobin is 14.3, hematocrit is 40.2 with MCV of 88, WBC of 14.3, and platelets of 297,000. His BUN and creatinine 18 and 0.8 respectively. Sodium is 142, potassium 4.0, chloride 105, and CO2 is 26. His sputum cultures are now gram-negative rods, yeast species. IMPRESSION: The patient is on meropenem. The meropenem was started on September 07, 2019. The first time the patient had abnormal movement is yesterday night, and today the intensity of the movement increased. Infectious Disease clinical consultant was called to assist in the management of this case. Repeat laboratory tests will be done in a.m. Libby Fair M.D. DR: SIN JOB#: [id number] CC:
[2019-09-10 04:00] VITALS: BP 113/72
[2019-09-10 04:50] LABS: BASOPHILS % (AUTO) 0.9 % (0.0-2.0); EOSINOPHILS % (AUTO) 2.4 % (0.0-3.0); HEMATOCRIT 39.9 % (42.0-52.0); HEMOGLOBIN 14.4 G/DL (14.2-18.0); LYMPHOCYTES % (AUTO) 17.2 % (20.0-45.0); MEAN CORPUSCULAR VOLUME 88 FL (80-99); MONOCYTES % (AUTO) 7.8 % (1.0-10.0); NEUTROPHILS % (AUTO) 71.8 % (45.0-75.0); PLATELET COUNT 296 K/UL (150-450); RED BLOOD COUNT 4.55 M/UL (4.70-6.10); RED CELL DISTRIBUTION WIDTH 11.8 % (11.6-14.8); WHITE BLOOD COUNT 12.5 K/UL (4.8-10.8)
[2019-09-10 05:07] LABS: ANION GAP 11 mmol/L (5-15); BLOOD UREA NITROGEN 19 mg/dL (7-18); CALCIUM 9.2 MG/DL (8.5-10.1); CARBON DIOXIDE 26 MMOL/L (21-32); CHLORIDE 103 MMOL/L (98-107); CREATININE 0.9 MG/DL (0.55-1.30); SODIUM 140 MMOL/L (136-145)
[2019-09-10] MEDS: NovoLOG Insulin Flexpen SUBQ SCH ×4 (05:12→23:02)
--- NOTE | 2019-09-10 07:45 | Progress Note ---
DATE: 09/09/2019 CARDIOLOGY PROGRESS NOTE SUBJECTIVE: The patient had episode of supraventricular tachycardia yesterday that was self-limited. No recurrence today. PHYSICAL EXAMINATION: VITAL SIGNS: Stable. The patient has low-grade temperatures. LUNGS: Clear. CARDIAC: Regular. No new murmur. ABDOMEN: Soft. EXTREMITIES: No edema. LABORATORY DATA: White count 14, hemoglobin 14. Urinalysis with too numerous to count red cells. Sodium 142, potassium 4, magnesium 2.3, BUN 18, creatinine 0.8. Pro natriuretic peptide 88. IMPRESSION: 1. No signs of cardiovascular compromise. 2. Transient paroxysmal supraventricular tachycardia. 3. Chronic vegetative state. 4. Respiratory failure. PLAN: Avoid beta agonist. No current role for antiarrhythmics. May use Cardizem p.r.n. for sustained supraventricular arrhythmias. Paul Ruggiero M.D. DR: MIGUEL JOB#: [id number] CC:
[2019-09-10 08:00] VITALS: BP 112/79
[2019-09-10] MEDS: Pantoprazole Inj IV SCH (08:47)
[2019-09-10] MEDS: Heparin 5000 units/ml inj SUBQ SCH ×2 (08:47→20:11)
[2019-09-10] MEDS: Gentamicin 0.3% Opth Soln 5ml BOTH EYES SCH ×3 (09:04→17:30)
--- NOTE | 2019-09-10 11:52 | Pulmonolgy Critical Care Note ---
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 (2) Chronic respiratory failure (3) Diabetes mellitus (4) Seizure disorder, convulsive, with status epilepticus (5) Feeding by G-tube Respiratory: monitor respiratory rate, adjust FIO2, CXR Cardiac: continue pressors, continue to monitor HR/BP Renal: F/U I&O, check electrolytes Infectious Disease: check cultures, continue antibiotics Gastrointestinal: continue feedings/current rate Endocrine: monitor blood sugar, check TSH Hematologic: monitor H/H, transfuse if hgb<8.5 Neurologic: PRN Ativan, keep patient comfortable Affect: PRN ativan Prophylaxis: Protonix Disposition: keep in ICU Time Spent (Minutes): 40 Notes Reviewed: sld inclusion teacher, renal Discussed with: nurses, consultants, returned case inspectorinternet project manager - Objective Last 24 Hour Vital Signs Date Time Temp Pulse Resp B/P (MAP) Pulse Ox O2 Delivery O2 Flow Rate FiO2 09/10/19 11:02 79 16 30 09/10/19 10:25 100.0 09/10/19 08:00 Mechanical Ventilator 09/10/19 08:00 90 09/10/19 08:00 100.3 87 16 112/79 (90) 99 09/10/19 08:00 30 09/10/19 07:33 89 16 30 09/10/19 04:00 Mechanical Ventilator 09/10/19 04:00 30 09/10/19 04:00 98.2 84 16 113/72 (86) 100 09/10/19 03:50 92 16 30 09/10/19 03:30 95 09/10/19 00:00 98.4 94 16 104/77 (86) 100 09/10/19 00:00 30 09/10/19 00:00 Mechanical Ventilator 09/09/19 23:45 83 16 30 09/09/19 23:36 91 09/09/19 23:00 100.9 09/09/19 20:00 98.4 87 21 118/82 (94) 100 09/09/19 20:00 Mechanical Ventilator 09/09/19 20:00 30 09/09/19 19:37 70 16 30 09/09/19 19:13 83 09/09/19 16:00 96 09/09/19 16:00 30 09/09/19 16:00 Mechanical Ventilator 09/09/19 16:00 Mechanical Ventilator 09/09/19 16:00 99.5 86 18 105/63 (77) 99 09/09/19 15:45 70 18 30 09/09/19 12:00 30 09/09/19 12:00 86 09/09/19 12:00 Mechanical Ventilator Status: somnolent Condition: critical, grave HEENT: atraumatic Lungs: rales, rhonchi Heart: HR/BP stable Abdomen: soft, active bowel sounds Extremities: no C/C/E Micro: Microbiology Date/Time Source Procedure Growth Status 09/09/19 19:00 Urine,Clean Catch Urine Culture - Preliminary NO GROWTH Resulted Accucheck: 106 Critical Care - Subjective ROS Limited/Unobtainable: Yes FI02: 30 Vent Support Breath Rate: 16 Vent Support Mode: AC Vent Tidal Volume: 600 Sputum Amount: Small PEEP: 5.0 PIP: 24 Tube Feeding Amount: 60 I&O: Intake and Output 09/09/19 09/10/19 19:00 07:00 Intake Total 820 ml 880 ml Output Total 750 ml 500 ml Balance 70 ml 380 ml Intake Free Water 100 ml 100 ml IV Total 120 ml Tube Feeding 720 ml 660 ml Output Urine Total 750 ml 500 ml # Bowel Movements 2 1 Labs: Laboratory Tests Test 09/09/19 19:00 09/10/19 03:50 09/10/19 10:05 Urine Color Yellow Urine Appearance Slightly cloudy Urine pH 7 (4.5-8.0) Urine Specific [place] 1.015 (1.005-1.035) Urine Protein 2+ (NEGATIVE) H Urine Glucose (UA) Negative (NEGATIVE) Urine Ketones Negative (NEGATIVE) Urine Blood 5+ (NEGATIVE) H Urine Nitrite Negative (NEGATIVE) Urine Bilirubin Negative (NEGATIVE) Urine Urobilinogen 1 MG/DL (0.0-1.0) H Urine Leukocyte Esterase 1+ (NEGATIVE) H Urine RBC Tntc /HPF (0 - 0) H Urine WBC 2-4 /HPF (0 - 0) Urine Squamous Epithelial Cells None /LPF (NONE/OCC) Urine Bacteria Many /HPF (NONE) H White Blood Count 12.5 K/UL (4.8-10.8) H Red Blood Count 4.55 M/UL (4.70-6.10) L Hemoglobin 14.4 G/DL (14.2-18.0) Hematocrit 39.9 % (42.0-52.0) L Mean Corpuscular Volume 88 FL (80-99) Mean Corpuscular Hemoglobin 31.6 PG (27.0-31.0) H Mean Corpuscular Hemoglobin Concent 36.0 G/DL (32.0-36.0) Red Cell Distribution Width 11.8 % (11.6-14.8) Platelet Count 296 K/UL (150-450) Mean Platelet Volume 8.3 FL (6.5-10.1) Neutrophils (%) (Auto) 71.8 % (45.0-75.0) Lymphocytes (%) (Auto) 17.2 % (20.0-45.0) L Monocytes (%) (Auto) 7.8 % (1.0-10.0) Eosinophils (%) (Auto) 2.4 % (0.0-3.0) Basophils (%) (Auto) 0.9 % (0.0-2.0) Sodium Level 140 MMOL/L (136-145) Potassium Level 4.0 MMOL/L (3.5-5.1) Chloride Level 103 MMOL/L (98-107) Carbon Dioxide Level 26 MMOL/L (21-32) Anion Gap 11 mmol/L (5-15) Blood Urea Nitrogen 19 mg/dL (7-18) H Creatinine 0.9 MG/DL (0.55-1.30) Estimat Glomerular Filtration Rate > 60 mL/min (>60) Glucose Level 112 MG/DL (74-106) H Calcium Level 9.2 MG/DL (8.5-10.1) Magnesium Level 2.2 MG/DL (1.8-2.4) Random Gentamicin Level 1.4 ug/mL Amanda Combs MD Sep 10, 2019 11:52
[2019-09-10 12:00] VITALS: BP 115/70
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
[2019-09-10 16:00] VITALS: BP 112/68
--- NOTE | 2019-09-10 17:05 | Surgery Progress Note ---
Surgery Progress Note Subjective Additional Comments wbc improving exam stable comfortable appearing Objective Last 24 Hour Vital Signs Date Time Temp Pulse Resp B/P (MAP) Pulse Ox O2 Delivery O2 Flow Rate FiO2 09/10/19 15:30 93 17 30 09/10/19 13:00 113 09/10/19 12:00 30 09/10/19 12:00 98.4 96 16 115/70 (85) 100 09/10/19 12:00 Mechanical Ventilator 09/10/19 11:02 79 16 30 09/10/19 10:25 100.0 09/10/19 08:00 Mechanical Ventilator 09/10/19 08:00 90 09/10/19 08:00 100.3 87 16 112/79 (90) 99 09/10/19 08:00 30 09/10/19 07:33 89 16 30 09/10/19 04:00 Mechanical Ventilator 09/10/19 04:00 30 09/10/19 04:00 98.2 84 16 113/72 (86) 100 09/10/19 03:50 92 16 30 09/10/19 03:30 95 09/10/19 00:00 98.4 94 16 104/77 (86) 100 09/10/19 00:00 30 09/10/19 00:00 Mechanical Ventilator 09/09/19 23:45 83 16 30 09/09/19 23:36 91 09/09/19 23:00 100.9 09/09/19 20:00 98.4 87 21 118/82 (94) 100 09/09/19 20:00 Mechanical Ventilator 09/09/19 20:00 30 09/09/19 19:37 70 16 30 09/09/19 19:13 83 I&O Intake and Output 09/09/19 09/10/19 19:00 07:00 Intake Total 820 ml 880 ml Output Total 750 ml 500 ml Balance 70 ml 380 ml Intake Free Water 100 ml 100 ml IV Total 120 ml Tube Feeding 720 ml 660 ml Output Urine Total 750 ml 500 ml # Bowel Movements 2 1 Dressing: other Wound: other Drains: other Cardiovascular: RSR Respiratory: decreased breath sounds Abdomen: soft, present bowel sounds Extremities: no cyanosis Laboratory Tests Test 09/09/19 19:00 09/10/19 03:50 09/10/19 10:05 Urine Color Yellow Urine Appearance Slightly cloudy Urine pH 7 (4.5-8.0) Urine Specific [place] 1.015 (1.005-1.035) Urine Protein 2+ (NEGATIVE) H Urine Glucose (UA) Negative (NEGATIVE) Urine Ketones Negative (NEGATIVE) Urine Blood 5+ (NEGATIVE) H Urine Nitrite Negative (NEGATIVE) Urine Bilirubin Negative (NEGATIVE) Urine Urobilinogen 1 MG/DL (0.0-1.0) H Urine Leukocyte Esterase 1+ (NEGATIVE) H Urine RBC Tntc /HPF (0 - 0) H Urine WBC 2-4 /HPF (0 - 0) Urine Squamous Epithelial Cells None /LPF (NONE/OCC) Urine Bacteria Many /HPF (NONE) H White Blood Count 12.5 K/UL (4.8-10.8) H Red Blood Count 4.55 M/UL (4.70-6.10) L Hemoglobin 14.4 G/DL (14.2-18.0) Hematocrit 39.9 % (42.0-52.0) L Mean Corpuscular Volume 88 FL (80-99) Mean Corpuscular Hemoglobin 31.6 PG (27.0-31.0) H Mean Corpuscular Hemoglobin Concent 36.0 G/DL (32.0-36.0) Red Cell Distribution Width 11.8 % (11.6-14.8) Platelet Count 296 K/UL (150-450) Mean Platelet Volume 8.3 FL (6.5-10.1) Neutrophils (%) (Auto) 71.8 % (45.0-75.0) Lymphocytes (%) (Auto) 17.2 % (20.0-45.0) L Monocytes (%) (Auto) 7.8 % (1.0-10.0) Eosinophils (%) (Auto) 2.4 % (0.0-3.0) Basophils (%) (Auto) 0.9 % (0.0-2.0) Sodium Level 140 MMOL/L (136-145) Potassium Level 4.0 MMOL/L (3.5-5.1) Chloride Level 103 MMOL/L (98-107) Carbon Dioxide Level 26 MMOL/L (21-32) Anion Gap 11 mmol/L (5-15) Blood Urea Nitrogen 19 mg/dL (7-18) H Creatinine 0.9 MG/DL (0.55-1.30) Estimat Glomerular Filtration Rate > 60 mL/min (>60) Glucose Level 112 MG/DL (74-106) H Calcium Level 9.2 MG/DL (8.5-10.1) Magnesium Level 2.2 MG/DL (1.8-2.4) Random Gentamicin Level 1.4 ug/mL Plan Problems: (1) Feeding by G-tube Assessment & Plan: DAILY ESTIMATED NEEDS: Needs based on Critical Care, wounds/ 74.8kg abw 22-30 kcals/kg 5734-0250 total kcals 1.25-2 g protein/kg 94-150 g total protein 25-30 mL/kg 0673-4566 total fluid mLs NUTRITION DIAGNOSIS: * Swallowing difficulty R/T dysphagia, respiratory status as evidenced by pt is trach/vent dep, PEG dep. * Increased kcal/prot needs R/T wound healing as evidenced by pt admitted w/ sacral unstageable wound. CURRENT TF: Glucerna 1.2 @ 60ml/hr ENTERAL NUTRITION RECOMMENDATIONS: Glucerna 1.2 @ 60ml/hr x 24 hrs + Prosource qdaily to provide 1440ml, 1728kcal , 86g + 11g prot, 1162ml free water * Rec to increase rate to 60ml/hr for 24 hrs * Add Prosource 1pkt QD to meet protein needs * HOB over 30 degrees/ water flush per MD. ----- -CURRENTLY GLUCERNA 1.2/ 1.5 LOW ON STOCK OR OOS, REC JEVITY 1.2 BG HAS BEEN WNL, W/ GOAL OF 60ML/HR X24 HRS + PROSOURCE BID. -TF at goal + Prosource provides 1728 kcal + 80kcal, 80g +22g pro, to meet 100% est needs, monitor blood glucose regularly w/ ssi for coverage and BG control. -Jevity 1.2 @60ml/hr to provide 79g more carbs per day. Will monitor glycemic tolerance/ control. ADDITIONAL RECOMMENDATIONS: * Maintain calibrated bed scale wts * Wound care: Add DANYELLE BID + Vit C 250mg BID * Monitor lytes daily, replete as needed (low phos 2.1) * Accuchecks w/ SSI for glycemic control * Rec trial TF change to Jevity 1.2 @60 (shortage of Glucerna 1.2, 1.5) may need to increase insulin coverage (2) Decubitus skin ulcer Assessment & Plan: left flank wound noted. considered as possible abscess. evaluated. 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 Linear atelectasis of the left lung base. Blunted left costophrenic angle. Small left pleural effusion and overlying atelectasis. Mild atelectasis of the right lung base. Question old proximal right clavicle fracture. Impression: 1. Trace left pleural effusion with overlying atelectasis. Mild right basilar atelectasis. 2. Unchanged tracheostomy tube. abx as per ID respiratory care as per pulm nutritional will follow with recs thank you Streaky and hazy opacities throughout the right lung and left lower lung which may represent atelectasis versus infectious/inflammatory process. Pt presented on admission with small furuncle Lateral L chest. Reabsorbing DTPI Sacrum R and L gluteal cheeks. Scattered areas of shearing within base of wound. Surrounding areas of mixed skin Hyper and hypopigmentation noted. DTPI noted to L trochanter(L)3cm x (W)5.5cm. Base of Pressure injury has darker than is normal skin tone and is indurated. Marginal erythema along edges. Historical scars with hyperpigmentation from previous wounds noted to R and L ischial tuberosities. Heels are firm and blanchable . Tx.Plan: Apply Moisture Barrier Paste to Buttocks. Cover with Optifoam drsg. Change every 3 days and prn. Apply Cavilon Skin Barrier to both heels. Cover each heel with Optifoam drsg. Change every 7 days and prn. Reposition at least every 2houors or as tolerated. Place pillow between knees. Off-load heels with Pillow. APM/EDD Mattress overlay. (8) Chronic respiratory failure (9) Bacteremia (10) Uncontrolled seizures (11) Seizure disorder, convulsive, with status epilepticus (12) Seizure after head injury (13) Line sepsis (14) UTI (urinary tract infection) (15) Urinary tract infection (16) Acute on chronic renal insufficiency Horacio Hope Sep 10, 2019 17:05
[2019-09-10 20:00] VITALS: BP 113/73
[2019-09-10] MEDS ORDERED: NS 275ml ONE (20:15)
[2019-09-10] MEDS: Gentamicin inj 400 MG in NS 110 ML IVPB SCH (21:02)
--- NOTE | 2019-09-10 21:30 | Progress Note ---
DATE: 09/10/2019 NO DICTATION Libby Fair M.D. DR: BASHIR JOB#: [id number] CC:
[2019-09-10] MEDS: LORazepam Inj 2mg/ml 1ml IV PRN (21:51)
[2019-09-11] VITALS: BP 118/73
--- NOTE | 2019-09-11 03:15 | Progress Note ---
DATE: 09/10/2019 SUBJECTIVE: The patient developed again low-grade fever and tachycardia and was put back on isolation. PHYSICAL EXAMINATION: VITAL SIGNS: Blood pressure 112/68, his pulse is 99, respirations 17, temperature 99.7. HEENT: Eyes were normal. ENT, mucous membranes were moist and intact. NECK: Supple with no JVD without lymph nodes. Tracheostomy site is clean. LUNGS: Clear without rhonchi, rales, or wheezing. HEART: Normal sounds with regular beats. There is no tachycardia at rest. ABDOMEN: Soft and nontender with normal bowel sounds. Gastrostomy site is clean. EXTREMITIES: Warm without cyanosis, clubbing, or edema LABORATORY AND DIAGNOSTIC DATA: Hemoglobin is 14.4, hematocrit 39.9 with MCV of 88, WBC of 12.5, and platelets of 296. His BUN and creatinine is 18 and 0.9 respectively. Sodium is 140, potassium 4.0, chloride 103, CO2 is 26. No imaging study was taken today and the last visible result from 09/07/2019 where the patient has and Proteus mirabilis. Urine culture was negative. IMPRESSION: The patient's bwb-xegem-[id number] movement completely resolved when meropenem was discontinued and all dystonic movement disappeared. WBC responded well to the current antibiotic medication which include gentamicin 80 mg IV push q.12h, levofloxacin 500 mg q. 12h via G-tube. WBC is declined from 14.3 to 12.5. Repeat laboratory tests will be done in the morning. Libby Fair M.D. DR: Jono JOB#: [id number] CC:
[2019-09-11 04:00] VITALS: BP 105/79
[2019-09-11] MEDS: NovoLOG Insulin Flexpen SUBQ SCH ×4 (05:03→23:17)
--- NOTE | 2019-09-11 06:00 | Progress Note ---
DATE: 09/10/2019 CARDIOLOGY PROGRESS NOTE SUBJECTIVE: No new episodes of SVT noted. Sinus with rare ectopics noted. OBJECTIVE: VITAL SIGNS: Blood pressure 112/68, pulse 99, respirations 16, temperature max 100.1. LUNGS: Bilateral breath sounds. Trach site with secretions. CARDIAC: Regular rhythm and rate. Normal S1 and S2. ABDOMEN: Soft. EXTREMITIES: No edema. LABORATORY DATA: White count 12.5 and hemoglobin 14. Potassium 4.0, magnesium 2.2, BUN 19, and creatinine 0.9. IMPRESSION: Paroxysmal supraventricular tachyarrhythmias with no recurrence, likely precipitated by elevated pulmonary venous pressures due to respiratory failure and acute infection. PLAN: 1. Continue observation. 2. Cardiac monitoring. 3. Avoid beta agonist. 4. No indication presently for antiarrhythmic. Paul Ruggiero M.D. DR: CORNELIUS JOB#: [id number] CC: ROSEMARY
[2019-09-11 06:11] LABS: BASOPHILS % (AUTO) 1.3 % (0.0-2.0); EOSINOPHILS % (AUTO) 2.8 % (0.0-3.0); HEMATOCRIT 39.3 % (42.0-52.0); HEMOGLOBIN 14.1 G/DL (14.2-18.0); LYMPHOCYTES % (AUTO) 24.3 % (20.0-45.0); MEAN CORPUSCULAR VOLUME 88 FL (80-99); MONOCYTES % (AUTO) 6.4 % (1.0-10.0); NEUTROPHILS % (AUTO) 65.2 % (45.0-75.0); PLATELET COUNT 288 K/UL (150-450); RED BLOOD COUNT 4.48 M/UL (4.70-6.10); WHITE BLOOD COUNT 10.1 K/UL (4.8-10.8)
[2019-09-11 06:34] LABS: ANION GAP 11 mmol/L (5-15); BLOOD UREA NITROGEN 19 mg/dL (7-18); CALCIUM 9.2 MG/DL (8.5-10.1); CARBON DIOXIDE 26 MMOL/L (21-32); CHLORIDE 103 MMOL/L (98-107); POTASSIUM 3.8 MMOL/L (3.5-5.1); SODIUM 139 MMOL/L (136-145)
[2019-09-11 08:00] VITALS: BP 118/68
[2019-09-11] MEDS: Gentamicin 0.3% Opth Soln 5ml BOTH EYES SCH ×3 (08:58→19:33)
[2019-09-11] MEDS: Pantoprazole Inj IV SCH (08:58)
--- NOTE | 2019-09-11 09:43 | Diagnostic Imaging Report ---
Indication: Shortness of breath Technique: One view of the chest Comparison: 09/08/2019 Findings: Tracheostomy again demonstrated. There is some atelectasis at the left lung base. Atelectasis or scarring is again demonstrated in the right perihilar region. The heart size is normal. Findings are unchanged Impression: Unchanged, over one day, findings as above.
[2019-09-11] MEDS: Heparin 5000 units/ml inj SUBQ SCH ×2 (09:52→20:33)
[2019-09-11] MEDS: LORazepam Inj 2mg/ml 1ml IV PRN (11:32)
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
[2019-09-11 12:00] VITALS: BP 127/63
--- NOTE | 2019-09-11 12:18 | Pulmonolgy Critical Care Note ---
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 (2) Chronic respiratory failure (3) Diabetes mellitus (4) Seizure disorder, convulsive, with status epilepticus (5) Feeding by G-tube Respiratory: monitor respiratory rate, adjust FIO2, CXR Cardiac: continue pressors, continue to monitor HR/BP Renal: F/U I&O, keep IV fluid, check electrolytes Infectious Disease: check cultures, continue antibiotics Gastrointestinal: continue feedings/current rate Endocrine: monitor blood sugar Hematologic: monitor H/H, transfuse if hgb<8.5 Neurologic: PRN Ativan, PRN Morphine, keep patient comfortable Notes Reviewed: plate put in worker, cardio, renal Discussed with: nurses, consultants, foster care case managerassistant finance manager - Objective Last 24 Hour Vital Signs Date Time Temp Pulse Resp B/P (MAP) Pulse Ox O2 Delivery O2 Flow Rate FiO2 09/11/19 08:00 98.8 91 18 118/68 (85) 99 09/11/19 08:00 30 09/11/19 08:00 Mechanical Ventilator 09/11/19 07:30 93 09/11/19 07:29 93 16 30 09/11/19 04:30 98 16 30 09/11/19 04:00 Mechanical Ventilator 09/11/19 04:00 30 09/11/19 04:00 99.0 88 18 105/79 (88) 100 09/11/19 03:28 91 09/11/19 03:28 99.3 09/11/19 02:58 100.6 98 09/11/19 00:19 81 17 30 09/11/19 00:00 30 09/11/19 00:00 98.8 89 18 118/73 (88) 100 09/11/19 00:00 Mechanical Ventilator 09/11/19 00:00 83 09/10/19 20:38 99.2 09/10/19 20:20 93 17 30 09/10/19 20:00 30 09/10/19 20:00 100.1 97 16 113/73 (86) 100 09/10/19 20:00 Mechanical Ventilator 09/10/19 19:31 97 09/10/19 16:00 Mechanical Ventilator 09/10/19 16:00 107 09/10/19 16:00 99.7 99 16 112/68 (83) 100 09/10/19 16:00 30 09/10/19 15:30 93 17 30 09/10/19 13:00 113 Status: sedated Condition: critical HEENT: atraumatic Neck: full ROM Heart: HR/BP stable Abdomen: soft, non-tender Extremities: no C/C/E Micro: Microbiology Date/Time Source Procedure Growth Status 09/09/19 18:55 Blood Blood Culture - Preliminary NO GROWTH AFTER 24 HOURS Resulted 09/09/19 18:50 Blood Blood Culture - Preliminary NO GROWTH AFTER 24 HOURS Resulted 09/09/19 19:00 Urine,Clean Catch Urine Culture - Preliminary NO GROWTH AFTER 24 HOURS Resulted Accucheck: 116 Critical Care - Subjective ROS Limited/Unobtainable: Yes Condition: critical EKG Rhythm: Sinus Rhythm FI02: 30 Vent Support Breath Rate: 16 Vent Support Mode: AC Vent Tidal Volume: 600 Sputum Amount: Moderate PEEP: 5.0 PIP: 23 Tube Feeding Amount: 60 I&O: Intake and Output 09/10/19 09/11/19 19:00 07:00 Intake Total 820 ml 880 ml Output Total 750 ml 475 ml Balance 70 ml 405 ml Intake Free Water 100 ml 100 ml IV Total 120 ml Tube Feeding 720 ml 660 ml Output Urine Total 750 ml 475 ml # Bowel Movements 1 Labs: Laboratory Tests Test 09/11/19 05:30 White Blood Count 10.1 K/UL (4.8-10.8) Red Blood Count 4.48 M/UL (4.70-6.10) L Hemoglobin 14.1 G/DL (14.2-18.0) L Hematocrit 39.3 % (42.0-52.0) L Mean Corpuscular Volume 88 FL (80-99) Mean Corpuscular Hemoglobin 31.4 PG (27.0-31.0) H Mean Corpuscular Hemoglobin Concent 35.8 G/DL (32.0-36.0) Red Cell Distribution Width 12.0 % (11.6-14.8) Platelet Count 288 K/UL (150-450) Mean Platelet Volume 8.2 FL (6.5-10.1) Neutrophils (%) (Auto) 65.2 % (45.0-75.0) Lymphocytes (%) (Auto) 24.3 % (20.0-45.0) Monocytes (%) (Auto) 6.4 % (1.0-10.0) Eosinophils (%) (Auto) 2.8 % (0.0-3.0) Basophils (%) (Auto) 1.3 % (0.0-2.0) Sodium Level 139 MMOL/L (136-145) Potassium Level 3.8 MMOL/L (3.5-5.1) Chloride Level 103 MMOL/L (98-107) Carbon Dioxide Level 26 MMOL/L (21-32) Anion Gap 11 mmol/L (5-15) Blood Urea Nitrogen 19 mg/dL (7-18) H Creatinine 1.0 MG/DL (0.55-1.30) Estimat Glomerular Filtration Rate > 60 mL/min (>60) Glucose Level 120 MG/DL (74-106) H Calcium Level 9.2 MG/DL (8.5-10.1) Amanda Combs MD Sep 11, 2019 12:18
--- NOTE | 2019-09-11 12:24 | Pulmonolgy Critical Care Note ---
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 (2) Chronic respiratory failure (3) Diabetes mellitus (4) Seizure disorder, convulsive, with status epilepticus (5) Feeding by G-tube Respiratory: monitor respiratory rate, adjust FIO2, CXR Cardiac: continue pressors, continue to monitor HR/BP Renal: F/U I&O, check electrolytes Infectious Disease: check cultures Gastrointestinal: continue feedings/current rate Endocrine: monitor blood sugar Hematologic: monitor H/H Neurologic: PRN Ativan, keep patient comfortable Affect: PRN ativan Prophylaxis: Protonix Notes Reviewed: mechanical maintenance supervisor, cardio Discussed with: nurses, consultants, case specialistmanager statistical programming - Objective Last 24 Hour Vital Signs Date Time Temp Pulse Resp B/P (MAP) Pulse Ox O2 Delivery O2 Flow Rate FiO2 09/11/19 08:00 98.8 91 18 118/68 (85) 99 09/11/19 08:00 30 09/11/19 08:00 Mechanical Ventilator 09/11/19 07:30 93 09/11/19 07:29 93 16 30 09/11/19 04:30 98 16 30 09/11/19 04:00 Mechanical Ventilator 09/11/19 04:00 30 09/11/19 04:00 99.0 88 18 105/79 (88) 100 09/11/19 03:28 91 09/11/19 03:28 99.3 09/11/19 02:58 100.6 98 09/11/19 00:19 81 17 30 09/11/19 00:00 30 09/11/19 00:00 98.8 89 18 118/73 (88) 100 09/11/19 00:00 Mechanical Ventilator 09/11/19 00:00 83 09/10/19 20:38 99.2 09/10/19 20:20 93 17 30 09/10/19 20:00 30 09/10/19 20:00 100.1 97 16 113/73 (86) 100 09/10/19 20:00 Mechanical Ventilator 09/10/19 19:31 97 09/10/19 16:00 Mechanical Ventilator 09/10/19 16:00 107 09/10/19 16:00 99.7 99 16 112/68 (83) 100 09/10/19 16:00 30 09/10/19 15:30 93 17 30 09/10/19 13:00 113 Condition: grave HEENT: atraumatic Neck: full ROM Heart: HR/BP stable Abdomen: soft Extremities: no C/C/E Micro: Microbiology Date/Time Source Procedure Growth Status 09/09/19 18:55 Blood Blood Culture - Preliminary NO GROWTH AFTER 24 HOURS Resulted 09/09/19 18:50 Blood Blood Culture - Preliminary NO GROWTH AFTER 24 HOURS Resulted 09/09/19 19:00 Urine,Clean Catch Urine Culture - Preliminary NO GROWTH AFTER 24 HOURS Resulted Accucheck: 116 Critical Care - Subjective ROS Limited/Unobtainable: Yes Condition: critical EKG Rhythm: Sinus Rhythm FI02: 30 Vent Support Breath Rate: 16 Vent Support Mode: AC Vent Tidal Volume: 600 Sputum Amount: Moderate PEEP: 5.0 PIP: 23 Tube Feeding Amount: 60 I&O: Intake and Output 09/10/19 09/11/19 19:00 07:00 Intake Total 820 ml 880 ml Output Total 750 ml 475 ml Balance 70 ml 405 ml Intake Free Water 100 ml 100 ml IV Total 120 ml Tube Feeding 720 ml 660 ml Output Urine Total 750 ml 475 ml # Bowel Movements 1 Labs: Laboratory Tests Test 09/11/19 05:30 White Blood Count 10.1 K/UL (4.8-10.8) Red Blood Count 4.48 M/UL (4.70-6.10) L Hemoglobin 14.1 G/DL (14.2-18.0) L Hematocrit 39.3 % (42.0-52.0) L Mean Corpuscular Volume 88 FL (80-99) Mean Corpuscular Hemoglobin 31.4 PG (27.0-31.0) H Mean Corpuscular Hemoglobin Concent 35.8 G/DL (32.0-36.0) Red Cell Distribution Width 12.0 % (11.6-14.8) Platelet Count 288 K/UL (150-450) Mean Platelet Volume 8.2 FL (6.5-10.1) Neutrophils (%) (Auto) 65.2 % (45.0-75.0) Lymphocytes (%) (Auto) 24.3 % (20.0-45.0) Monocytes (%) (Auto) 6.4 % (1.0-10.0) Eosinophils (%) (Auto) 2.8 % (0.0-3.0) Basophils (%) (Auto) 1.3 % (0.0-2.0) Sodium Level 139 MMOL/L (136-145) Potassium Level 3.8 MMOL/L (3.5-5.1) Chloride Level 103 MMOL/L (98-107) Carbon Dioxide Level 26 MMOL/L (21-32) Anion Gap 11 mmol/L (5-15) Blood Urea Nitrogen 19 mg/dL (7-18) H Creatinine 1.0 MG/DL (0.55-1.30) Estimat Glomerular Filtration Rate > 60 mL/min (>60) Glucose Level 120 MG/DL (74-106) H Calcium Level 9.2 MG/DL (8.5-10.1) Amanda Combs MD Sep 11, 2019 12:24
--- NOTE | 2019-09-11 14:16 | Surgery Progress Note ---
Surgery Progress Note Subjective Additional Comments no acute events labs noted exam stable comfortable micro reviewed Objective Last 24 Hour Vital Signs Date Time Temp Pulse Resp B/P (MAP) Pulse Ox O2 Delivery O2 Flow Rate FiO2 09/11/19 12:00 100.2 91 16 127/63 (84) 99 09/11/19 12:00 30 09/11/19 12:00 Mechanical Ventilator 09/11/19 11:40 94 09/11/19 08:00 98.8 91 18 118/68 (85) 99 09/11/19 08:00 30 09/11/19 08:00 Mechanical Ventilator 09/11/19 07:30 93 09/11/19 07:29 93 16 30 09/11/19 04:30 98 16 30 09/11/19 04:00 Mechanical Ventilator 09/11/19 04:00 30 09/11/19 04:00 99.0 88 18 105/79 (88) 100 09/11/19 03:28 91 09/11/19 03:28 99.3 09/11/19 02:58 100.6 98 09/11/19 00:19 81 17 30 09/11/19 00:00 30 09/11/19 00:00 98.8 89 18 118/73 (88) 100 09/11/19 00:00 Mechanical Ventilator 09/11/19 00:00 83 09/10/19 20:38 99.2 09/10/19 20:20 93 17 30 09/10/19 20:00 30 09/10/19 20:00 100.1 97 16 113/73 (86) 100 09/10/19 20:00 Mechanical Ventilator 09/10/19 19:31 97 09/10/19 16:00 Mechanical Ventilator 09/10/19 16:00 107 09/10/19 16:00 99.7 99 16 112/68 (83) 100 09/10/19 16:00 30 09/10/19 15:30 93 17 30 I&O Intake and Output 09/10/19 09/11/19 19:00 07:00 Intake Total 820 ml 880 ml Output Total 750 ml 475 ml Balance 70 ml 405 ml Intake Free Water 100 ml 100 ml IV Total 120 ml Tube Feeding 720 ml 660 ml Output Urine Total 750 ml 475 ml # Bowel Movements 1 Dressing: other Wound: other Drains: other Cardiovascular: RSR Respiratory: decreased breath sounds Abdomen: soft, present bowel sounds Extremities: no cyanosis Laboratory Tests Test 09/11/19 05:30 White Blood Count 10.1 K/UL (4.8-10.8) Red Blood Count 4.48 M/UL (4.70-6.10) L Hemoglobin 14.1 G/DL (14.2-18.0) L Hematocrit 39.3 % (42.0-52.0) L Mean Corpuscular Volume 88 FL (80-99) Mean Corpuscular Hemoglobin 31.4 PG (27.0-31.0) H Mean Corpuscular Hemoglobin Concent 35.8 G/DL (32.0-36.0) Red Cell Distribution Width 12.0 % (11.6-14.8) Platelet Count 288 K/UL (150-450) Mean Platelet Volume 8.2 FL (6.5-10.1) Neutrophils (%) (Auto) 65.2 % (45.0-75.0) Lymphocytes (%) (Auto) 24.3 % (20.0-45.0) Monocytes (%) (Auto) 6.4 % (1.0-10.0) Eosinophils (%) (Auto) 2.8 % (0.0-3.0) Basophils (%) (Auto) 1.3 % (0.0-2.0) Sodium Level 139 MMOL/L (136-145) Potassium Level 3.8 MMOL/L (3.5-5.1) Chloride Level 103 MMOL/L (98-107) Carbon Dioxide Level 26 MMOL/L (21-32) Anion Gap 11 mmol/L (5-15) Blood Urea Nitrogen 19 mg/dL (7-18) H Creatinine 1.0 MG/DL (0.55-1.30) Estimat Glomerular Filtration Rate > 60 mL/min (>60) Glucose Level 120 MG/DL (74-106) H Calcium Level 9.2 MG/DL (8.5-10.1) Plan Problems: (1) Feeding by G-tube Assessment & Plan: DAILY ESTIMATED NEEDS: Needs based on Critical Care, wounds/ 74.8kg abw 22-30 kcals/kg 2732-0011 total kcals 1.25-2 g protein/kg 94-150 g total protein 25-30 mL/kg 2580-3333 total fluid mLs NUTRITION DIAGNOSIS: * Swallowing difficulty R/T dysphagia, respiratory status as evidenced by pt is trach/vent dep, PEG dep. * Increased kcal/prot needs R/T wound healing as evidenced by pt admitted w/ sacral unstageable wound. CURRENT TF: Glucerna 1.2 @ 60ml/hr ENTERAL NUTRITION RECOMMENDATIONS: Glucerna 1.2 @ 60ml/hr x 24 hrs + Prosource qdaily to provide 1440ml, 1728kcal , 86g + 11g prot, 1162ml free water * Rec to increase rate to 60ml/hr for 24 hrs * Add Prosource 1pkt QD to meet protein needs * HOB over 30 degrees/ water flush per MD. ----- -CURRENTLY GLUCERNA 1.2/ 1.5 LOW ON STOCK OR OOS, REC JEVITY 1.2 BG HAS BEEN WNL, W/ GOAL OF 60ML/HR X24 HRS + PROSOURCE BID. -TF at goal + Prosource provides 1728 kcal + 80kcal, 80g +22g pro, to meet 100% est needs, monitor blood glucose regularly w/ ssi for coverage and BG control. -Jevity 1.2 @60ml/hr to provide 79g more carbs per day. Will monitor glycemic tolerance/ control. ADDITIONAL RECOMMENDATIONS: * Maintain calibrated bed scale wts * Wound care: Add DANYELLE BID + Vit C 250mg BID * Monitor lytes daily, replete as needed (low phos 2.1) * Accuchecks w/ SSI for glycemic control * Rec trial TF change to Jevity 1.2 @60 (shortage of Glucerna 1.2, 1.5) may need to increase insulin coverage (2) Decubitus skin ulcer Assessment & Plan: left flank wound noted. considered as possible abscess. evaluated. 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 Linear atelectasis of the left lung base. Blunted left costophrenic angle. Small left pleural effusion and overlying atelectasis. Mild atelectasis of the right lung base. Question old proximal right clavicle fracture. Impression: 1. Trace left pleural effusion with overlying atelectasis. Mild right basilar atelectasis. 2. Unchanged tracheostomy tube. abx as per ID respiratory care as per pulm nutritional will follow with recs thank you Streaky and hazy opacities throughout the right lung and left lower lung which may represent atelectasis versus infectious/inflammatory process. Pt presented on admission with small furuncle Lateral L chest. Reabsorbing DTPI Sacrum R and L gluteal cheeks. Scattered areas of shearing within base of wound. Surrounding areas of mixed skin Hyper and hypopigmentation noted. DTPI noted to L trochanter(L)3cm x (W)5.5cm. Base of Pressure injury has darker than is normal skin tone and is indurated. Marginal erythema along edges. Historical scars with hyperpigmentation from previous wounds noted to R and L ischial tuberosities. Heels are firm and blanchable . Tx.Plan: Apply Moisture Barrier Paste to Buttocks. Cover with Optifoam drsg. Change every 3 days and prn. Apply Cavilon Skin Barrier to both heels. Cover each heel with Optifoam drsg. Change every 7 days and prn. Reposition at least every 2houors or as tolerated. Place pillow between knees. Off-load heels with Pillow. APM/EDD Mattress overlay. (8) Chronic respiratory failure (9) Bacteremia (10) Uncontrolled seizures (11) Seizure disorder, convulsive, with status epilepticus (12) Seizure after head injury (13) Line sepsis (14) UTI (urinary tract infection) (15) Urinary tract infection (16) Acute on chronic renal insufficiency Horacio Hope Sep 11, 2019 14:16
[2019-09-11 16:00] VITALS: BP 106/66
[2019-09-11] MEDS ORDERED: NS 275ml ONE (19:21)
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
[2019-09-11 20:00] VITALS: BP 111/65
[2019-09-11] MEDS: Gentamicin inj 400 MG in NS 110 ML IVPB SCH (21:18)
[2019-09-12] VITALS: BP 115/61
--- NOTE | 2019-09-12 02:45 | Progress Note ---
DATE: 09/11/2019 SUBJECTIVE: The patient is awake, alert, afebrile, hemodynamically stable. He has had some movement of his lips. It appears the patient is attempting progressively increased as increased. PHYSICAL EXAMINATION: VITAL SIGNS: Blood pressure 139/92, his pulse is 96, respirations 20, and temperature 98. HEENT: Eyes were normal. ENT, mucous membranes were moist and intact. NECK: Supple. No JVD without lymph nodes. Tracheostomy site is clean. LUNGS: Clear without rhonchi, rales, or wheezing. HEART: Normal sounds with regular beats. There is no tachycardia at rest. ABDOMEN: Soft, nontender with normal bowel sounds. Gastrostomy site is clean. EXTREMITIES: Warm without cyanosis, clubbing, or edema. LABORATORY DATA: No new laboratory data available at the time of the dictation as the computer is down. IMPRESSION: The patient's condition will be updated tomorrow in the progress note. Review of laboratory tests of today and tomorrow will be done. Appropriate orders in regard to blood tests are necessary tomorrow for patient followup were given to the irrigationist designer nurse. Libby Fair M.D. DR: COREY JOB#: [id number] CC:
[2019-09-12 04:00] VITALS: BP 110/68
[2019-09-12 04:59] LABS: BASOPHILS % (AUTO) 0.9 % (0.0-2.0); EOSINOPHILS % (AUTO) 3.6 % (0.0-3.0); HEMATOCRIT 39.1 % (42.0-52.0); HEMOGLOBIN 13.8 G/DL (14.2-18.0); LYMPHOCYTES % (AUTO) 22.4 % (20.0-45.0); MEAN CORPUSCULAR VOLUME 88 FL (80-99); MONOCYTES % (AUTO) 4.1 % (1.0-10.0); PLATELET COUNT 296 K/UL (150-450); RED BLOOD COUNT 4.45 M/UL (4.70-6.10); RED CELL DISTRIBUTION WIDTH 11.8 % (11.6-14.8); WHITE BLOOD COUNT 9.9 K/UL (4.8-10.8)
[2019-09-12] MEDS: NovoLOG Insulin Flexpen SUBQ SCH ×4 (05:04→23:25)
[2019-09-12 06:11] LABS: ALANINE AMINOTRANSFERASE 58 U/L (12-78); ALBUMIN 3.3 G/DL (3.4-5.0); ALBUMIN/GLOBULIN RATIO 0.8 (1.0-2.7); ALKALINE PHOSPHATASE 139 U/L (46-116); ANION GAP 11 mmol/L (5-15); ASPARTATE AMINO TRANSFERASE 26 U/L (15-37); BILIRUBIN,TOTAL 0.4 MG/DL (0.2-1.0); BLOOD UREA NITROGEN 20 mg/dL (7-18); CALCIUM 9.4 MG/DL (8.5-10.1); CARBON DIOXIDE 26 MMOL/L (21-32); CHLORIDE 103 MMOL/L (98-107); CREATININE 0.9 MG/DL (0.55-1.30); PHOSPHORUS 3.8 MG/DL (2.5-4.9); POTASSIUM 4.1 MMOL/L (3.5-5.1); SODIUM 140 MMOL/L (136-145)
[2019-09-12 08:00] VITALS: BP 122/74
[2019-09-12] MEDS: Pantoprazole Inj IV SCH (09:09)
[2019-09-12] MEDS: Heparin 5000 units/ml inj SUBQ SCH ×2 (09:10→20:46)
[2019-09-12] MEDS: Gentamicin 0.3% Opth Soln 5ml BOTH EYES SCH ×3 (09:14→18:37)
--- NOTE | 2019-09-12 10:15 | Progress Note ---
DATE: 09/11/2019 CARDIOLOGY PROGRESS NOTE SUBJECTIVE: The patient remains with stable blood pressure parameters. He is not on any pressor support. Monitored rhythm, sinus. No sustained supraventricular arrhythmias noted over the past 48 hours. PHYSICAL EXAMINATION: Unchanged. T-max 101.7, blood pressure 106/66, heart rate 95, respiratory rate 16. IMPRESSION: 1. Respiratory failure. 2. Sepsis. 3. Paroxysmal supraventricular tachycardia. 4. Tracheostomy. 5. Recovering shock. PLAN: 1. Follow up cultures and adjust antimicrobials. 2. Avoid beta agonist. 3. Continue cardiac monitoring and ventilator support. 4. No antiarrhythmic therapy indicated at this time. Paul Ruggiero M.D. DR: JUDAH JOB#: [id number] CC: ROSEMARY
--- NOTE | 2019-09-12 11:35 | Pulmonolgy Critical Care Note ---
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 (2) Chronic respiratory failure (3) Diabetes mellitus (4) Seizure disorder, convulsive, with status epilepticus (5) Feeding by G-tube Respiratory: monitor respiratory rate, adjust FIO2, CXR Cardiac: continue pressors, stop pressors, continue to monitor HR/BP Renal: check electrolytes Infectious Disease: check cultures Gastrointestinal: continue feedings/current rate Endocrine: check TSH, check HgA1C Neurologic: PRN Ativan, PRN Morphine Prophylaxis: Protonix, Heparin Notes Reviewed: cardio Discussed with: nurses, consultants, case fitterassociate manager - Objective Last 24 Hour Vital Signs Date Time Temp Pulse Resp B/P (MAP) Pulse Ox O2 Delivery O2 Flow Rate FiO2 09/12/19 11:10 78 16 30 09/12/19 08:00 98.1 76 16 122/74 (90) 100 09/12/19 08:00 Mechanical Ventilator 09/12/19 08:00 30 09/12/19 07:59 85 09/12/19 07:10 84 16 30 09/12/19 04:59 98.7 09/12/19 04:00 Mechanical Ventilator 09/12/19 04:00 99.6 95 18 110/68 (82) 100 09/12/19 04:00 30 09/12/19 03:32 98 09/12/19 03:19 96 16 30 09/12/19 00:00 30 09/12/19 00:00 97.4 84 18 115/61 (79) 100 09/12/19 00:00 Mechanical Ventilator 09/11/19 23:29 90 09/11/19 23:10 94 17 30 09/11/19 20:00 Mechanical Ventilator 09/11/19 20:00 98.2 93 16 111/65 (80) 99 09/11/19 20:00 30 09/11/19 19:25 91 17 30 09/11/19 19:03 89 09/11/19 16:00 101.7 95 16 106/66 (79) 99 09/11/19 16:00 Mechanical Ventilator 09/11/19 16:00 30 09/11/19 15:30 95 18 30 09/11/19 15:23 91 09/11/19 12:00 100.2 91 16 127/63 (84) 99 09/11/19 12:00 30 09/11/19 12:00 Mechanical Ventilator 09/11/19 11:40 94 Status: awake Condition: critical HEENT: atraumatic, normocephalic Neck: full ROM Lungs: clear Heart: HR/BP stable Abdomen: soft, non-tender, feeding tube Extremities: edema Micro: Microbiology Date/Time Source Procedure Growth Status 09/09/19 18:55 Blood Blood Culture - Preliminary NO GROWTH AFTER 48 HOURS Resulted 09/09/19 18:50 Blood Blood Culture - Preliminary NO GROWTH AFTER 48 HOURS Resulted 09/09/19 19:00 Urine,Clean Catch Urine Culture - Final NO GROWTH AFTER 48 HOURS Complete Accucheck: 105 Critical Care - Subjective FI02: 30 Vent Support Breath Rate: 16 Vent Support Mode: AC Vent Tidal Volume: 600 Sputum Amount: Moderate PEEP: 5.0 PIP: 26 Tube Feeding Amount: 60 I&O: Intake and Output 09/11/19 09/12/19 19:00 07:00 Intake Total 920 ml 820 ml Output Total 450 ml 550 ml Balance 470 ml 270 ml Intake Free Water 100 ml 100 ml IV Total 120 ml Tube Feeding 720 ml 600 ml Other 100 ml Output Urine Total 450 ml 550 ml # Bowel Movements 1 Labs: Laboratory Tests Test 09/12/19 03:00 White Blood Count 9.9 K/UL (4.8-10.8) Red Blood Count 4.45 M/UL (4.70-6.10) L Hemoglobin 13.8 G/DL (14.2-18.0) L Hematocrit 39.1 % (42.0-52.0) L Mean Corpuscular Volume 88 FL (80-99) Mean Corpuscular Hemoglobin 30.9 PG (27.0-31.0) Mean Corpuscular Hemoglobin Concent 35.2 G/DL (32.0-36.0) Red Cell Distribution Width 11.8 % (11.6-14.8) Platelet Count 296 K/UL (150-450) Mean Platelet Volume 7.8 FL (6.5-10.1) Neutrophils (%) (Auto) 69.0 % (45.0-75.0) Lymphocytes (%) (Auto) 22.4 % (20.0-45.0) Monocytes (%) (Auto) 4.1 % (1.0-10.0) Eosinophils (%) (Auto) 3.6 % (0.0-3.0) H Basophils (%) (Auto) 0.9 % (0.0-2.0) Sodium Level 140 MMOL/L (136-145) Potassium Level 4.1 MMOL/L (3.5-5.1) Chloride Level 103 MMOL/L (98-107) Carbon Dioxide Level 26 MMOL/L (21-32) Anion Gap 11 mmol/L (5-15) Blood Urea Nitrogen 20 mg/dL (7-18) H Creatinine 0.9 MG/DL (0.55-1.30) Estimat Glomerular Filtration Rate > 60 mL/min (>60) Glucose Level 106 MG/DL (74-106) Calcium Level 9.4 MG/DL (8.5-10.1) Phosphorus Level 3.8 MG/DL (2.5-4.9) Magnesium Level 2.2 MG/DL (1.8-2.4) Total Bilirubin 0.4 MG/DL (0.2-1.0) Aspartate Amino Transf (AST/SGOT) 26 U/L (15-37) Alanine Aminotransferase (ALT/SGPT) 58 U/L (12-78) Alkaline Phosphatase 139 U/L (46-116) H Total Protein 7.7 G/DL (6.4-8.2) Albumin 3.3 G/DL (3.4-5.0) L Globulin 4.4 g/dL Albumin/Globulin Ratio 0.8 (1.0-2.7) L Amanda Combs MD Sep 12, 2019 11:35
[2019-09-12 12:00] VITALS: BP 110/65
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
[2019-09-12 16:00] VITALS: BP 104/70
[2019-09-12 20:00] VITALS: BP 109/72
[2019-09-12] MEDS: levETIRAcetam 500mg/5ml Liquid GT SCH (20:47)
[2019-09-12] MEDS: Gentamicin inj 400 MG in NS 110 ML IVPB SCH (22:40)
[2019-09-13] VITALS: BP 102/65
--- NOTE | 2019-09-13 01:00 | Progress Note ---
DATE: 09/12/2019 SUBJECTIVE: The patient is afebrile, hemodynamically stable, more awake than usual. He has facial expression and responds to audio and verbal stimuli as well as tactile stimuli. He removed the stethoscope from the chest that required some dexterity. PHYSICAL EXAMINATION: VITAL SIGNS: Blood pressure 104/70, his pulse is 85, respirations 16, and temperature 98.1. HEENT: Eyes were normal. ENT, mucous membranes were moist and intact. NECK: Supple with no JVD without lymph nodes. Tracheostomy site is clean. LUNGS: Clear without rhonchi, rales, or wheezing. HEART: Normal sounds with regular beats. There is no tachycardia at rest. ABDOMEN: Soft, nontender with normal bowel sounds. Gastrostomy site is clean. EXTREMITIES: Warm without cyanosis, clubbing, or edema. LABORATORY DATA: His hemoglobin is 13.8, hematocrit 39.1 with MCV of 88, WBC of 9.9, and platelets of 296. His BUN and creatinine are 20 and 0.9 respectively. Sodium is 140, potassium 4.1, chloride 103, CO2 is 26. SGOT, SGPT, and alkaline phosphatase are normal. Calcium, phosphorus, and magnesium are all normal. Albumin is 3.3 and total protein is 7.7. IMPRESSION: His sputum that was taken 5 days ago is now available. Sputum grew Serratia marcescens and Proteus mirabilis. Proteus mirabilis was sensitive to cefepime and ceftazidime. Serratia is sensitive to gentamicin and Proteus is sensitive to gentamicin as well. Yesterday, the patient has been on meropenem to which he is sensitive; however, the meropenem increased the facial movement. Chest x-ray done yesterday revealed there is atelectasis again in the right perihilar region, this is unchanged from 09/08/2019. EEG was done as well. The EEG reveals 3 different abnormalities; 1) diffuse encephalopathy, 2) focal seizure, 3) dystonic movement. The patient is on levetiracetam 500 mg q.12h. This will be increased to 1000 mg q.12h. The patient now that his leukocytes are normal. He did have fever 20 hours ago, but since then no fever was detected. If the patient remains afebrile tomorrow, consideration for discharge will be discussed with the infectious diseases specialist. Libby Fair M.D. DR: CARLITOS JOB#: [id number] CC:
[2019-09-13 04:00] VITALS: BP 128/76
[2019-09-13] MEDS: NovoLOG Insulin Flexpen SUBQ SCH ×4 (05:47→23:23)
[2019-09-13 05:49] LABS: BASOPHILS % (AUTO) 0.7 % (0.0-2.0); EOSINOPHILS % (AUTO) 3.1 % (0.0-3.0); HEMATOCRIT 43.3 % (42.0-52.0); HEMOGLOBIN 14.3 G/DL (14.2-18.0); LYMPHOCYTES % (AUTO) 16.7 % (20.0-45.0); MEAN CORPUSCULAR VOLUME 94 FL (80-99); NEUTROPHILS % (AUTO) 73.4 % (45.0-75.0); PLATELET COUNT 288 K/UL (150-450); RED BLOOD COUNT 4.61 M/UL (4.70-6.10); RED CELL DISTRIBUTION WIDTH 11.9 % (11.6-14.8); WHITE BLOOD COUNT 11.2 K/UL (4.8-10.8)
[2019-09-13 05:58] LABS: ALANINE AMINOTRANSFERASE 48 U/L (12-78); ALBUMIN 3.3 G/DL (3.4-5.0); ALBUMIN/GLOBULIN RATIO 0.8 (1.0-2.7); ALKALINE PHOSPHATASE 144 U/L (46-116); AMYLASE 111 U/L (25-115); ANION GAP 14 mmol/L (5-15); ASPARTATE AMINO TRANSFERASE 24 U/L (15-37); BILIRUBIN,TOTAL 0.5 MG/DL (0.2-1.0); BLOOD UREA NITROGEN 20 mg/dL (7-18); CALCIUM 9.2 MG/DL (8.5-10.1); CARBON DIOXIDE 25 MMOL/L (21-32); CHLORIDE 101 MMOL/L (98-107); CREATININE 0.9 MG/DL (0.55-1.30); POTASSIUM 4.2 MMOL/L (3.5-5.1); SODIUM 140 MMOL/L (136-145)
[2019-09-13 08:00] VITALS: BP 93/73
--- NOTE | 2019-09-13 08:00 | Progress Note ---
DATE: 09/12/2019 CARDIOLOGY PROGRESS NOTE SUBJECTIVE: No recurring supraventricular tachycardia episodes. The patient remains on ventilator support. PHYSICAL EXAMINATION: VITAL SIGNS: Blood pressure 122/74, heart rate 76, respiratory rate 16, T-max 99.6. LUNGS: Bilateral breath sounds. CARDIAC: Regular rhythm and rate. Normal S1, S2. ABDOMEN: Soft. EXTREMITIES: No edema. LABORATORY DATA: White count 10, hemoglobin 13.8. Potassium 4.1, magnesium 2.2. IMPRESSION: 1. Respiratory failure. 2. Sepsis. 3. Recovered shock. 4. Episode of paroxysmal SVT, resolved and likely due to elevated right heart filling pressures. PLAN: No plan for antiarrhythmic therapy at this time. Continue current care plan otherwise without change. May consider diltiazem in the future for sustained supraventricular arrhythmias. Paul Ruggiero M.D. DR: MIGUEL JOB#: [id number] CC:
[2019-09-13] MEDS: Pantoprazole Inj IV SCH (09:00)
[2019-09-13] MEDS: levETIRAcetam 500mg/5ml Liquid GT SCH ×2 (09:00→20:43)
[2019-09-13] MEDS: Heparin 5000 units/ml inj SUBQ SCH ×2 (09:02→20:44)
[2019-09-13] MEDS: Gentamicin 0.3% Opth Soln 5ml BOTH EYES SCH ×3 (09:04→18:11)
--- NOTE | 2019-09-13 09:40 | Diagnostic Imaging Report ---
Indication: Right leg edema Technique: Grayscale and duplex images of the bilateral lower extremity veins Comparison: None Findings: Bilaterally, grayscale and duplex images demonstrate no evidence of intraluminal thrombus. Normal phasic Doppler waveforms, demonstrating normal augmentation response and no evidence of valvular insufficiency. Greater saphenous vein(s) and tibial veins are patent. Normal compressibility. Impression: Negative for evidence of lower extremity deep venous thrombosis bilaterally
--- NOTE | 2019-09-13 11:33 | Pulmonolgy Critical Care Note ---
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 (2) Chronic respiratory failure (3) Diabetes mellitus (4) Seizure disorder, convulsive, with status epilepticus (5) Feeding by G-tube Respiratory: monitor respiratory rate, adjust FIO2, CXR Cardiac: continue pressors, continue to monitor HR/BP Renal: F/U I&O, keep IV fluid, check electrolytes Infectious Disease: check cultures Gastrointestinal: continue feedings/current rate Endocrine: monitor blood sugar, continue sliding scale insulin Hematologic: monitor H/H, transfuse if hgb<8.5 Neurologic: PRN Ativan, keep patient comfortable Affect: PRN ativan Disposition: keep in ICU Notes Reviewed: real estate office manager, cardio, renal Discussed with: nurses, consultants, counseling case manageronline affiliate marketing manager - Objective Last 24 Hour Vital Signs Date Time Temp Pulse Resp B/P (MAP) Pulse Ox O2 Delivery O2 Flow Rate FiO2 09/13/19 08:00 98.2 95 16 93/73 (80) 99 09/13/19 08:00 30 09/13/19 08:00 Mechanical Ventilator 09/13/19 07:59 94 09/13/19 07:50 92 16 30 09/13/19 04:00 Mechanical Ventilator 09/13/19 04:00 30 09/13/19 04:00 98.3 81 18 128/76 (93) 98 09/13/19 03:52 85 09/13/19 03:15 87 16 30 09/13/19 00:00 98.6 83 18 102/65 (77) 99 09/13/19 00:00 85 09/13/19 00:00 Mechanical Ventilator 09/12/19 22:59 82 16 30 09/12/19 20:23 79 09/12/19 20:00 Mechanical Ventilator 09/12/19 20:00 98.4 83 18 109/72 (84) 100 09/12/19 20:00 30 09/12/19 19:30 90 16 30 09/12/19 16:00 Mechanical Ventilator 09/12/19 16:00 30 09/12/19 16:00 98.2 85 16 104/70 (81) 99 09/12/19 15:42 85 16 30 09/12/19 15:27 83 09/12/19 12:00 98.1 82 17 110/65 (80) 100 09/12/19 12:00 30 09/12/19 12:00 Mechanical Ventilator 09/12/19 11:55 87 Status: awake Condition: critical HEENT: atraumatic, normocephalic Neck: full ROM Lungs: chest wall tender Heart: HR/BP stable Abdomen: soft, non-tender Extremities: no C/C/E Accucheck: 152 Critical Care - Subjective ROS Limited/Unobtainable: Yes Condition: critical EKG Rhythm: Sinus Rhythm FI02: 30 Vent Support Breath Rate: 16 Vent Support Mode: AC Vent Tidal Volume: 600 Sputum Amount: Moderate PEEP: 5.0 PIP: 26 Tube Feeding Amount: 60 I&O: Intake and Output 09/12/19 09/13/19 19:00 07:00 Intake Total 920 ml 900 ml Output Total 450 ml 700 ml Balance 470 ml 200 ml Intake Free Water 100 ml 60 ml IV Total 120 ml Tube Feeding 720 ml 720 ml Other 100 ml Output Urine Total 450 ml 700 ml # Bowel Movements 2 Labs: Laboratory Tests Test 09/13/19 03:00 White Blood Count 11.2 K/UL (4.8-10.8) H Red Blood Count 4.61 M/UL (4.70-6.10) L Hemoglobin 14.3 G/DL (14.2-18.0) Hematocrit 43.3 % (42.0-52.0) Mean Corpuscular Volume 94 FL (80-99) Mean Corpuscular Hemoglobin 31.0 PG (27.0-31.0) Mean Corpuscular Hemoglobin Concent 33.0 G/DL (32.0-36.0) Red Cell Distribution Width 11.9 % (11.6-14.8) Platelet Count 288 K/UL (150-450) Mean Platelet Volume 9.5 FL (6.5-10.1) Neutrophils (%) (Auto) 73.4 % (45.0-75.0) Lymphocytes (%) (Auto) 16.7 % (20.0-45.0) L Monocytes (%) (Auto) 6.0 % (1.0-10.0) Eosinophils (%) (Auto) 3.1 % (0.0-3.0) H Basophils (%) (Auto) 0.7 % (0.0-2.0) Sodium Level 140 MMOL/L (136-145) Potassium Level 4.2 MMOL/L (3.5-5.1) Chloride Level 101 MMOL/L (98-107) Carbon Dioxide Level 25 MMOL/L (21-32) Anion Gap 14 mmol/L (5-15) Blood Urea Nitrogen 20 mg/dL (7-18) H Creatinine 0.9 MG/DL (0.55-1.30) Estimat Glomerular Filtration Rate > 60 mL/min (>60) Glucose Level 115 MG/DL (74-106) H Calcium Level 9.2 MG/DL (8.5-10.1) Total Bilirubin 0.5 MG/DL (0.2-1.0) Aspartate Amino Transf (AST/SGOT) 24 U/L (15-37) Alanine Aminotransferase (ALT/SGPT) 48 U/L (12-78) Alkaline Phosphatase 144 U/L (46-116) H Total Protein 7.7 G/DL (6.4-8.2) Albumin 3.3 G/DL (3.4-5.0) L Globulin 4.4 g/dL Albumin/Globulin Ratio 0.8 (1.0-2.7) L Amylase Level 111 U/L (25-115) Lipase 312 U/L (73-393) Amanda Combs MD Sep 13, 2019 11:33
[2019-09-13 12:00] VITALS: BP 104/57
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
--- NOTE | 2019-09-13 15:45 | Surgery Progress Note ---
Surgery Progress Note Subjective Additional Comments no acute events exam stable labs noted wbc Objective Last 24 Hour Vital Signs Date Time Temp Pulse Resp B/P (MAP) Pulse Ox O2 Delivery O2 Flow Rate FiO2 09/13/19 12:00 30 09/13/19 12:00 Mechanical Ventilator 09/13/19 12:00 98.6 88 16 104/57 (73) 100 09/13/19 11:50 93 16 30 09/13/19 11:33 101 09/13/19 08:00 98.2 95 16 93/73 (80) 99 09/13/19 08:00 30 09/13/19 08:00 Mechanical Ventilator 09/13/19 07:59 94 09/13/19 07:50 92 16 30 09/13/19 04:00 Mechanical Ventilator 09/13/19 04:00 30 09/13/19 04:00 98.3 81 18 128/76 (93) 98 09/13/19 03:52 85 09/13/19 03:15 87 16 30 09/13/19 00:00 98.6 83 18 102/65 (77) 99 09/13/19 00:00 85 09/13/19 00:00 Mechanical Ventilator 09/12/19 22:59 82 16 30 09/12/19 20:23 79 09/12/19 20:00 Mechanical Ventilator 09/12/19 20:00 98.4 83 18 109/72 (84) 100 09/12/19 20:00 30 09/12/19 19:30 90 16 30 09/12/19 16:00 Mechanical Ventilator 09/12/19 16:00 30 09/12/19 16:00 98.2 85 16 104/70 (81) 99 I&O Intake and Output 09/12/19 09/13/19 19:00 07:00 Intake Total 920 ml 900 ml Output Total 450 ml 700 ml Balance 470 ml 200 ml Intake Free Water 100 ml 60 ml IV Total 120 ml Tube Feeding 720 ml 720 ml Other 100 ml Output Urine Total 450 ml 700 ml # Bowel Movements 2 Dressing: other Wound: other Drains: other Cardiovascular: RSR Respiratory: decreased breath sounds Abdomen: soft, non-tender, present bowel sounds Extremities: no tenderness, no cyanosis Laboratory Tests Test 09/13/19 03:00 White Blood Count 11.2 K/UL (4.8-10.8) H Red Blood Count 4.61 M/UL (4.70-6.10) L Hemoglobin 14.3 G/DL (14.2-18.0) Hematocrit 43.3 % (42.0-52.0) Mean Corpuscular Volume 94 FL (80-99) Mean Corpuscular Hemoglobin 31.0 PG (27.0-31.0) Mean Corpuscular Hemoglobin Concent 33.0 G/DL (32.0-36.0) Red Cell Distribution Width 11.9 % (11.6-14.8) Platelet Count 288 K/UL (150-450) Mean Platelet Volume 9.5 FL (6.5-10.1) Neutrophils (%) (Auto) 73.4 % (45.0-75.0) Lymphocytes (%) (Auto) 16.7 % (20.0-45.0) L Monocytes (%) (Auto) 6.0 % (1.0-10.0) Eosinophils (%) (Auto) 3.1 % (0.0-3.0) H Basophils (%) (Auto) 0.7 % (0.0-2.0) Sodium Level 140 MMOL/L (136-145) Potassium Level 4.2 MMOL/L (3.5-5.1) Chloride Level 101 MMOL/L (98-107) Carbon Dioxide Level 25 MMOL/L (21-32) Anion Gap 14 mmol/L (5-15) Blood Urea Nitrogen 20 mg/dL (7-18) H Creatinine 0.9 MG/DL (0.55-1.30) Estimat Glomerular Filtration Rate > 60 mL/min (>60) Glucose Level 115 MG/DL (74-106) H Calcium Level 9.2 MG/DL (8.5-10.1) Total Bilirubin 0.5 MG/DL (0.2-1.0) Aspartate Amino Transf (AST/SGOT) 24 U/L (15-37) Alanine Aminotransferase (ALT/SGPT) 48 U/L (12-78) Alkaline Phosphatase 144 U/L (46-116) H Total Protein 7.7 G/DL (6.4-8.2) Albumin 3.3 G/DL (3.4-5.0) L Globulin 4.4 g/dL Albumin/Globulin Ratio 0.8 (1.0-2.7) L Amylase Level 111 U/L (25-115) Lipase 312 U/L (73-393) Plan Problems: (1) Feeding by G-tube Assessment & Plan: DAILY ESTIMATED NEEDS: Needs based on Critical Care, wounds/ 74.8kg abw 22-30 kcals/kg 8416-1635 total kcals 1.25-2 g protein/kg 94-150 g total protein 25-30 mL/kg 6626-4312 total fluid mLs NUTRITION DIAGNOSIS: * Swallowing difficulty R/T dysphagia, respiratory status as evidenced by pt is trach/vent dep, PEG dep. * Increased kcal/prot needs R/T wound healing as evidenced by pt admitted w/ sacral unstageable wound. CURRENT TF: Glucerna 1.2 @ 60ml/hr ENTERAL NUTRITION RECOMMENDATIONS: Glucerna 1.2 @ 60ml/hr x 24 hrs + Prosource qdaily to provide 1440ml, 1728kcal , 86g + 11g prot, 1162ml free water * Rec to increase rate to 60ml/hr for 24 hrs * Add Prosource 1pkt QD to meet protein needs * HOB over 30 degrees/ water flush per MD. ----- -CURRENTLY GLUCERNA 1.2/ 1.5 LOW ON STOCK OR OOS, REC JEVITY 1.2 BG HAS BEEN WNL, W/ GOAL OF 60ML/HR X24 HRS + PROSOURCE BID. -TF at goal + Prosource provides 1728 kcal + 80kcal, 80g +22g pro, to meet 100% est needs, monitor blood glucose regularly w/ ssi for coverage and BG control. -Jevity 1.2 @60ml/hr to provide 79g more carbs per day. Will monitor glycemic tolerance/ control. ADDITIONAL RECOMMENDATIONS: * Maintain calibrated bed scale wts * Wound care: Add DANYELLE BID + Vit C 250mg BID * Monitor lytes daily, replete as needed (low phos 2.1) * Accuchecks w/ SSI for glycemic control * Rec trial TF change to Jevity 1.2 @60 (shortage of Glucerna 1.2, 1.5) may need to increase insulin coverage (2) Decubitus skin ulcer Assessment & Plan: left flank wound noted. considered as possible abscess. evaluated. 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 Proteus mirabilis was sensitive to cefepime and ceftazidime. Serratia is sensitive to gentamicin and Proteus is sensitive to gentamicin as well. cxr with Findings: Tracheostomy tube is in the mid trachea. Linear atelectasis of the left lung base. Blunted left costophrenic angle. Small left pleural effusion and overlying atelectasis. Mild atelectasis of the right lung base. Question old proximal right clavicle fracture. Impression: 1. Trace left pleural effusion with overlying atelectasis. Mild right basilar atelectasis. 2. Unchanged tracheostomy tube. abx as per ID respiratory care as per pulm nutritional will follow with recs thank you Streaky and hazy opacities throughout the right lung and left lower lung which may represent atelectasis versus infectious/inflammatory process. Pt presented on admission with small furuncle Lateral L chest. Reabsorbing DTPI Sacrum R and L gluteal cheeks. Scattered areas of shearing within base of wound. Surrounding areas of mixed skin Hyper and hypopigmentation noted. DTPI noted to L trochanter(L)3cm x (W)5.5cm. Base of Pressure injury has darker than is normal skin tone and is indurated. Marginal erythema along edges. Historical scars with hyperpigmentation from previous wounds noted to R and L ischial tuberosities. Heels are firm and blanchable . Tx.Plan: Apply Moisture Barrier Paste to Buttocks. Cover with Optifoam drsg. Change every 3 days and prn. Apply Cavilon Skin Barrier to both heels. Cover each heel with Optifoam drsg. Change every 7 days and prn. Reposition at least every 2houors or as tolerated. Place pillow between knees. Off-load heels with Pillow. APM/EDD Mattress overlay. (8) Chronic respiratory failure (9) Bacteremia (10) Uncontrolled seizures (11) Seizure disorder, convulsive, with status epilepticus (12) Seizure after head injury (13) Line sepsis (14) UTI (urinary tract infection) (15) Urinary tract infection (16) Acute on chronic renal insufficiency Horacio Hope Sep 13, 2019 15:45
[2019-09-13 16:00] VITALS: BP 95/76
--- NOTE | 2019-09-13 19:15 | Progress Note ---
DATE: 09/13/2019 CARDIOLOGY PROGRESS NOTE SUBJECTIVE: No new sustained arrhythmias. Monitored rhythm, sinus with occasional atrial ectopics. OBJECTIVE: VITAL SIGNS: Blood pressure 104/57, pulse 88, and respirations 16. Trach site clean. LUNGS: With rhonchi. HEART: Regular rhythm and rate. Normal S1, S2. No murmur. ABDOMEN: Soft. G-tube intact. EXTREMITIES: No edema. LABORATORY DATA: White count 11 and hemoglobin 14. Potassium 4.2. Venous duplex scan is negative for DVT. IMPRESSION: 1. Healthcare-associated pneumonia. 2. Ventilator-dependent respiratory failure. 3. Chronic encephalopathy. 4. Paroxysmal atrial ectopy. 5. Dysphagia with G-tube tube. 6. Hypertension, controlled. PLAN: 1. No additional cardiovascular medications presently indicated. 2. Sustained arrhythmias may warrant diltiazem in the future. Paul Ruggiero M.D. DR: HELENE JOB#: [id number] CC:
[2019-09-13 20:00] VITALS: BP 108/74
[2019-09-13] MEDS: Gentamicin inj 400 MG in NS 110 ML IVPB SCH (21:27)
--- NOTE | 2019-09-13 22:00 | Progress Note ---
DATE: 09/13/2019 SUBJECTIVE: The patient is afebrile and hemodynamically stable. PHYSICAL EXAMINATION: VITAL SIGNS: Blood pressure 95/76, pulse is 86, respirations are 16, and temperature 98.1. HEENT: Eyes were normal. ENT, mucous membranes were moist and intact. Zsi-ohzef-xtqtedt movement . NECK: Supple with no JVD without lymph nodes. Tracheostomy site is clean. LUNGS: Clear without rhonchi, rales, or wheezing. HEART: Normal sounds with regular beats. There is no tachycardia at rest. ABDOMEN: Soft, nontender with normal bowel sounds. Gastrostomy site is clean. EXTREMITIES: Warm without cyanosis, clubbing, or edema. LABORATORY AND DIAGNOSTIC DATA: His hemoglobin is 14.3, hematocrit 33.3 with MCV of 94, WBC 11.2, and platelets 288. BUN and creatinine are 20 and 0.9 respectively. Sodium is 140, potassium 4.2, chloride 101, CO2 is 25. SGOT and SGPT are normal. Albumin is 3.3 and total protein is 7.7. His urine culture from 09/09/2019, there is no growth after 48 hours. Blood culture from 09/09/2019, no growth after 48 hours. Second blood culture, no growth after 24 hours. Sputum culture from 09/06/2019 grew Proteus mirabilis and Serratia marcescens. Chest x-ray yesterday revealed negative for DVT. Repeat venous duplex scan of yesterday revealed negative for DVT in lower extremity. Chest x-ray from 09/10/2001 revealed atelectasis, scarring in the right perihilar region. IMPRESSION: The patient currently is on gentamicin 120 mg IV piggyback q.24h. Both organisms were sensitive to gentamicin. Repeat laboratory tests and chest x-ray will be done in a.m. Libby Fair M.D. DR: COREY JOB#: [id number] CC:
[2019-09-14] VITALS: BP 106/76
[2019-09-14 04:00] VITALS: BP 108/74
[2019-09-14] MEDS: NovoLOG Insulin Flexpen SUBQ SCH ×4 (06:00→23:29)
[2019-09-14 07:28] LABS: HEMATOCRIT 43.6 % (42.0-52.0); HEMOGLOBIN 14.5 G/DL (14.2-18.0); MEAN CORPUSCULAR VOLUME 94 FL (80-99); PLATELET COUNT 270 K/UL (150-450); RED BLOOD COUNT 4.63 M/UL (4.70-6.10); WHITE BLOOD COUNT 9.5 K/UL (4.8-10.8)
[2019-09-14 07:45] LABS: ALANINE AMINOTRANSFERASE 49 U/L (12-78); ALBUMIN 3.5 G/DL (3.4-5.0); ALBUMIN/GLOBULIN RATIO 0.8 (1.0-2.7); ALKALINE PHOSPHATASE 133 U/L (46-116); ANION GAP 11 mmol/L (5-15); ASPARTATE AMINO TRANSFERASE 20 U/L (15-37); BILIRUBIN,TOTAL 0.5 MG/DL (0.2-1.0); BLOOD UREA NITROGEN 20 mg/dL (7-18); CALCIUM 9.7 MG/DL (8.5-10.1); CARBON DIOXIDE 26 MMOL/L (21-32); CHLORIDE 103 MMOL/L (98-107); CREATININE 1.1 MG/DL (0.55-1.30); POTASSIUM 4.1 MMOL/L (3.5-5.1); SODIUM 140 MMOL/L (136-145)
[2019-09-14 08:00] VITALS: BP 109/75
[2019-09-14] MEDS: levETIRAcetam 500mg/5ml Liquid GT SCH ×2 (08:41→20:07)
[2019-09-14] MEDS: Pantoprazole Inj IV SCH (08:41)
[2019-09-14] MEDS: Gentamicin 0.3% Opth Soln 5ml BOTH EYES SCH ×3 (08:41→19:02)
[2019-09-14] MEDS: Heparin 5000 units/ml inj SUBQ SCH ×2 (08:46→20:08)
--- NOTE | 2019-09-14 09:38 | General Progress Note ---
Assessment/Plan Problem List: (1) Sepsis ICD Codes: A41.9 - Sepsis, unspecified organism SNOMED: 88317090 (2) Pneumonia Assessment & Plan: Chronic respiratory failure status post trach and on vent ICD Codes: J18.9 - Pneumonia, unspecified organism SNOMED: 750964114 (3) Diabetes mellitus ICD Codes: E11.9 - Type 2 diabetes mellitus without complications SNOMED: 74977838 Status: stable Assessment/Plan: September 13: Internal medicine note covering for Dr. Libby Fair. Labs and medication list reviewed. Patient is full code. Continue per ID recommendations. Subjective Date patient seen: Sep 14, 2019 ROS Limited/Unobtainable: Yes Respiratory: Reports: other - Trached and went Gastrointestinal/Abdominal: Reports: other - PEG Genitourinary: Reports: other - Costello Allergies: Uncoded Allergies: TAPE (Allergy, Unknown, 05/31/18) Objective Last 24 Hour Vital Signs Date Time Temp Pulse Resp B/P (MAP) Pulse Ox O2 Delivery O2 Flow Rate FiO2 09/14/19 08:00 98.2 89 17 109/75 (86) 100 09/14/19 07:24 99 16 30 09/14/19 04:00 Mechanical Ventilator 09/14/19 04:00 98.2 76 18 108/74 (85) 100 09/14/19 04:00 30 09/14/19 04:00 93 09/14/19 03:40 92 16 30 09/14/19 00:00 30 09/14/19 00:00 Mechanical Ventilator 09/14/19 00:00 84 09/14/19 00:00 98.2 87 16 106/76 (86) 100 09/13/19 23:47 83 16 30 09/13/19 20:26 91 16 30 09/13/19 20:00 98.2 74 16 108/74 (85) 97 09/13/19 20:00 92 09/13/19 20:00 30 09/13/19 20:00 Mechanical Ventilator 09/13/19 16:00 30 09/13/19 16:00 98.1 86 16 95/76 (82) 100 09/13/19 16:00 Mechanical Ventilator 09/13/19 15:50 84 16 30 09/13/19 15:26 85 09/13/19 12:00 30 6/12/20 12:00 Mechanical Ventilator 09/13/19 12:00 98.6 88 16 104/57 (73) 100 09/13/19 11:50 93 16 30 09/13/19 11:33 101 Intake and Output 09/13/19 09/14/19 19:00 07:00 Intake Total 880 ml 840 ml Output Total 450 ml 500 ml Balance 430 ml 340 ml Intake Free Water 100 ml 60 ml IV Total 120 ml Tube Feeding 720 ml 660 ml Other 60 ml Output Urine Total 450 ml 500 ml Laboratory Tests 09/14/19 06:45: White Blood Count 9.5, Red Blood Count 4.63L, Hemoglobin 14.5, Hematocrit 43.6, Mean Corpuscular Volume 94, Mean Corpuscular Hemoglobin 31.4H, Mean Corpuscular Hemoglobin Concent 33.4, Red Cell Distribution Width 12.0, Platelet Count 270, Mean Platelet Volume 9.2, Neutrophils (%) (Auto) , Lymphocytes (%) (Auto) , Monocytes (%) (Auto) , Eosinophils (%) (Auto) , Basophils (%) (Auto) , Neutrophils % (Manual) [Pending], Lymphocytes % (Manual) [Pending], Platelet Estimate [Pending], Platelet Morphology [Pending], Sodium Level 140, Potassium Level 4.1, Chloride Level 103, Carbon Dioxide Level 26, Anion Gap 11, Blood Urea Nitrogen 20H, Creatinine 1.1, Estimat Glomerular Filtration Rate > 60, Glucose Level 116H, Calcium Level 9.7, Total Bilirubin 0.5, Aspartate Amino Transf (AST/SGOT) 20, Alanine Aminotransferase (ALT/SGPT) 49, Alkaline Phosphatase 133H, Total Protein 7.9, Albumin 3.5, Globulin 4.4, Albumin/ Globulin Ratio 0.8L Height (Feet): 5 Height (Inches): 7.00 Weight (Pounds): 189 General Appearance: no apparent distress EENT: other - Trach and vent Cardiovascular: tachycardia Respiratory/Chest: decreased breath sounds Abdomen: distended, other - PEG Hima Garza MD Sep 14, 2019 09:38
--- NOTE | 2019-09-14 10:01 | Diagnostic Imaging Report ---
EXAM: XR Chest, 1 View CLINICAL HISTORY: COUGH TECHNIQUE: Frontal view of the chest. COMPARISON: Chest x-ray 09/11/19 FINDINGS: Lungs: Hypoventilatory lungs. Bibasilar lung atelectasis left consolidations. Remainder the lung parenchyma is clear. Pleural space: Unremarkable. No pneumothorax. Heart: Unremarkable. No cardiomegaly. Mediastinum: Unremarkable. Bones/joints: Unremarkable. Tubes, lines and devices: Stable tracheostomy tube. IMPRESSION: Hypoventilatory lungs. Bibasilar lung atelectasis left consolidations. Remainder the lung parenchyma is clear. No significant interval change.
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
[2019-09-14 12:00] VITALS: BP 105/78
--- NOTE | 2019-09-14 13:04 | Surgery Progress Note ---
Surgery Progress Note Subjective Additional Comments ill appearing labs reviewed exam stable Objective Last 24 Hour Vital Signs Date Time Temp Pulse Resp B/P (MAP) Pulse Ox O2 Delivery O2 Flow Rate FiO2 09/14/19 12:00 30 09/14/19 12:00 Mechanical Ventilator 09/14/19 10:36 98 17 30 09/14/19 09:49 30 09/14/19 08:00 98.2 89 17 109/75 (86) 100 09/14/19 08:00 92 09/14/19 08:00 Mechanical Ventilator 09/14/19 07:24 99 16 30 09/14/19 04:00 Mechanical Ventilator 09/14/19 04:00 98.2 76 18 108/74 (85) 100 09/14/19 04:00 30 09/14/19 04:00 93 09/14/19 03:40 92 16 30 09/14/19 00:00 30 09/14/19 00:00 Mechanical Ventilator 09/14/19 00:00 84 09/14/19 00:00 98.2 87 16 106/76 (86) 100 09/13/19 23:47 83 16 30 09/13/19 20:26 91 16 30 09/13/19 20:00 98.2 74 16 108/74 (85) 97 09/13/19 20:00 92 09/13/19 20:00 30 09/13/19 20:00 Mechanical Ventilator 09/13/19 16:00 30 09/13/19 16:00 98.1 86 16 95/76 (82) 100 09/13/19 16:00 Mechanical Ventilator 09/13/19 15:50 84 16 30 09/13/19 15:26 85 I&O Intake and Output 09/13/19 09/14/19 19:00 07:00 Intake Total 880 ml 840 ml Output Total 450 ml 500 ml Balance 430 ml 340 ml Intake Free Water 100 ml 60 ml IV Total 120 ml Tube Feeding 720 ml 660 ml Other 60 ml Output Urine Total 450 ml 500 ml Dressing: other Wound: other Drains: other Cardiovascular: RSR Respiratory: decreased breath sounds Abdomen: soft, present bowel sounds Extremities: no cyanosis Laboratory Tests Test 09/14/19 06:45 White Blood Count 9.5 K/UL (4.8-10.8) Red Blood Count 4.63 M/UL (4.70-6.10) L Hemoglobin 14.5 G/DL (14.2-18.0) Hematocrit 43.6 % (42.0-52.0) Mean Corpuscular Volume 94 FL (80-99) Mean Corpuscular Hemoglobin 31.4 PG (27.0-31.0) H Mean Corpuscular Hemoglobin Concent 33.4 G/DL (32.0-36.0) Red Cell Distribution Width 12.0 % (11.6-14.8) Platelet Count 270 K/UL (150-450) Mean Platelet Volume 9.2 FL (6.5-10.1) Neutrophils (%) (Auto) % (45.0-75.0) Lymphocytes (%) (Auto) % (20.0-45.0) Monocytes (%) (Auto) % (1.0-10.0) Eosinophils (%) (Auto) % (0.0-3.0) Basophils (%) (Auto) % (0.0-2.0) Differential Total Cells Counted 100 Neutrophils % (Manual) 78 % (45-75) H Lymphocytes % (Manual) 20 % (20-45) Monocytes % (Manual) 2 % (1-10) Eosinophils % (Manual) 0 % (0-3) Basophils % (Manual) 0 % (0-2) Band Neutrophils 0 % (0-8) Platelet Estimate Adequate Platelet Morphology Normal Red Blood Cell Morphology Normal Sodium Level 140 MMOL/L (136-145) Potassium Level 4.1 MMOL/L (3.5-5.1) Chloride Level 103 MMOL/L (98-107) Carbon Dioxide Level 26 MMOL/L (21-32) Anion Gap 11 mmol/L (5-15) Blood Urea Nitrogen 20 mg/dL (7-18) H Creatinine 1.1 MG/DL (0.55-1.30) Estimat Glomerular Filtration Rate > 60 mL/min (>60) Glucose Level 116 MG/DL (74-106) H Calcium Level 9.7 MG/DL (8.5-10.1) Total Bilirubin 0.5 MG/DL (0.2-1.0) Aspartate Amino Transf (AST/SGOT) 20 U/L (15-37) Alanine Aminotransferase (ALT/SGPT) 49 U/L (12-78) Alkaline Phosphatase 133 U/L (46-116) H Total Protein 7.9 G/DL (6.4-8.2) Albumin 3.5 G/DL (3.4-5.0) Globulin 4.4 g/dL Albumin/Globulin Ratio 0.8 (1.0-2.7) L Plan Problems: (1) Feeding by G-tube Assessment & Plan: DAILY ESTIMATED NEEDS: Needs based on Critical Care, wounds/ 74.8kg abw 22-30 kcals/kg 3657-3789 total kcals 1.25-2 g protein/kg 94-150 g total protein 25-30 mL/kg 9684-3091 total fluid mLs NUTRITION DIAGNOSIS: * Swallowing difficulty R/T dysphagia, respiratory status as evidenced by pt is trach/vent dep, PEG dep. * Increased kcal/prot needs R/T wound healing as evidenced by pt admitted w/ sacral unstageable wound. CURRENT TF: Glucerna 1.2 @ 60ml/hr ENTERAL NUTRITION RECOMMENDATIONS: Glucerna 1.2 @ 60ml/hr x 24 hrs + Prosource qdaily to provide 1440ml, 1728kcal , 86g + 11g prot, 1162ml free water * Rec to increase rate to 60ml/hr for 24 hrs * Add Prosource 1pkt QD to meet protein needs * HOB over 30 degrees/ water flush per MD. ----- -CURRENTLY GLUCERNA 1.2/ 1.5 LOW ON STOCK OR OOS, REC JEVITY 1.2 BG HAS BEEN WNL, W/ GOAL OF 60ML/HR X24 HRS + PROSOURCE BID. -TF at goal + Prosource provides 1728 kcal + 80kcal, 80g +22g pro, to meet 100% est needs, monitor blood glucose regularly w/ ssi for coverage and BG control. -Jevity 1.2 @60ml/hr to provide 79g more carbs per day. Will monitor glycemic tolerance/ control. ADDITIONAL RECOMMENDATIONS: * Maintain calibrated bed scale wts * Wound care: Add DANYELLE BID + Vit C 250mg BID * Monitor lytes daily, replete as needed (low phos 2.1) * Accuchecks w/ SSI for glycemic control * Rec trial TF change to Jevity 1.2 @60 (shortage of Glucerna 1.2, 1.5) may need to increase insulin coverage (2) Decubitus skin ulcer Assessment & Plan: left flank wound noted. considered as possible abscess. evaluated. 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 Proteus mirabilis was sensitive to cefepime and ceftazidime. Serratia is sensitive to gentamicin and Proteus is sensitive to gentamicin as well. cxr with Findings: Tracheostomy tube is in the mid trachea. Linear atelectasis of the left lung base. Blunted left costophrenic angle. Small left pleural effusion and overlying atelectasis. Mild atelectasis of the right lung base. Question old proximal right clavicle fracture. Impression: 1. Trace left pleural effusion with overlying atelectasis. Mild right basilar atelectasis. 2. Unchanged tracheostomy tube. abx as per ID respiratory care as per pulm nutritional will follow with recs thank you Streaky and hazy opacities throughout the right lung and left lower lung which may represent atelectasis versus infectious/inflammatory process. Pt presented on admission with small furuncle Lateral L chest. Reabsorbing DTPI Sacrum R and L gluteal cheeks. Scattered areas of shearing within base of wound. Surrounding areas of mixed skin Hyper and hypopigmentation noted. DTPI noted to L trochanter(L)3cm x (W)5.5cm. Base of Pressure injury has darker than is normal skin tone and is indurated. Marginal erythema along edges. Historical scars with hyperpigmentation from previous wounds noted to R and L ischial tuberosities. Heels are firm and blanchable . Tx.Plan: Apply Moisture Barrier Paste to Buttocks. Cover with Optifoam drsg. Change every 3 days and prn. Apply Cavilon Skin Barrier to both heels. Cover each heel with Optifoam drsg. Change every 7 days and prn. Reposition at least every 2houors or as tolerated. Place pillow between knees. Off-load heels with Pillow. APM/EDD Mattress overlay. (8) Chronic respiratory failure (9) Bacteremia (10) Uncontrolled seizures (11) Seizure disorder, convulsive, with status epilepticus (12) Seizure after head injury (13) Line sepsis (14) UTI (urinary tract infection) (15) Urinary tract infection (16) Acute on chronic renal insufficiency Horacio Hope Sep 14, 2019 13:04
[2019-09-14 16:00] VITALS: BP 113/62
[2019-09-14 20:00] VITALS: BP 105/60
--- NOTE | 2019-09-14 21:00 | Progress Note ---
DATE: 09/14/2019 CARDIOLOGY PROGRESS NOTE SUBJECTIVE: The patient remains on vent support. Monitored rhythm, sinus with rare atrial ectopics and sinus arrhythmia. No sustained supraventricular tachycardias. PHYSICAL EXAMINATION: VITAL SIGNS: Blood pressure 109/75, pulse 89, and respirations 17. LUNGS: Bilateral breath sounds. No wheezing or rales. CARDIAC: Regular rhythm and rate. Normal S1 and S2. ABDOMEN: Soft. EXTREMITIES: No edema. LABORATORY DATA: Sputum is positive for Serratia and Proteus. White count 9.5 and hemoglobin 14.5. Sodium is 140, potassium 4.1, bicarb 26, BUN 20, and creatinine 1.1. Chest x-ray today reveals hypoventilation of the lung nguyen, some left consolidation. No congestive heart failure. IMPRESSION: Paroxysmal atrial arrhythmias and supraventricular tachycardia, precipitated likely by elevated pulmonary venous pressures in the setting of respiratory failure. PLAN: 1. Continue management and treatment of healthcare associated pneumonia. 2. Ventilator support. 3. Replace electrolytes as needed. 4. No additional antiarrhythmic therapy presently warranted. 5. We will follow. Paul Ruggiero M.D. DR: CORNELIUS JOB#: [id number] CC:
[2019-09-14] MEDS: Gentamicin inj 400 MG in NS 110 ML IVPB SCH (21:08)
--- NOTE | 2019-09-14 23:00 | Progress Note ---
DATE: 09/14/2019 SUBJECTIVE: The patient is afebrile and hemodynamically stable. PHYSICAL EXAMINATION: VITAL SIGNS: Blood pressure 109/75, his pulse is 89, respirations 17, and temperature 98.2. HEENT: Eyes were normal. ENT, mucous membranes were moist and intact. NECK: Supple with no JVD without lymph nodes. Tracheostomy site is clean. LUNGS: Clear without rhonchi, rales, or wheezing. Secretions are moderate to thick and pale yellow. HEART: Normal sounds with regular beats. There is no tachycardia at rest. ABDOMEN: Soft and nontender with normal bowel sounds. Gastrostomy site is clean. EXTREMITIES: Warm without cyanosis, clubbing, or edema. LABORATORY DATA: His hemoglobin is 14.5, hematocrit 43.6 with MCV of 94, WBC of 9.5, and platelet is 270. His BUN and creatinine are 20 and 1.1 respectively. His sodium is 140, potassium 4.1, chloride 103, and CO2 is 26. SGOT and SGPT are normal. Albumin is 3.5 and total protein is 7.9. Chest x-ray done today revealed hypoventilatory lung, bibasilar atelectasis, left consolidation. The patient had pneumonia with Serratia marcescens and Proteus mirabilis. The patient has gesticulation of his mainly is bucco-orolingual territory. PLAN: 2 mg q.12 will be added to the regimen. Repeat laboratory tests will be done in a.m. Libby Fair M.D. DR: CARLITOS JOB#: [id number] CC:
[2019-09-15] VITALS: BP 99/63
[2019-09-15 04:00] VITALS: BP 109/67
[2019-09-15] MEDS: NovoLOG Insulin Flexpen SUBQ SCH ×3 (05:36→18:00)
[2019-09-15 08:00] VITALS: BP 94/73
[2019-09-15 08:05] LABS: BASOPHILS % (AUTO) 1.7 % (0.0-2.0); EOSINOPHILS % (AUTO) 4.8 % (0.0-3.0); HEMATOCRIT 46.6 % (42.0-52.0); HEMOGLOBIN 14.5 G/DL (14.2-18.0); LYMPHOCYTES % (AUTO) 23.5 % (20.0-45.0); MEAN CORPUSCULAR VOLUME 100 FL (80-99); MONOCYTES % (AUTO) 10.4 % (1.0-10.0); NEUTROPHILS % (AUTO) 59.6 % (45.0-75.0); PLATELET COUNT 312 K/UL (150-450); RED BLOOD COUNT 4.66 M/UL (4.70-6.10); RED CELL DISTRIBUTION WIDTH 13.5 % (11.6-14.8); WHITE BLOOD COUNT 10.5 K/UL (4.8-10.8)
[2019-09-15 08:23] LABS: ALANINE AMINOTRANSFERASE 49 U/L (12-78); ALBUMIN 3.2 G/DL (3.4-5.0); ALBUMIN/GLOBULIN RATIO 0.8 (1.0-2.7); ALKALINE PHOSPHATASE 131 U/L (46-116); ANION GAP 12 mmol/L (5-15); ASPARTATE AMINO TRANSFERASE 34 U/L (15-37); BILIRUBIN,TOTAL 0.5 MG/DL (0.2-1.0); BLOOD UREA NITROGEN 21 mg/dL (7-18); CALCIUM 9.1 MG/DL (8.5-10.1); CARBON DIOXIDE 24 MMOL/L (21-32); CHLORIDE 103 MMOL/L (98-107); CREATININE 0.9 MG/DL (0.55-1.30); POTASSIUM 4.6 MMOL/L (3.5-5.1); SODIUM 139 MMOL/L (136-145)
[2019-09-15] MEDS: Heparin 5000 units/ml inj SUBQ SCH ×2 (09:46→21:02)
[2019-09-15] MEDS: Pantoprazole Inj IV SCH (09:47)
[2019-09-15] MEDS: Gentamicin 0.3% Opth Soln 5ml BOTH EYES SCH ×3 (09:47→18:04)
[2019-09-15] MEDS: levETIRAcetam 500mg/5ml Liquid GT SCH ×2 (09:48→21:00)
--- NOTE | 2019-09-15 10:02 | Surgery Progress Note ---
Surgery Progress Note Subjective Additional Comments no acute events labs noted exam stable Objective Last 24 Hour Vital Signs Date Time Temp Pulse Resp B/P (MAP) Pulse Ox O2 Delivery O2 Flow Rate FiO2 09/15/19 08:00 97.9 96 21 94/73 (80) 100 09/15/19 06:40 87 16 30 09/15/19 04:00 Mechanical Ventilator 09/15/19 04:00 30 09/15/19 04:00 98.6 81 20 109/67 (81) 100 09/15/19 03:56 76 18 30 09/15/19 03:48 90 09/15/19 00:00 Mechanical Ventilator 09/15/19 00:00 98.2 81 20 99/63 (75) 100 09/14/19 23:34 92 09/14/19 23:05 82 17 30 09/14/19 20:00 98.1 72 20 105/60 (75) 100 09/14/19 20:00 Mechanical Ventilator 09/14/19 20:00 30 09/14/19 19:48 84 16 30 09/14/19 19:26 91 09/14/19 16:00 Mechanical Ventilator 09/14/19 16:00 97.7 67 20 113/62 (79) 99 09/14/19 16:00 86 09/14/19 16:00 30 09/14/19 15:08 89 16 30 09/14/19 12:00 88 09/14/19 12:00 98.2 100 21 105/78 (87) 100 09/14/19 12:00 30 09/14/19 12:00 Mechanical Ventilator 09/14/19 10:36 98 17 30 I&O Intake and Output 09/14/19 09/15/19 19:00 07:00 Intake Total 920 ml 780 ml Output Total 500 ml 500 ml Balance 420 ml 280 ml Intake Free Water 200 ml 60 ml IV Total 120 ml Tube Feeding 720 ml 600 ml Output Urine Total 500 ml 500 ml # Bowel Movements 2 1 Dressing: other Wound: other Drains: other Cardiovascular: RSR Respiratory: decreased breath sounds Abdomen: soft, present bowel sounds Extremities: no cyanosis Laboratory Tests Test 09/15/19 06:15 White Blood Count 10.5 K/UL (4.8-10.8) Red Blood Count 4.66 M/UL (4.70-6.10) L Hemoglobin 14.5 G/DL (14.2-18.0) Hematocrit 46.6 % (42.0-52.0) Mean Corpuscular Volume 100 FL (80-99) H Mean Corpuscular Hemoglobin 31.1 PG (27.0-31.0) H Mean Corpuscular Hemoglobin Concent 31.2 G/DL (32.0-36.0) L Red Cell Distribution Width 13.5 % (11.6-14.8) Platelet Count 312 K/UL (150-450) Mean Platelet Volume 9.9 FL (6.5-10.1) Neutrophils (%) (Auto) 59.6 % (45.0-75.0) Lymphocytes (%) (Auto) 23.5 % (20.0-45.0) Monocytes (%) (Auto) 10.4 % (1.0-10.0) H Eosinophils (%) (Auto) 4.8 % (0.0-3.0) H Basophils (%) (Auto) 1.7 % (0.0-2.0) Sodium Level 139 MMOL/L (136-145) Potassium Level 4.6 MMOL/L (3.5-5.1) Chloride Level 103 MMOL/L (98-107) Carbon Dioxide Level 24 MMOL/L (21-32) Anion Gap 12 mmol/L (5-15) Blood Urea Nitrogen 21 mg/dL (7-18) H Creatinine 0.9 MG/DL (0.55-1.30) Estimat Glomerular Filtration Rate > 60 mL/min (>60) Glucose Level 96 MG/DL (74-106) Calcium Level 9.1 MG/DL (8.5-10.1) Total Bilirubin 0.5 MG/DL (0.2-1.0) Aspartate Amino Transf (AST/SGOT) 34 U/L (15-37) Alanine Aminotransferase (ALT/SGPT) 49 U/L (12-78) Alkaline Phosphatase 131 U/L (46-116) H Total Protein 7.4 G/DL (6.4-8.2) Albumin 3.2 G/DL (3.4-5.0) L Globulin 4.2 g/dL Albumin/Globulin Ratio 0.8 (1.0-2.7) L Plan Problems: (1) Feeding by G-tube Assessment & Plan: DAILY ESTIMATED NEEDS: Needs based on Critical Care, wounds/ 74.8kg abw 22-30 kcals/kg 0767-2572 total kcals 1.25-2 g protein/kg 94-150 g total protein 25-30 mL/kg 3859-1220 total fluid mLs NUTRITION DIAGNOSIS: * Swallowing difficulty R/T dysphagia, respiratory status as evidenced by pt is trach/vent dep, PEG dep. * Increased kcal/prot needs R/T wound healing as evidenced by pt admitted w/ sacral unstageable wound. CURRENT TF: Glucerna 1.2 @ 60ml/hr ENTERAL NUTRITION RECOMMENDATIONS: Glucerna 1.2 @ 60ml/hr x 24 hrs + Prosource qdaily to provide 1440ml, 1728kcal , 86g + 11g prot, 1162ml free water * Rec to increase rate to 60ml/hr for 24 hrs * Add Prosource 1pkt QD to meet protein needs * HOB over 30 degrees/ water flush per MD. ----- -CURRENTLY GLUCERNA 1.2/ 1.5 LOW ON STOCK OR OOS, REC JEVITY 1.2 BG HAS BEEN WNL, W/ GOAL OF 60ML/HR X24 HRS + PROSOURCE BID. -TF at goal + Prosource provides 1728 kcal + 80kcal, 80g +22g pro, to meet 100% est needs, monitor blood glucose regularly w/ ssi for coverage and BG control. -Jevity 1.2 @60ml/hr to provide 79g more carbs per day. Will monitor glycemic tolerance/ control. ADDITIONAL RECOMMENDATIONS: * Maintain calibrated bed scale wts * Wound care: Add DANYELLE BID + Vit C 250mg BID * Monitor lytes daily, replete as needed (low phos 2.1) * Accuchecks w/ SSI for glycemic control * Rec trial TF change to Jevity 1.2 @60 (shortage of Glucerna 1.2, 1.5) may need to increase insulin coverage (2) Decubitus skin ulcer Assessment & Plan: left flank wound noted. considered as possible abscess. evaluated. 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 Proteus mirabilis was sensitive to cefepime and ceftazidime. Serratia is sensitive to gentamicin and Proteus is sensitive to gentamicin as well. cxr with Findings: Tracheostomy tube is in the mid trachea. Linear atelectasis of the left lung base. Blunted left costophrenic angle. Small left pleural effusion and overlying atelectasis. Mild atelectasis of the right lung base. Question old proximal right clavicle fracture. Impression: 1. Trace left pleural effusion with overlying atelectasis. Mild right basilar atelectasis. 2. Unchanged tracheostomy tube. abx as per ID respiratory care as per pulm nutritional will follow with recs thank you Streaky and hazy opacities throughout the right lung and left lower lung which may represent atelectasis versus infectious/inflammatory process. Pt presented on admission with small furuncle Lateral L chest. Reabsorbing DTPI Sacrum R and L gluteal cheeks. Scattered areas of shearing within base of wound. Surrounding areas of mixed skin Hyper and hypopigmentation noted. DTPI noted to L trochanter(L)3cm x (W)5.5cm. Base of Pressure injury has darker than is normal skin tone and is indurated. Marginal erythema along edges. Historical scars with hyperpigmentation from previous wounds noted to R and L ischial tuberosities. Heels are firm and blanchable . Tx.Plan: Apply Moisture Barrier Paste to Buttocks. Cover with Optifoam drsg. Change every 3 days and prn. Apply Cavilon Skin Barrier to both heels. Cover each heel with Optifoam drsg. Change every 7 days and prn. Reposition at least every 2houors or as tolerated. Place pillow between knees. Off-load heels with Pillow. APM/EDD Mattress overlay. 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
--- NOTE | 2019-09-15 11:52 | General Progress Note ---
Assessment/Plan Problem List: (1) Sepsis ICD Codes: A41.9 - Sepsis, unspecified organism SNOMED: 24859130 (2) Pneumonia Assessment & Plan: Chronic respiratory failure status post trach and on vent ICD Codes: J18.9 - Pneumonia, unspecified organism SNOMED: 380580602 (3) Diabetes mellitus ICD Codes: E11.9 - Type 2 diabetes mellitus without complications SNOMED: 18880688 Status: stable Assessment/Plan: September 14: Internal medicine note covering for Dr. Libby Fair. Labs and medication list reviewed. Patient is full code. Continue per ID recommendations. Subjective ROS Limited/Unobtainable: Yes Allergies: Uncoded Allergies: TAPE (Allergy, Unknown, 05/31/18) Objective Last 24 Hour Vital Signs Date Time Temp Pulse Resp B/P (MAP) Pulse Ox O2 Delivery O2 Flow Rate FiO2 09/15/19 08:00 Mechanical Ventilator 09/15/19 08:00 97.9 96 21 94/73 (80) 100 09/15/19 08:00 30 09/15/19 07:55 88 09/15/19 06:40 87 16 30 09/15/19 04:00 Mechanical Ventilator 09/15/19 04:00 30 09/15/19 04:00 98.6 81 20 109/67 (81) 100 09/15/19 03:56 76 18 30 09/15/19 03:48 90 09/15/19 00:00 Mechanical Ventilator 09/15/19 00:00 98.2 81 20 99/63 (75) 100 09/14/19 23:34 92 09/14/19 23:05 82 17 30 09/14/19 20:00 98.1 72 20 105/60 (75) 100 09/14/19 20:00 Mechanical Ventilator 09/14/19 20:00 30 09/14/19 19:48 84 16 30 09/14/19 19:26 91 09/14/19 16:00 Mechanical Ventilator 09/14/19 16:00 97.7 67 20 113/62 (79) 99 09/14/19 16:00 86 09/14/19 16:00 30 09/14/19 15:08 89 16 30 09/14/19 12:00 88 09/14/19 12:00 98.2 100 21 105/78 (87) 100 09/14/19 12:00 30 09/14/19 12:00 Mechanical Ventilator Intake and Output 09/14/19 09/15/19 19:00 07:00 Intake Total 920 ml 840 ml Output Total 500 ml 500 ml Balance 420 ml 340 ml Intake Free Water 200 ml 60 ml IV Total 120 ml Tube Feeding 720 ml 660 ml Output Urine Total 500 ml 500 ml # Bowel Movements 2 1 Laboratory Tests 09/15/19 06:15: White Blood Count 10.5, Red Blood Count 4.66L, Hemoglobin 14.5, Hematocrit 46.6 , Mean Corpuscular Volume 100H, Mean Corpuscular Hemoglobin 31.1H, Mean Corpuscular Hemoglobin Concent 31.2L, Red Cell Distribution Width 13.5, Platelet Count 312, Mean Platelet Volume 9.9, Neutrophils (%) (Auto) 59.6, Lymphocytes (%) (Auto) 23.5, Monocytes (%) (Auto) 10.4H, Eosinophils (%) (Auto) 4.8H, Basophils (%) (Auto) 1.7, Sodium Level 139, Potassium Level 4.6, Chloride Level 103, Carbon Dioxide Level 24, Anion Gap 12, Blood Urea Nitrogen 21H, Creatinine 0.9, Estimat Glomerular Filtration Rate > 60, Glucose Level 96, Calcium Level 9.1, Total Bilirubin 0.5, Aspartate Amino Transf (AST/SGOT) 34, Alanine Aminotransferase (ALT/SGPT) 49, Alkaline Phosphatase 131H, Total Protein 7.4, Albumin 3.2L, Globulin 4.2, Albumin/Globulin Ratio 0.8L Height (Feet): 5 Height (Inches): 7.00 Weight (Pounds): 189 General Appearance: no apparent distress EENT: other - Trach and vent Cardiovascular: tachycardia Respiratory/Chest: decreased breath sounds Abdomen: distended Hima Garza MD Sep 15, 2019 11:52
[2019-09-15 12:00] VITALS: BP 96/64
[2019-09-15] MEDS ORDERED: NS 275ml ONE (12:41)
[2019-09-15 16:00] VITALS: BP 101/60
[2019-09-15 20:00] VITALS: BP 96/62
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
[2019-09-15] MEDS: Gentamicin inj 400 MG in NS 110 ML IVPB SCH (21:01)
[2019-09-16] VITALS: BP 98/67
[2019-09-16 04:00] VITALS: BP 94/65
[2019-09-16] MEDS: NovoLOG Insulin Flexpen SUBQ SCH ×4 (05:09→18:00)
[2019-09-16 08:00] VITALS: BP 114/56
[2019-09-16] MEDS: Pantoprazole Inj IV SCH (08:35)
[2019-09-16] MEDS: levETIRAcetam 500mg/5ml Liquid GT SCH ×2 (08:35→20:10)
[2019-09-16] MEDS: Heparin 5000 units/ml inj SUBQ SCH ×2 (08:37→20:11)
--- NOTE | 2019-09-16 11:02 | Pulmonolgy Critical Care Note ---
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 (2) Chronic respiratory failure (3) Diabetes mellitus (4) Seizure disorder, convulsive, with status epilepticus (5) Feeding by G-tube Respiratory: monitor respiratory rate, adjust FIO2 Cardiac: continue pressors, continue to monitor HR/BP Renal: F/U I&O, keep IV fluid Infectious Disease: check cultures Endocrine: monitor blood sugar Hematologic: monitor H/H Neurologic: PRN Morphine Prophylaxis: Protonix Notes Reviewed: leasing professional Discussed with: nurses Critical Care - Objective Last 24 Hour Vital Signs Date Time Temp Pulse Resp B/P (MAP) Pulse Ox O2 Delivery O2 Flow Rate FiO2 09/16/19 08:00 98.1 98 16 114/56 (75) 98 09/16/19 08:00 Mechanical Ventilator 09/16/19 08:00 30 09/16/19 07:40 92 16 30 09/16/19 07:40 98 09/16/19 04:00 Mechanical Ventilator 09/16/19 04:00 30 09/16/19 04:00 98.2 81 16 94/65 (75) 99 09/16/19 04:00 97 09/16/19 03:26 82 16 30 09/16/19 00:00 82 09/16/19 00:00 30 09/16/19 00:00 Mechanical Ventilator 09/16/19 00:00 97.6 75 16 98/67 (77) 100 09/15/19 23:15 79 16 30 09/15/19 20:22 89 16 30 09/15/19 20:00 30 09/15/19 20:00 Mechanical Ventilator 09/15/19 20:00 97.8 83 16 96/62 (73) 100 09/15/19 19:25 86 09/15/19 16:00 Mechanical Ventilator 09/15/19 16:00 97.7 86 16 101/60 (74) 100 09/15/19 16:00 30 09/15/19 15:57 89 16 30 09/15/19 15:21 82 09/15/19 13:27 89 16 30 09/15/19 12:00 Mechanical Ventilator 09/15/19 12:00 30 09/15/19 12:00 97.9 84 19 96/64 (75) 100 09/15/19 11:35 83 Status: sedated Condition: critical HEENT: atraumatic Neck: full ROM Heart: HR/BP stable Abdomen: soft Extremities: no C/C/E Accucheck: 93 Critical Care - Subjective ROS Limited/Unobtainable: Yes Condition: critical EKG Rhythm: Sinus Rhythm FI02: 30 Vent Support Breath Rate: 16 Vent Support Mode: AC Vent Tidal Volume: 600 Sputum Amount: Small PEEP: 5.0 PIP: 29 Tube Feeding Amount: 60 I&O: Intake and Output 09/15/19 09/16/19 19:00 07:00 Intake Total 770 ml 840 ml Output Total 400 ml 450 ml Balance 370 ml 390 ml Intake Free Water 50 ml IV Total 120 ml Tube Feeding 720 ml 720 ml Output Urine Total 400 ml 450 ml # Bowel Movements 2 Amanda Combs MD Sep 16, 2019 11:02
[2019-09-16 12:00] VITALS: BP 126/58
--- NOTE | 2019-09-16 13:32 | Surgery Progress Note ---
Surgery Progress Note Subjective Additional Comments no acute events Objective Last 24 Hour Vital Signs Date Time Temp Pulse Resp B/P (MAP) Pulse Ox O2 Delivery O2 Flow Rate FiO2 09/16/19 12:00 Mechanical Ventilator 09/16/19 12:00 97.3 96 16 126/58 (80) 100 09/16/19 12:00 30 09/16/19 11:40 83 16 30 09/16/19 11:40 77 09/16/19 08:00 98.1 98 16 114/56 (75) 98 09/16/19 08:00 Mechanical Ventilator 09/16/19 08:00 30 09/16/19 07:40 92 16 30 09/16/19 07:40 98 09/16/19 04:00 Mechanical Ventilator 09/16/19 04:00 30 09/16/19 04:00 98.2 81 16 94/65 (75) 99 09/16/19 04:00 97 09/16/19 03:26 82 16 30 09/16/19 00:00 82 09/16/19 00:00 30 09/16/19 00:00 Mechanical Ventilator 09/16/19 00:00 97.6 75 16 98/67 (77) 100 09/15/19 23:15 79 16 30 09/15/19 20:22 89 16 30 09/15/19 20:00 30 09/15/19 20:00 Mechanical Ventilator 09/15/19 20:00 97.8 83 16 96/62 (73) 100 09/15/19 19:25 86 09/15/19 16:00 Mechanical Ventilator 09/15/19 16:00 97.7 86 16 101/60 (74) 100 09/15/19 16:00 30 09/15/19 15:57 89 16 30 09/15/19 15:21 82 I&O Intake and Output 09/15/19 09/16/19 19:00 07:00 Intake Total 770 ml 840 ml Output Total 400 ml 450 ml Balance 370 ml 390 ml Intake Free Water 50 ml IV Total 120 ml Tube Feeding 720 ml 720 ml Output Urine Total 400 ml 450 ml # Bowel Movements 2 Dressing: other Wound: other Drains: other Cardiovascular: RSR Respiratory: decreased breath sounds Abdomen: soft, non-tender, present bowel sounds Extremities: no cyanosis Plan Problems: (1) Feeding by G-tube Assessment & Plan: DAILY ESTIMATED NEEDS: Needs based on Critical Care, wounds/ 74.8kg abw 22-30 kcals/kg 2349-9547 total kcals 1.25-2 g protein/kg 94-150 g total protein 25-30 mL/kg 4685-6963 total fluid mLs NUTRITION DIAGNOSIS: * Swallowing difficulty R/T dysphagia, respiratory status as evidenced by pt is trach/vent dep, PEG dep. * Increased kcal/prot needs R/T wound healing as evidenced by pt admitted w/ sacral unstageable wound. CURRENT TF: Glucerna 1.2 @ 60ml/hr ENTERAL NUTRITION RECOMMENDATIONS: Glucerna 1.2 @ 60ml/hr x 24 hrs + Prosource qdaily to provide 1440ml, 1728kcal , 86g + 11g prot, 1162ml free water * Rec to increase rate to 60ml/hr for 24 hrs * Add Prosource 1pkt QD to meet protein needs * HOB over 30 degrees/ water flush per MD. ----- -CURRENTLY GLUCERNA 1.2/ 1.5 LOW ON STOCK OR OOS, REC JEVITY 1.2 BG HAS BEEN WNL, W/ GOAL OF 60ML/HR X24 HRS + PROSOURCE BID. -TF at goal + Prosource provides 1728 kcal + 80kcal, 80g +22g pro, to meet 100% est needs, monitor blood glucose regularly w/ ssi for coverage and BG control. -Jevity 1.2 @60ml/hr to provide 79g more carbs per day. Will monitor glycemic tolerance/ control. ADDITIONAL RECOMMENDATIONS: * Maintain calibrated bed scale wts * Wound care: Add DANYELLE BID + Vit C 250mg BID * Monitor lytes daily, replete as needed (low phos 2.1) * Accuchecks w/ SSI for glycemic control * Rec trial TF change to Jevity 1.2 @60 (shortage of Glucerna 1.2, 1.5) may need to increase insulin coverage (2) Decubitus skin ulcer Assessment & Plan: left flank wound noted. considered as possible abscess. evaluated. 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 Proteus mirabilis was sensitive to cefepime and ceftazidime. Serratia is sensitive to gentamicin and Proteus is sensitive to gentamicin as well. cxr with Findings: Tracheostomy tube is in the mid trachea. Linear atelectasis of the left lung base. Blunted left costophrenic angle. Small left pleural effusion and overlying atelectasis. Mild atelectasis of the right lung base. Question old proximal right clavicle fracture. Impression: 1. Trace left pleural effusion with overlying atelectasis. Mild right basilar atelectasis. 2. Unchanged tracheostomy tube. abx as per ID respiratory care as per pulm nutritional will follow with recs thank you Streaky and hazy opacities throughout the right lung and left lower lung which may represent atelectasis versus infectious/inflammatory process. Pt presented on admission with small furuncle Lateral L chest. Reabsorbing DTPI Sacrum R and L gluteal cheeks. Scattered areas of shearing within base of wound. Surrounding areas of mixed skin Hyper and hypopigmentation noted. DTPI noted to L trochanter(L)3cm x (W)5.5cm. Base of Pressure injury has darker than is normal skin tone and is indurated. Marginal erythema along edges. Historical scars with hyperpigmentation from previous wounds noted to R and L ischial tuberosities. Heels are firm and blanchable . Tx.Plan: Apply Moisture Barrier Paste to Buttocks. Cover with Optifoam drsg. Change every 3 days and prn. Apply Cavilon Skin Barrier to both heels. Cover each heel with Optifoam drsg. Change every 7 days and prn. Reposition at least every 2houors or as tolerated. Place pillow between knees. Off-load heels with Pillow. APM/EDD Mattress overlay. (8) Chronic respiratory failure (9) Bacteremia (10) Uncontrolled seizures (11) Seizure disorder, convulsive, with status epilepticus (12) Seizure after head injury (13) Line sepsis (14) UTI (urinary tract infection) (15) Urinary tract infection (16) Acute on chronic renal insufficiency Horacio Hope Sep 16, 2019 13:32
[2019-09-16 16:00] VITALS: BP 102/58
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
[2019-09-16 20:00] VITALS: BP 94/60
[2019-09-16] MEDS: Gentamicin inj 400 MG in NS 110 ML IVPB SCH (21:41)
--- NOTE | 2019-09-16 23:45 | Progress Note ---
DATE: 09/16/2019 SUBJECTIVE: The patient developed today hypotension and required a volume expansion by 25% albumin 50 mL every q.8h. x3. PHYSICAL EXAMINATION: VITAL SIGNS: Blood pressure is 102/58, pulse is 82, respirations are 16, temperature 97.7 HEENT: Eyes were normal. ENT, mucous membranes were moist and intact. NECK: Supple with no JVD without lymph nodes. Tracheostomy site is clean. LUNGS: Clear without rhonchi, rales, or wheezing. HEART: Normal sounds with regular beats. There is no tachycardia at rest. ABDOMEN: Soft, nontender with normal bowel sounds. Gastrostomy site is clean. EXTREMITIES: Warm without cyanosis, clubbing, or edema. LABORATORY DATA: His hemoglobin is 14.5, hematocrit 46.3 with MCV of 100, WBC of 10.5, and platelets 312. His BUN and creatinine are 21 and 0.9 respectively. His sodium is 139, potassium 4.6, chloride 103, CO2 is 24. SGOT, SGPT, and alkaline phosphatase are normal. Albumin is 3.2 and total protein is 7.4. on 09/09/2019 are negative, urine culture, blood culture x2, and the last blood culture, which was positive on 09/06/2019 which showed Serratia marcescens and Proteus mirabilis. IMPRESSION: The patient has unexplained hypotension, the cause of which is not clear. Troponin, cortisol, CBC, and BMP will be done in a.m. The patient otherwise appears stable biologically. He has normal WBC and normal renal function. Libby Fair M.D. DR: CARLITOS JOB#: [id number] CC:
[2019-09-17] VITALS: BP 124/62
--- NOTE | 2019-09-17 01:00 | Progress Note ---
DATE: 09/16/2019 CARDIOLOGY PROGRESS NOTE SUBJECTIVE: The patient is remaining on ventilator support via trach. He is on IV antimicrobials for healthcare-associated pneumonia. Monitored rhythm, sinus. Rare ectopics but no sustained arrhythmias or tachycardia. PHYSICAL EXAMINATION: LUNGS: Bilateral breath sounds with rhonchi. No wheezing. HEART: Regular rhythm and rate. Normal S1 and S2. ABDOMEN: Soft. No edema. G-tube intact. IMPRESSION: 1. Stable cardiac rhythm. 2. Healthcare-associated pneumonia. 3. Paroxysmal tachyarrhythmias including SVT now likely precipitated by elevated right-sided heart pressures associated with pulmonary venous hypertension. PLAN: 1. Continue cardiac monitoring. 2. Respiratory care. 3. No role for antiarrhythmic drugs at this time. 4. May use Cardizem as needed for sustained atrial tachyarrhythmias. Paul Ruggiero M.D. DR: Aaron JOB#: [id number] CC:
[2019-09-17 04:00] VITALS: BP 98/62
[2019-09-17 04:41] LABS: EOSINOPHILS % (AUTO) 7.4 % (0.0-3.0); HEMATOCRIT 41.6 % (42.0-52.0); HEMOGLOBIN 13.2 G/DL (14.2-18.0); LYMPHOCYTES % (AUTO) 23.6 % (20.0-45.0); MEAN CORPUSCULAR VOLUME 99 FL (80-99); MONOCYTES % (AUTO) 6.2 % (1.0-10.0); NEUTROPHILS % (AUTO) 61.7 % (45.0-75.0); PLATELET COUNT 187 K/UL (150-450); RED CELL DISTRIBUTION WIDTH 13.3 % (11.6-14.8); WHITE BLOOD COUNT 8.1 K/UL (4.8-10.8)
[2019-09-17 05:28] LABS: ANION GAP 13 mmol/L (5-15); BLOOD UREA NITROGEN 18 mg/dL (7-18); CALCIUM 9.5 MG/DL (8.5-10.1); CARBON DIOXIDE 23 MMOL/L (21-32); CHLORIDE 105 MMOL/L (98-107); POTASSIUM 3.9 MMOL/L (3.5-5.1); SODIUM 141 MMOL/L (136-145)
[2019-09-17] MEDS: NovoLOG Insulin Flexpen SUBQ SCH ×5 (05:50→23:48)
[2019-09-17 07:55] VITALS: BP 96/62
[2019-09-17] MEDS: Pantoprazole Inj IV SCH (08:30)
[2019-09-17] MEDS: levETIRAcetam 500mg/5ml Liquid GT SCH ×2 (08:30→20:43)
[2019-09-17] MEDS: Heparin 5000 units/ml inj SUBQ SCH ×2 (08:33→20:44)
--- NOTE | 2019-09-17 10:48 | Pulmonolgy Critical Care Note ---
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, 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 Discussed with: consultants, case foldermanager psychiatry - Objective Last 24 Hour Vital Signs Date Time Temp Pulse Resp B/P (MAP) Pulse Ox O2 Delivery O2 Flow Rate FiO2 09/17/19 08:00 Mechanical Ventilator 09/17/19 08:00 30 09/17/19 08:00 79 09/17/19 07:55 98.1 79 17 96/62 (73) 100 09/17/19 07:10 76 16 30 09/17/19 05:10 76 16 30 09/17/19 04:00 78 09/17/19 04:00 98.1 73 16 98/62 (74) 100 09/17/19 04:00 30 09/17/19 04:00 Mechanical Ventilator 09/17/19 03:06 89 17 30 09/17/19 01:08 75 16 30 09/17/19 00:00 97.7 80 16 124/62 (82) 99 09/17/19 00:00 Mechanical Ventilator 09/17/19 00:00 75 09/17/19 00:00 30 09/16/19 22:50 71 16 30 09/16/19 21:05 75 17 30 09/16/19 20:00 82 09/16/19 20:00 Mechanical Ventilator 09/16/19 20:00 97.5 76 16 94/60 (71) 99 09/16/19 20:00 30 09/16/19 19:05 79 16 30 09/16/19 16:00 30 09/16/19 16:00 Mechanical Ventilator 09/16/19 16:00 87 09/16/19 16:00 97.7 82 16 102/58 (73) 100 09/16/19 15:40 81 16 30 09/16/19 12:00 Mechanical Ventilator 09/16/19 12:00 97.3 96 16 126/58 (80) 100 09/16/19 12:00 30 09/16/19 11:40 83 16 30 09/16/19 11:40 77 Status: awake Condition: critical HEENT: atraumatic Neck: full ROM Heart: HR/BP stable Abdomen: soft Extremities: no C/C/E Accucheck: 81 Critical Care - Subjective ROS Limited/Unobtainable: Yes FI02: 30 Vent Support Breath Rate: 16 Vent Support Mode: AC Vent Tidal Volume: 600 Sputum Amount: Small PEEP: 5.0 PIP: 26 Tube Feeding Amount: 60 I&O: Intake and Output 09/16/19 09/17/19 19:00 07:00 Intake Total 300 ml 890 ml Output Total 250 ml 400 ml Balance 50 ml 490 ml IV Total 170 ml Tube Feeding 300 ml 720 ml Output Urine Total 250 ml 400 ml Labs: Laboratory Tests Test 09/16/19 20:55 09/17/19 03:45 Troponin I 0.000 ng/mL (0.000-0.056) White Blood Count 8.1 K/UL (4.8-10.8) Red Blood Count 4.20 M/UL (4.70-6.10) L Hemoglobin 13.2 G/DL (14.2-18.0) L Hematocrit 41.6 % (42.0-52.0) L Mean Corpuscular Volume 99 FL (80-99) Mean Corpuscular Hemoglobin 31.5 PG (27.0-31.0) H Mean Corpuscular Hemoglobin Concent 31.8 G/DL (32.0-36.0) L Red Cell Distribution Width 13.3 % (11.6-14.8) Platelet Count 187 K/UL (150-450) Mean Platelet Volume 9.2 FL (6.5-10.1) Neutrophils (%) (Auto) 61.7 % (45.0-75.0) Lymphocytes (%) (Auto) 23.6 % (20.0-45.0) Monocytes (%) (Auto) 6.2 % (1.0-10.0) Eosinophils (%) (Auto) 7.4 % (0.0-3.0) H Basophils (%) (Auto) 1.0 % (0.0-2.0) Sodium Level 141 MMOL/L (136-145) Potassium Level 3.9 MMOL/L (3.5-5.1) Chloride Level 105 MMOL/L (98-107) Carbon Dioxide Level 23 MMOL/L (21-32) Anion Gap 13 mmol/L (5-15) Blood Urea Nitrogen 18 mg/dL (7-18) Creatinine 1.0 MG/DL (0.55-1.30) Estimat Glomerular Filtration Rate > 60 mL/min (>60) Glucose Level 107 MG/DL (74-106) H Calcium Level 9.5 MG/DL (8.5-10.1) Cortisol AM Sample Pending Amanda Combs MD Sep 17, 2019 10:48
[2019-09-17 12:00] VITALS: BP 96/60
--- NOTE | 2019-09-17 15:10 | Surgery Progress Note ---
Surgery Progress Note Subjective Additional Comments no acute events exam stable comfortable appearing Objective Last 24 Hour Vital Signs Date Time Temp Pulse Resp B/P (MAP) Pulse Ox O2 Delivery O2 Flow Rate FiO2 09/17/19 14:32 77 16 30 09/17/19 12:00 30 09/17/19 12:00 98.1 76 16 96/60 (72) 100 09/17/19 12:00 Mechanical Ventilator 09/17/19 11:36 75 09/17/19 11:10 73 16 30 09/17/19 08:00 Mechanical Ventilator 09/17/19 08:00 30 09/17/19 08:00 79 09/17/19 07:55 98.1 79 17 96/62 (73) 100 09/17/19 07:10 76 16 30 09/17/19 05:10 76 16 30 09/17/19 04:00 78 09/17/19 04:00 98.1 73 16 98/62 (74) 100 09/17/19 04:00 30 09/17/19 04:00 Mechanical Ventilator 09/17/19 03:06 89 17 30 09/17/19 01:08 75 16 30 09/17/19 00:00 97.7 80 16 124/62 (82) 99 09/17/19 00:00 Mechanical Ventilator 09/17/19 00:00 75 09/17/19 00:00 30 09/16/19 22:50 71 16 30 09/16/19 21:05 75 17 30 09/16/19 20:00 82 09/16/19 20:00 Mechanical Ventilator 09/16/19 20:00 97.5 76 16 94/60 (71) 99 09/16/19 20:00 30 09/16/19 19:05 79 16 30 09/16/19 16:00 30 09/16/19 16:00 Mechanical Ventilator 09/16/19 16:00 87 09/16/19 16:00 97.7 82 16 102/58 (73) 100 09/16/19 15:40 81 16 30 I&O Intake and Output 09/16/19 09/17/19 19:00 07:00 Intake Total 300 ml 890 ml Output Total 250 ml 400 ml Balance 50 ml 490 ml IV Total 170 ml Tube Feeding 300 ml 720 ml Output Urine Total 250 ml 400 ml Dressing: other Wound: other Drains: other Cardiovascular: RSR Respiratory: decreased breath sounds Abdomen: soft, non-tender, present bowel sounds Extremities: no cyanosis Laboratory Tests Test 09/16/19 20:55 09/17/19 03:45 Troponin I 0.000 ng/mL (0.000-0.056) White Blood Count 8.1 K/UL (4.8-10.8) Red Blood Count 4.20 M/UL (4.70-6.10) L Hemoglobin 13.2 G/DL (14.2-18.0) L Hematocrit 41.6 % (42.0-52.0) L Mean Corpuscular Volume 99 FL (80-99) Mean Corpuscular Hemoglobin 31.5 PG (27.0-31.0) H Mean Corpuscular Hemoglobin Concent 31.8 G/DL (32.0-36.0) L Red Cell Distribution Width 13.3 % (11.6-14.8) Platelet Count 187 K/UL (150-450) Mean Platelet Volume 9.2 FL (6.5-10.1) Neutrophils (%) (Auto) 61.7 % (45.0-75.0) Lymphocytes (%) (Auto) 23.6 % (20.0-45.0) Monocytes (%) (Auto) 6.2 % (1.0-10.0) Eosinophils (%) (Auto) 7.4 % (0.0-3.0) H Basophils (%) (Auto) 1.0 % (0.0-2.0) Sodium Level 141 MMOL/L (136-145) Potassium Level 3.9 MMOL/L (3.5-5.1) Chloride Level 105 MMOL/L (98-107) Carbon Dioxide Level 23 MMOL/L (21-32) Anion Gap 13 mmol/L (5-15) Blood Urea Nitrogen 18 mg/dL (7-18) Creatinine 1.0 MG/DL (0.55-1.30) Estimat Glomerular Filtration Rate > 60 mL/min (>60) Glucose Level 107 MG/DL (74-106) H Calcium Level 9.5 MG/DL (8.5-10.1) Cortisol AM Sample 4.1 UG/DL Plan Problems: (1) Feeding by G-tube Assessment & Plan: DAILY ESTIMATED NEEDS: Needs based on Critical Care, wounds/ 74.8kg abw 22-30 kcals/kg 7496-7930 total kcals 1.25-2 g protein/kg 94-150 g total protein 25-30 mL/kg 5863-3812 total fluid mLs NUTRITION DIAGNOSIS: * Swallowing difficulty R/T dysphagia, respiratory status as evidenced by pt is trach/vent dep, PEG dep. * Increased kcal/prot needs R/T wound healing as evidenced by pt admitted w/ sacral unstageable wound. CURRENT TF: Glucerna 1.2 @ 60ml/hr ENTERAL NUTRITION RECOMMENDATIONS: Glucerna 1.2 @ 60ml/hr x 24 hrs + Prosource qdaily to provide 1440ml, 1728kcal , 86g + 11g prot, 1162ml free water * Rec to increase rate to 60ml/hr for 24 hrs * Add Prosource 1pkt QD to meet protein needs * HOB over 30 degrees/ water flush per MD. ----- -CURRENTLY GLUCERNA 1.2/ 1.5 LOW ON STOCK OR OOS, REC JEVITY 1.2 BG HAS BEEN WNL, W/ GOAL OF 60ML/HR X24 HRS + PROSOURCE BID. -TF at goal + Prosource provides 1728 kcal + 80kcal, 80g +22g pro, to meet 100% est needs, monitor blood glucose regularly w/ ssi for coverage and BG control. -Jevity 1.2 @60ml/hr to provide 79g more carbs per day. Will monitor glycemic tolerance/ control. ADDITIONAL RECOMMENDATIONS: * Maintain calibrated bed scale wts * Wound care: Add DANYELLE BID + Vit C 250mg BID * Monitor lytes daily, replete as needed (low phos 2.1) * Accuchecks w/ SSI for glycemic control * Rec trial TF change to Jevity 1.2 @60 (shortage of Glucerna 1.2, 1.5) may need to increase insulin coverage (2) Decubitus skin ulcer Assessment & Plan: left flank wound noted. considered as possible abscess. evaluated. 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 Proteus mirabilis was sensitive to cefepime and ceftazidime. Serratia is sensitive to gentamicin and Proteus is sensitive to gentamicin as well. cxr with Findings: Tracheostomy tube is in the mid trachea. Linear atelectasis of the left lung base. Blunted left costophrenic angle. Small left pleural effusion and overlying atelectasis. Mild atelectasis of the right lung base. Question old proximal right clavicle fracture. Impression: 1. Trace left pleural effusion with overlying atelectasis. Mild right basilar atelectasis. 2. Unchanged tracheostomy tube. abx as per ID respiratory care as per pulm nutritional will follow with recs thank you Streaky and hazy opacities throughout the right lung and left lower lung which may represent atelectasis versus infectious/inflammatory process. Pt presented on admission with small furuncle Lateral L chest. Reabsorbing DTPI Sacrum R and L gluteal cheeks. Scattered areas of shearing within base of wound. Surrounding areas of mixed skin Hyper and hypopigmentation noted. DTPI noted to L trochanter(L)3cm x (W)5.5cm. Base of Pressure injury has darker than is normal skin tone and is indurated. Marginal erythema along edges. Historical scars with hyperpigmentation from previous wounds noted to R and L ischial tuberosities. Heels are firm and blanchable . Tx.Plan: Apply Moisture Barrier Paste to Buttocks. Cover with Optifoam drsg. Change every 3 days and prn. Apply Cavilon Skin Barrier to both heels. Cover each heel with Optifoam drsg. Change every 7 days and prn. Reposition at least every 2houors or as tolerated. Place pillow between knees. Off-load heels with Pillow. APM/EDD Mattress overlay. (8) Chronic respiratory failure (9) Bacteremia (10) Uncontrolled seizures (11) Seizure disorder, convulsive, with status epilepticus (12) Seizure after head injury (13) Line sepsis (14) UTI (urinary tract infection) (15) Urinary tract infection (16) Acute on chronic renal insufficiency Horacio Hope Sep 17, 2019 15:10
[2019-09-17 16:00] VITALS: BP 96/74
[2019-09-17 20:00] VITALS: BP 98/69
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
[2019-09-17] MEDS: Gentamicin inj 400 MG in NS 110 ML IVPB SCH (21:07)
[2019-09-18] VITALS: BP 121/63
[2019-09-18 04:00] VITALS: BP 99/65
--- NOTE | 2019-09-18 04:44 | Progress Note ---
DATE: 09/17/2019 CARDIOLOGY PROGRESS NOTE SUBJECTIVE: The patient remains on ventilator support via trach. Monitored rhythm sinus. There are some paroxysms of atrial ectopy. No sustained tachyarrhythmias. OBJECTIVE: VITAL SIGNS: Blood pressure 96/60, heart rate 76, respirations 16, afebrile. LUNGS: Few rhonchi. HEENT: Thin trach secretions. CARDIAC: Regular rhythm and rate. Normal S1, S2. ABDOMEN: Soft. G-tube site intact. EXTREMITIES: No edema. LABORATORY DATA: White count 8.1, hemoglobin 13.2. Sodium 141, potassium 3.9, bicarb 23, BUN 18, creatinine 1. IMPRESSION: 1. Sepsis. 2. Recovering shock. 3. Possible adrenal insufficiency. 4. Paroxysmal atrial ectopy and tachyarrhythmias. 5. Respiratory failure with trach. PLAN: 1. Follow up cortisol level. 2. Maintain adequate volume support. 3. Antimicrobials. 4. Nutrition by feeding tube. 5. Hope to avoid pressors. Paul Ruggiero M.D. DR: NAYLA JOB#: [id number] CC:
[2019-09-18] MEDS: NovoLOG Insulin Flexpen SUBQ SCH ×4 (06:00→23:25)
[2019-09-18 08:00] VITALS: BP_SYST 93; BP_DIAS 50; BP_DIAS 58
[2019-09-18] MEDS: Pantoprazole Inj IV SCH (09:00)
[2019-09-18] MEDS: levETIRAcetam 500mg/5ml Liquid GT SCH ×2 (09:00→20:40)
[2019-09-18] MEDS ORDERED: Hydrocortisone 100mg Inj IV SCH (09:00)
[2019-09-18] MEDS: Heparin 5000 units/ml inj SUBQ SCH ×2 (09:02→20:41)
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
--- NOTE | 2019-09-18 11:47 | Pulmonolgy Critical Care Note ---
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 (2) Chronic respiratory failure (3) Diabetes mellitus (4) Seizure disorder, convulsive, with status epilepticus (5) Feeding by G-tube Respiratory: monitor respiratory rate, adjust FIO2, CXR Cardiac: continue pressors, continue to monitor HR/BP Renal: F/U I&O, check electrolytes Infectious Disease: check cultures Gastrointestinal: continue feedings/current rate Endocrine: monitor blood sugar Hematologic: transfuse if hgb<8.5 Neurologic: PRN Ativan, keep patient comfortable Affect: PRN ativan Prophylaxis: Protonix Time Spent (Minutes): 40 Notes Reviewed: marine cargo specialist, cardio Discussed with: nurses, consultants, catalytic case operatorinsurance agency sales manager - Objective Last 24 Hour Vital Signs Date Time Temp Pulse Resp B/P (MAP) Pulse Ox O2 Delivery O2 Flow Rate FiO2 09/18/19 10:37 84 16 30 09/18/19 08:00 99.3 95 18 93/50 (64) 100 95 09/18/19 07:41 91 09/18/19 07:14 89 16 30 09/18/19 04:00 30 09/18/19 04:00 85 09/18/19 04:00 97.7 76 16 99/65 (76) 98 09/18/19 04:00 Mechanical Ventilator 09/18/19 03:14 74 16 30 09/18/19 00:00 77 09/18/19 00:00 30 09/18/19 00:00 Mechanical Ventilator 09/18/19 00:00 97.5 75 16 121/63 (82) 99 09/17/19 23:02 77 16 30 09/17/19 20:00 69 09/17/19 20:00 97.9 78 16 98/69 (79) 99 09/17/19 20:00 30 09/17/19 20:00 Mechanical Ventilator 09/17/19 19:28 79 19 30 09/17/19 16:00 97.7 81 16 96/74 (81) 100 09/17/19 16:00 30 09/17/19 16:00 Mechanical Ventilator 09/17/19 16:00 83 09/17/19 14:32 77 16 30 09/17/19 12:00 30 09/17/19 12:00 98.1 76 16 96/60 (72) 100 09/17/19 12:00 Mechanical Ventilator Status: sedated Condition: critical Neck: trach Abdomen: soft Extremities: no C/C/E Accucheck: 106 Critical Care - Subjective Interval Events: bp was borderline low. at 80's FI02: 30 Vent Support Breath Rate: 16 Vent Support Mode: AC Vent Tidal Volume: 600 Sputum Amount: Moderate PEEP: 5.0 PIP: 23 Tube Feeding Amount: 60 I&O: Intake and Output 09/17/19 09/18/19 19:00 07:00 Intake Total 860 ml 780 ml Output Total 500 ml 450 ml Balance 360 ml 330 ml Intake Free Water 200 ml IV Total 120 ml Tube Feeding 660 ml 660 ml Output Urine Total 500 ml 450 ml # Bowel Movements 1 Amanda Combs MD Sep 18, 2019 11:47
[2019-09-18 12:00] VITALS: BP 112/59
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
--- NOTE | 2019-09-18 13:32 | Surgery Progress Note ---
Surgery Progress Note Subjective Additional Comments no acute events Objective Last 24 Hour Vital Signs Date Time Temp Pulse Resp B/P (MAP) Pulse Ox O2 Delivery O2 Flow Rate FiO2 09/18/19 12:00 30 09/18/19 12:00 72 09/18/19 12:00 Mechanical Ventilator 09/18/19 12:00 98.6 76 16 112/59 (76) 100 09/18/19 10:37 84 16 30 09/18/19 08:00 30 09/18/19 08:00 99.1 93 16 93/58 (70) 100 09/18/19 08:00 99.3 95 18 93/50 (64) 100 95 09/18/19 08:00 Mechanical Ventilator 09/18/19 07:41 91 09/18/19 07:14 89 16 30 09/18/19 04:00 30 09/18/19 04:00 85 09/18/19 04:00 97.7 76 16 99/65 (76) 98 09/18/19 04:00 Mechanical Ventilator 09/18/19 03:14 74 16 30 09/18/19 00:00 77 09/18/19 00:00 30 09/18/19 00:00 Mechanical Ventilator 09/18/19 00:00 97.5 75 16 121/63 (82) 99 09/17/19 23:02 77 16 30 09/17/19 20:00 69 09/17/19 20:00 97.9 78 16 98/69 (79) 99 09/17/19 20:00 30 09/17/19 20:00 Mechanical Ventilator 09/17/19 19:28 79 19 30 09/17/19 16:00 97.7 81 16 96/74 (81) 100 09/17/19 16:00 30 09/17/19 16:00 Mechanical Ventilator 09/17/19 16:00 83 09/17/19 14:32 77 16 30 I&O Intake and Output 09/17/19 09/18/19 19:00 07:00 Intake Total 860 ml 780 ml Output Total 500 ml 450 ml Balance 360 ml 330 ml Intake Free Water 200 ml IV Total 120 ml Tube Feeding 660 ml 660 ml Output Urine Total 500 ml 450 ml # Bowel Movements 1 Dressing: other Wound: other Drains: other Cardiovascular: RSR Respiratory: decreased breath sounds Abdomen: soft, non-tender, present bowel sounds Extremities: no cyanosis Plan Problems: (1) Feeding by G-tube Assessment & Plan: DAILY ESTIMATED NEEDS: Needs based on Critical Care, wounds/ 74.8kg abw 22-30 kcals/kg 7062-0245 total kcals 1.25-2 g protein/kg 94-150 g total protein 25-30 mL/kg 9132-6921 total fluid mLs NUTRITION DIAGNOSIS: * Swallowing difficulty R/T dysphagia, respiratory status as evidenced by pt is trach/vent dep, PEG dep. * Increased kcal/prot needs R/T wound healing as evidenced by pt admitted w/ sacral unstageable wound. CURRENT TF: Glucerna 1.2 @ 60ml/hr ENTERAL NUTRITION RECOMMENDATIONS: Glucerna 1.2 @ 60ml/hr x 24 hrs + Prosource qdaily to provide 1440ml, 1728kcal , 86g + 11g prot, 1162ml free water * Rec to increase rate to 60ml/hr for 24 hrs * Add Prosource 1pkt QD to meet protein needs * HOB over 30 degrees/ water flush per MD. ----- -CURRENTLY GLUCERNA 1.2/ 1.5 LOW ON STOCK OR OOS, REC JEVITY 1.2 BG HAS BEEN WNL, W/ GOAL OF 60ML/HR X24 HRS + PROSOURCE BID. -TF at goal + Prosource provides 1728 kcal + 80kcal, 80g +22g pro, to meet 100% est needs, monitor blood glucose regularly w/ ssi for coverage and BG control. -Jevity 1.2 @60ml/hr to provide 79g more carbs per day. Will monitor glycemic tolerance/ control. ADDITIONAL RECOMMENDATIONS: * Maintain calibrated bed scale wts * Wound care: Add DANYELLE BID + Vit C 250mg BID * Monitor lytes daily, replete as needed (low phos 2.1) * Accuchecks w/ SSI for glycemic control * Rec trial TF change to Jevity 1.2 @60 (shortage of Glucerna 1.2, 1.5) may need to increase insulin coverage (2) Decubitus skin ulcer Assessment & Plan: left flank wound noted. considered as possible abscess. evaluated. 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 Proteus mirabilis was sensitive to cefepime and ceftazidime. Serratia is sensitive to gentamicin and Proteus is sensitive to gentamicin as well. cxr with Findings: Tracheostomy tube is in the mid trachea. Linear atelectasis of the left lung base. Blunted left costophrenic angle. Small left pleural effusion and overlying atelectasis. Mild atelectasis of the right lung base. Question old proximal right clavicle fracture. Impression: 1. Trace left pleural effusion with overlying atelectasis. Mild right basilar atelectasis. 2. Unchanged tracheostomy tube. abx as per ID respiratory care as per pulm nutritional will follow with recs thank you Streaky and hazy opacities throughout the right lung and left lower lung which may represent atelectasis versus infectious/inflammatory process. Pt presented on admission with small furuncle Lateral L chest. Reabsorbing DTPI Sacrum R and L gluteal cheeks. Scattered areas of shearing within base of wound. Surrounding areas of mixed skin Hyper and hypopigmentation noted. DTPI noted to L trochanter(L)3cm x (W)5.5cm. Base of Pressure injury has darker than is normal skin tone and is indurated. Marginal erythema along edges. Historical scars with hyperpigmentation from previous wounds noted to R and L ischial tuberosities. Heels are firm and blanchable . Tx.Plan: Apply Moisture Barrier Paste to Buttocks. Cover with Optifoam drsg. Change every 3 days and prn. Apply Cavilon Skin Barrier to both heels. Cover each heel with Optifoam drsg. Change every 7 days and prn. Reposition at least every 2houors or as tolerated. Place pillow between knees. Off-load heels with Pillow. APM/EDD Mattress overlay. (8) Chronic respiratory failure (9) Bacteremia (10) Uncontrolled seizures (11) Seizure disorder, convulsive, with status epilepticus (12) Seizure after head injury (13) Line sepsis (14) UTI (urinary tract infection) (15) Urinary tract infection (16) Acute on chronic renal insufficiency Horacio Hope 17, 2020 13:32
[2019-09-18 16:00] VITALS: BP 113/63
[2019-09-18 20:00] VITALS: BP 91/59
[2019-09-18] MEDS: Gentamicin inj 400 MG in NS 110 ML IVPB SCH (22:11)
[2019-09-19] VITALS: BP 110/62
[2019-09-19 04:00] VITALS: BP 128/71
[2019-09-19 04:35] LABS: BASOPHILS % (AUTO) 0.9 % (0.0-2.0); EOSINOPHILS % (AUTO) 3.8 % (0.0-3.0); HEMATOCRIT 36.9 % (42.0-52.0); LYMPHOCYTES % (AUTO) 22.8 % (20.0-45.0); MEAN CORPUSCULAR VOLUME 99 FL (80-99); MONOCYTES % (AUTO) 10.9 % (1.0-10.0); NEUTROPHILS % (AUTO) 61.5 % (45.0-75.0); PLATELET COUNT 248 K/UL (150-450); RED BLOOD COUNT 3.74 M/UL (4.70-6.10); RED CELL DISTRIBUTION WIDTH 13.4 % (11.6-14.8); WHITE BLOOD COUNT 9.9 K/UL (4.8-10.8)
--- NOTE | 2019-09-19 05:00 | Progress Note ---
DATE: 09/18/2019 CARDIOLOGY PROGRESS NOTE SUBJECTIVE: Patient had a low blood pressure reading this evening of 91/59. Klonopin was held. Subsequently repeat blood pressures were stable. PHYSICAL EXAMINATION: VITAL SIGNS: Reviewed overall. LUNGS: Bilateral breath sounds. HEENT: Thin secretions. CARDIAC: Regular rhythm and rate. Normal S1, S2. ABDOMEN: Soft. EXTREMITIES: No edema. IMPRESSION: 1. Transient hypotension, asymptomatic. Overall stable hemodynamics. 2. Sepsis with recovering shock. 3. Paroxysmal atrial ectopy. 4. Respiratory failure with trach. 5. Possible adrenal insufficiency. PLAN: 1. Consider Cortrosyn stim test. 2. Volume support. 3. Continue midodrine. Paul Ruggiero M.D. DR: NAYLA JOB#: [id number] CC:
[2019-09-19 05:18] LABS: ALANINE AMINOTRANSFERASE 51 U/L (12-78); ALBUMIN 3.2 G/DL (3.4-5.0); ALBUMIN/GLOBULIN RATIO 0.8 (1.0-2.7); ALKALINE PHOSPHATASE 115 U/L (46-116); ANION GAP 12 mmol/L (5-15); ASPARTATE AMINO TRANSFERASE 31 U/L (15-37); BILIRUBIN,TOTAL 0.3 MG/DL (0.2-1.0); BLOOD UREA NITROGEN 17 mg/dL (7-18); CALCIUM 8.9 MG/DL (8.5-10.1); CARBON DIOXIDE 23 MMOL/L (21-32); CHLORIDE 104 MMOL/L (98-107); POTASSIUM 3.8 MMOL/L (3.5-5.1); SODIUM 139 MMOL/L (136-145)
[2019-09-19] MEDS: NovoLOG Insulin Flexpen SUBQ SCH ×2 (06:00→11:34)
[2019-09-19 08:00] VITALS: BP 113/61
[2019-09-19] MEDS: Heparin 5000 units/ml inj SUBQ SCH (08:44)
[2019-09-19] MEDS: levETIRAcetam 500mg/5ml Liquid GT SCH (08:44)
[2019-09-19] MEDS: Pantoprazole Inj IV SCH (08:45)
[2019-09-19] MEDS ORDERED: Miralax 17gm pkt GT PRN (10:00)
[2019-09-19] MEDS ORDERED: Acetaminophen 650mg/20.3ml GT PRN (10:00)
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
--- NOTE | 2019-09-19 11:47 | Pulmonolgy Critical Care Note ---
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 (2) Chronic respiratory failure (3) Diabetes mellitus (4) Seizure disorder, convulsive, with status epilepticus (5) Feeding by G-tube Respiratory: monitor respiratory rate, adjust FIO2, ABG Cardiac: continue to monitor HR/BP Renal: F/U I&O Infectious Disease: check cultures Gastrointestinal: continue feedings/current rate Endocrine: monitor blood sugar Hematologic: monitor H/H, transfuse if hgb<8.5 Neurologic: keep patient comfortable Prophylaxis: Protonix Notes Reviewed: cardio, renal Discussed with: nurses, consultants, piano case 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 - Objective Last 24 Hour Vital Signs Date Time Temp Pulse Resp B/P (MAP) Pulse Ox O2 Delivery O2 Flow Rate FiO2 09/19/19 11:05 79 16 30 09/19/19 08:00 Mechanical Ventilator 09/19/19 08:00 30 09/19/19 08:00 98.2 67 18 113/61 (78) 100 09/19/19 07:43 73 09/19/19 07:16 81 16 30 09/19/19 04:00 Mechanical Ventilator 09/19/19 04:00 30 09/19/19 04:00 97.5 74 18 128/71 (90) 100 09/19/19 03:30 70 09/19/19 02:40 69 16 30 09/19/19 00:00 97.3 69 18 110/62 (78) 100 09/19/19 00:00 Mechanical Ventilator 09/18/19 23:42 70 09/18/19 22:50 81 16 30 09/18/19 20:00 Mechanical Ventilator 09/18/19 20:00 30 09/18/19 20:00 97.3 67 18 91/59 (70) 100 09/18/19 19:20 81 16 30 09/18/19 19:02 66 09/18/19 16:00 78 09/18/19 16:00 Mechanical Ventilator 09/18/19 16:00 98.2 79 18 113/63 (80) 100 09/18/19 16:00 30 09/18/19 15:04 72 16 30 09/18/19 12:00 30 09/18/19 12:00 72 09/18/19 12:00 Mechanical Ventilator 09/18/19 12:00 98.6 76 16 112/59 (76) 100 Status: obtunded HEENT: atraumatic Neck: full ROM Heart: HR/BP stable Abdomen: soft Extremities: no C/C/E Accucheck: 119 Critical Care - Subjective ROS Limited/Unobtainable: Yes FI02: 30 Vent Support Breath Rate: 16 Vent Support Mode: AC Vent Tidal Volume: 600 Sputum Amount: Moderate PEEP: 5.0 PIP: 23 Tube Feeding Amount: 60 I&O: Intake and Output 09/18/19 09/19/19 19:00 07:00 Intake Total 710 ml 880 ml Output Total 800 ml 900 ml Balance -90 ml -20 ml Intake Free Water 50 ml 100 ml IV Total 120 ml Tube Feeding 660 ml 660 ml Output Urine Total 800 ml 900 ml Labs: Laboratory Tests Test 09/19/19 02:55 White Blood Count 9.9 K/UL (4.8-10.8) Red Blood Count 3.74 M/UL (4.70-6.10) L Hemoglobin 12.0 G/DL (14.2-18.0) L Hematocrit 36.9 % (42.0-52.0) L Mean Corpuscular Volume 99 FL (80-99) Mean Corpuscular Hemoglobin 32.0 PG (27.0-31.0) H Mean Corpuscular Hemoglobin Concent 32.4 G/DL (32.0-36.0) Red Cell Distribution Width 13.4 % (11.6-14.8) Platelet Count 248 K/UL (150-450) Mean Platelet Volume 11.2 FL (6.5-10.1) H Neutrophils (%) (Auto) 61.5 % (45.0-75.0) Lymphocytes (%) (Auto) 22.8 % (20.0-45.0) Monocytes (%) (Auto) 10.9 % (1.0-10.0) H Eosinophils (%) (Auto) 3.8 % (0.0-3.0) H Basophils (%) (Auto) 0.9 % (0.0-2.0) Sodium Level 139 MMOL/L (136-145) Potassium Level 3.8 MMOL/L (3.5-5.1) Chloride Level 104 MMOL/L (98-107) Carbon Dioxide Level 23 MMOL/L (21-32) Anion Gap 12 mmol/L (5-15) Blood Urea Nitrogen 17 mg/dL (7-18) Creatinine 1.0 MG/DL (0.55-1.30) Estimat Glomerular Filtration Rate > 60 mL/min (>60) Glucose Level 106 MG/DL (74-106) Calcium Level 8.9 MG/DL (8.5-10.1) Total Bilirubin 0.3 MG/DL (0.2-1.0) Aspartate Amino Transf (AST/SGOT) 31 U/L (15-37) Alanine Aminotransferase (ALT/SGPT) 51 U/L (12-78) Alkaline Phosphatase 115 U/L (46-116) Total Protein 7.0 G/DL (6.4-8.2) Albumin 3.2 G/DL (3.4-5.0) L Globulin 3.8 g/dL Albumin/Globulin Ratio 0.8 (1.0-2.7) L Amanda Combs MD Sep 19, 2019 11:47
[2019-09-19 12:00] VITALS: BP 107/65
--- NOTE | 2019-09-19 15:45 | Progress Note ---
DATE: 09/19/2019 CARDIOLOGY PROGRESS NOTE SUBJECTIVE: The patient is on mechanical ventilator support via trach. No recurring hypertensive episodes have been noted since yesterday evening. Monitored rhythm, sinus. No pauses. OBJECTIVE: LUNGS: Few rhonchi. CARDIAC: Regular rhythm and rate. ABDOMEN: Soft. EXTREMITIES: Trace dependent edema. LABORATORY DATA: Chemistry panel entirely within normal limits. Albumin 3.2. White count 9.9 and hemoglobin 12. IMPRESSION: 1. Stabilizing cardiovascular parameters. 2. Multiorgan system failure. 3. Sepsis with recovering shock. 4. Low likelihood for adrenal insufficiency. PLAN: 1. Maintain midodrine for now. 2. Reassess over the next 48 to 72 hours. 3. Continue volume support, antimicrobials, ventilator support. Paul Ruggiero M.D. DR: JUDAH JOB#: [id number] CC:
--- NOTE | 2019-09-19 17:15 | Progress Note ---
DATE: 09/18/2019 SUBJECTIVE: The patient is afebrile, hemodynamically stable. He was borderline hypotensive today and received 100 mg of hydrocortisone and blood pressure normalized. PHYSICAL EXAMINATION: VITAL SIGNS: Blood pressure is 113/63, pulse 79, respirations 78, temperature 98.2. HEENT: Eyes were normal. ENT, mucous membranes were moist and intact. NECK: Supple with no JVD without lymph nodes. Tracheostomy site is clean. LUNGS: Clear without rhonchi, rales, or wheezing. HEART: Normal sounds with regular beats. There is no tachycardia at rest. ABDOMEN: Soft, nontender with normal bowel sounds. Gastrostomy site is clean. EXTREMITIES: Warm without cyanosis, clubbing, or edema. LABORATORY AND DIAGNOSTIC DATA: Hemoglobin is 13.2, hematocrit 41.6, MCV of 89, WBC 8.1, and platelets is 187. His BUN and creatinine is 18 and 1.0 respectively. Sodium is 141, potassium 3.9, chloride 105, CO2 . IMPRESSION: The patient is hypotensive, the patient consistently in the left upper extremity. is persistently low between 95 to 100 on the right side. is persistently normal. Possibility of subclavian artery stenosis or partial stenosis could not be excluded. The patient is scheduled to undergo the last antibiotic injection in the morning and at the same time CT scan of the brain without contrast will be done. Plan is to discharge the patient in the morning following these tests to the extended care facility without , resuming the hospital medications that include in particular levetiracetam 1 g q.12 and clonazepam 2 mg b.i.d. Repeat laboratory tests will be done in the a.m. Libby Fair M.D. DR: BASHIR JOB#: [id number] CC:
--- NOTE | 2019-09-20 15:45 | Discharge Summary ---
DATE OF ADMISSION: 08/26/2019 DATE OF DISCHARGE: 09/19/2019 This note is one of several admissions to [facility] of this 54-year-old patient because of the presence of Pseudomonas aeruginosa, multidrug-resistant. HISTORY OF PRESENT ILLNESS: The details of the event and circumstances that led the patient to be admitted can be found in the H and P. In brief, the patient is a resident of an [facility] sub[facility] unit where he has been in stable condition for the last several years. He is known to have several chronic medical syndrome that has been stable on current medication. On the day of admission, he was found to have sputum culture grew Pseudomonas aeruginosa as well as Acinetobacter baumannii. The patient was transferred to [facility] Emergency Room and was admitted the sputum result can be found in the dictation that was done yesterday the patient was supposed to be discharged. However, he was supposed to get the last dose of gentamicin and then had IV from the leg removed. In addition, he was sent to have CT scan of the brain without contrast. Antibiotic program was successfully completed and the IV from the leg was removed. However, the patient did not have a CT scan of the brain without contrast because of discharge team and the clinical team. At the time of discharge, the patient is awake, alert, afebrile, hemodynamically stable. He has eye contact. 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 He underwent EEG, which revealed the electrical abnormality one of that was classic seizure disorder. The other two were in different sites, responsible for his dystonia movement such as oral buccolingual and periorbital involuntary rapid movement. Prior to be discharged, the patient's medication has increased, his levetiracetam from 500 mg b.i.d to 1 g b.i.d. and Klonopin 2 mg b.i.d. was added as well movement completely resolving. The patient remained alert in eye contact and without dystonic movement. He will be discharged back to the [facility] where he will be seen in 24 hours after discharge. Libby Fair M.D. DR: CARLITOS JOB#: [id number] CC:
--- NOTE | 2019-09-21 10:51 | Discharge Summary ---
Discharge Summary Discharge Summary _ please refer to dc summary, dictated by Dr Fair 09/19 FINAL DIAGNOSIS Sepsis Shock -recovered Suspected COVID-19 ruled out Recurrent fever with recurrent leukocytosis- resolved Tracheitis Probably pneumonia Sacral deep tissue injury present on admission Chronic respiratory failure, ventilator dependent with tracheostomy status Seizure disorder Dysphagia , feeding by G-tube Recent infection due to carbapenem resistant Pseudomonas Aeruginosa Paroxysmal supraventricular tachycardia Encephalopathy / per EEG Jessica French NP Sep 21, 2019 10:51
== END 2019-09-19 12:36 | DRG 720 ==
LOC: EDBD 20:49 → EMR 21:08 → EDBEDREQ 21:19 → 2W 21:26 → EDBEDREQ 22:27
PROC: 5A1955Z Respiratory Ventilation, Greater than 96 Consecutive Hours (ICD-10-PCS; principal; 2019-08-26)
DX: A41.9 Sepsis, unspecified organism (principal); J15.1 Pneumonia due to Pseudomonas; R65.21 Severe sepsis with septic shock; J96.10 Chronic respiratory failure, unspecified whether with hypoxia or hypercapnia; L89.326 Pressure-induced deep tissue damage of left buttock; L89.156 Pressure-induced deep tissue damage of sacral region; G40.909 Epilepsy, unspecified, not intractable, without status epilepticus; Z93.1 Gastrostomy status; Z93.0 Tracheostomy status; E11.9 Type 2 diabetes mellitus without complications; J44.0 Chronic obstructive pulmonary disease with (acute) lower respiratory infection; Z99.11 Dependence on respirator [ventilator] status; Z16.19 Resistance to other specified beta lactam antibiotics; N39.0 Urinary tract infection, site not specified; R13.10 Dysphagia, unspecified; I47.1 Supraventricular tachycardia; G83.5 Locked-in state; G93.40 Encephalopathy, unspecified
CPT/HCPCS: 36415; 71045; 80048; 80053; 80069; 80170; 81001; 81003; 82150; 82533; 82550; 82553; 82962; 83036; 83605; 83690; 83735; 83880; 84100; 84484; 85007; 85025; 85651; 86140; 87040; 87070; 87081; 87086; 87181; 87205; 87635; 93005; 93306; 93970; 94002; 94003; 95819; 96365; 96366; 96368; 99285; J1815; J7030

== ENCOUNTER 2020-05-09 12:58 | Inpatient (IN) | payer MEDICAID ==
[~2020-05-09] VITALS: Ht 177.8 cm; Wt 90.7 kg
[~2020-05-09 12:58] MED LIST changes: +ASCORBIC ACID500 MG GT; -ASCORBIC ACID500 MG ORAL; +ATORVASTATIN CA20 MG GT; -ATORVASTATIN CA20 MG ORAL; +UTI-STAT L3875 MG/31 GT; -UTI-STAT L3875 MG/31 PO
[2020-05-09 13:20] VITALS: BP 106/78
--- NOTE | 2020-05-09 13:33 | NUR ---
ED Nurse Note: iv in at 1305, pt on monitor, pt transferred to vent. pt seizure 30sec x2. rails up. seizure pads in place. on continuous panel monitor. labs, covid, cultures, lactic sent.
[2020-05-09 13:45] LABS: BASOPHILS % (AUTO) 0.9 % (0.0-2.0); EOSINOPHILS % (AUTO) 4.4 % (0.0-3.0); HEMATOCRIT 44.4 % (42.0-52.0); HEMOGLOBIN 14.4 G/DL (14.2-18.0); LYMPHOCYTES % (AUTO) 12.7 % (20.0-45.0); MEAN CORPUSCULAR VOLUME 94 FL (80-99); PLATELET COUNT 237 K/UL (150-450); RED BLOOD COUNT 4.73 M/UL (4.70-6.10); WHITE BLOOD COUNT 11.5 K/UL (4.8-10.8)
[2020-05-09] MEDS ORDERED: Dyna-Hex 2% Top Sol 2oz TOPIC ONE (13:45)
[2020-05-09] MEDS ORDERED: levETIRAcetam 1,000mg/NS100ml 100 ML IVPB ONE (13:45)
[2020-05-09 13:58] LABS: ANION GAP 9 mmol/L (5-15); BLOOD UREA NITROGEN 15 mg/dL (7-18); CALCIUM 9.3 MG/DL (8.5-10.1); CARBON DIOXIDE 28 MMOL/L (21-32); CHLORIDE 106 MMOL/L (98-107); CREATININE 0.8 MG/DL (0.55-1.30); SODIUM 143 MMOL/L (136-145)
[2020-05-09 14:11] LABS: ALANINE AMINOTRANSFERASE 23 U/L (12-78); ALBUMIN 3.6 G/DL (3.4-5.0); ALBUMIN/GLOBULIN RATIO 0.8 (1.0-2.7); ALKALINE PHOSPHATASE 179 U/L (46-116); ASPARTATE AMINO TRANSFERASE 17 U/L (15-37); BILIRUBIN,TOTAL 0.5 MG/DL (0.2-1.0)
[2020-05-09 14:15] VITALS: BP 101/77
--- NOTE | 2020-05-09 14:55 | NUR ---
ED Nurse Note: 1440: london inserted. mrsa/vre swab sent. urine sample sent to lab. pt on continuous monitor.
[2020-05-09 15:08] LABS: APPEARANCE,URINE SLIGHTLY CLOUDY; BILIRUBIN, URINE NEGATIVE (NEGATIVE); COLOR,URINE PALE YELLOW; GLUCOSE, URINE (UA) NEGATIVE (NEGATIVE); KETONES,URINE NEGATIVE (NEGATIVE); LEUKOCYTE ESTERASE ,URINE 2+ (NEGATIVE); NITRITE,URINE NEGATIVE (NEGATIVE); PH,URINE 7 (4.5-8.0); PROTEIN,URINE 1+ (NEGATIVE); UROBILINOGEN,URINE NORMAL MG/DL (0.0-1.0)
--- NOTE | 2020-05-09 15:13 | Diagnostic Imaging Report ---
EXAM: XR Chest, 1 View CLINICAL HISTORY: HUMBERTO TECHNIQUE: Frontal view of the chest. COMPARISON: Chest radiograph on 09/14/2019 FINDINGS: Hardware: None. Lungs/pleura: Probable small left pleural effusion. Bibasilar atelectasis. Heart/mediastinum: Normal. No cardiomegaly. Soft tissues: Unremarkable. Bones: No acute fracture. Upper abdomen: Normal. IMPRESSION: Probable small left pleural effusion. Bibasilar atelectasis.
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
[2020-05-09] MEDS ORDERED: OXcarbazepine 150mg tab ORAL ONE (16:00)
[2020-05-09 18:05] VITALS: BP 104/72
--- NOTE | 2020-05-09 18:55 | NUR ---
Call received from Susannah Cardenas [phone] to be called, but call patients mother first.
--- NOTE | 2020-05-09 19:20 | NUR ---
ED Nurse Note: Received report from MANJINDER Dallas. Pt has stable VS, bed in lowest position, rails up x2, assumed care of pt.
[2020-05-09 19:21] VITALS: BP 109/91
--- NOTE | 2020-05-09 19:27 | NUR ---
ED Nurse Note: Attempted to call report, nurse will return call when available.
[2020-05-09 19:58] VITALS: BP 102/72
--- NOTE | 2020-05-09 19:58 | NUR ---
ED Nurse Note: 2nd attempt to call report, nurse will return call when available.
[2020-05-09] MEDS ORDERED: LORAZEPAM2 MG/1 M1 IM (20:16)
--- NOTE | 2020-05-09 20:37 | NUR ---
TRANSFER TO FLOOR: Patient transferred to [facility] as ordered, per Dr. Begum. Report given to MANJINDER Gibbs. Belongings left with pt, documented on belongings inventory.
[2020-05-09 21:00] VITALS: BP 112/67
--- NOTE | 2020-05-09 21:00 | NUR ---
NURSE NOTES: Received report from Regina DUNBAR. Received patient from ER via mady accompanied By SOFTWARE QUALITY ASSURANCE SPECIALIST and vp information technology. patient admitted under the care of Dr. Fair admitting diagnosis Seizure. Seizure precaution maintained and observed. patient open eyes. trach to vent Portex 7 AC 16, TV 600, fi02 40% peep of 5 satting 100%. HOB elevated. body assessment done Sacral stage 4, left ischium DTI, left great toe ingrown nail open skin, and generalized skin rashes look like scabies. Gt intact no residual. D/C Costello per Shannan changed to condom cath. will continue plan of care.
--- NOTE | 2020-05-09 21:15 | NUR ---
NURSE NOTES: Called Dr. Marv MD gave admission orders noted and carried out.
[2020-05-09] MEDS ORDERED: Atorvastatin 20mg tab ORAL SCH (21:45)
[2020-05-09] MEDS: D5 1/2NS 1,000 ML IV SCH (22:36)
[2020-05-09] MEDS: levETIRAcetam 500mg/5ml Liquid GT SCH (22:36)
[2020-05-09] MEDS: OXcarbazepine 150mg tab GT SCH (22:37)
[2020-05-10] VITALS: BP 105/67
--- NOTE | 2020-05-10 01:00 | NUR ---
NURSE NOTES: bed bath given tolerated well. applied Elimite cream per protocol.
[2020-05-10 04:00] VITALS: BP 105/61
[2020-05-10] MEDS: D5 1/2NS 1,000 ML IV SCH ×4 (05:42→23:05)
--- NOTE | 2020-05-10 06:00 | NUR ---
NURSE NOTES: Seen and examined by Dr. Candelario with new order noted and carried out.
[2020-05-10] MEDS ORDERED: LORazepam Inj 2mg/ml 1ml IV PRN (06:15)
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
[2020-05-10] MEDS: Midodrine 10mg tab GT PRN ×2 (06:32→17:29)
[2020-05-10 06:41] LABS: BASOPHILS % (AUTO) 1.5 % (0.0-2.0); EOSINOPHILS % (AUTO) 3.6 % (0.0-3.0); HEMATOCRIT 38.2 % (42.0-52.0); HEMOGLOBIN 12.7 G/DL (14.2-18.0); LYMPHOCYTES % (AUTO) 17.5 % (20.0-45.0); MEAN CORPUSCULAR VOLUME 94 FL (80-99); MONOCYTES % (AUTO) 9.8 % (1.0-10.0); NEUTROPHILS % (AUTO) 67.6 % (45.0-75.0); PLATELET COUNT 201 K/UL (150-450); RED BLOOD COUNT 4.08 M/UL (4.70-6.10); RED CELL DISTRIBUTION WIDTH 13.9 % (11.6-14.8); WHITE BLOOD COUNT 10.5 K/UL (4.8-10.8)
[2020-05-10 06:57] LABS: ANION GAP 8 mmol/L (5-15); BLOOD UREA NITROGEN 13 mg/dL (7-18); CALCIUM 8.9 MG/DL (8.5-10.1); CARBON DIOXIDE 27 MMOL/L (21-32); CHLORIDE 105 MMOL/L (98-107); CHOLESTEROL 82 MG/DL (< 200); CREATININE 0.9 MG/DL (0.55-1.30); HDL CHOLESTEROL 29 MG/DL (40-60); POTASSIUM 3.7 MMOL/L (3.5-5.1); SODIUM 140 MMOL/L (136-145); TRIGLYCERIDES 136 MG/DL (30-150)
--- NOTE | 2020-05-10 07:07 | NUR ---
NURSE HAND-OFF REPORT: Important Events on Shift: Patient Status: Diet: Running Glucerna 1.2 at 30cc/hr goal 55cc/hr Pending Orders: Pending Results/Labs: Pending MD notification: Latest Vital Signs: Temperature 97.8 , Pulse 87 , B/P 90 /61 , Respiratory Rate 20 , O2 SAT 100 , Mechanical Ventilator, O2 Flow Rate . Vital Sign Comment: EKG Rhythm: Sinus Rhythm Rhythm change?: N MD Notified?: - MD Response: Latest Olivier Fall Score: 50 Fall Risk: High Risk Safety Measures: Call light Within Reach, Bed Alarm Zone 2, Side Rails Side Rails x2, Bed position . Fall Precautions: Yellow Socks Door Sign Patient Fall Education Report given to Reuben DUNBAR. Midodrine 5mg 1 tab via GT given for BP 90/61. endorsed to Reuben DUNBAR
--- NOTE | 2020-05-10 07:47 | NUR ---
NURSE NOTES: Received report from MANJINDER Gibbs. Patient in bed resting, no active s/s cardiac, respiratory distress noticed at this time. Patient AOx0, open eyes on verbal/light touch. SR with HR 87, Patient trach to vent Portex 7 AC 16 TV 600 Fio2 40% PEEP 5 O2 sat 100%. Patient on GT feeding, Glucerna @ 55ml/h, patent, intact. IV on right upper arm 22G, IVF D5 1/2 NS @ 100 ml/h. Condom catheter draining well to gravity at this time, No seizure active noted at this time and during the night. Bed in lowest position, side rails upx3, call light within reach, bed alarm on, Will continue to monitor.
[2020-05-10 08:00] VITALS: BP 98/73
[2020-05-10] MEDS: OXcarbazepine 150mg tab GT SCH ×2 (08:55→20:15)
[2020-05-10] MEDS: Vitamin D 1000 units Tab GT SCH (08:55)
[2020-05-10] MEDS: Pantoprazole Inj IVP SCH ×2 (08:55→20:15)
[2020-05-10] MEDS: Ascorbic Acid 500mg tab GT SCH (08:55)
[2020-05-10] MEDS: Multivitamins W/Minerals 15 ML UDC GT SCH (08:55)
[2020-05-10] MEDS: levETIRAcetam 500mg/5ml Liquid GT SCH ×2 (08:55→20:17)
[2020-05-10] MEDS: Heparin 5000 units/ml inj SUBQ SCH ×2 (08:58→20:18)
[2020-05-10] MEDS ORDERED: Lidocaine 1% MPF 10mg/ml 5ml INJ SCH (09:00)
--- NOTE | 2020-05-10 09:19 | NUR ---
NURSE NOTES: Paged Dr. Candelario to clarify Ceftriaxone IM order. Awaiting for callback, will continue to follow up.
[2020-05-10] MEDS ORDERED: D5 1/2NS 1000ml IV ONE (09:53)
--- NOTE | 2020-05-10 10:07 | NUR ---
NURSE NOTES: Per Dr. Candelario, change ceftriaxone IM to IV. Order noted, entered, carried out. Will continue to monitor.
[2020-05-10 12:00] VITALS: BP 103/66
[2020-05-10] MEDS: cefTRIAXone 1 GM in D5W 55 ML IVPB SCH (12:59)
--- NOTE | 2020-05-10 13:15 | Consultation ---
History of Present Illness General Date patient seen: May 10, 2020 Reason for Hospitalization: Seizure Present Illness HPI This is a 55-year-old male well-known to me from prior admission care plan who presented from care facility with seizure. Placed on Rx and admitted for further care and management. Labs noted imaging reviewed surgery called to evaluate and assist with care patient seen, patient evaluate, chart reviewed. Patient unable to provide history or participate exam given baseline medical condition. Allergies: Uncoded Allergies: TAPE (Allergy, Unknown, 05/31/18) COVID-19 Screening Contact w/high risk pt: No Recent Travel to affected area: No Experienced COVID-19 symptoms?: No Medication History Scheduled Ascorbic Acid* (Ascorbic Acid*), 500 MG ORAL DAILY, (Reported) Atorvastatin Calcium* (Atorvastatin Calcium*), 10 MG ORAL BEDTIME, (Reported) Bisacodyl* (Dulcolax*), 5 MG ORAL DAILY, (Reported) Chlorhexidine Gluconate* (Hibiclens*), 15 ML ORAL BID, (Reported) Cholecalciferol (Vitamin D3)* (Vitamin D*), 5,000 UNITS GT TWICE A DAY, (Reported) Clonazepam* (Klonopin*), 1 MG ORAL Q6H, (Reported) Colistin (Colistimethate Na) (Colistimethate Sodium), 75 MG [id number] BID, (Reported) Cran/Vitc/Mannose/Inulin/Brom (Uti-Stat Liquid), 30 ML PO BID, (Reported) Docusate Sodium* (Docusate Sodium*), 100 MG GT TWICE A DAY, (Reported) Esomeprazole Magnesium (Nexium), 40 MG GT DAILY, (Reported) Famotidine* (Pepcid 20mg tablet*), 20 MG ORAL DAILY, (Reported) Hydralazine Hcl* (Hydralazine Hcl*), 10 MG GT EVERY 4 HOURS, (Reported) Lacosamide (Vimpat), 200 MG GT BID, (Reported) Levetiracetam (Keppra), 500 MG GT EVERY 12 HOURS, (Reported) Lorazepam* (Lorazepam*), 2 MG IM Q4H, (Reported) Metoprolol Tartrate* (Metoprolol Tartrate*), 75 MG ORAL EVERY 12 HOURS, (Reported) Multivitamin Liquid* (Multi-Delyn*), 5 ML GT DAILY, (Reported) Multivitamins* (Multivitamins*), 1 TAB ORAL DAILY, (Reported) Oxcarbazepine* (Trileptal*), 600 MG PO BID, (Reported) Tramadol Hcl (Ultram*), 50 MG GT DAILY, (Reported) Vit C/Ascorbate Ca/Ascorb Sod (Vitamin C 500 Mg/15 Ml Liquid), 500 MG GT BID, (Reported) Warfarin Sod* (Coumadin*), 11 MG GT DAILY, (Reported) Warfarin Sod* (Coumadin*), 5 MG ORAL DAILY, (Reported) Zinc Sulfate (Zinc Sulfate*), 220 MG GT DAILY, (Reported) [prostat sugar free], 30 ML GT BID, (Reported) [reg insulin ss], UNITS SUBQ PRN, (Reported) Scheduled PRN Acetaminophen (Tylenol), 650 MG GT Q6H PRN for Prn Headache/Temp > 101, (Reported) Albuterol Sulfate* (Albuterol Sulfate Hhn*), 3 ML INH Q3HR PRN for Shortness of Breath, (Reported) Artificial Tears (Refresh Lacri-Lube Ointment), 1 APPLIC BOTH EYES EVERY 4 HOURS PRN for Dry Eyes, (Reported) Bisacodyl (Dulcolax), 10 MG RC DAILY PRN for Constipation, (Reported) Glucagon (Glucagen), 1 MG IM NEEDED PRN for Hypoglycemia, (Reported) Ibuprofen* (Motrin*), 400 MG GT Q6H PRN for For Pain, (Reported) Magnesium Hydroxide* (Milk Of Magnesia*), 30 ML GT DAILY PRN for Constipation, (Reported) Ondansetron* (Zofran 4 Mg/2 Ml Vial*), 4 MG IM Q6H PRN for Nausea & Vomiting, (Reported) Miscellaneous Medications Colistin Sulfate (Colistin Sulfate), 1 EACH , (Reported) Patient History Limited by: medical condition History Provided By: Medical Record, PMD Healthcare decision maker Resuscitation status Advanced Directive on File Past Medical/Surgical History Past Medical/Surgical History: (1) Diabetes mellitus (2) Decubitus skin ulcer (3) Leaking percutaneous endoscopic gastrostomy (PEG) tube (4) Sepsis (5) Pressure sore (6) Seizure disorder (7) Septic shock (8) Chronic respiratory failure (9) Feeding by G-tube (10) Bacteremia (11) Uncontrolled seizures (12) Seizure disorder, convulsive, with status epilepticus (13) Seizure after head injury (14) Line sepsis (15) UTI (urinary tract infection) (16) Urinary tract infection (17) Acute on chronic renal insufficiency Review of Systems Review of Symptoms General ROS: no weight loss or fever Psychological ROS: no depression or mood changes, no memory loss Ophthalmic ROS: no visual changes or eye irritation ENT ROS: no nasal congestion, hearing loss, dizziness Allergy and Immunology ROS: no allergic symptoms or urticaria Hematological and Lymphatic ROS: no swollen glands, unusual bleeding or bruising Endocrine ROS: no polyuria, polydipsia, weight changes, temperature intolerance Respiratory ROS: no cough, shortness of breath, or wheezing Cardiovascular ROS: no chest pain or dyspnea on exertion Gastrointestinal ROS: denies abdominal pain, bright red blood in stool. Musculoskeletal ROS: no myalgias or arthralgias Neurological ROS: no TIA or stroke symptoms Dermatological ROS: no new or changing skin lesions, rashes or pruritis limited given baseline medical condition Physical Exam Physical Exam Sp02 EP Interpretation: reviewed, normal General Appearance: no apparent distress, alert, GCS 15, non-toxic Head: normocephalic, atraumatic Eyes: bilateral eye normal inspection, bilateral eye PERRL ENT: hearing grossly normal, normal pharynx, no angioedema, normal voice Neck: full range of motion, supple/symm/no masses, tracheotomy Respiratory: chest non-tender, lungs clear, normal breath sounds, speaking full sentences Cardiovascular #1: regular rate, rhythm, no edema Cardiovascular #2: 2+ carotid (R), 2+ carotid (L), 2+ radial (R), 2+ radial (L), 2+ dorsalis pedis (R), 2+ dorsalis pedis (L) Gastrointestinal: normal bowel sounds, non tender, soft, non-distended, no g uarding, no rebound Rectal: deferred Genitourinary: normal inspection, no CVA tenderness Musculoskeletal: back normal, normal range of motion, gait/station normal, non- tender Neurologic: alert, motor strength/tone normal, oriented x3, sensory intact, responsive, speech normal Psychiatric: judgement/insight normal, memory normal, mood/affect normal, no suicidal/homicidal ideation Reflexes: 3+ bicep (R), 3+ bicep (L), 3+ tricep (R), 3+ tricep (L), 3+ knee (R), 3+ knee (L) Skin: other - see nursing notes Lymphatic: no adenopathy Last 24 Hour Vital Signs Date Time Temp Pulse Resp B/P (MAP) Pulse Ox O2 Delivery O2 Flow Rate FiO2 05/10/20 12:00 40 05/10/20 12:00 97.2 92 20 103/66 (78) 99 05/10/20 12:00 Mechanical Ventilator 05/10/20 12:00 115 05/10/20 11:26 90 16 40 05/10/20 08:00 Mechanical Ventilator 05/10/20 08:00 68 05/10/20 08:00 97.0 71 20 98/73 (81) 100 05/10/20 08:00 40 05/10/20 07:30 85 16 40 05/10/20 04:00 81 05/10/20 04:00 40 05/10/20 04:00 97.8 87 20 105/61 (76) 05/10/20 04:00 Mechanical Ventilator 05/10/20 01:20 74 16 40 05/10/20 00:00 98.2 80 20 105/67 (80) 05/10/20 00:00 Mechanical Ventilator 05/09/20 21:30 Mechanical Ventilator 05/09/20 21:00 98.2 85 22 112/67 (82) 05/09/20 21:00 40 05/09/20 21:00 86 05/09/20 20:44 101 16 40 05/09/20 20:43 98.0 90 16 100/68 100 Mechanical Ventilator 40 05/09/20 19:58 98.2 96 16 102/72 99 Mechanical Ventilator 40 05/09/20 19:22 71 16 40 05/09/20 19:21 98.2 96 16 109/91 100 Room Air 40 05/09/20 18:05 94 18 104/72 100 Room Air 05/09/20 17:08 78 18 40 05/09/20 15:40 72 16 40 05/09/20 14:57 74 16 Mechanical Ventilator 05/09/20 14:15 70 16 101/77 100 Mechanical Ventilator 05/09/20 13:20 88 16 106/78 100 Mechanical Ventilator Intake and Output 05/09/20 05/10/20 19:00 07:00 Intake Total 1750 ml Output Total 840 ml Balance 910 ml Intake Oral 0 ml Free Water 220 ml IV Total 1270 ml Tube Feeding 200 ml Other 60 ml Output Urine Total 840 ml # Bowel Movements 3 Laboratory Tests Test 05/09/20 13:20 05/09/20 14:47 05/09/20 15:10 05/10/20 05:40 White Blood Count 11.5 K/UL (4.8-10.8) H 10.5 K/UL (4.8-10.8) Red Blood Count 4.73 M/UL (4.70-6.10) 4.08 M/UL (4.70-6.10) L Hemoglobin 14.4 G/DL (14.2-18.0) 12.7 G/DL (14.2-18.0) L Hematocrit 44.4 % (42.0-52.0) 38.2 % (42.0-52.0) L Mean Corpuscular Volume 94 FL (80-99) 94 FL (80-99) Mean Corpuscular Hemoglobin 30.3 PG (27.0-31.0) 31.0 PG (27.0-31.0) Mean Corpuscular Hemoglobin Concent 32.3 G/DL (32.0-36.0) 33.1 G/DL (32.0-36.0) Red Cell Distribution Width 14.0 % (11.6-14.8) 13.9 % (11.6-14.8) Platelet Count 237 K/UL (150-450) 201 K/UL (150-450) Mean Platelet Volume 11.4 FL (6.5-10.1) H 12.0 FL (6.5-10.1) H Neutrophils (%) (Auto) 76.0 % (45.0-75.0) H 67.6 % (45.0-75.0) Lymphocytes (%) (Auto) 12.7 % (20.0-45.0) L 17.5 % (20.0-45.0) L Monocytes (%) (Auto) 6.0 % (1.0-10.0) 9.8 % (1.0-10.0) Eosinophils (%) (Auto) 4.4 % (0.0-3.0) H 3.6 % (0.0-3.0) H Basophils (%) (Auto) 0.9 % (0.0-2.0) 1.5 % (0.0-2.0) Sodium Level 143 MMOL/L (136-145) 140 MMOL/L (136-145) Potassium Level 4.0 MMOL/L (3.5-5.1) 3.7 MMOL/L (3.5-5.1) Chloride Level 106 MMOL/L (98-107) 105 MMOL/L (98-107) Carbon Dioxide Level 28 MMOL/L (21-32) 27 MMOL/L (21-32) Anion Gap 9 mmol/L (5-15) 8 mmol/L (5-15) Blood Urea Nitrogen 15 mg/dL (7-18) 13 mg/dL (7-18) Creatinine 0.8 MG/DL (0.55-1.30) 0.9 MG/DL (0.55-1.30) Estimat Glomerular Filtration Rate > 60 mL/min (>60) > 60 mL/min (>60) Glucose Level 167 MG/DL (74-106) H 184 MG/DL (74-106) H Lactic Acid Level 2.80 mmol/L (0.4-2.0) H 1.60 mmol/L (0.66-2.22) Calcium Level 9.3 MG/DL (8.5-10.1) 8.9 MG/DL (8.5-10.1) Total Bilirubin 0.5 MG/DL (0.2-1.0) Aspartate Amino Transf (AST/SGOT) 17 U/L (15-37) Alanine Aminotransferase (ALT/SGPT) 23 U/L (12-78) Alkaline Phosphatase 179 U/L (46-116) H Troponin I 0.000 ng/mL (0.000-0.056) Pro-B-Type Natriuretic Peptide 21 pg/mL (0-125) Total Protein 8.2 G/DL (6.4-8.2) Albumin 3.6 G/DL (3.4-5.0) Globulin 4.6 g/dL Albumin/Globulin Ratio 0.8 (1.0-2.7) L Urine Color Pale yellow Urine Appearance Slightly cloudy Urine pH 7 (4.5-8.0) Urine Specific [place] 1.010 (1.005-1.035) Urine Protein 1+ (NEGATIVE) H Urine Glucose (UA) Negative (NEGATIVE) Urine Ketones Negative (NEGATIVE) Urine Blood 2+ (NEGATIVE) H Urine Nitrite Negative (NEGATIVE) Urine Bilirubin Negative (NEGATIVE) Urine Urobilinogen Normal MG/DL (0.0-1.0) Urine Leukocyte Esterase 2+ (NEGATIVE) H Urine RBC 5-10 /HPF (0 - 0) H Urine WBC 2-4 /HPF (0 - 0) Urine Squamous Epithelial Cells Occasional /LPF Urine Amorphous Sediment Few /LPF (NONE) H Urine Bacteria Few /HPF (NONE) Hemoglobin A1c 7.1 % (4.3-6.0) H Triglycerides Level 136 MG/DL (30-150) Cholesterol Level 82 MG/DL (< 200) LDL Cholesterol 42 mg/dL (<100) HDL Cholesterol 29 MG/DL (40-60) L Cholesterol/HDL Ratio 2.8 (3.3-4.4) L Vitamin D 25-Hydroxy Pending 25-Hydroxy Vitamin D2 Pending 25-Hydroxy Vitamin D3 Pending Levetiracetam (Keppra) Level Pending Height (Feet): 5 Height (Inches): 10.00 Weight (Pounds): 200 Medications Current Medications Medications (Trade) Dose Ordered Sig/Jacob Route PRN Reason Start Time Stop Time Status Last Admin Dose Admin Ascorbic Acid (Vitamin C) 500 mg DAILY GT 05/10/20 09:00 06/09/20 08:59 05/10/20 08:55 Atorvastatin Calcium (Lipitor) 10 mg BEDTIME GT 05/10/20 21:00 08/07/20 21:44 Ceftriaxone Sodium 1 gm/ Dextrose 55 ml @ 110 mls/hr Q24H IVPB 05/10/20 12:00 05/17/20 11:59 05/10/20 12:59 Clonazepam (KlonoPIN) 2 mg EVERY 8 HOURS GT 05/09/20 22:00 05/16/20 21:59 05/10/20 05:42 Dextrose (Dextrose 50%) 25 ml Q30M PRN IV Hypoglycemia 05/09/20 21:45 08/07/20 21:44 Dextrose (Dextrose 50%) 50 ml Q30M PRN IV Hypoglycemia 05/09/20 21:45 08/07/20 21:44 Dextrose/Sodium Chloride 1,000 ml @ 150 mls/hr Q6H40M IV 05/09/20 22:45 06/08/20 22:44 05/10/20 12:59 Heparin Sodium (Porcine) (Heparin 5000 units/ml) 5,000 units EVERY 12 HOURS SUBQ 05/10/20 09:00 06/24/20 08:59 05/10/20 08:58 Ivermectin (StromectoL) 12 mg DAILY ORAL 05/10/20 09:00 08/08/20 08:59 05/10/20 08:55 Levetiracetam (Keppra) 1,500 mg Q12HR GT 05/09/20 21:45 06/08/20 21:44 05/10/20 08:55 Lorazepam (Ativan 2mg/ml 1ml) 2 mg Q4H PRN IV For Seizures 05/10/20 06:15 05/17/20 06:14 Midodrine (Pro-Amatine) 5 mg EVERY 8 HOURS PRN GT SBP less than 110 05/10/20 06:00 08/08/20 05:59 05/10/20 06:32 Multivitamins (Multivitamins W/ Minerals 15ml Liquid) 15 ml DAILY GT 05/10/20 09:00 06/09/20 08:59 05/10/20 08:55 Oxcarbazepine (TrileptaL) 600 mg EVERY 12 HOURS GT 05/09/20 21:45 06/08/20 21:44 05/10/20 08:55 Pantoprazole (Protonix) 40 mg EVERY 12 HOURS IVP 05/10/20 09:00 06/09/20 08:59 05/10/20 08:55 Vitamin D (Vitamin D) 5,000 unit DAILY GT 05/10/20 09:00 06/09/20 08:59 05/10/20 08:55 Assessment/Plan Problem List: (1) Sepsis Assessment & Plan: 55-year-old male admitted with leukocytosis lactic acidosis recent seizure. Currently no nausea vomiting fever chills. Labs reviewed. Improvement with IV hydration. Urine noted. On antibiotics. Wounds evaluated unlikely source patient's sepsis. Wounds are otherwise clean and no active infection identified. Local wound care provided IV hydration IV antibiotics nutritional support. Will follow with recommendations. Thank you ICD Codes: A41.9 - Sepsis, unspecified organism SNOMED: 84444028 Qualifiers: Qualified Codes: A41.9 - Sepsis, unspecified organism (2) Pressure sore Assessment & Plan: Pt presented on admission with small furuncle Lateral L chest. Reabsorbing DTPI Sacrum R and L gluteal cheeks. Scattered areas of shearing within base of wound. Surrounding areas of mixed skin Hyper and hypopigmentation noted. DTPI noted to L trochanter. Base of Pressure injury has darker than is normal skin tone and is indurated. Marginal erythema along edges. Historical scars with hyperpigmentation from previous wounds noted to R and L ischial tuberosities. Heels are firm and blanchable . Abnormal buttock sacral decubitus ulcer with breakdown identified with palpation with using instrument likely stage IV. Tx.Plan: Apply Thera honey followed by gauze and Optifoam dressing to sacral wound change daily and as needed saturation monitor for incontinence Apply Moisture Barrier Paste to Buttocks. Cover with Optifoam drsg. Change every 3 days and prn. Apply Cavilon Skin Barrier to both heels. Cover each heel with Optifoam drsg. Change every 7 days and prn. Reposition at least every 2houors or as tolerated. Place pillow between knees. Off-load heels with Pillow. APM/EDD Mattress overlay. ICD Codes: L89.90 - Pressure ulcer of unspecified site, unspecified stage SNOMED: 619851930 (3) Diabetes mellitus ICD Codes: E11.9 - Type 2 diabetes mellitus without complications SNOMED: 33665454 (4) Decubitus skin ulcer ICD Codes: L89.90 - Pressure ulcer of unspecified site, unspecified stage SNOMED: 169705610 (5) Seizure disorder ICD Codes: G40.909 - Epilepsy, unspecified, not intractable, without status epilepticus SNOMED: 429422470 (6) Leaking percutaneous endoscopic gastrostomy (PEG) tube ICD Codes: K94.23 - Gastrostomy malfunction SNOMED: 418773323 (7) Septic shock ICD Codes: A41.9 - Sepsis, unspecified organism; R65.21 - Severe sepsis with septic shock SNOMED: 75409203 (8) Chronic respiratory failure ICD Codes: J96.10 - Chronic respiratory failure, unspecified whether with hypoxia or hypercapnia SNOMED: 96515168 (9) Feeding by G-tube ICD Codes: Z93.1 - Gastrostomy status SNOMED: 918456283, 201293958 (10) Bacteremia ICD Codes: R78.81 - Bacteremia SNOMED: 9431271 (11) Uncontrolled seizures ICD Codes: R56.9 - Unspecified convulsions SNOMED: 04018990 (12) Seizure disorder, convulsive, with status epilepticus ICD Codes: G40.301 - Generalized idiopathic epilepsy and epileptic syndromes, not intractable, with status epilepticus SNOMED: 03559614 (13) Seizure after head injury ICD Codes: R56.1 - Post traumatic seizures SNOMED: 226364585 (14) Line sepsis ICD Codes: T82.7XXA - Infection and inflammatory reaction due to other cardiac and vascular devices, implants and grafts, initial encounter SNOMED: 63616871, 337855183 (15) UTI (urinary tract infection) ICD Codes: N39.0 - Urinary tract infection, site not specified SNOMED: 92996728 (16) Urinary tract infection ICD Codes: N39.0 - Urinary tract infection, site not specified SNOMED: 27010840 (17) Acute on chronic renal insufficiency ICD Codes: N28.9 - Disorder of kidney and ureter, unspecified; N18.9 - Chronic kidney disease, unspecified SNOMED: 480751811, 626444672 Horacio Hope May 10, 2020 13:15
[2020-05-10 16:00] VITALS: BP 96/58
--- NOTE | 2020-05-10 16:27 | NUR ---
NURSE NOTES: Confirmed with pharmacist, ivermectin given @ 0900. No need to repeat ivermectin @ 1500, med not given. Total bath provided.
--- NOTE | 2020-05-10 19:15 | NUR ---
NURSE NOTES: Received report from Kip Alexis. Patient awake in bed, eyes open but don't track, afebrile in bed and no respiratory distress noted. Trache to vent AC 16, TV 600, FiO2 40% and PEEP of 5 saturating at 98-99%. On Glucerna 1.2 at 55cc/hr x 20 hrs via GT intact, flushing and no residual noted. With right upper arm 22g IV lien intact, patent and asymptomatic. Needs we're attended. HOB elevated. Call light within reach. Bed rails are up and padded. Bed wheels are locked. Continue plan of care.
--- NOTE | 2020-05-10 19:19 | NUR ---
NURSE HAND-OFF REPORT: Important Events on Shift: NA Patient Status: stable/guarded Diet: Glucerna 1.2 @ 55ml/h Pending Orders: NA Pending Results/Labs: COVID, MRSA, VRE swab collected, pending result Pending MD notification:na Latest Vital Signs: Temperature 97.6 , Pulse 72 , B/P 96 /58 , Respiratory Rate 20 , O2 SAT 100 , Mechanical Ventilator, O2 Flow Rate . Vital Sign Comment: stable, hypotensive, EKG Rhythm: Sinus Tachycardia Rhythm change?: N MD Notified?: - MD Response: Latest Olivier Fall Score: 50 Fall Risk: High Risk Safety Measures: Call light Within Reach, Bed Alarm Zone 2, Side Rails Side Rails x3, Bed position Low and Locked. Fall Precautions: Patient Fall Education Report given to MANJINDER MONTIEL.
[2020-05-10 20:00] VITALS: BP 112/72
[2020-05-10] MEDS: Atorvastatin 20mg tab GT SCH (20:17)
--- NOTE | 2020-05-10 21:55 | NUR ---
NURSE NOTES: Pt has low bp, asleep. Held Klonazepam. Continue to monitor the patient
[2020-05-11] VITALS: BP 115/78
--- NOTE | 2020-05-11 02:00 | NUR ---
NURSE NOTES: Pt was given partial bed bath. gown and linen changed. No respiratory distress noted. Suction PRN. Pt saturating at 100%. continue plan of care
[2020-05-11 04:00] VITALS: BP 112/75
[2020-05-11] MEDS: D5 1/2NS 1,000 ML IV SCH ×5 (06:05→19:00)
--- NOTE | 2020-05-11 06:34 | Hematology/Onc Progress Note ---
Assessment/Plan Assessment/Plan Assessment and Recs # Seizure disorder, did have lip smacking on admission --> has been started on keppra bid dosing per gt --> klonipin v ativan prn basis --> as per neurology eval # Leukocytosis due to Sepsis with uti poa --> have started ABX ctx --> wbc 12-->10 # Bibasilar atelectasis # Dysphagia s/p peg # Transient hypotension, asymptomatic. Overall stable hemodynamics. # Paroxysmal atrial ectopy. # Respiratory failure with trach. Stephen Rn and pcp Subjective Allergies: Uncoded Allergies: TAPE (Allergy, Unknown, 05/31/18) All Systems: reviewed and negative except above Subjective 05/11 on vent, glucerna, meds noted, with gt, seen by surg, labs reviewed Objective Objective Current Medications Medications (Trade) Dose Ordered Sig/Jacob Route PRN Reason Start Time Stop Time Status Last Admin Dose Admin Ascorbic Acid (Vitamin C) 500 mg DAILY GT 05/10/20 09:00 06/09/20 08:59 05/10/20 08:55 Atorvastatin Calcium (Lipitor) 10 mg BEDTIME GT 05/10/20 21:00 08/07/20 21:44 05/10/20 20:17 Ceftriaxone Sodium 1 gm/ Dextrose 55 ml @ 110 mls/hr Q24H IVPB 05/10/20 12:00 05/17/20 11:59 05/10/20 12:59 Clonazepam (KlonoPIN) 2 mg EVERY 8 HOURS GT 05/09/20 22:00 05/16/20 21:59 05/11/20 05:53 Dextrose (Dextrose 50%) 25 ml Q30M PRN IV Hypoglycemia 05/09/20 21:45 08/07/20 21:44 Dextrose (Dextrose 50%) 50 ml Q30M PRN IV Hypoglycemia 05/09/20 21:45 08/07/20 21:44 Dextrose/Sodium Chloride 1,000 ml @ 150 mls/hr Q6H40M IV 05/11/20 06:15 06/10/20 06:14 05/11/20 06:18 Heparin Sodium (Porcine) (Heparin 5000 units/ml) 5,000 units EVERY 12 HOURS SUBQ 05/10/20 09:00 06/24/20 08:59 05/10/20 20:18 Levetiracetam (Keppra) 1,500 mg Q12HR GT 05/09/20 21:45 06/08/20 21:44 05/10/20 20:17 Lorazepam (Ativan 2mg/ml 1ml) 2 mg Q4H PRN IV For Seizures 05/10/20 06:15 05/17/20 06:14 Midodrine (Pro-Amatine) 5 mg EVERY 8 HOURS PRN GT SBP less than 110 05/10/20 06:00 08/08/20 05:59 05/10/20 17:29 Multivitamins (Multivitamins W/ Minerals 15ml Liquid) 15 ml DAILY GT 05/10/20 09:00 06/09/20 08:59 05/10/20 08:55 Oxcarbazepine (TrileptaL) 600 mg EVERY 12 HOURS GT 05/09/20 21:45 06/08/20 21:44 05/10/20 20:15 Pantoprazole (Protonix) 40 mg EVERY 12 HOURS IVP 05/10/20 09:00 06/09/20 08:59 05/10/20 20:15 Vitamin D (Vitamin D) 5,000 unit DAILY GT 05/10/20 09:00 06/09/20 08:59 05/10/20 08:55 Last 24 Hour Vital Signs Date Time Temp Pulse Resp B/P (MAP) Pulse Ox O2 Delivery O2 Flow Rate FiO2 05/11/20 04:01 94 05/11/20 04:00 Mechanical Ventilator 05/11/20 04:00 98.1 90 18 112/75 (87) 100 05/11/20 04:00 40 05/11/20 02:05 72 16 40 05/11/20 00:00 98.8 85 20 115/78 (90) 100 05/11/20 00:00 40 05/11/20 00:00 Mechanical Ventilator 05/10/20 23:03 82 05/10/20 20:37 73 05/10/20 20:00 Mechanical Ventilator 05/10/20 20:00 40 05/10/20 20:00 98.2 82 20 112/72 (85) 100 05/10/20 19:30 75 16 40 05/10/20 16:00 72 05/10/20 16:00 40 05/10/20 16:00 Mechanical Ventilator 05/10/20 16:00 97.6 90 20 96/58 (71) 100 05/10/20 15:12 74 16 40 05/10/20 12:00 40 05/10/20 12:00 97.2 92 20 103/66 (78) 99 05/10/20 12:00 Mechanical Ventilator 05/10/20 12:00 115 05/10/20 11:26 90 16 40 05/10/20 08:00 Mechanical Ventilator 05/10/20 08:00 68 05/10/20 08:00 97.0 71 20 98/73 (81) 100 05/10/20 08:00 40 05/10/20 07:30 85 16 40 05/10/20 04:00 81 05/10/20 04:00 40 05/10/20 04:00 97.8 87 20 105/61 (76) 05/10/20 04:00 Mechanical Ventilator 05/10/20 01:20 74 16 40 05/10/20 00:00 98.2 80 20 105/67 (80) 05/10/20 00:00 Mechanical Ventilator 05/09/20 21:30 Mechanical Ventilator 05/09/20 21:00 98.2 85 22 112/67 (82) 05/09/20 21:00 40 05/09/20 21:00 86 05/09/20 20:44 101 16 40 05/09/20 20:43 98.0 90 16 100/68 100 Mechanical Ventilator 40 05/09/20 19:58 98.2 96 16 102/72 99 Mechanical Ventilator 40 05/09/20 19:22 71 16 40 05/09/20 19:21 98.2 96 16 109/91 100 Room Air 40 05/09/20 18:05 94 18 104/72 100 Room Air 05/09/20 17:08 78 18 40 05/09/20 15:40 72 16 40 05/09/20 14:57 74 16 Mechanical Ventilator 05/09/20 14:15 70 16 101/77 100 Mechanical Ventilator 05/09/20 13:20 88 16 106/78 100 Mechanical Ventilator 05/09/20 13:10 108 17 100 05/09/20 12:51 98.2 87 18 109/72 (84) 98 Mechanical Ventilator Intake and Output 05/10/20 05/11/20 19:00 07:00 Intake Total 2415 ml 2638 ml Output Total 750 ml Balance 1665 ml 2638 ml Free Water 120 ml 450 ml IV Total 1705 ml 1638 ml Tube Feeding 590 ml 550 ml Output Urine Total 750 ml # Bowel Movements 2 1 Labs Test 05/09/20 13:20 05/09/20 14:47 05/09/20 15:10 05/10/20 05:40 White Blood Count 11.5 K/UL (4.8-10.8) 10.5 K/UL (4.8-10.8) Red Blood Count 4.73 M/UL (4.70-6.10) 4.08 M/UL (4.70-6.10) Hemoglobin 14.4 G/DL (14.2-18.0) 12.7 G/DL (14.2-18.0) Hematocrit 44.4 % (42.0-52.0) 38.2 % (42.0-52.0) Mean Corpuscular Volume 94 FL (80-99) 94 FL (80-99) Mean Corpuscular Hemoglobin 30.3 PG (27.0-31.0) 31.0 PG (27.0-31.0) Mean Corpuscular Hemoglobin Concent 32.3 G/DL (32.0-36.0) 33.1 G/DL (32.0-36.0) Red Cell Distribution Width 14.0 % (11.6-14.8) 13.9 % (11.6-14.8) Platelet Count 237 K/UL (150-450) 201 K/UL (150-450) Mean Platelet Volume 11.4 FL (6.5-10.1) 12.0 FL (6.5-10.1) Neutrophils (%) (Auto) 76.0 % (45.0-75.0) 67.6 % (45.0-75.0) Lymphocytes (%) (Auto) 12.7 % (20.0-45.0) 17.5 % (20.0-45.0) Monocytes (%) (Auto) 6.0 % (1.0-10.0) 9.8 % (1.0-10.0) Eosinophils (%) (Auto) 4.4 % (0.0-3.0) 3.6 % (0.0-3.0) Basophils (%) (Auto) 0.9 % (0.0-2.0) 1.5 % (0.0-2.0) Sodium Level 143 MMOL/L (136-145) 140 MMOL/L (136-145) Potassium Level 4.0 MMOL/L (3.5-5.1) 3.7 MMOL/L (3.5-5.1) Chloride Level 106 MMOL/L (98-107) 105 MMOL/L (98-107) Carbon Dioxide Level 28 MMOL/L (21-32) 27 MMOL/L (21-32) Anion Gap 9 mmol/L (5-15) 8 mmol/L (5-15) Blood Urea Nitrogen 15 mg/dL (7-18) 13 mg/dL (7-18) Creatinine 0.8 MG/DL (0.55-1.30) 0.9 MG/DL (0.55-1.30) Estimat Glomerular Filtration Rate > 60 mL/min (>60) > 60 mL/min (>60) Glucose Level 167 MG/DL (74-106) 184 MG/DL (74-106) Lactic Acid Level 2.80 mmol/L (0.4-2.0) 1.60 mmol/L (0.66-2.22) Calcium Level 9.3 MG/DL (8.5-10.1) 8.9 MG/DL (8.5-10.1) Total Bilirubin 0.5 MG/DL (0.2-1.0) Aspartate Amino Transf (AST/SGOT) 17 U/L (15-37) Alanine Aminotransferase (ALT/SGPT) 23 U/L (12-78) Alkaline Phosphatase 179 U/L (46-116) Troponin I 0.000 ng/mL (0.000-0.056) Pro-B-Type Natriuretic Peptide 21 pg/mL (0-125) Total Protein 8.2 G/DL (6.4-8.2) Albumin 3.6 G/DL (3.4-5.0) Globulin 4.6 g/dL Albumin/Globulin Ratio 0.8 (1.0-2.7) Urine Color Pale yellow Urine Appearance Slightly cloudy Urine pH 7 (4.5-8.0) Urine Specific [place] 1.010 (1.005-1.035) Urine Protein 1+ (NEGATIVE) Urine Glucose (UA) Negative (NEGATIVE) Urine Ketones Negative (NEGATIVE) Urine Blood 2+ (NEGATIVE) Urine Nitrite Negative (NEGATIVE) Urine Bilirubin Negative (NEGATIVE) Urine Urobilinogen Normal MG/DL (0.0-1.0) Urine Leukocyte Esterase 2+ (NEGATIVE) Urine RBC 5-10 /HPF (0 - 0) Urine WBC 2-4 /HPF (0 - 0) Urine Squamous Epithelial Cells Occasional /LPF Urine Amorphous Sediment Few /LPF (NONE) Urine Bacteria Few /HPF (NONE) Hemoglobin A1c 7.1 % (4.3-6.0) Triglycerides Level 136 MG/DL (30-150) Cholesterol Level 82 MG/DL (< 200) LDL Cholesterol 42 mg/dL (<100) HDL Cholesterol 29 MG/DL (40-60) Cholesterol/HDL Ratio 2.8 (3.3-4.4) Test 05/11/20 04:13 Height (Feet): 5 Height (Inches): 10.00 Weight (Pounds): 200 Objective General Appearance: no apparent distress, alert, GCS 15, non-toxic Head: normocephalic, atraumatic HEENT: bilateral eye normal inspection, bilateral eye PERRL ++trach Respiratory: chest non-tender, lungs clear, nv Cardiovascular: regular rate, rhythm, no edema Gastrointestinal: normal bowel sounds, non tender ++gt Rectal: deferred Genitourinary: normal inspection, no CVA tenderness Musculoskeletal: back normal, normal range of motion, gait/station normal, non- tender Neurologic: alert, motor strength/tone normal, oriented x3, sensory intact, responsive, speech normal Psychiatric: judgement/insight normal, memory normal, mood/affect normal, no suicidal/homicidal ideation Skin: other - see nursing notes Lymphatic: no adenopathy Napoleon Candelario MD May 11, 2020 06:34
[2020-05-11 06:35] LABS: BASOPHILS % (AUTO) 0.8 % (0.0-2.0); EOSINOPHILS % (AUTO) 5.9 % (0.0-3.0); HEMATOCRIT 38.5 % (42.0-52.0); HEMOGLOBIN 12.7 G/DL (14.2-18.0); LYMPHOCYTES % (AUTO) 19.7 % (20.0-45.0); MEAN CORPUSCULAR VOLUME 94 FL (80-99); MONOCYTES % (AUTO) 6.6 % (1.0-10.0); NEUTROPHILS % (AUTO) 67.1 % (45.0-75.0); PLATELET COUNT 212 K/UL (150-450); RED CELL DISTRIBUTION WIDTH 13.6 % (11.6-14.8); WHITE BLOOD COUNT 7.4 K/UL (4.8-10.8)
--- NOTE | 2020-05-11 07:10 | NUR ---
NURSE NOTES: received patient report from bill rn. patient is on bed asleep. not in acute distress. no acute events reported last night. on condom cath, draining yellow urine. no retention. on tube feedings X 20 hrs. on vent at prescribed rate, setting tolerated. dvt & gi prophylaxis, contact isolation.awaitng covid test result, will follow plan of care.
--- NOTE | 2020-05-11 07:20 | NUR ---
NURSE HAND-OFF REPORT: Important Events on Shift: none Patient Status: Stable Diet: Glcuerna 1.2 Pending Orders: n Pending Results/Labs:n Pending MD notification:n Latest Vital Signs: Temperature 98.1 , Pulse 94 , B/P 112 /75 , Respiratory Rate 18 , O2 SAT 100 , Mechanical Ventilator, O2 Flow Rate . Vital Sign Comment: n EKG Rhythm: Sinus Rhythm Rhythm change?: N MD Notified?: - MD Response: Latest Olivier Fall Score: 50 Fall Risk: High Risk Safety Measures: Call light Within Reach, Bed Alarm Zone 2, Side Rails Side Rails x3, Bed position Low and Locked. Fall Precautions: Patient Fall Education Report given to MANJINDER Valdivia. Pt stable in bed and saturating at 99-100%
[2020-05-11 08:00] VITALS: BP 106/65
[2020-05-11] MEDS: Pantoprazole Inj IVP SCH ×2 (08:32→21:00)
[2020-05-11] MEDS: Vitamin D 1000 units Tab GT SCH (08:32)
[2020-05-11] MEDS: levETIRAcetam 500mg/5ml Liquid GT SCH ×2 (08:32→21:00)
[2020-05-11] MEDS: Multivitamins W/Minerals 15 ML UDC GT SCH (08:32)
[2020-05-11] MEDS: OXcarbazepine 150mg tab GT SCH ×2 (08:33→21:00)
[2020-05-11] MEDS: Ascorbic Acid 500mg tab GT SCH (08:33)
[2020-05-11] MEDS: Heparin 5000 units/ml inj SUBQ SCH ×2 (08:40→21:00)
--- NOTE | 2020-05-11 08:44 | NUR ---
RD ASSESSMENT & RECOMMENDATIONS SEE CARE ACTIVITY FOR COMPLETE ASSESSMENT DAILY ESTIMATED NEEDS: Needs based on Critical Care, wounds/ 75kg abw 22-28 kcals/kg 4744-1390 total kcals 1.25-2 g protein/kg 90-150 g total protein 25-30 mL/kg 6617-4114 total fluid mLs NUTRITION DIAGNOSIS: * Swallowing difficulty R/T dysphagia, respiratory status as evidenced by pt is trach/vent dep, PEG dep. * Increased kcal/prot needs R/T wound healing as evidenced by pt admitted w/ sacral and Lt foot great toe wounds per photos, pending eval. CURRENT TF:Glucerna 1.2 @ 55ml/hr x 20 hrs ENTERAL NUTRITION RECOMMENDATIONS: Glucerna 1.2 @ 65ml/hr x 24 hrs to provide 1560ml, 1872kcal, 94g prot, 1256ml free water * Rec goal and run time of 65ml/hr x 24 hrs to meet 100% est kcal/prot needs * HOB over 30 degrees/ h2o flush per MD ADDITIONAL RECOMMENDATIONS: * Calibrated bedscale wt * Wound healing: Continue Vit C Add ZnSO4 220mg QD x 10 days and Richar BID * Add NISS: A1C 7.1 and elev BGs * Monitor lytes, replete as needed .
--- NOTE | 2020-05-11 10:56 | NUR ---
CASE MANAGEMENT:REVIEW 55 YR OLD MALE BIBA FROM [facility] CC: PROLONGED SEIZURE ACTIVITY PMH: TRCH/VENT/G-TUBE SI SEPSIS. SEIZURE 98.3 87 18 109/72 98% O VENT SUPPORT W/ WBC+11.5 IS: 1L NS BOLUS IV KEPPRA CHEST XRAY BLOOD CX : TO STEP DOWN UNIT DCP; FROM [facility] PLAN: SEIZURE PRECAUTIONS NEURO CHECKS Q4HRS
[2020-05-11] MEDS: cefTRIAXone 1 GM in D5W 55 ML IVPB SCH (11:43)
[2020-05-11 12:00] VITALS: BP_SYST 11; BP_SYST 110; BP_DIAS 72; BP_DIAS 74
--- NOTE | 2020-05-11 14:24 | NUR ---
NURSE NOTES:WOUND CARE NOTES:Pt presented on admission with Tracheostomy,Gt and Pressure Injuries. No evidence of skin breakdown under tracheal collar. Pt noted to have clusters of small pustules to R and L antecubital,Dorsal and web spaces of fingers L hand,R antecubital,abd ,groin areas and upper back. Skin erosion along with hypergranulation at insertion site of Gastrostomy. Small amt sanguineous exudate mixed with Formula noted. Silver Nitrate Sticks x1 application applied to Hypergranular portion of Stoma. Resolving Full thickness Sacral Pressure Injury(L014.2cm x (W)9.5cm. Base of wound has uneven,rugged and leathery appearance and is pale pink in colour.Full thickness wounds at sacrum(L)1.3cm x (W)0.8cm x(D)0.5cm and Sacrococcygeal (L)4cm x (W)1.1 x (D)0.6cm.Small amt sanguineous exudate noted from wounds. Resolving Pressure Injury noted to L ischium(L)4cm x (W)3.8cm Base of wound is pale pink with scattered moist- pink epithelial. Bilat foot drop noted. Both heels are boggy but easily blanchable. Soft necrosis noted noted to L 1st metatarsal nail matrix. Tx.Plan:Wash GT site with Soap and water. Pat dry. Apply Zinc Oxide Paste to Peristomal Gt. Cover with Optifoam drsg Daily and prn. Cleanse Sacral wound with Saline. Apply Therahoney to coccygeal and sacral wounds. Apply Moisture Barrier Paste periwound. Cover with Optifoam drsg every 3 days and prn. Apply Moisture Barrier Paste to L Ischial wound. Cover with Optifoam drsg. Change every 3 days and prn. Apply Moisture Barrier Paste to scrotum and R ischium with each incontinence care. Apply Cavilon Skin Barrier to both heels. Cover each Heel with Optifoam drsg. Change every 7 days and prn. Apply Betadine to L 1st metatarsal nail matrix Daily. Leave open to air. APM/EDD Mattress overlay.
[2020-05-11 16:00] VITALS: BP 104/66
--- NOTE | 2020-05-11 17:56 | Surgery Progress Note ---
Surgery Progress Note Subjective Additional Comments labs noted exam stable dressings going well no n/v Objective Last 24 Hour Vital Signs Date Time Temp Pulse Resp B/P (MAP) Pulse Ox O2 Delivery O2 Flow Rate FiO2 05/11/20 16:00 79 05/11/20 16:00 Mechanical Ventilator 05/11/20 16:00 40 05/11/20 16:00 98.2 79 20 104/66 (79) 100 05/11/20 12:00 97.6 87 20 110/72 (85) 100 05/11/20 12:00 88 05/11/20 12:00 Mechanical Ventilator 05/11/20 12:00 40 05/11/20 09:00 40 05/11/20 08:00 98.2 70 18 106/65 (79) 100 05/11/20 08:00 78 05/11/20 08:00 Mechanical Ventilator 05/11/20 07:20 79 16 40 05/11/20 04:01 94 05/11/20 04:00 Mechanical Ventilator 05/11/20 04:00 98.1 90 18 112/75 (87) 100 05/11/20 04:00 40 05/11/20 02:05 72 16 40 05/11/20 00:00 98.8 85 20 115/78 (90) 100 05/11/20 00:00 40 05/11/20 00:00 Mechanical Ventilator 05/10/20 23:03 82 05/10/20 20:37 73 05/10/20 20:00 Mechanical Ventilator 05/10/20 20:00 40 05/10/20 20:00 98.2 82 20 112/72 (85) 100 05/10/20 19:30 75 16 40 I&O Intake and Output 05/10/20 05/11/20 19:00 07:00 Intake Total 2415 ml 2998 ml Output Total 750 ml 2300 ml Balance 1665 ml 698 ml Free Water 120 ml 650 ml IV Total 1705 ml 1743 ml Tube Feeding 590 ml 605 ml Output Urine Total 750 ml 2300 ml # Bowel Movements 2 2 Dressing: saturated Cardiovascular: RSR Respiratory: decreased breath sounds Abdomen: soft, non-tender, present bowel sounds, non-distended Extremities: no tenderness, no cyanosis, other Laboratory Tests Test 05/11/20 04:13 05/11/20 08:59 White Blood Count 7.4 K/UL (4.8-10.8) Red Blood Count 4.10 M/UL (4.70-6.10) L Hemoglobin 12.7 G/DL (14.2-18.0) L Hematocrit 38.5 % (42.0-52.0) L Mean Corpuscular Volume 94 FL (80-99) Mean Corpuscular Hemoglobin 30.9 PG (27.0-31.0) Mean Corpuscular Hemoglobin Concent 33.0 G/DL (32.0-36.0) Red Cell Distribution Width 13.6 % (11.6-14.8) Platelet Count 212 K/UL (150-450) Mean Platelet Volume 11.0 FL (6.5-10.1) H Neutrophils (%) (Auto) 67.1 % (45.0-75.0) Lymphocytes (%) (Auto) 19.7 % (20.0-45.0) L Monocytes (%) (Auto) 6.6 % (1.0-10.0) Eosinophils (%) (Auto) 5.9 % (0.0-3.0) H Basophils (%) (Auto) 0.8 % (0.0-2.0) Prothrombin Time 11.4 SEC (9.30-11.50) Prothromb Time International Ratio 1.0 (0.9-1.1) Plan Problems: (1) Sepsis Assessment & Plan: 55-year-old male admitted with leukocytosis lactic acidosis recent seizure. Currently no nausea vomiting fever chills. Labs reviewed. Improvement with IV hydration. Urine noted. On antibiotics. Wounds evaluated unlikely source patient's sepsis. Wounds are otherwise clean and no active infection identified. Local wound care provided IV hydration IV antibiotics nutritional support. Will follow with recommendations. Thank you (2) Pressure sore Assessment & Plan: Pt presented on admission with Tracheostomy,Gt and Pressure Injuries. No evidence of skin breakdown under tracheal collar. Pt noted to have clusters of small pustules to R and L antecubital,Dorsal and web spaces of fingers L hand,R antecubital,abd ,groin areas and upper back. Skin erosion along with hypergranulation at insertion site of Gastrostomy. Small amt sanguineous exudate mixed with Formula noted. Silver Nitrate Sticks x1 application applied to Hypergranular portion of Stoma. Resolving Full thickness Sacral Pressure Injury(L014.2cm x (W)9.5cm. Base of wound has uneven,rugged and leathery appearance and is pale pink in colour.Full thickness wounds at sacrum(L)1.3cm x (W)0.8cm x(D)0.5cm and Sacrococcygeal (L)4cm x (W)1.1 x (D)0.6cm.Small amt sanguineous exudate noted from wounds. Resolving Pressure Injury noted to L ischium(L)4cm x (W)3.8cm Base of wound is pale pink with scattered moist- pink epithelial. Bilat foot drop noted. Both heels are boggy but easily blanchable. Soft necrosis noted noted to L 1st metatarsal nail matrix. Tx.Plan:Wash GT site with Soap and water. Pat dry. Apply Zinc Oxide Paste to Peristomal Gt. Cover with Optifoam drsg Daily and prn. Cleanse Sacral wound with Saline. Apply Therahoney to coccygeal and sacral wounds. Apply Moisture Barrier Paste periwound. Cover with Optifoam drsg every 3 days and prn. Apply Moisture Barrier Paste to L Ischial wound. Cover with Optifoam drsg. Change every 3 days and prn. Apply Moisture Barrier Paste to scrotum and R ischium with each incontinence care. Apply Cavilon Skin Barrier to both heels. Cover each Heel with Optifoam drsg. Change every 7 days and prn. Apply Betadine to L 1st metatarsal nail matrix Daily. Leave open to air. APM/EDD Mattress overlay. (3) Diabetes mellitus (4) Decubitus skin ulcer (5) Seizure disorder (6) Leaking percutaneous endoscopic gastrostomy (PEG) tube (7) Septic shock (8) Chronic respiratory failure (9) Feeding by G-tube (10) Bacteremia (11) Uncontrolled seizures (12) Seizure disorder, convulsive, with status epilepticus (13) Seizure after head injury (14) Line sepsis (15) UTI (urinary tract infection) (16) Urinary tract infection (17) Acute on chronic renal insufficiency Horacio Hope May 11, 2020 17:56
[2020-05-11] MEDS ORDERED: ERYTHROMYCIN 2%60 ML TP (18:00)
[2020-05-11] MEDS ORDERED: MULTIVITAMINS1 EAC8 GT (18:00)
[2020-05-11] MEDS ORDERED: POLYETHYLENE GL17 GM GT (18:00)
[2020-05-11] MEDS ORDERED: MIDODRINE HCL5 MG GT (18:00)
[2020-05-11] MEDS ORDERED: ALBUTEROL SULF8.5 G1 INH (18:00)
[2020-05-11] MEDS ORDERED: HEPARIN 6,6000 UNIT/ SQ (18:00)
[2020-05-11] MEDS ORDERED: CLONAZEPAM2 MG GT (18:00)
[2020-05-11] MEDS ORDERED: OMEPRAZOLE40 M1 GT (18:00)
[2020-05-11] MEDS ORDERED: ATROVENT HFA12.9 GM IH (18:00)
[2020-05-11] MEDS ORDERED: LEVETIRACE500 MG/51 GT (18:00)
[2020-05-11] MEDS ORDERED: Zinc Oxide Oint 2oz TOPIC PRN (18:30)
--- NOTE | 2020-05-11 19:16 | NUR ---
NURSE HAND-OFF REPORT: Important Events on Shift:stable, afebrile Patient Status: full code Diet: tube feeds Pending Orders: [] Pending Results/Labs:[] Pending MD notification:[] Latest Vital Signs: Temperature 98.2 , Pulse 79 , B/P 104 /66 , Respiratory Rate 20 , O2 SAT 100 , Mechanical Ventilator, O2 Flow Rate . Vital Sign Comment: stable EKG Rhythm: Sinus Rhythm Rhythm change?: N MD Notified?: - MD Response: Latest Olivier Fall Score: 50 Fall Risk: High Risk Safety Measures: Call light Within Reach, Bed Alarm Zone 2, Side Rails Side Rails x3, Bed position Low and Locked. Fall Precautions: Patient Fall Education Report given to addy
[2020-05-11 20:00] VITALS: BP 106/69
[2020-05-11] MEDS: Atorvastatin 20mg tab GT SCH (21:00)
--- NOTE | 2020-05-11 22:59 | General Progress Note ---
Subjective Constitutional: Reports: no symptoms HEENT: Reports: no symptoms Cardiovascular: Reports: no symptoms Respiratory: Reports: no symptoms Gastrointestinal/Abdominal: Reports: no symptoms Genitourinary: Reports: no symptoms Neurologic/Psychiatric: Reports: no symptoms Endocrine: Reports: no symptoms Hematologic/Lymphatic: Reports: no symptoms Allergies: Uncoded Allergies: TAPE (Allergy, Unknown, 05/31/18) Objective Last 24 Hour Vital Signs Date Time Temp Pulse Resp B/P (MAP) Pulse Ox O2 Delivery O2 Flow Rate FiO2 05/11/20 20:00 Mechanical Ventilator 05/11/20 20:00 40 05/11/20 20:00 79 05/11/20 20:00 98.4 80 20 106/69 (81) 100 05/11/20 19:00 85 20 40 05/11/20 16:00 79 05/11/20 16:00 Mechanical Ventilator 05/11/20 16:00 40 05/11/20 16:00 98.2 79 20 104/66 (79) 100 05/11/20 15:05 67 16 40 05/11/20 12:00 97.6 87 20 110/72 (85) 100 05/11/20 12:00 88 05/11/20 12:00 Mechanical Ventilator 05/11/20 12:00 40 05/11/20 11:05 64 16 40 05/11/20 09:00 40 05/11/20 08:00 98.2 70 18 106/65 (79) 100 05/11/20 08:00 78 05/11/20 08:00 Mechanical Ventilator 05/11/20 07:20 79 16 40 05/11/20 04:01 94 05/11/20 04:00 Mechanical Ventilator 05/11/20 04:00 98.1 90 18 112/75 (87) 100 05/11/20 04:00 40 05/11/20 02:05 72 16 40 05/11/20 00:00 98.8 85 20 115/78 (90) 100 05/11/20 00:00 40 05/11/20 00:00 Mechanical Ventilator 05/10/20 23:03 82 Intake and Output 05/10/20 05/11/20 19:00 07:00 Intake Total 2415 ml 2998 ml Output Total 750 ml 2300 ml Balance 1665 ml 698 ml Free Water 120 ml 650 ml IV Total 1705 ml 1743 ml Tube Feeding 590 ml 605 ml Output Urine Total 750 ml 2300 ml # Bowel Movements 2 2 Laboratory Tests 05/11/20 04:13: White Blood Count 7.4, Red Blood Count 4.10L, Hemoglobin 12.7L, Hematocrit 38.5L , Mean Corpuscular Volume 94, Mean Corpuscular Hemoglobin 30.9, Mean Corpuscular Hemoglobin Concent 33.0, Red Cell Distribution Width 13.6, Platelet Count 212, Mean Platelet Volume 11.0H, Neutrophils (%) (Auto) 67.1, Lymphocytes (%) (Auto) 19.7L, Monocytes (%) (Auto) 6.6, Eosinophils (%) (Auto) 5.9H, Basophils (%) (Auto) 0.8 05/11/20 08:59: Prothrombin Time 11.4, Prothromb Time International Ratio 1.0 Height (Feet): 5 Height (Inches): 10.00 Weight (Pounds): 200 General Appearance: no apparent distress, other - Nonresponsive EENT: normal ENT inspection Neck: non-tender, normal alignment, supple, normal inspection Cardiovascular: normal rate, regular rhythm, no gallop/murmur Respiratory/Chest: lungs clear, normal breath sounds, no respiratory distress, no accessory muscle use Abdomen: normal bowel sounds, non tender, soft, no organomegaly, no mass Extremities: non-tender Neurologic: unresponsive Assessment/Plan Status Narrative Patient eyes are open he is hemodynamically stable but patient of the sternocleidomastoid again by cell revealed tenderness bilaterally right more than left clear is no peripheral edema heart abnormal sounds patient was admitted for seizure disorder he did not have seizure now for the last 2 days on Klonopin levetiracetam and appears stable point review patient is on max medication for Keppra which she will requir does follow-up because of his previous antecedent of of seizures will come after a long. During which no convulsive activity is recorded as a Marv SCHAEFER without any medical issue. Libby Espinal MD, MD May 11, 2020 22:59
[2020-05-12] VITALS: BP 104/72
--- NOTE | 2020-05-12 02:51 | NUR ---
pt hemodynamically stable. No acute distress. Turn q2hrs. No current BMs. tube feeds and tubing replaced. Will continue to monitor.
[2020-05-12 04:00] VITALS: BP 100/63
[2020-05-12 05:31] LABS: BASOPHILS % (AUTO) 1.1 % (0.0-2.0); EOSINOPHILS % (AUTO) 7.1 % (0.0-3.0); HEMATOCRIT 33.6 % (42.0-52.0); HEMOGLOBIN 11.6 G/DL (14.2-18.0); LYMPHOCYTES % (AUTO) 25.5 % (20.0-45.0); MEAN CORPUSCULAR VOLUME 93 FL (80-99); MONOCYTES % (AUTO) 7.3 % (1.0-10.0); PLATELET COUNT 188 K/UL (150-450); RED CELL DISTRIBUTION WIDTH 14.6 % (11.6-14.8); WHITE BLOOD COUNT 7.2 K/UL (4.8-10.8)
--- NOTE | 2020-05-12 06:20 | Hematology/Onc Progress Note ---
Assessment/Plan Assessment/Plan Assessment and Recs # Anemia of hemodilution, labs noted --> no hemolysis is noted --> hgb 11.6 --> consider anemia panel if further downtrends # Seizure disorder, did have lip smacking on admission --> has been started on keppra bid dosing per gt --> klonipin v ativan prn basis --> as per neurology eval # Leukocytosis due to Sepsis with uti poa --> have started ABX ctx --> wbc 12-->10 # Bibasilar atelectasis # Dysphagia s/p peg # Transient hypotension, asymptomatic. Overall stable hemodynamics. # Paroxysmal atrial ectopy. # Respiratory failure with trach. Dw Rn and pcp Subjective Constitutional: Denies: no symptoms, chills, fever, malaise, weakness, other HEENT: Denies: no symptoms, eye pain, blurred vision, tearing, double vision, ear pain, ear discharge, nose pain, nose congestion, throat pain, throat swelling, mouth pain, mouth swelling, other Cardiovascular: Denies: no symptoms, chest pain, edema, irregular heart rate, lightheadedness, palpitations, syncope, other Respiratory: Denies: no symptoms, cough, shortness of breath, SOB with excertion, SOB at rest, sputum, wheezing, other Gastrointestinal/Abdominal: Denies: no symptoms, abdomen distended, abdominal pain, black stools, tarry stools, blood in stool, constipated, diarrhea, difficulty swallowing, nausea, poor appetite, poor fluid intake, rectal bleeding, vomiting, other Genitourinary: Denies: no symptoms, burning, discharge, frequency, flank pain, hematuria, incontinence, pain, urgency, other Neurologic/Psychiatric: Denies: no symptoms, anxiety, depressed, emotional problems, headache, numbness, paresthesia, pre-existing deficit, seizure, tingling, tremors, weakness, other Endocrine: Denies: no symptoms, excessive sweating, flushing, intolerance to cold, intolerance to heat, increased hunger, increased thirst, increased urine, unexplained weight gain, unexplained weight loss, other Allergies: Uncoded Allergies: TAPE (Allergy, Unknown, 05/31/18) Subjective 05/11 on vent, glucerna, meds noted, with gt, seen by surg, labs reviewed 05/12 no seizures overnight, on klonipin and ativan as needed, meds noted Objective Objective Current Medications Medications (Trade) Dose Ordered Sig/Jacob Route PRN Reason Start Time Stop Time Status Last Admin Dose Admin Ascorbic Acid (Vitamin C) 500 mg DAILY GT 05/10/20 09:00 06/09/20 08:59 05/11/20 08:33 Atorvastatin Calcium (Lipitor) 10 mg BEDTIME GT 05/10/20 21:00 08/07/20 21:44 05/11/20 21:00 Ceftriaxone Sodium 1 gm/ Dextrose 55 ml @ 110 mls/hr Q24H IVPB 05/10/20 12:00 05/17/20 11:59 05/11/20 11:43 Clonazepam (KlonoPIN) 2 mg EVERY 8 HOURS GT 05/09/20 22:00 05/16/20 21:59 05/12/20 05:23 Dextrose (Dextrose 50%) 25 ml Q30M PRN IV Hypoglycemia 05/09/20 21:45 08/07/20 21:44 Dextrose (Dextrose 50%) 50 ml Q30M PRN IV Hypoglycemia 05/09/20 21:45 08/07/20 21:44 Dextrose/Sodium Chloride 1,000 ml @ 150 mls/hr Q6H40M IV 05/11/20 06:15 06/10/20 06:14 05/11/20 19:00 Heparin Sodium (Porcine) (Heparin 5000 units/ml) 5,000 units EVERY 12 HOURS SUBQ 05/10/20 09:00 06/24/20 08:59 05/11/20 21:00 Levetiracetam (Keppra) 1,500 mg Q12HR GT 05/09/20 21:45 06/08/20 21:44 05/11/20 21:00 Lorazepam (Ativan 2mg/ml 1ml) 2 mg Q4H PRN IV For Seizures 05/10/20 06:15 05/17/20 06:14 Midodrine (Pro-Amatine) 5 mg EVERY 8 HOURS PRN GT SBP less than 110 05/10/20 06:00 08/08/20 05:59 05/10/20 17:29 Multivitamins (Multivitamins W/ Minerals 15ml Liquid) 15 ml DAILY GT 05/10/20 09:00 06/09/20 08:59 05/11/20 08:32 Oxcarbazepine (TrileptaL) 600 mg EVERY 12 HOURS GT 05/09/20 21:45 06/08/20 21:44 05/11/20 21:00 Pantoprazole (Protonix) 40 mg EVERY 12 HOURS IVP 05/10/20 09:00 06/09/20 08:59 05/11/20 21:00 Vitamin D (Vitamin D) 5,000 unit DAILY GT 05/10/20 09:00 06/09/20 08:59 05/11/20 08:32 Zinc Oxide (Zinc Oxide) 1 applic TIDPRN PRN TOPIC g tube wound 05/11/20 18:30 08/09/20 18:29 Last 24 Hour Vital Signs Date Time Temp Pulse Resp B/P (MAP) Pulse Ox O2 Delivery O2 Flow Rate FiO2 05/12/20 04:00 Mechanical Ventilator 05/12/20 04:00 79 05/12/20 04:00 40 05/12/20 04:00 98.2 76 20 100/63 (75) 100 05/12/20 03:25 86 20 40 05/12/20 00:00 40 05/12/20 00:00 79 05/12/20 00:00 Mechanical Ventilator 05/12/20 00:00 97.9 66 20 104/72 (83) 100 05/11/20 23:20 81 21 40 05/11/20 20:00 Mechanical Ventilator 05/11/20 20:00 40 05/11/20 20:00 79 05/11/20 20:00 98.4 80 20 106/69 (81) 100 05/11/20 19:00 85 20 40 05/11/20 16:00 79 05/11/20 16:00 Mechanical Ventilator 05/11/20 16:00 40 05/11/20 16:00 98.2 79 20 104/66 (79) 100 05/11/20 15:05 67 16 40 05/11/20 12:00 97.6 87 20 110/72 (85) 100 05/11/20 12:00 88 05/11/20 12:00 Mechanical Ventilator 05/11/20 12:00 40 05/11/20 11:05 64 16 40 05/11/20 09:00 40 05/11/20 08:00 98.2 70 18 106/65 (79) 100 2/8/21 08:00 78 05/11/20 08:00 Mechanical Ventilator 05/11/20 07:20 79 16 40 05/11/20 04:01 94 05/11/20 04:00 Mechanical Ventilator 05/11/20 04:00 98.1 90 18 112/75 (87) 100 05/11/20 04:00 40 05/11/20 02:05 72 16 40 05/11/20 00:00 98.8 85 20 115/78 (90) 100 05/11/20 00:00 40 05/11/20 00:00 Mechanical Ventilator 05/10/20 23:03 82 05/10/20 20:37 73 05/10/20 20:00 Mechanical Ventilator 05/10/20 20:00 40 05/10/20 20:00 98.2 82 20 112/72 (85) 100 05/10/20 19:30 75 16 40 05/10/20 16:00 72 05/10/20 16:00 40 05/10/20 16:00 Mechanical Ventilator 05/10/20 16:00 97.6 90 20 96/58 (71) 100 05/10/20 15:12 74 16 40 05/10/20 12:00 40 05/10/20 12:00 97.2 92 20 103/66 (78) 99 05/10/20 12:00 Mechanical Ventilator 05/10/20 12:00 115 05/10/20 11:26 90 16 40 05/10/20 08:00 Mechanical Ventilator 05/10/20 08:00 68 05/10/20 08:00 97.0 71 20 98/73 (81) 100 05/10/20 08:00 40 05/10/20 07:30 85 16 40 Intake and Output 05/11/20 05/12/20 19:00 07:00 Intake Total 2010 ml 1925 ml Output Total 1100 ml 1200 ml Balance 910 ml 725 ml Free Water 70 ml 120 ml IV Total 1555 ml 1200 ml Tube Feeding 385 ml 605 ml Output Urine Total 1100 ml 1200 ml Labs Test 05/09/20 13:20 05/09/20 14:47 05/09/20 15:10 05/10/20 05:40 White Blood Count 11.5 K/UL (4.8-10.8) 10.5 K/UL (4.8-10.8) Red Blood Count 4.73 M/UL (4.70-6.10) 4.08 M/UL (4.70-6.10) Hemoglobin 14.4 G/DL (14.2-18.0) 12.7 G/DL (14.2-18.0) Hematocrit 44.4 % (42.0-52.0) 38.2 % (42.0-52.0) Mean Corpuscular Volume 94 FL (80-99) 94 FL (80-99) Mean Corpuscular Hemoglobin 30.3 PG (27.0-31.0) 31.0 PG (27.0-31.0) Mean Corpuscular Hemoglobin Concent 32.3 G/DL (32.0-36.0) 33.1 G/DL (32.0-36.0) Red Cell Distribution Width 14.0 % (11.6-14.8) 13.9 % (11.6-14.8) Platelet Count 237 K/UL (150-450) 201 K/UL (150-450) Mean Platelet Volume 11.4 FL (6.5-10.1) 12.0 FL (6.5-10.1) Neutrophils (%) (Auto) 76.0 % (45.0-75.0) 67.6 % (45.0-75.0) Lymphocytes (%) (Auto) 12.7 % (20.0-45.0) 17.5 % (20.0-45.0) Monocytes (%) (Auto) 6.0 % (1.0-10.0) 9.8 % (1.0-10.0) Eosinophils (%) (Auto) 4.4 % (0.0-3.0) 3.6 % (0.0-3.0) Basophils (%) (Auto) 0.9 % (0.0-2.0) 1.5 % (0.0-2.0) Sodium Level 143 MMOL/L (136-145) 140 MMOL/L (136-145) Potassium Level 4.0 MMOL/L (3.5-5.1) 3.7 MMOL/L (3.5-5.1) Chloride Level 106 MMOL/L (98-107) 105 MMOL/L (98-107) Carbon Dioxide Level 28 MMOL/L (21-32) 27 MMOL/L (21-32) Anion Gap 9 mmol/L (5-15) 8 mmol/L (5-15) Blood Urea Nitrogen 15 mg/dL (7-18) 13 mg/dL (7-18) Creatinine 0.8 MG/DL (0.55-1.30) 0.9 MG/DL (0.55-1.30) Estimat Glomerular Filtration Rate > 60 mL/min (>60) > 60 mL/min (>60) Glucose Level 167 MG/DL (74-106) 184 MG/DL (74-106) Lactic Acid Level 2.80 mmol/L (0.4-2.0) 1.60 mmol/L (0.66-2.22) Calcium Level 9.3 MG/DL (8.5-10.1) 8.9 MG/DL (8.5-10.1) Total Bilirubin 0.5 MG/DL (0.2-1.0) Aspartate Amino Transf (AST/SGOT) 17 U/L (15-37) Alanine Aminotransferase (ALT/SGPT) 23 U/L (12-78) Alkaline Phosphatase 179 U/L (46-116) Troponin I 0.000 ng/mL (0.000-0.056) Pro-B-Type Natriuretic Peptide 21 pg/mL (0-125) Total Protein 8.2 G/DL (6.4-8.2) Albumin 3.6 G/DL (3.4-5.0) Globulin 4.6 g/dL Albumin/Globulin Ratio 0.8 (1.0-2.7) Urine Color Pale yellow Urine Appearance Slightly cloudy Urine pH 7 (4.5-8.0) Urine Specific [place] 1.010 (1.005-1.035) Urine Protein 1+ (NEGATIVE) Urine Glucose (UA) Negative (NEGATIVE) Urine Ketones Negative (NEGATIVE) Urine Blood 2+ (NEGATIVE) Urine Nitrite Negative (NEGATIVE) Urine Bilirubin Negative (NEGATIVE) Urine Urobilinogen Normal MG/DL (0.0-1.0) Urine Leukocyte Esterase 2+ (NEGATIVE) Urine RBC 5-10 /HPF (0 - 0) Urine WBC 2-4 /HPF (0 - 0) Urine Squamous Epithelial Cells Occasional /LPF Urine Amorphous Sediment Few /LPF (NONE) Urine Bacteria Few /HPF (NONE) Hemoglobin A1c 7.1 % (4.3-6.0) Triglycerides Level 136 MG/DL (30-150) Cholesterol Level 82 MG/DL (< 200) LDL Cholesterol 42 mg/dL (<100) HDL Cholesterol 29 MG/DL (40-60) Cholesterol/HDL Ratio 2.8 (3.3-4.4) Test 05/11/20 04:13 05/11/20 08:59 05/12/20 03:00 White Blood Count 7.4 K/UL (4.8-10.8) 7.2 K/UL (4.8-10.8) Red Blood Count 4.10 M/UL (4.70-6.10) 3.60 M/UL (4.70-6.10) Hemoglobin 12.7 G/DL (14.2-18.0) 11.6 G/DL (14.2-18.0) Hematocrit 38.5 % (42.0-52.0) 33.6 % (42.0-52.0) Mean Corpuscular Volume 94 FL (80-99) 93 FL (80-99) Mean Corpuscular Hemoglobin 30.9 PG (27.0-31.0) 32.1 PG (27.0-31.0) Mean Corpuscular Hemoglobin Concent 33.0 G/DL (32.0-36.0) 34.4 G/DL (32.0-36.0) Red Cell Distribution Width 13.6 % (11.6-14.8) 14.6 % (11.6-14.8) Platelet Count 212 K/UL (150-450) 188 K/UL (150-450) Mean Platelet Volume 11.0 FL (6.5-10.1) 11.4 FL (6.5-10.1) Neutrophils (%) (Auto) 67.1 % (45.0-75.0) 59.0 % (45.0-75.0) Lymphocytes (%) (Auto) 19.7 % (20.0-45.0) 25.5 % (20.0-45.0) Monocytes (%) (Auto) 6.6 % (1.0-10.0) 7.3 % (1.0-10.0) Eosinophils (%) (Auto) 5.9 % (0.0-3.0) 7.1 % (0.0-3.0) Basophils (%) (Auto) 0.8 % (0.0-2.0) 1.1 % (0.0-2.0) Prothrombin Time 11.4 SEC (9.30-11.50) Prothromb Time International Ratio 1.0 (0.9-1.1) Height (Feet): 5 Height (Inches): 10.00 Weight (Pounds): 200 Objective General Appearance: no apparent distress, alert, GCS 15, non-toxic Head: normocephalic, atraumatic HEENT: bilateral eye normal inspection, bilateral eye PERRL ++trach Respiratory: chest non-tender, lungs clear, nv Cardiovascular: regular rate, rhythm, no edema Gastrointestinal: normal bowel sounds, non tender ++gt Rectal: deferred Genitourinary: normal inspection, no CVA tenderness Musculoskeletal: back normal, normal range of motion, gait/station normal, non- tender Neurologic: alert, motor strength/tone normal, oriented x3, sensory intact, responsive, speech normal Psychiatric: judgement/insight normal, memory normal, mood/affect normal, no suicidal/homicidal ideation Skin: other - see nursing notes Lymphatic: no adenopathy Napoleon Candelario MD May 12, 2020 06:20
[2020-05-12 08:00] VITALS: BP_SYST 100; BP_SYST 99; BP_DIAS 63; BP_DIAS 70
[2020-05-12] MEDS: D5 1/2NS 1,000 ML IV SCH ×3 (08:55→22:25)
--- NOTE | 2020-05-12 09:30 | NUR ---
CASE MANAGEMENT:REVIEW 05/12/20 SI: SEPSIS. SEIZURE. UTI TRACH/VENT/G-TUBE DEPENDENT 98.2 79 20 99/70 100% ON VENT SUPPORT W/40% FIO2 `H/H-11.6/33.6 IS: IVF@150/HR IV ROCEPHIN Q24 IV PROTONIX Q12 HEPARIN SQ Q12 KLONOPIN GT Q8HRS TRILEPTAL GT Q12 KEPPRA GT Q12 : STEP DOWN UNIT DCP: BRIE FELICIANO
[2020-05-12] MEDS: Pantoprazole Inj IVP SCH ×2 (09:31→21:00)
[2020-05-12] MEDS: levETIRAcetam 500mg/5ml Liquid GT SCH ×2 (09:32→21:00)
[2020-05-12] MEDS: OXcarbazepine 150mg tab GT SCH ×2 (09:32→21:00)
[2020-05-12] MEDS: Multivitamins W/Minerals 15 ML UDC GT SCH (09:32)
[2020-05-12] MEDS: Vitamin D 1000 units Tab GT SCH (09:34)
[2020-05-12] MEDS: Ascorbic Acid 500mg tab GT SCH (09:34)
[2020-05-12] MEDS: Heparin 5000 units/ml inj SUBQ SCH ×2 (09:35→21:01)
--- NOTE | 2020-05-12 11:43 | Surgery Progress Note ---
Surgery Progress Note Subjective Symptoms: improved, tolerating diet, voiding well, passing flatus, BM, pain decreased Objective Last 24 Hour Vital Signs Date Time Temp Pulse Resp B/P (MAP) Pulse Ox O2 Delivery O2 Flow Rate FiO2 05/12/20 08:00 98.2 69 20 99/70 (80) 100 05/12/20 08:00 Mechanical Ventilator 05/12/20 08:00 40 05/12/20 08:00 79 05/12/20 08:00 73 05/12/20 04:00 Mechanical Ventilator 05/12/20 04:00 79 05/12/20 04:00 40 05/12/20 04:00 98.2 76 20 100/63 (75) 100 05/12/20 03:25 86 20 40 05/12/20 00:00 40 05/12/20 00:00 79 05/12/20 00:00 Mechanical Ventilator 05/12/20 00:00 97.9 66 20 104/72 (83) 100 05/11/20 23:20 81 21 40 05/11/20 20:00 Mechanical Ventilator 05/11/20 20:00 40 05/11/20 20:00 79 05/11/20 20:00 98.4 80 20 106/69 (81) 100 05/11/20 19:00 85 20 40 05/11/20 16:00 79 05/11/20 16:00 Mechanical Ventilator 05/11/20 16:00 40 05/11/20 16:00 98.2 79 20 104/66 (79) 100 05/11/20 15:05 67 16 40 05/11/20 12:00 97.6 87 20 110/72 (85) 100 05/11/20 12:00 88 05/11/20 12:00 Mechanical Ventilator 05/11/20 12:00 40 I&O Intake and Output 05/11/20 05/12/20 19:00 07:00 Intake Total 2010 ml 1925 ml Output Total 1100 ml 1200 ml Balance 910 ml 725 ml Free Water 70 ml 120 ml IV Total 1555 ml 1200 ml Tube Feeding 385 ml 605 ml Output Urine Total 1100 ml 1200 ml Dressing: saturated Cardiovascular: RSR Respiratory: clear, decreased breath sounds Abdomen: soft, non-tender, present bowel sounds Extremities: no edema, no tenderness, no cyanosis Laboratory Tests Test 05/12/20 03:00 White Blood Count 7.2 K/UL (4.8-10.8) Red Blood Count 3.60 M/UL (4.70-6.10) L Hemoglobin 11.6 G/DL (14.2-18.0) L Hematocrit 33.6 % (42.0-52.0) L Mean Corpuscular Volume 93 FL (80-99) Mean Corpuscular Hemoglobin 32.1 PG (27.0-31.0) H Mean Corpuscular Hemoglobin Concent 34.4 G/DL (32.0-36.0) Red Cell Distribution Width 14.6 % (11.6-14.8) Platelet Count 188 K/UL (150-450) Mean Platelet Volume 11.4 FL (6.5-10.1) H Neutrophils (%) (Auto) 59.0 % (45.0-75.0) Lymphocytes (%) (Auto) 25.5 % (20.0-45.0) Monocytes (%) (Auto) 7.3 % (1.0-10.0) Eosinophils (%) (Auto) 7.1 % (0.0-3.0) H Basophils (%) (Auto) 1.1 % (0.0-2.0) Plan Problems: (1) Sepsis Assessment & Plan: 55-year-old male admitted with leukocytosis lactic acidosis recent seizure. Currently no nausea vomiting fever chills. Labs reviewed. Improvement with IV hydration. Urine noted. On antibiotics. Wounds evaluated unlikely source patient's sepsis. Wounds are otherwise clean and no active infection identified. Local wound care provided IV hydration IV antibiotics nutritional support. Will follow with recommendations. Thank you (2) Pressure sore Assessment & Plan: Pt presented on admission with Tracheostomy,Gt and Pressure Injuries. No evidence of skin breakdown under tracheal collar. Pt noted to have clusters of small pustules to R and L antecubital,Dorsal and web spaces of fingers L hand,R antecubital,abd ,groin areas and upper back. Skin erosion along with hypergranulation at insertion site of Gastrostomy. Small amt sanguineous exudate mixed with Formula noted. Silver Nitrate Sticks x1 application applied to Hypergranular portion of Stoma. Resolving Full thickness Sacral Pressure Injury(L014.2cm x (W)9.5cm. Base of wound has uneven,rugged and leathery appearance and is pale pink in colour.Full thickness wounds at sacrum(L)1.3cm x (W)0.8cm x(D)0.5cm and Sacrococcygeal (L)4cm x (W)1.1 x (D)0.6cm.Small amt sanguineous exudate noted from wounds. Resolving Pressure Injury noted to L ischium(L)4cm x (W)3.8cm Base of wound is pale pink with scattered moist- pink epithelial. Bilat foot drop noted. Both heels are boggy but easily blanchable. Soft necrosis noted noted to L 1st metatarsal nail matrix. Tx.Plan:Wash GT site with Soap and water. Pat dry. Apply Zinc Oxide Paste to Peristomal Gt. Cover with Optifoam drsg Daily and prn. Cleanse Sacral wound with Saline. Apply Therahoney to coccygeal and sacral wounds. Apply Moisture Barrier Paste periwound. Cover with Optifoam drsg every 3 days and prn. Apply Moisture Barrier Paste to L Ischial wound. Cover with Optifoam drsg. Change every 3 days and prn. Apply Moisture Barrier Paste to scrotum and R ischium with each incontinence care. Apply Cavilon Skin Barrier to both heels. Cover each Heel with Optifoam drsg. Change every 7 days and prn. Apply Betadine to L 1st metatarsal nail matrix Daily. Leave open to air. APM/EDD Mattress overlay. (3) Diabetes mellitus (4) Decubitus skin ulcer (5) Seizure disorder (6) Leaking percutaneous endoscopic gastrostomy (PEG) tube (7) Septic shock (8) Chronic respiratory failure (9) Feeding by G-tube (10) Bacteremia (11) Uncontrolled seizures (12) Seizure disorder, convulsive, with status epilepticus (13) Seizure after head injury (14) Line sepsis (15) UTI (urinary tract infection) (16) Urinary tract infection (17) Acute on chronic renal insufficiency Horacio Hope May 12, 2020 11:43
[2020-05-12 12:00] VITALS: BP 100/69
[2020-05-12] MEDS: cefTRIAXone 1 GM in D5W 55 ML IVPB SCH (12:00)
--- NOTE | 2020-05-12 13:52 | NUR ---
INSURANCE CLINICALS/REVIEW FAXED TO ALONA YARBROUGH (05/09-05/12) #[phone] FAX# [phone]
[2020-05-12 16:00] VITALS: BP 100/69
[2020-05-12 20:00] VITALS: BP 91/71
--- NOTE | 2020-05-12 20:28 | General Progress Note ---
Subjective Constitutional: Reports: no symptoms HEENT: Reports: no symptoms Cardiovascular: Reports: no symptoms Respiratory: Reports: no symptoms Gastrointestinal/Abdominal: Reports: no symptoms Genitourinary: Reports: no symptoms Neurologic/Psychiatric: Reports: no symptoms Endocrine: Reports: no symptoms Hematologic/Lymphatic: Reports: no symptoms Allergies: Uncoded Allergies: TAPE (Allergy, Unknown, 05/31/18) Objective Last 24 Hour Vital Signs Date Time Temp Pulse Resp B/P (MAP) Pulse Ox O2 Delivery O2 Flow Rate FiO2 05/12/20 19:37 80 17 70 05/12/20 16:00 70 05/12/20 16:00 98.4 22 100/69 (79) 90 05/12/20 16:00 Mechanical Ventilator 05/12/20 15:52 112 05/12/20 15:35 88 24 70 05/12/20 12:40 102 05/12/20 12:00 98.4 94 22 100/69 (79) 90 05/12/20 12:00 Mechanical Ventilator 05/12/20 12:00 70 05/12/20 11:27 92 27 70 05/12/20 08:00 98.2 69 20 99/70 (80) 100 05/12/20 08:00 Mechanical Ventilator 05/12/20 08:00 40 05/12/20 08:00 79 05/12/20 08:00 73 05/12/20 07:06 73 16 40 05/12/20 04:00 Mechanical Ventilator 05/12/20 04:00 79 05/12/20 04:00 40 05/12/20 04:00 98.2 76 20 100/63 (75) 100 05/12/20 03:25 86 20 40 05/12/20 00:00 40 05/12/20 00:00 79 05/12/20 00:00 Mechanical Ventilator 05/12/20 00:00 97.9 66 20 104/72 (83) 100 05/11/20 23:20 81 21 40 Intake and Output 05/11/20 05/12/20 19:00 07:00 Intake Total 2010 ml 1925 ml Output Total 1100 ml 1200 ml Balance 910 ml 725 ml Free Water 70 ml 120 ml IV Total 1555 ml 1200 ml Tube Feeding 385 ml 605 ml Output Urine Total 1100 ml 1200 ml Laboratory Tests 05/12/20 03:00: White Blood Count 7.2, Red Blood Count 3.60L, Hemoglobin 11.6L, Hematocrit 33.6L , Mean Corpuscular Volume 93, Mean Corpuscular Hemoglobin 32.1H, Mean Corpuscular Hemoglobin Concent 34.4, Red Cell Distribution Width 14.6, Platelet Count 188, Mean Platelet Volume 11.4H, Neutrophils (%) (Auto) 59.0, Lymphocytes (%) (Auto) 25.5, Monocytes (%) (Auto) 7.3, Eosinophils (%) (Auto) 7.1H, Basophils (%) (Auto) 1.1 Height (Feet): 5 Height (Inches): 10.00 Weight (Pounds): 200 General Appearance: WD/WN, no apparent distress, other - Eye closed nonresponsi ve EENT: normal ENT inspection Neck: supple Cardiovascular: normal rate, regular rhythm, no gallop/murmur, no JVD Respiratory/Chest: lungs clear, normal breath sounds, no respiratory distress, no accessory muscle use Abdomen: normal bowel sounds, non tender, soft, no organomegaly, no mass Extremities: non-tender Neurologic: unresponsive Skin: warm/dry Assessment/Plan Status Narrative Patient is known awake afebrile hemodynamically stable with normal physical exam without any seizure in the last several days laboratory studies revealed the patient CBC BMP are stable now for the last few days his conversive problem has been resolved patient will discharge back to the extended care facility in a.m. as a Libby Espinal MD, MD May 12, 2020 20:28
[2020-05-12] MEDS: Atorvastatin 20mg tab GT SCH (21:00)
[2020-05-13] VITALS: BP 94/67
--- NOTE | 2020-05-13 01:57 | Cardiology Report ---
APPROVED REPORT EKG Measurement Heart [id number] <Conclusion> Normal sinus rhythm Normal ECG
[2020-05-13 04:00] VITALS: BP 104/77
[2020-05-13] MEDS: D5 1/2NS 1,000 ML IV SCH ×3 (04:56→18:10)
--- NOTE | 2020-05-13 06:33 | Hematology/Onc Progress Note ---
Assessment/Plan Assessment/Plan Assessment and Recs # Anemia of hemodilution, labs noted --> no hemolysis is noted --> hgb 11.6 --> consider anemia panel if further downtrends # Seizure disorder, did have lip smacking on admission --> has been started on keppra bid dosing per gt --> klonipin v ativan prn basis --> as per neurology eval # Leukocytosis due to Sepsis with uti poa --> have started ABX ctx --> wbc 12-->10 # Bibasilar atelectasis # Dysphagia s/p peg # Transient hypotension, asymptomatic. Overall stable hemodynamics. # Paroxysmal atrial ectopy. # Respiratory failure with trach. # Dvt ppx heparin sq Dw Rn and pcp Subjective Constitutional: Denies: no symptoms, chills, fever, malaise, weakness, other HEENT: Denies: no symptoms, eye pain, blurred vision, tearing, double vision, ear pain, ear discharge, nose pain, nose congestion, throat pain, throat swelling, mouth pain, mouth swelling, other Cardiovascular: Denies: no symptoms, chest pain, edema, irregular heart rate, lightheadedness, palpitations, syncope, other Gastrointestinal/Abdominal: Denies: no symptoms, abdomen distended, abdominal pain, black stools, tarry stools, blood in stool, constipated, diarrhea, difficulty swallowing, nausea, poor appetite, poor fluid intake, rectal bleeding, vomiting, other Genitourinary: Denies: no symptoms, burning, discharge, frequency, flank pain, hematuria, incontinence, pain, urgency, other Neurologic/Psychiatric: Denies: no symptoms, anxiety, depressed, emotional problems, headache, numbness, paresthesia, pre-existing deficit, seizure, tingling, tremors, weakness, other Hematologic/Lymphatic: Denies: no symptoms, anemia, easy bleeding, easy bruising, adenopathy, other Allergies: Uncoded Allergies: TAPE (Allergy, Unknown, 05/31/18) Subjective 05/11 on vent, glucerna, meds noted, with gt, seen by surg, labs reviewed 05/12 no seizures overnight, on klonipin and ativan as needed, meds noted 05/13 labs reviewed, meds noted, no night sweats, on abx Objective Objective Current Medications Medications (Trade) Dose Ordered Sig/Jacob Route PRN Reason Start Time Stop Time Status Last Admin Dose Admin Ascorbic Acid (Vitamin C) 500 mg DAILY GT 05/10/20 09:00 06/09/20 08:59 05/12/20 09:34 Atorvastatin Calcium (Lipitor) 10 mg BEDTIME GT 05/10/20 21:00 08/07/20 21:44 05/12/20 21:00 Ceftriaxone Sodium 1 gm/ Dextrose 55 ml @ 110 mls/hr Q24H IVPB 05/10/20 12:00 05/17/20 11:59 05/12/20 12:00 Clonazepam (KlonoPIN) 2 mg EVERY 8 HOURS GT 05/09/20 22:00 05/16/20 21:59 05/13/20 05:47 Dextrose (Dextrose 50%) 25 ml Q30M PRN IV Hypoglycemia 05/09/20 21:45 08/07/20 21:44 Dextrose (Dextrose 50%) 50 ml Q30M PRN IV Hypoglycemia 05/09/20 21:45 08/07/20 21:44 Dextrose/Sodium Chloride 1,000 ml @ 150 mls/hr Q6H40M IV 05/11/20 06:15 06/10/20 06:14 05/13/20 04:56 Heparin Sodium (Porcine) (Heparin 5000 units/ml) 5,000 units EVERY 12 HOURS SUBQ 05/10/20 09:00 06/24/20 08:59 05/12/20 21:01 Levetiracetam (Keppra) 1,500 mg Q12HR GT 05/09/20 21:45 06/08/20 21:44 05/12/20 21:00 Lorazepam (Ativan 2mg/ml 1ml) 2 mg Q4H PRN IV For Seizures 05/10/20 06:15 05/17/20 06:14 Midodrine (Pro-Amatine) 5 mg EVERY 8 HOURS PRN GT SBP less than 110 05/10/20 06:00 08/08/20 05:59 05/10/20 17:29 Multivitamins (Multivitamins W/ Minerals 15ml Liquid) 15 ml DAILY GT 05/10/20 09:00 06/09/20 08:59 05/12/20 09:32 Oxcarbazepine (TrileptaL) 600 mg EVERY 12 HOURS GT 05/09/20 21:45 06/08/20 21:44 05/12/20 21:00 Pantoprazole (Protonix) 40 mg EVERY 12 HOURS IVP 05/10/20 09:00 06/09/20 08:59 05/12/20 21:00 Vitamin D (Vitamin D) 5,000 unit DAILY GT 05/10/20 09:00 06/09/20 08:59 05/12/20 09:34 Zinc Oxide (Zinc Oxide) 1 applic TIDPRN PRN TOPIC g tube wound 05/11/20 18:30 08/09/20 18:29 Last 24 Hour Vital Signs Date Time Temp Pulse Resp B/P (MAP) Pulse Ox O2 Delivery O2 Flow Rate FiO2 05/13/20 04:00 Mechanical Ventilator 05/13/20 04:00 97.8 72 22 104/77 (86) 100 05/13/20 04:00 55 05/13/20 03:39 88 18 55 05/13/20 00:00 98.4 69 20 94/67 (76) 97 05/13/20 00:00 73 05/13/20 00:00 Mechanical Ventilator 05/12/20 23:27 68 16 55 05/12/20 20:00 Mechanical Ventilator 05/12/20 20:00 55 05/12/20 20:00 73 05/12/20 20:00 98.2 72 20 91/71 (78) 96 05/12/20 19:37 80 17 55 05/12/20 16:00 70 05/12/20 16:00 98.4 22 100/69 (79) 90 05/12/20 16:00 Mechanical Ventilator 05/12/20 15:52 112 05/12/20 15:35 88 24 70 05/12/20 12:40 102 05/12/20 12:00 98.4 94 22 100/69 (79) 90 05/12/20 12:00 Mechanical Ventilator 05/12/20 12:00 70 05/12/20 11:27 92 27 70 05/12/20 08:00 98.2 69 20 99/70 (80) 100 05/12/20 08:00 Mechanical Ventilator 05/12/20 08:00 40 05/12/20 08:00 79 05/12/20 08:00 73 05/12/20 07:06 73 16 40 05/12/20 04:00 Mechanical Ventilator 05/12/20 04:00 79 05/12/20 04:00 40 05/12/20 04:00 98.2 76 20 100/63 (75) 100 05/12/20 03:25 86 20 40 05/12/20 00:00 40 05/12/20 00:00 79 05/12/20 00:00 Mechanical Ventilator 05/12/20 00:00 97.9 66 20 104/72 (83) 100 05/11/20 23:20 81 21 40 05/11/20 20:00 Mechanical Ventilator 05/11/20 20:00 40 05/11/20 20:00 79 05/11/20 20:00 98.4 80 20 106/69 (81) 100 05/11/20 19:00 85 20 40 05/11/20 16:00 79 05/11/20 16:00 Mechanical Ventilator 05/11/20 16:00 40 05/11/20 16:00 98.2 79 20 104/66 (79) 100 05/11/20 15:05 67 16 40 05/11/20 12:00 97.6 87 20 110/72 (85) 100 05/11/20 12:00 88 05/11/20 12:00 Mechanical Ventilator 05/11/20 12:00 40 05/11/20 11:05 64 16 40 05/11/20 09:00 40 05/11/20 08:00 98.2 70 18 106/65 (79) 100 05/11/20 08:00 78 05/11/20 08:00 Mechanical Ventilator 05/11/20 07:20 79 16 40 Intake and Output 05/12/20 05/13/20 19:00 07:00 Intake Total 620 ml 2465 ml Output Total 500 ml Balance 620 ml 1965 ml Free Water 60 ml 60 ml IV Total 450 ml 1800 ml Tube Feeding 110 ml 605 ml Output Urine Total 500 ml # Voids 2 Labs Test 05/11/20 04:13 05/11/20 08:59 05/12/20 03:00 White Blood Count 7.4 K/UL (4.8-10.8) 7.2 K/UL (4.8-10.8) Red Blood Count 4.10 M/UL (4.70-6.10) 3.60 M/UL (4.70-6.10) Hemoglobin 12.7 G/DL (14.2-18.0) 11.6 G/DL (14.2-18.0) Hematocrit 38.5 % (42.0-52.0) 33.6 % (42.0-52.0) Mean Corpuscular Volume 94 FL (80-99) 93 FL (80-99) Mean Corpuscular Hemoglobin 30.9 PG (27.0-31.0) 32.1 PG (27.0-31.0) Mean Corpuscular Hemoglobin Concent 33.0 G/DL (32.0-36.0) 34.4 G/DL (32.0-36.0) Red Cell Distribution Width 13.6 % (11.6-14.8) 14.6 % (11.6-14.8) Platelet Count 212 K/UL (150-450) 188 K/UL (150-450) Mean Platelet Volume 11.0 FL (6.5-10.1) 11.4 FL (6.5-10.1) Neutrophils (%) (Auto) 67.1 % (45.0-75.0) 59.0 % (45.0-75.0) Lymphocytes (%) (Auto) 19.7 % (20.0-45.0) 25.5 % (20.0-45.0) Monocytes (%) (Auto) 6.6 % (1.0-10.0) 7.3 % (1.0-10.0) Eosinophils (%) (Auto) 5.9 % (0.0-3.0) 7.1 % (0.0-3.0) Basophils (%) (Auto) 0.8 % (0.0-2.0) 1.1 % (0.0-2.0) Prothrombin Time 11.4 SEC (9.30-11.50) Prothromb Time International Ratio 1.0 (0.9-1.1) Height (Feet): 5 Height (Inches): 10.00 Weight (Pounds): 200 Objective General Appearance: no apparent distress, alert, GCS 15, non-toxic Head: normocephalic, atraumatic HEENT: bilateral eye normal inspection, bilateral eye PERRL ++trach Respiratory: chest non-tender, lungs clear, nv Cardiovascular: regular rate, rhythm, no edema Gastrointestinal: normal bowel sounds, non tender ++gt Rectal: deferred Genitourinary: normal inspection, no CVA tenderness Musculoskeletal: back normal, normal range of motion, gait/station normal, non- tender Neurologic: alert, motor strength/tone normal, oriented x3, sensory intact, responsive, speech normal Psychiatric: judgement/insight normal, memory normal, mood/affect normal, no suicidal/homicidal ideation Skin: other - see nursing notes Lymphatic: no adenopathy Napoleon Candelario MD May 13, 2020 06:33
[2020-05-13 07:07] LABS: BASOPHILS % (AUTO) 0.5 % (0.0-2.0); EOSINOPHILS % (AUTO) 4.1 % (0.0-3.0); HEMATOCRIT 37.2 % (42.0-52.0); HEMOGLOBIN 12.4 G/DL (14.2-18.0); LYMPHOCYTES % (AUTO) 15.5 % (20.0-45.0); MEAN CORPUSCULAR VOLUME 94 FL (80-99); MONOCYTES % (AUTO) 6.2 % (1.0-10.0); NEUTROPHILS % (AUTO) 73.7 % (45.0-75.0); PLATELET COUNT 193 K/UL (150-450); RED BLOOD COUNT 3.98 M/UL (4.70-6.10); RED CELL DISTRIBUTION WIDTH 13.6 % (11.6-14.8); WHITE BLOOD COUNT 10.9 K/UL (4.8-10.8)
--- NOTE | 2020-05-13 07:15 | NUR ---
NURSE NOTES: Received patient report from MANJINDER Thrasher. Patient is AO x1, in bed asleep at this time. Patient is trach to vent Shiley 7 AC 16 TV 600 F 55% P5. Patient with Gt running glucerna 1.5 @55ml/hr. Patient with L hand 22G running D51/2NS @ 150/hr, patent and intact. Bed in lowest position, locked with side rails up.Call light within reach.
[2020-05-13 08:00] VITALS: BP 104/68
[2020-05-13] MEDS: OXcarbazepine 150mg tab GT SCH ×2 (08:15→21:55)
[2020-05-13] MEDS: Multivitamins W/Minerals 15 ML UDC GT SCH (08:15)
[2020-05-13] MEDS: Vitamin D 1000 units Tab GT SCH (08:15)
[2020-05-13] MEDS: Ascorbic Acid 500mg tab GT SCH (08:15)
[2020-05-13] MEDS: levETIRAcetam 500mg/5ml Liquid GT SCH ×2 (08:15→21:54)
[2020-05-13] MEDS: Pantoprazole Inj IVP SCH ×2 (08:15→21:54)
[2020-05-13] MEDS: Heparin 5000 units/ml inj SUBQ SCH ×2 (08:16→21:56)
--- NOTE | 2020-05-13 09:49 | NUR ---
CASE MANAGEMENT:REVIEW 05/13/20 SI: SEPSIS. SEIZURE. UTI TRACH/VENT/G-TUBE DEPENDENT 97.8 72 22 104/77 100% ON VENT SUPPORT W/55% FIO2 `WBC+10.9 H/H-12.4/37.2 IS: IVF@150/HR IV ROCEPHIN Q24 IV PROTONIX Q12 HEPARIN SQ Q12 KLONOPIN GT Q8HRS TRILEPTAL GT Q12 KEPPRA GT Q12 : STEP DOWN UNIT DCP: BRIE FELICIANO
[2020-05-13 12:00] VITALS: BP 102/71
[2020-05-13] MEDS: cefTRIAXone 1 GM in D5W 55 ML IVPB SCH (12:00)
--- NOTE | 2020-05-13 12:30 | NUR ---
INSURANCE CLINICALS/REVIEW FAXED TO [facility] #[phone] FAX# [phone]
--- NOTE | 2020-05-13 13:05 | Surgery Progress Note ---
Surgery Progress Note Subjective Additional Comments leukocytosis no n/v no acute events micro noted Objective Last 24 Hour Vital Signs Date Time Temp Pulse Resp B/P (MAP) Pulse Ox O2 Delivery O2 Flow Rate FiO2 05/13/20 12:00 98.2 92 20 102/71 (81) 90 05/13/20 12:00 Mechanical Ventilator 05/13/20 12:00 55 05/13/20 10:44 79 18 55 05/13/20 08:42 81 18 55 05/13/20 08:00 Mechanical Ventilator 05/13/20 08:00 55 05/13/20 08:00 98.4 71 18 104/68 (80) 98 05/13/20 07:25 65 05/13/20 06:45 74 20 55 05/13/20 04:00 Mechanical Ventilator 05/13/20 04:00 97.8 72 22 104/77 (86) 100 05/13/20 04:00 55 05/13/20 03:39 88 18 55 05/13/20 00:00 98.4 69 20 94/67 (76) 97 05/13/20 00:00 73 05/13/20 00:00 Mechanical Ventilator 05/12/20 23:27 68 16 55 05/12/20 20:00 Mechanical Ventilator 05/12/20 20:00 55 05/12/20 20:00 73 05/12/20 20:00 98.2 72 20 91/71 (78) 96 05/12/20 19:37 80 17 55 05/12/20 16:00 70 05/12/20 16:00 98.4 22 100/69 (79) 90 05/12/20 16:00 Mechanical Ventilator 05/12/20 15:52 112 05/12/20 15:35 88 24 70 I&O Intake and Output 05/12/20 05/13/20 19:00 07:00 Intake Total 620 ml 2465 ml Output Total 500 ml Balance 620 ml 1965 ml Free Water 60 ml 60 ml IV Total 450 ml 1800 ml Tube Feeding 110 ml 605 ml Output Urine Total 500 ml # Voids 2 Dressing: other Wound: other Cardiovascular: RSR Respiratory: decreased breath sounds Abdomen: soft, flat, non-tender, present bowel sounds, non-distended Extremities: no edema, no tenderness, no cyanosis Laboratory Tests Test 05/13/20 03:35 White Blood Count 10.9 K/UL (4.8-10.8) #H Red Blood Count 3.98 M/UL (4.70-6.10) L Hemoglobin 12.4 G/DL (14.2-18.0) L Hematocrit 37.2 % (42.0-52.0) L Mean Corpuscular Volume 94 FL (80-99) Mean Corpuscular Hemoglobin 31.1 PG (27.0-31.0) H Mean Corpuscular Hemoglobin Concent 33.3 G/DL (32.0-36.0) Red Cell Distribution Width 13.6 % (11.6-14.8) Platelet Count 193 K/UL (150-450) Mean Platelet Volume 10.4 FL (6.5-10.1) H Neutrophils (%) (Auto) 73.7 % (45.0-75.0) Lymphocytes (%) (Auto) 15.5 % (20.0-45.0) L Monocytes (%) (Auto) 6.2 % (1.0-10.0) Eosinophils (%) (Auto) 4.1 % (0.0-3.0) H Basophils (%) (Auto) 0.5 % (0.0-2.0) Plan Problems: (1) Sepsis Assessment & Plan: 55-year-old male admitted with leukocytosis lactic acidosis recent seizure. Currently no nausea vomiting fever chills. Labs reviewed. Improvement with IV hydration. Urine noted. On antibiotics. Wounds evaluated unlikely source patient's sepsis. Wounds are otherwise clean and no active infection identified. Local wound care provided IV hydration IV antibiotics nutritional support. Will follow with recommendations. Thank you (2) Pressure sore Assessment & Plan: Pt presented on admission with Tracheostomy,Gt and Pressure Injuries. No evidence of skin breakdown under tracheal collar. Pt noted to have clusters of small pustules to R and L antecubital,Dorsal and web spaces of fingers L hand,R antecubital,abd ,groin areas and upper back. Skin erosion along with hypergranulation at insertion site of Gastrostomy. Small amt sanguineous exudate mixed with Formula noted. Silver Nitrate Sticks x1 application applied to Hypergranular portion of Stoma. Resolving Full thickness Sacral Pressure Injury(L014.2cm x (W)9.5cm. Base of wound has uneven,rugged and leathery appearance and is pale pink in colour.Full thickness wounds at sacrum(L)1.3cm x (W)0.8cm x(D)0.5cm and Sacrococcygeal (L)4cm x (W)1.1 x (D)0.6cm.Small amt sanguineous exudate noted from wounds. Resolving Pressure Injury noted to L ischium(L)4cm x (W)3.8cm Base of wound is pale pink with scattered moist- pink epithelial. Bilat foot drop noted. Both heels are boggy but easily blanchable. Soft necrosis noted noted to L 1st metatarsal nail matrix. Tx.Plan:Wash GT site with Soap and water. Pat dry. Apply Zinc Oxide Paste to Peristomal Gt. Cover with Optifoam drsg Daily and prn. Cleanse Sacral wound with Saline. Apply Therahoney to coccygeal and sacral wounds. Apply Moisture Barrier Paste periwound. Cover with Optifoam drsg every 3 days and prn. Apply Moisture Barrier Paste to L Ischial wound. Cover with Optifoam drsg. Change every 3 days and prn. Apply Moisture Barrier Paste to scrotum and R ischium with each i ncontinence care. Apply Cavilon Skin Barrier to both heels. Cover each Heel with Optifoam drsg. Change every 7 days and prn. Apply Betadine to L 1st metatarsal nail matrix Daily. Leave open to air. APM/EDD Mattress overlay. (3) Diabetes mellitus (4) Decubitus skin ulcer (5) Seizure disorder (6) Leaking percutaneous endoscopic gastrostomy (PEG) tube (7) Septic shock (8) Chronic respiratory failure (9) Feeding by G-tube (10) Bacteremia (11) Uncontrolled seizures (12) Seizure disorder, convulsive, with status epilepticus (13) Seizure after head injury (14) Line sepsis (15) UTI (urinary tract infection) (16) Urinary tract infection (17) Acute on chronic renal insufficiency Horacio Hope May 13, 2020 13:05
[2020-05-13 16:00] VITALS: BP 109/74
--- NOTE | 2020-05-13 19:10 | NUR ---
NURSE HAND-OFF REPORT: Important Events on Shift:NA Patient Status: Stable/ Full code Diet: Glucerna 1.2 @ 55/hr Pending Orders: NA Pending Results/Labs:NA Pending MD notification:NA Latest Vital Signs: Temperature 98.4 , Pulse 65 , B/P 109 /74 , Respiratory Rate 18 , O2 SAT 90 , Mechanical Ventilator, O2 Flow Rate . Vital Sign Comment: Stable EKG Rhythm: Sinus Rhythm Rhythm change?: N MD Notified?: - MD Response: Latest Olivier Fall Score: 50 Fall Risk: High Risk Safety Measures: Call light Within Reach, Bed Alarm Zone 2, Side Rails Side Rails x3, Bed position Low and Locked. Fall Precautions: Patient Fall Education Report given to MANJINDER Mallory.
--- NOTE | 2020-05-13 19:11 | NUR ---
NURSE NOTES: Report received from MANJINDER Simmons. Upon assessment pt appears obtunded; PERRLA. Resonsive to verbal/tactile stimuli. Saturating 100% on prescribed vent settings of AC 16 / Vt 600 / 55% fio2. G-tube running Glucerna 1.2 at 55mL with 0 residual. Left hand IV running D5 1/2 NS at 150mL. Made aware of alterations in skin integrity; p200 mattress and repositioning initiated. Costello draining well to gravity. Bed kept in lowest and locked position. Bed alarm on. Side rails up x3. Will monitor.
[2020-05-13 20:00] VITALS: BP 116/60
[2020-05-13] MEDS: Atorvastatin 20mg tab GT SCH (21:54)
[2020-05-13] MEDS: Midodrine 10mg tab GT PRN (21:55)
--- NOTE | 2020-05-13 22:00 | NUR ---
NURSE NOTES: Midodrine administered for SBP in 90's. Will monitor.
--- NOTE | 2020-05-13 23:40 | NUR ---
NURSE NOTES: Dr. Fair at bedside. Orders to discharge upon placement. Continue antibiotics until 05/18/2020. No cardiopulmonary distress noted. Will monitor.
--- NOTE | 2020-05-13 23:47 | General Progress Note ---
Subjective Constitutional: Reports: no symptoms HEENT: Reports: no symptoms Cardiovascular: Reports: no symptoms Respiratory: Reports: no symptoms Gastrointestinal/Abdominal: Reports: no symptoms Genitourinary: Reports: no symptoms Neurologic/Psychiatric: Reports: no symptoms Endocrine: Reports: no symptoms Hematologic/Lymphatic: Reports: no symptoms Allergies: Uncoded Allergies: TAPE (Allergy, Unknown, 05/31/18) Objective Last 24 Hour Vital Signs Date Time Temp Pulse Resp B/P (MAP) Pulse Ox O2 Delivery O2 Flow Rate FiO2 05/13/20 20:00 67 05/13/20 20:00 97.9 70 16 116/60 (78) 100 05/13/20 20:00 Mechanical Ventilator 05/13/20 20:00 55 05/13/20 19:00 65 18 55 05/13/20 16:00 55 05/13/20 16:00 78 05/13/20 16:00 98.4 88 20 109/74 (86) 90 05/13/20 16:00 Mechanical Ventilator 05/13/20 15:10 83 18 55 05/13/20 12:00 67 05/13/20 12:00 98.2 92 20 102/71 (81) 90 05/13/20 12:00 Mechanical Ventilator 05/13/20 12:00 55 05/13/20 10:44 79 18 55 05/13/20 08:42 81 18 55 05/13/20 08:00 Mechanical Ventilator 05/13/20 08:00 55 05/13/20 08:00 98.4 71 18 104/68 (80) 98 05/13/20 07:25 65 05/13/20 06:45 74 20 55 05/13/20 04:00 Mechanical Ventilator 05/13/20 04:00 97.8 72 22 104/77 (86) 100 05/13/20 04:00 55 05/13/20 03:39 88 18 55 05/13/20 00:00 98.4 69 20 94/67 (76) 97 05/13/20 00:00 73 05/13/20 00:00 Mechanical Ventilator Intake and Output 05/12/20 05/13/20 19:00 07:00 Intake Total 620 ml 2520 ml Output Total 500 ml Balance 620 ml 2020 ml Free Water 60 ml 60 ml IV Total 450 ml 1800 ml Tube Feeding 110 ml 660 ml Output Urine Total 500 ml # Voids 2 Laboratory Tests 05/13/20 03:35: White Blood Count 10.9#H, Red Blood Count 3.98L, Hemoglobin 12.4L, Hematocrit 37.2L, Mean Corpuscular Volume 94, Mean Corpuscular Hemoglobin 31.1H, Mean Corpuscular Hemoglobin Concent 33.3, Red Cell Distribution Width 13.6, Platelet Count 193, Mean Platelet Volume 10.4H, Neutrophils (%) (Auto) 73.7, Lymphocytes (%) (Auto) 15.5L, Monocytes (%) (Auto) 6.2, Eosinophils (%) (Auto) 4.1H, Basophils (%) (Auto) 0.5 Height (Feet): 5 Height (Inches): 10.00 Weight (Pounds): 200 General Appearance: no apparent distress EENT: normal ENT inspection Neck: supple Cardiovascular: normal rate, regular rhythm, no gallop/murmur, no JVD Respiratory/Chest: lungs clear, normal breath sounds, no respiratory distress, no accessory muscle use Abdomen: normal bowel sounds, non tender, soft, no organomegaly, no mass Extremities: non-tender Neurologic: unresponsive Skin: warm/dry Assessment/Plan Status Narrative Patient is known alert not awake afebrile hemodynamically stable blood pressure and heart rate are relatively well controlled and is seizure well for several days this patient has seizure on levetiracetam at 1500 mg every 12 which is the max dose for levetiracetam as well as 10 to milligram every 8 hours of Klonopin seizure activity continue given on those 2 anticonvulsant medication patient has been placed Trileptal 600 mg twice daily since then he did not have any other seizure all other medical issues such as blood pressure tachycardia leukocytosis all seem to be resolved and will be discharged in a.m. back to the extended care facility Libby Bro MD, MD May 13, 2020 23:47
--- NOTE | 2020-05-13 23:47 | NUR ---
NURSE NOTES: Dr. Fair made aware of D5 1/2 NS despite elevated blood sugar/glucerna. Orders to discontinue tomorrow in AM. Will monitor.
[2020-05-14] VITALS: BP 100/66
[2020-05-14 04:00] VITALS: BP 92/59
--- NOTE | 2020-05-14 06:29 | Hematology/Onc Progress Note ---
Assessment/Plan Assessment/Plan Assessment and Recs # Anemia of hemodilution, labs noted --> no hemolysis is noted --> hgb 11.6 --> consider anemia panel if further downtrends # Seizure disorder, did have lip smacking on admission --> has been started on keppra bid dosing per gt --> klonipin v ativan prn basis --> as per neurology eval # Leukocytosis due to Sepsis with uti poa --> have started ABX ctx --> wbc 12-->10 # Bibasilar atelectasis # Dysphagia s/p peg # Transient hypotension, asymptomatic. Overall stable hemodynamics. # Paroxysmal atrial ectopy. # Respiratory failure with trach. # Dvt ppx heparin sq Dw Rn and pcp Subjective Allergies: Uncoded Allergies: TAPE (Allergy, Unknown, 05/31/18) All Systems: reviewed and negative except above Subjective 05/11 on vent, glucerna, meds noted, with gt, seen by surg, labs reviewed 05/12 no seizures overnight, on klonipin and ativan as needed, meds noted 05/13 labs reviewed, meds noted, no night sweats, on abx 05/14 on vent, meds noted, no abx ctx, with gt, potential dc Objective Objective Current Medications Medications (Trade) Dose Ordered Sig/Jacob Route PRN Reason Start Time Stop Time Status Last Admin Dose Admin Ascorbic Acid (Vitamin C) 500 mg DAILY GT 05/10/20 09:00 06/09/20 08:59 05/13/20 08:15 Atorvastatin Calcium (Lipitor) 10 mg BEDTIME GT 05/10/20 21:00 08/07/20 21:44 05/13/20 21:54 Ceftriaxone Sodium 1 gm/ Dextrose 55 ml @ 110 mls/hr Q24H IVPB 05/10/20 12:00 05/18/20 08:00 05/13/20 12:00 Clonazepam (KlonoPIN) 2 mg EVERY 8 HOURS GT 05/09/20 22:00 05/16/20 21:59 05/14/20 05:07 Dextrose (Dextrose 50%) 25 ml Q30M PRN IV Hypoglycemia 05/09/20 21:45 08/07/20 21:44 Dextrose (Dextrose 50%) 50 ml Q30M PRN IV Hypoglycemia 05/09/20 21:45 08/07/20 21:44 Heparin Sodium (Porcine) (Heparin 5000 units/ml) 5,000 units EVERY 12 HOURS SUBQ 05/10/20 09:00 06/24/20 08:59 05/13/20 21:56 Levetiracetam (Keppra) 1,500 mg Q12HR GT 05/09/20 21:45 06/08/20 21:44 05/13/20 21:54 Lorazepam (Ativan 2mg/ml 1ml) 2 mg Q4H PRN IV For Seizures 05/10/20 06:15 05/17/20 06:14 Midodrine (Pro-Amatine) 5 mg EVERY 8 HOURS PRN GT SBP less than 110 05/10/20 06:00 08/08/20 05:59 05/13/20 21:55 Multivitamins (Multivitamins W/ Minerals 15ml Liquid) 15 ml DAILY GT 05/10/20 09:00 06/09/20 08:59 05/13/20 08:15 Oxcarbazepine (TrileptaL) 600 mg EVERY 12 HOURS GT 05/09/20 21:45 06/08/20 21:44 05/13/20 21:55 Pantoprazole (Protonix) 40 mg EVERY 12 HOURS IVP 05/10/20 09:00 06/09/20 08:59 05/13/20 21:54 Vitamin D (Vitamin D) 5,000 unit DAILY GT 05/10/20 09:00 06/09/20 08:59 05/13/20 08:15 Zinc Oxide (Zinc Oxide) 1 applic TIDPRN PRN TOPIC g tube wound 05/11/20 18:30 08/09/20 18:29 Last 24 Hour Vital Signs Date Time Temp Pulse Resp B/P (MAP) Pulse Ox O2 Delivery O2 Flow Rate FiO2 05/14/20 05:32 45 05/14/20 04:00 97.0 58 16 92/59 (70) 100 05/14/20 04:00 55 05/14/20 04:00 Mechanical Ventilator 05/14/20 04:00 61 05/14/20 01:30 53 16 55 05/14/20 00:00 Mechanical Ventilator 05/14/20 00:00 53 05/14/20 00:00 55 05/14/20 00:00 97.0 54 16 100/66 (77) 100 05/13/20 20:00 67 05/13/20 20:00 97.9 70 16 116/60 (78) 100 05/13/20 20:00 Mechanical Ventilator 05/13/20 20:00 55 05/13/20 19:00 65 18 55 05/13/20 16:00 55 05/13/20 16:00 78 05/13/20 16:00 98.4 88 20 109/74 (86) 90 05/13/20 16:00 Mechanical Ventilator 05/13/20 15:10 83 18 55 05/13/20 12:00 67 05/13/20 12:00 98.2 92 20 102/71 (81) 90 05/13/20 12:00 Mechanical Ventilator 05/13/20 12:00 55 05/13/20 10:44 79 18 55 05/13/20 08:42 81 18 55 05/13/20 08:00 Mechanical Ventilator 05/13/20 08:00 55 05/13/20 08:00 98.4 71 18 104/68 (80) 98 05/13/20 07:25 65 05/13/20 06:45 74 20 55 05/13/20 04:00 Mechanical Ventilator 05/13/20 04:00 97.8 72 22 104/77 (86) 100 05/13/20 04:00 55 05/13/20 03:39 88 18 55 05/13/20 00:00 98.4 69 20 94/67 (76) 97 05/13/20 00:00 73 05/13/20 00:00 Mechanical Ventilator 05/12/20 23:27 68 16 55 05/12/20 20:00 Mechanical Ventilator 05/12/20 20:00 55 05/12/20 20:00 73 05/12/20 20:00 98.2 72 20 91/71 (78) 96 05/12/20 19:37 80 17 55 05/12/20 16:00 70 05/12/20 16:00 98.4 22 100/69 (79) 90 05/12/20 16:00 Mechanical Ventilator 05/12/20 15:52 112 05/12/20 15:35 88 24 70 05/12/20 12:40 102 05/12/20 12:00 98.4 94 22 100/69 (79) 90 05/12/20 12:00 Mechanical Ventilator 05/12/20 12:00 70 05/12/20 11:27 92 27 70 05/12/20 08:00 98.2 69 20 99/70 (80) 100 05/12/20 08:00 Mechanical Ventilator 05/12/20 08:00 40 05/12/20 08:00 79 05/12/20 08:00 73 05/12/20 07:06 73 16 40 Intake and Output 05/13/20 05/14/20 19:00 07:00 Intake Total 1310 ml 1460 ml Output Total 2000 ml 600 ml Balance -690 ml 860 ml Free Water 500 ml 200 ml IV Total 150 ml 600 ml Tube Feeding 660 ml 660 ml Output Urine Total 2000 ml 600 ml Labs Test 05/11/20 08:59 05/12/20 03:00 05/13/20 03:35 Prothrombin Time 11.4 SEC (9.30-11.50) Prothromb Time International Ratio 1.0 (0.9-1.1) White Blood Count 7.2 K/UL (4.8-10.8) 10.9 K/UL (4.8-10.8) Red Blood Count 3.60 M/UL (4.70-6.10) 3.98 M/UL (4.70-6.10) Hemoglobin 11.6 G/DL (14.2-18.0) 12.4 G/DL (14.2-18.0) Hematocrit 33.6 % (42.0-52.0) 37.2 % (42.0-52.0) Mean Corpuscular Volume 93 FL (80-99) 94 FL (80-99) Mean Corpuscular Hemoglobin 32.1 PG (27.0-31.0) 31.1 PG (27.0-31.0) Mean Corpuscular Hemoglobin Concent 34.4 G/DL (32.0-36.0) 33.3 G/DL (32.0-36.0) Red Cell Distribution Width 14.6 % (11.6-14.8) 13.6 % (11.6-14.8) Platelet Count 188 K/UL (150-450) 193 K/UL (150-450) Mean Platelet Volume 11.4 FL (6.5-10.1) 10.4 FL (6.5-10.1) Neutrophils (%) (Auto) 59.0 % (45.0-75.0) 73.7 % (45.0-75.0) Lymphocytes (%) (Auto) 25.5 % (20.0-45.0) 15.5 % (20.0-45.0) Monocytes (%) (Auto) 7.3 % (1.0-10.0) 6.2 % (1.0-10.0) Eosinophils (%) (Auto) 7.1 % (0.0-3.0) 4.1 % (0.0-3.0) Basophils (%) (Auto) 1.1 % (0.0-2.0) 0.5 % (0.0-2.0) Height (Feet): 5 Height (Inches): 10.00 Weight (Pounds): 200 Objective General Appearance: no apparent distress, alert, GCS 15, non-toxic Head: normocephalic, atraumatic HEENT: bilateral eye normal inspection, bilateral eye PERRL ++trach Respiratory: chest non-tender, lungs clear, nv Cardiovascular: regular rate, rhythm, no edema Gastrointestinal: normal bowel sounds, non tender ++gt Rectal: deferred Genitourinary: normal inspection, no CVA tenderness Musculoskeletal: back normal, normal range of motion, gait/station normal, non- tender Neurologic: alert, motor strength/tone normal, oriented x3, sensory intact, re sponsive, speech normal Psychiatric: judgement/insight normal, memory normal, mood/affect normal, no suicidal/homicidal ideation Skin: other - see nursing notes Lymphatic: no adenopathy Napoleon Candelario MD May 14, 2020 06:29
--- NOTE | 2020-05-14 06:52 | NUR ---
NURSE NOTES: Dr. Candelario at bedside. No new orders endorsed. Pt in stable condition.
--- NOTE | 2020-05-14 07:19 | NUR ---
NURSE HAND-OFF REPORT: Important Events on Shift: NO CHANGES; DISCHARGE PLANNING Patient Status: Stable Diet: Glucerna Pending Orders: N Pending Results/Labs: Pending MD notification: Latest Vital Signs: Temperature 97.0 , Pulse 58 , B/P 92 /59 , Respiratory Rate 16 , O2 SAT 100 , Mechanical Ventilator, O2 Flow Rate . Vital Sign Comment: WNL EKG Rhythm: Sinus Rhythm Rhythm change?: N MD Notified?: Bebeto Fair MD Response: Latest Olivier Fall Score: 50 Fall Risk: High Risk Safety Measures: Call light Within Reach, Bed Alarm Zone 1, Side Rails Side Rails x3, Bed position Low and Locked. Fall Precautions: Patient Fall Education Report given to MANJINDER Macdonald.
[2020-05-14 08:00] VITALS: BP 95/65
[2020-05-14] MEDS: Ascorbic Acid 500mg tab GT SCH (09:11)
[2020-05-14] MEDS: Vitamin D 1000 units Tab GT SCH (09:11)
[2020-05-14] MEDS: OXcarbazepine 150mg tab GT SCH (09:12)
[2020-05-14] MEDS: levETIRAcetam 500mg/5ml Liquid GT SCH (09:12)
[2020-05-14] MEDS: Pantoprazole Inj IVP SCH (09:12)
[2020-05-14] MEDS: Multivitamins W/Minerals 15 ML UDC GT SCH (09:12)
[2020-05-14] MEDS: Heparin 5000 units/ml inj SUBQ SCH (09:14)
--- NOTE | 2020-05-14 09:50 | NUR ---
NURSE NOTES: Report received. pt is nonaphasic and non verbal. Pt is Port to vent with settings AC 16 / Vt 600 / 55% fio2 with O2 sat 100%. Pt is not showing any signs of sob, resp distress. pt is on el teacher showing SR. G tube is noted running Glucerna 1.2 with 0 residual. Left hand 22g SL. Costello noted and draining to gravity.
--- NOTE | 2020-05-14 10:00 | NUR ---
*-*DISCHARGE PLANNED*-* PATIENT HAS BEEN ACCEPTED AND WILL BE DISCHARGED BACK TO: [facility] P: [phone] FOR NURSE TO NURSE REPORT ROOM# 19.[facility] TRANSP[facility] SET FOR 12PM S/W LIZZIE [id number].
[2020-05-14] MEDS: cefTRIAXone 1 GM in D5W 55 ML IVPB SCH (11:36)
[2020-05-14 12:00] VITALS: BP 102/58
--- NOTE | 2020-05-14 12:04 | NUR ---
*-*DISCHARGE PLANNED*-* PATIENT HAS BEEN ACCEPTED AND WILL BE DISCHARGED BACK TO: [facility] P: [phone] FOR NURSE TO NURSE REPORT ROOM# 19.[facility] TRANSP[facility] SET FOR 1PM S/W DIONNA [id number].
--- NOTE | 2020-05-14 13:18 | Surgery Progress Note ---
Surgery Progress Note Subjective Symptoms: improved, tolerating diet, passing flatus Objective Last 24 Hour Vital Signs Date Time Temp Pulse Resp B/P (MAP) Pulse Ox O2 Delivery O2 Flow Rate FiO2 05/14/20 12:00 97.9 67 16 102/58 (73) 99 05/14/20 12:00 40 05/14/20 12:00 Mechanical Ventilator 05/14/20 11:00 76 16 40 05/14/20 08:00 55 05/14/20 08:00 Mechanical Ventilator 05/14/20 08:00 97.5 60 16 95/65 (75) 100 05/14/20 07:50 66 16 40 05/14/20 07:33 65 05/14/20 05:32 45 05/14/20 04:00 97.0 58 16 92/59 (70) 100 05/14/20 04:00 55 05/14/20 04:00 Mechanical Ventilator 05/14/20 04:00 61 05/14/20 01:30 53 16 55 05/14/20 00:00 Mechanical Ventilator 05/14/20 00:00 53 05/14/20 00:00 55 05/14/20 00:00 97.0 54 16 100/66 (77) 100 05/13/20 20:00 67 05/13/20 20:00 97.9 70 16 116/60 (78) 100 05/13/20 20:00 Mechanical Ventilator 05/13/20 20:00 55 05/13/20 19:00 65 18 55 05/13/20 16:00 55 05/13/20 16:00 78 05/13/20 16:00 98.4 88 20 109/74 (86) 90 05/13/20 16:00 Mechanical Ventilator 05/13/20 15:10 83 18 55 I&O Intake and Output 05/13/20 05/14/20 19:00 07:00 Intake Total 1310 ml 1460 ml Output Total 2000 ml 600 ml Balance -690 ml 860 ml Free Water 500 ml 200 ml IV Total 150 ml 600 ml Tube Feeding 660 ml 660 ml Output Urine Total 2000 ml 600 ml Dressing: saturated Cardiovascular: RSR Respiratory: decreased breath sounds Abdomen: soft, non-tender, present bowel sounds, non-distended Extremities: no edema, no tenderness, no cyanosis Plan Problems: (1) Sepsis Assessment & Plan: 55-year-old male admitted with leukocytosis lactic acidosis recent seizure. Currently no nausea vomiting fever chills. Labs reviewed. Improvement with IV hydration. Urine noted. On antibiotics. Wounds evaluated unlikely source patient's sepsis. Wounds are otherwise clean and no active infection identified. Local wound care provided IV hydration IV antibiotics nutritional support. Will follow with recommendations. Thank you (2) Pressure sore Assessment & Plan: Pt presented on admission with Tracheostomy,Gt and Pressure Injuries. No evidence of skin breakdown under tracheal collar. Pt noted to have clusters of small pustules to R and L antecubital,Dorsal and web spaces of fingers L hand,R antecubital,abd ,groin areas and upper back. Skin erosion along with hypergranulation at insertion site of Gastrostomy. Small amt sanguineous exudate mixed with Formula noted. Silver Nitrate Sticks x1 application applied to Hypergranular portion of Stoma. Resolving Full thickness Sacral Pressure Injury(L014.2cm x (W)9.5cm. Base of wound has uneven,rugged and leathery appearance and is pale pink in colour.Full thickness wounds at sacrum(L)1.3cm x (W)0.8cm x(D)0.5cm and Sacrococcygeal (L)4cm x (W)1.1 x (D)0.6cm.Small amt sanguineous exudate noted from wounds. Resolving Pressure Injury noted to L ischium(L)4cm x (W)3.8cm Base of wound is pale pink with scattered moist- pink epithelial. Bilat foot drop noted. Both heels are boggy but easily blanchable. Soft necrosis noted noted to L 1st metatarsal nail matrix. Tx.Plan:Wash GT site with Soap and water. Pat dry. Apply Zinc Oxide Paste to Peristomal Gt. Cover with Optifoam drsg Daily and prn. Cleanse Sacral wound with Saline. Apply Therahoney to coccygeal and sacral wounds. Apply Moisture Barrier Paste periwound. Cover with Optifoam drsg every 3 days and prn. Apply Moisture Barrier Paste to L Ischial wound. Cover with Optifoam drsg. Change every 3 days and prn. Apply Moisture Barrier Paste to scrotum and R ischium with each incontinence care. Apply Cavilon Skin Barrier to both heels. Cover each Heel with Optifoam drsg. Change every 7 days and prn. Apply Betadine to L 1st metatarsal nail matrix Daily. Leave open to air. APM/EDD Mattress overlay. (3) Diabetes mellitus (4) Decubitus skin ulcer (5) Seizure disorder (6) Leaking percutaneous endoscopic gastrostomy (PEG) tube (7) Septic shock (8) Chronic respiratory failure (9) Feeding by G-tube (10) Bacteremia (11) Uncontrolled seizures (12) Seizure disorder, convulsive, with status epilepticus (13) Seizure after head injury (14) Line sepsis (15) UTI (urinary tract infection) (16) Urinary tract infection (17) Acute on chronic renal insufficiency Horacio Hope May 14, 2020 13:18
--- NOTE | 2020-05-14 13:37 | NUR ---
NURSE NOTES: wound photos taken wound care performed. pt had dm. pt was cleaned. oral care given. Called bernardino loomis to give report. family member was notified
--- NOTE | 2020-05-14 14:20 | NUR ---
NURSE NOTES: Mother Kathleen- cell # [phone] [facility]
--- NOTE | 2020-05-14 17:06 | NUR ---
INSURANCE CLINICALS/REVIEW FAXED TO [facility] #[phone] FAX# [phone]
--- NOTE | 2020-05-15 22:40 | Neurology Progress Note ---
Interim History Interim History Interim History 05/14 consultation 55-year-old male presents to ED status post seizure. Witnessed seizure at care home facility. Multiple episodes of seizure. Uncontrolled with medication. Trach vent. Nonverbal at baseline. Patient seizing upon arrival. Unable to provide any additional history at this time. No incontinence. No other aggravating relieving factors. No other associated symptoms Seizures controlled Objective Physical Exam Last Vital Signs Date Time Temp Pulse Resp B/P (MAP) Pulse Ox O2 Delivery O2 Flow Rate FiO2 05/14/20 12:00 97.9 67 16 102/58 (73) 99 05/14/20 12:00 40 05/14/20 12:00 Mechanical Ventilator Impression/Recommendations Problems: (1) Sepsis (2) Pressure sore (3) Diabetes mellitus (4) Decubitus skin ulcer (5) Seizure disorder (6) Leaking percutaneous endoscopic gastrostomy (PEG) tube (7) Septic shock (8) Chronic respiratory failure (9) Feeding by G-tube (10) Bacteremia (11) Uncontrolled seizures (12) Seizure disorder, convulsive, with status epilepticus (13) Seizure after head injury (14) Line sepsis (15) UTI (urinary tract infection) (16) Urinary tract infection (17) Acute on chronic renal insufficiency Diagnostic Impression cont levetiracetam at 1500 mg every 12 cont Trileptal 600 mg twice daily Matthew Li MD May 15, 2020 22:40
--- NOTE | 2020-05-17 10:39 | Discharge Summary ---
Discharge Summary Discharge Summary _ Date of admission: 05/09/2020 Date of discharge: 05/14/[address] Fair History of Present Illness and Brief Hospital Course Mr. Mishra is a 55-year-old male with history of hypertension, diabetes mellitus, intracranial hemorrhage due to skull fracture, and seizure disorder, who presen erinn to the ED for evaluation of a witnessed seizure at longterm facility. He apparently had multiple episodes of seizure which were uncontrolled with medication. He was noted to have tracheostomy with ventilator. He was nonverbal at baseline. Patient was seizing upon arrival with lipsmacking but without incontinence. Patient was given IV fluids, and Keppra in the ER. EKG revealed normal sinus rhythm without acute ischemic changes. Chest x-ray was notable for bibasilar atelectasis. Patient was admitted to the hospital for further management. Patient was admitted with leukocytosis and lactic acidosis. Given signs of se psis, he was started on antibiotics. Patient came in with clusters of small pustules to right and left antecubital, dorsal and webspaces of fingers of left hand, right antecubital, abdomen, groin areas and upper back. Skin erosion along with hypergranulation were found at the insertion site of gastrotomy. His wounds were evaluated but were unlikely the source of patient's sepsis. Wounds were otherwise clean without signs of active infection. Given the history of seizure, patient was started on levetiracetam and Trileptal. Patient was closely monitored for seizure activity. Since his blood pressure, tachycardia, and leukocytosis all seemed to be resolved, he was discharged back to longterm facility in stable condition on 05/14/2020. Consultants: Surgery Dr. Hope Hematology oncology Dr. Candelario Neurology Dr. Li Discharge Condition Improved and stable Final diagnoses Anemia of hemodilution Seizure disorder Sepsis with leukocytosis Bibasilar atelectasis Dysphagia, s/p PEG Asymptomatic transient hypotension Paroxysmal atrial ectopy Respiratory failure with trach vent Pressure sore Diabetes mellitus Decubitus skin ulcer Septic shock Bacteremia UTI I have been assigned to dictate discharge summary for this account. I was not involved in the patient's management Stephen Zamarripa May 17, 2020 10:39
--- NOTE | 2020-05-18 10:45 | NUR ---
INSURANCE DC SUMMARY FAXED TO [facility] #[phone] FAX# [phone]
== END 2020-05-14 15:05 | DRG 720 ==
LOC: EDBD 12:58 → EMR 13:13 → 2W 14:03 → EDBEDREQ 18:45
PROC: 5A1955Z Respiratory Ventilation, Greater than 96 Consecutive Hours (ICD-10-PCS; principal; 2020-05-09)
DX: A41.9 Sepsis, unspecified organism (principal); R65.21 Severe sepsis with septic shock; G40.909 Epilepsy, unspecified, not intractable, without status epilepticus; L89.156 Pressure-induced deep tissue damage of sacral region; J96.11 Chronic respiratory failure with hypoxia; L89.326 Pressure-induced deep tissue damage of left buttock; L89.316 Pressure-induced deep tissue damage of right buttock; N39.0 Urinary tract infection, site not specified; Z79.01 Long term (current) use of anticoagulants; R13.10 Dysphagia, unspecified; I49.1 Atrial premature depolarization; D64.89 Other specified anemias; Z43.0 Encounter for attention to tracheostomy; H40.9 Unspecified glaucoma; M21.372 Foot drop, left foot; M21.371 Foot drop, right foot; K94.29 Other complications of gastrostomy; Y83.3 Surgical operation with formation of external stoma as the cause of abnormal reaction of the patient, or of later complication, without mention of misadventure at the time of the procedure; W34.00XS Accidental discharge from unspecified firearms or gun, sequela
CPT/HCPCS: 36415; 71045; 80048; 80053; 80061; 80299; 81003; 82306; 83036; 83605; 83880; 84484; 85025; 85610; 87040; 87070; 87081; 87181; 87205; 93005; 94002; 94003; 96361; 96365; 96375; 99285; J7030